=== PATIENT | male | born 1975 | race Caucasian/White ===

== ENCOUNTER 2020-12-19 11:15 | Emergency (ER) | payer BC, SELFPAY ==
[2020-12-19 11:20] VITALS: BP 119/77; PULSE 82; RESP 21; TEMP 37.1; O2SAT 97; BMI 51.7
--- NOTE | 2020-12-19 11:35 | HMH.EDUTC ---
[facility] [place] Disposition Clinical Impression: Venous stasis of both lower extremities Disposition: Home, Self-Care Condition on Discharge: Good Instructions: DI for Edema Due to Venous Stasis, Venous Stasis Ulcer Additional Instructions: follow up with pcp wear compression follow up with the lymph edema clinic at [facility] if worsen or no improvement retrun or be seen in ed Prescriptions: Mupirocin [Bactroban 2% Ointment 22gm tube] 1 applicatio TP BID 14 Days #1 tube Transmission Status: Pending to [id number] cephALEXin [cephALEXin 500mg capsule*] 500 mg PO BID 7 Days #14 cap Transmission Status: Pending to [id number] Referrals: Sanya Mendenhall MD [Primary Care Provider] - Time of Disposition: 11:50 Medical Decision Making - Julius Inquiry Pt receiving controlled substance: No Vital Signs: 12/19/20 11:20 Temperature 98.7 F Temperature Source Oral Pulse Rate [Left Brachial] 82 Respiratory Rate 21 Blood Pressure [Left Arm] 119/77 Blood Pressure Mean [Left Arm] 91 Blood Pressure Source [Left Arm] Automatic Cuff Blood Pressure Position [Left Arm] Sitting 02 Sat by Pulse Oximetry 97 Oxygen Delivery Method Room Air [facility] HPI - General Chief complaint: Urgent Treatment Center Stated complaint: sores on legs Time Seen by Provider: 12/19/20 11:35 Mode of Arrival: Ambulatory Source of Information: Patient Limitations: No Limitations Description of Symptoms (Recalled from Triage Doc. by RN): PATIENT C/O SORES TO RIGHT LOWER LEG FOR APPROX 1 MONTH. HE STATES HE HAS TAKEN MEDICINE FOR THE SORES BEFORE AND IS SUPPOSED TO WEAR COMPRESSION SOCKS BUT DOES NOT WEAR THEM. REDNESS AND SWELLING NOTED TO LEG HEENT Symptoms (Recalled from RN notes): No Resp Symptoms (Recalled from RN notes): No Skin Symptoms (Recalled from RN notes): Yes MS Symptoms (Recalled from RN notes): No Functional Status (Recalled from RN notes): WNL - History of Present Illness Provider Complaint: 45 yr old male presents for edema and swelling to rt lower leg for 1 month. Pt states he has taken meds in the past and was told by pcp to wear compression socks but he does not. Pt states most of the time swelling and sores on tonny lower ext and this time one sore on left lower leg and swelling but rt is swollen worse with 7 open areas noted. - Related Data Previous Rx's Medication Instructions Recorded Mupirocin [Bactroban 2% Ointment 1 applicatio TP BID 14 Days #1 tube 12/19/20 22gm tube] cephALEXin [cephALEXin 500mg 500 mg PO BID 7 Days #14 cap 12/19/20 capsule*] Allergies Allergy/AdvReac Type Severity Reaction Status Date / Time No Known Allergies Allergy Verified 12/19/20 11:34 - Worker's Comp Is this a Worker's Comp case?: No [facility] History - Hepatitis A Screen Drug use history?: No High risk sexual behaviors?: No History of sexually transmitted infection?: No Currently employed?: No Childcare worker?: No Do you have indoor plumbing?: Yes Do you have electricity?: Yes Attestation statement:: This patient has been screened for Hepatitis A risk factors. I have reviewed the patient's past medical history: Yes - Social History Alcohol Intake: never Occupational Status: other ROS Obtained: Yes Systems reviewed as appropriate & no additional complaints - Constitutional Constitutional: Reports system reviewed and no additional complaints, except as docu, Denies body ache, Denies fever(s) - Eyes Eyes: Reports system reviewed and no additional complaints, except as docu, Denies change in vision - ENT Ears, Nose, Mouth, and Throat: Reports system reviewed and no additional complaints, except as docu, Denies bleeding gums, Denies sore throat - Cardiovascular Cardiovascular: Reports system reviewed and no additional complaints, except as docu, Denies chest pain, Denies chest pain at rest, Denies chest pain with activity, Reports leg edema, Reports leg ulcers - Respiratory Respiratory: Repo
[2020-12-19 11:40] VITALS: BP 119/77; PULSE 82; RESP 21; TEMP 37.1; O2SAT 97
== END 2020-12-19 11:45 | disposition home or self-care (01) ==
PROVIDERS: Emergency Provider Nurse Practitioner Family; PCP Family Medicine
DX: I87.8 Other specified disorders of veins (principal); E66.01 Morbid (severe) obesity due to excess calories; Z68.43 Body mass index [BMI] 50.0-59.9, adult
CPT/HCPCS: 99202; G0463

== ENCOUNTER 2023-04-20 16:30 | Emergency (ER) | payer BC, SELFPAY ==
[2023-04-20 17:15] VITALS: BP 143/90; PULSE 88; RESP 18; TEMP 37.3; O2SAT 98; BMI 53.6
--- NOTE | 2023-04-20 17:37 | EXP.UTC ---
Discharge Plan Disposition Patient Disposition: Home, Self-Care Condition: Good Prescriptions Prescriptions: New amoxicillin 875 mg tablet 875 mg PO BID Qty: 20 0RF fluticasone propionate [Flonase Allergy Relief] 50 mcg/actuation spray,suspension 1 - 2 spray intranasal DAILY Qty: 16 0RF Rx Instructions: administer into each nostril benzonatate 100 mg capsule 100 mg PO TID PRN (Reason: cough) Qty: 30 0RF Referrals Follow up/Referrals: Sanya Mendenhall MD [Primary Care Provider] - See instructions Activity Restrictions/Add. Instructions Additional Instructions/Restrictions: *Monitor Temp, Over the counter Motrin or Tylenol as directed/as needed Tylenol every 4 hours and Motrin every 6 hours (as long as your family doctor has told you that you can take it) for fever or pain. and straight to ER if unable to lower temp less than 101.0 after medication given *Warm salt water gargles may help to soothe the throat *Throat Lozenges? *Warm fluids like tea with honey may help to soothe the throat? *Sleep elevated *Humidifier/Vaporizer Your throat swab was sent for culture. Those results are typically sent to your primary care. Be sure to follow up in 2-3 days with your family doctor/primary care physician if no improvement so they can review those result and treat if necessary. If you don?t have a primary care doctor, I recommend you get one but in the mean time, you will have to return to a walk in clinic Follow up IMMEDIATELY for new or worsening symptoms or no Noticeable improvement over the next 48-72 hours. 911 for difficulty breathing or swallowing Clinical Impressions Clinical Impression: Otitis media Qualifiers: Otitis media type: unspecified Laterality: left Qualified Code(s): H66.92 - Otitis media, unspecified, left ear Instructions Patient Instructions: Middle Ear Infection, Sore Throat, Cough Discharge ED Provider: Kalli Mayfield [facility] General Stated complaint: cough, ankur, soer throat Mode of Arrival: Ambulatory Source of Information: Patient Limitations: No Limitations Time Seen by Provider: 04/20/23 17:37 Description of Symptoms (Recalled from Triage Doc. by RN): PATIENT C/O COUGH, CONGESTION AND SORE THROAT X 2 DAYS HEENT Symptoms (Recalled from RN notes): Yes Resp Symptoms (Recalled from RN notes): Yes Skin Symptoms (Recalled from RN notes): No MS Symptoms (Recalled from RN notes): No Functional Status (Recalled from RN notes): WNL History of Present Illness Provider Complaint: Patient states that he hasnt been feeling well for about 2 days States that he has been having sinus congestion and drainage, sore throat, and cough States today he wasnt feel any better and his throat was hurting worse so he came in to get checked Related Data Previous Rx's Medication Instructions Recorded amoxicillin 875 mg tablet 875 mg PO BID #20 tabs 04/20/23 benzonatate 100 mg capsule 100 mg PO TID PRN cough #30 caps 04/20/23 fluticasone propionate 50 1 - 2 spray intranasal DAILY #16 04/20/23 mcg/actuation nasal grams spray,suspension (Flonase Allergy Relief) Allergies Allergy/AdvReac Type Severity Reaction Status Date / Time No Known Allergies Allergy Verified 12/19/20 11:34 Worker's Comp Is this a Worker's Comp case?: No [facility] Disclaimer: The information contained in this section may have been updated after the patient was seen, as this information can be updated by other users. Social History Smoking Status: Unknown if ever smoked alcohol intake: never current occupational status: other Travel in the last 8 weeks: None ROS Obtained: Yes All systems reviewed & no additional complaints except as documented and Yes Systems reviewed as appropriate & no additional complaints except as documented ENT Ears, Nose, Mouth, and Throat: Reports system reviewed and no additional complaints, except as documented, Reports
[2023-04-20 17:47] LABS: UTC Strep Screen (Rapid) Negative (Negative)
[2023-04-20 17:50] VITALS: BP 143/90; PULSE 88; RESP 18; TEMP 37.3; O2SAT 98
== END 2023-04-20 18:11 | disposition home or self-care (01) ==
PROVIDERS: Emergency Provider Nurse Practitioner; PCP Family Medicine
DX: H66.92 Otitis media, unspecified, left ear (principal); R05.9 Cough, unspecified; R07.0 Pain in throat
CPT/HCPCS: 87880; 99212; 99214; G0463

== ENCOUNTER 2023-07-04 15:15 | Emergency (ER) | payer BC, SELFPAY ==
[2023-07-04 16:00] VITALS: BP 119/71; PULSE 75; RESP 22; TEMP 36.9; O2SAT 97; BMI 54.1
--- NOTE | 2023-07-04 16:11 | CA_ITS ---
FINAL REPORT TECHNIQUE: Color Doppler, duplex Doppler and compression sonography of the right lower extremity venous system was performed. CLINICAL HISTORY: RULE OUT BLOOD CLOT, obesity, venous stasis, varicosities, unhealing wound FINDINGS: There is no evidence of deep venous thrombosis from the level of the groin to the calf. The veins are patent and compressible. IMPRESSION: No evidence of deep venous thrombosis right lower extremity. Reviewed, Interpreted and Dictated by Jesus Thomas III, MD Transcribed by Charito Kent Authenticated and [facility]
--- NOTE | 2023-07-04 16:38 | EXP.UTC ---
Discharge Plan Disposition Patient Disposition: Home, Self-Care Condition: Good Prescriptions Prescriptions: New sulfamethoxazole-trimethoprim [Bactrim DS] 800-160 mg tablet 1 tab PO Q12H Qty: 20 0RF cephalexin 500 mg capsule 500 mg PO QID 10 Days Qty: 40 0RF No Action amoxicillin 875 mg tablet 875 mg PO BID Qty: 20 0RF fluticasone propionate [Flonase Allergy Relief] 50 mcg/actuation spray,suspension 1 - 2 spray intranasal DAILY Qty: 16 0RF Rx Instructions: administer into each nostril benzonatate 100 mg capsule 100 mg PO TID PRN (Reason: cough) Qty: 30 0RF Referrals Follow up/Referrals: Sanya Mendenhall MD [Primary Care Provider] - See instructions Activity Restrictions/Add. Instructions Additional Instructions/Restrictions: Clean wound with antibacteral soap and water Make appointment with your Family Doctor and follow up so they can monitor wound healing Take medication as prescribe Your Wound culture should be back in the next 48 hours make sure to follow up to see what it shows Straight to ER if any worsening of symptoms, worsening of swelling or warmth Clinical Impressions Clinical Impression: Wound infection Cellulitis Qualifiers: Site of cellulitis: unspecified site Qualified Code(s): L03.90 - Cellulitis, unspecified Instructions Patient Instructions: Trimethoprim/Sulfamethoxazole (Alternative Therapy), Cellulitis, Cephalexin Discharge ED Provider: Kalli Mayfield [facility] General Stated complaint: sore on right leg Mode of Arrival: Ambulatory Source of Information: Patient Limitations: No Limitations Time Seen by Provider: 07/04/23 16:39 Description of Symptoms (Recalled from Triage Doc. by RN): PATIENT C/O OPEN WOUND, REDNESS AND SWELLING TO RIGHT LOWER LEG HEENT Symptoms (Recalled from RN notes): No Resp Symptoms (Recalled from RN notes): No Skin Symptoms (Recalled from RN notes): Yes MS Symptoms (Recalled from RN notes): No Functional Status (Recalled from RN notes): WNL History of Present Illness Provider Complaint: Patient states that he has been wearing compression socks on his right lower leg due to swelling and sometimes it will stick to the skin on his lower leg and it has pulled the skin off in a spot States that it has been there for about a month and he will get it healed up some then it it will peel the skin off again and for the last several day it has been looking red and having some drainage his was worried and wanted him to come in and get it checked Related Data Previous Rx's Medication Instructions Recorded amoxicillin 875 mg tablet 875 mg PO BID #20 tabs 04/20/23 benzonatate 100 mg capsule 100 mg PO TID PRN cough #30 caps 04/20/23 fluticasone propionate 50 1 - 2 spray intranasal DAILY #16 04/20/23 mcg/actuation nasal grams spray,suspension (Flonase Allergy Relief) cephalexin 500 mg capsule 500 mg PO QID 10 days #40 caps 07/04/23 sulfamethoxazole 800 1 tab PO Q12H #20 tabs 07/04/23 mg-trimethoprim 160 mg tablet (Bactrim DS) Allergies Allergy/AdvReac Type Severity Reaction Status Date / Time No Known Allergies Allergy Verified 12/19/20 11:34 Worker's Comp Is this a Worker's Comp case?: No [facility] Disclaimer: The information contained in this section may have been updated after the patient was seen, as this information can be updated by other users. Social History (Updated 04/20/23 @ 18:08 by aKlli Mayfield APRN) Smoking Status: Unknown if ever smoked alcohol intake: never current occupational status: other Travel in the last 8 weeks: None ROS Obtained: Yes All systems reviewed & no additional complaints except as documented and Yes Systems reviewed as appropriate & no additional complaints except as documented Constitutional Constitutional: Reports system reviewed and no additional complaints, except as documented and Reports as per HPI ENT Ears, Nose, Mouth, and Throat: Reports system revie
[2023-07-04 16:51] VITALS: BP 119/71; PULSE 75; RESP 22; TEMP 36.9; O2SAT 97
== END 2023-07-04 16:54 | disposition home or self-care (01) ==
PROVIDERS: Emergency Provider Nurse Practitioner; PCP Family Medicine
DX: L03.115 Cellulitis of right lower limb (principal); I87.2 Venous insufficiency (chronic) (peripheral)
CPT/HCPCS: 87070; 87077; 87186; 87205; 93971; 99212; 99214; G0463

== ENCOUNTER 2023-10-27 16:00 | Outpatient (RCR) | payer BC, SELFPAY ==
--- NOTE | 2023-08-22 12:27 | HMH.PTOPWND ---
Rehab Outpt Wound Evaluation Rehab OP Wound Evaluation Start: 08/22/23 09:45 Freq: Status: Active Protocol: Document 08/22/23 12:18 PHORNE (Rec: 08/22/23 12:27 PHORNE [id number]) E-signed By Teto Wilkinson, PT Subjective/History History History This is the initial PT eval for Jasiel Frederick, 48 yowm who presents with B LE edema x 3-4 yrs, R > L. He reports this episode of worsening edema was precipitated by a wound on his R medial hanson (abrasion) that was slow to heal. 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 He reports hx of L inguinal hernia repair, but nothing else significant. Subjective Subjective He currently has no c/o pain, but increased pain with increased edema which is 6/10 at worst. 1/4 TTP in the R lower leg. 2+ pitting edema noted to B lower legs. Mild to moderate hemosiderin staining noted to both lower legs. New diagnosis of cancer in past 12 No months? Lymphedema Eval Classification of Lymphedema Secondary Lymphedema Yes: CVI Stemmer's sign Stemmer's Sign no Skin Changes Dry Skin Yes Discoloration of Skin Yes Other Changes Yes Pain Scale Pain Scale (0-10) 6 Affected Extremities Areas Affected by Lymphedema/Edema Right Lower Extremity,Left Lower Extremity Lower Extremity Measurements Left MTP Measurement (cm) 26.0 Heel Measurement (cm) 37.0 10 cm Proximal to Lateral Malleoli 30.3 Measurement (cm) 20 cm Proximal to Lateral Malleoli 40.0 Measurement (cm) 30 cm Proximal to Lateral Malleoli 48.0 Measurement (cm) 40 cm Proximal to Lateral Malleoli 0 Measurement (cm) 50 cm Proximal to Lateral Malleoli 0 Measurement (cm) 60 cm Proximal to Lateral Malleoli 0 Measurement (cm) Lower Extremity Measurement Total (cm) 181.3 Right MTP Measurement (cm) 26.0 Heel Measurement (cm) 37.1 10 cm Proximal to Lateral Malleoli 30.8 Measurement (cm) 20 cm Proximal to Lateral Malleoli 42.3 Measurement (cm) 30 cm Proximal to Lateral Malleoli 48.2 Measurement (cm) 40 cm Proximal to Lateral Malleoli 0 Measurement (cm) 50 cm Proximal to Lateral Malleoli 0 Measurement (cm) 60 cm Proximal to Lateral Malleoli 0 Measurement (cm) Lower Extremity Measurement Total (cm) 184.4 Manual Lymphatic Drainage Treatment Area MLD Treatment Area Right Lower Extremity,Left Lower Extremity Wound Problems/Impairments Impairments Problems/Impairmments Palpation Tenderness,Impaired Walking,Impaired Standing, Impaired Household Care, Impaired Recreational Activities,Increased Edema, Lymphedema Present,Subjective C/O Pain,Impaired Self Care/ Self Management Prognosis Rehab Potential Good Clinical Impression Consistent with Diagnosis Yes Short Term Goals Number of Weeks 2 Decreased Palpation Tenderness Yes: 0/4 B LE Decrease Edema Yes: 1+ pitting edema Decrease Subjective C/O Pain Yes: 3/10 at worst Patient to Understand Lymphedema Yes Treatment and Exercises Decrease Girth Measurments by (cm) Yes: B LE total by 5 cm 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 Number of Weeks 4 Decrease Edema Yes: No pitting edema Decrease Lymphedema Yes: No fibrotic edema Decrease Subjective C/O Pain Yes: 1/10 at worst Patient to be Ind w/ HEP Yes Patient to be Ind w/ Donning/Stonewall Yes Compression Garments Patient to Adhere Lymphedema Precautions Yes Decrease Girth Measurments by (cm) Yes: B LE total by 15 cm ea Outpatient Therapy Plan of Care Treatment Plan May Include Therapeutic Exercise Including Home Yes Exercise Program Manual Therapy Techniques Yes Neuromuscular Re-education Yes Therapeutic Activities to Return to Yes Previous Functional/Work Level ADL/Self Care Education Yes Orthotics/Bracing/Splinting Yes Manual Lymphatic Drainage Yes Eval/Re-Eval Yes Frequency Times per week 2 Duration Number of Weeks 4 Addendums This patient is a candidate for social No or vocational rehab? Patient/Guardian verbally acknowledges Yes understanding of treatment program and consents to further treatment? Patient/Guardian verbally acknowledges Yes understanding of diagnosis, prognosis and goals for treatment? Eval Complexity PT Charges 48316 - High Complexity PHYSICIAN CERTIFICATION: I certify the specified therapy services for Jasiel Frederick are required, authorized, and reviewed every 30 days.
--- NOTE | 2023-09-21 17:07 | HMH.RHREAS ---
Rehab Reassessment Rehab OP Re-assessment Start: 08/22/23 09:45 Freq: Status: Active Protocol: Document 09/21/23 16:29 JUAN DANIELBROOKLYN (Rec: 09/21/23 17:06 LILIA [id number]) E-signed By Darwin May, PT Rehab Re-assessment Subjective Subjective Pt reports no pain in bliateral LE's this pm after ' having a really long day at work on my feet.' Objective Objective Notes edema: RLE total 186.7cm, +2. 3cm from I eval LLE total 186.9cm, +5.6cm from I eval edema hard and fibrotic in B/L LE's, no pitting edema noted TTP: B/L LE'S 0/4 Assessment Progress Assessment Slower Than Expected Assessment Notes improved TTP, slight increase in edema totals Patient goals met STG'S 4/5 Goals Not Met STG'S 5, LTG'S 04/28 Plan Plan Cont. w/initial POC Frequency of Therapy 1-2x/wk Duration of therapy 8wks Time and Billing Re-Eval Time 11 Re-Eval Billing Units 1 PHYSICIAN CERTIFICATION: I certify the specified therapy services for Jasiel Frederick are required, authorized, and reviewed every 30 days.
== END 2023-10-27 17:00 | disposition home or self-care (01) ==
LOC: PT 16:00
PROVIDERS: PCP Family Medicine; Visit Provider Physician Assistant
DX: R60.0 Localized edema (principal)
CPT/HCPCS: 97140; 97163; 97164

== ENCOUNTER 2024-01-05 16:15 | Emergency (ER) | payer BC, SELFPAY ==
[2024-01-05 16:30] VITALS: BP 144/73; PULSE 78; RESP 20; TEMP 36.7; O2SAT 98; BMI 53.8
--- NOTE | 2024-01-05 16:42 | ED_ITS ---
Discharge Plan Disposition Patient Disposition: Home, Self-Care Condition: Good Prescriptions Prescriptions: New mupirocin 2 % ointment 1 applic topical TID 10 Days Qty: 22 0RF triamcinolone acetonide 0.1 % ointment 1 applic topical TID Qty: 30 0RF Rx Instructions: apply to lesion on forearm as prescribed cephalexin 500 mg tablet 500 mg PO QID 7 Days Qty: 28 0RF Referrals Follow up/Referrals: Sanya Mendenhall MD [Primary Care Provider] - See instructions Feliz Aguilar MD [Referring] - See instructions (call office for appointment) Nicol Martinez MD [Referring] - See instructions (call office for appointment) Activity Restrictions/Add. Instructions Additional Instructions/Restrictions: Follow up with your Family Doctor or Dermatology if no improvement or any worsening of symptoms Take medication as prescribed Use topical medication as prescribed Over the counter Benadryl may help with itching Do not use harsh soaps on area Straight to ER if any life threatening symptoms Clinical Impressions Clinical Impression: Skin problem Instructions Patient Instructions: DI for Cellulitis -- Adult, DI for Rash Discharge ED Provider: Kalli Mayfield [facility] [place] General Stated complaint: Sore spot on right arm Mode of Arrival: Ambulatory Source of Information: Patient Limitations: No Limitations Time Seen by Provider: 01/05/24 16:42 Description of Symptoms (Recalled from Triage Doc. by RN): PATIENT C/O REDDENED AREA TO RIGHT FOREARM WITH SMALL BLISTERS AND SOME DRAINAGE NOTED HEENT Symptoms (Recalled from RN notes): No Resp Symptoms (Recalled from RN notes): No Skin Symptoms (Recalled from RN notes): Yes MS Symptoms (Recalled from RN notes): No Functional Status (Recalled from RN notes): WNL History of Present Illness Provider Complaint: Patient states that he works in [employer] at [employer] and wears sleeves at work States he noticed a small spot on his right forearm a little while back and showed it to his PCP but it was small and had been putting neosporin on it and they was watching it States now it is larger, weeps at times and noticed it was looking red around it States he has a hx of cellulitis and was worried that it has got infected or something so he came in Related Data Previous Rx's Medication Instructions Recorded cephalexin 500 mg tablet 500 mg PO QID 7 days #28 tabs 01/05/24 mupirocin 2 % topical ointment 1 applic topical TID 10 days #22 01/05/24 grams triamcinolone acetonide 0.1 % 1 applic topical TID #30 grams 01/05/24 topical ointment Allergies Allergy/AdvReac Type Severity Reaction Status Date / Time No Known Allergies Allergy Verified 12/19/20 11:34 Worker's Comp Is this a Worker's Comp case?: No [facility] Disclaimer: The information contained in this section may have been updated after the patient was seen, as this information can be updated by other users. Social History (Updated 04/20/23 @ 18:08 by Kalli Mayfield APRN) Smoking Status: Unknown if ever smoked alcohol intake: never current occupational status: other Travel in the last 8 weeks: None ROS Obtained: Yes All systems reviewed & no additional complaints except as documented and Yes Systems reviewed as appropriate & no additional complaints except as documented Constitutional Constitutional: Reports system reviewed and no additional complaints, except as documented and Reports as per HPI Cardiovascular Cardiovascular: Reports system reviewed and no additional complaints, except as documented and Reports as per HPI Respiratory Respiratory: Reports system reviewed and no additional complaints, except as documented and Reports as per HPI Gastrointestinal Gastrointestingal: Reports system reviewed and no additional complaints, except as documented and as per HPI Musculoskeletal Musculoskeletal: Reports system reviewed and no additional complaints, except as documented and Reports as per HPI Integumentary/Breasts Skin/Breast: Reports system reviewed and no additional complaints, except as documented and Reports as per HPI Comments: Red area on right forearm that has small blister like lesions on it and red and warm Physical Exam General General appearance: alert and in no apparent distress Respiratory Respiratory exam: Present normal lung sounds bilaterally; Absent respiratory distress or wheezes Cardiovascular Cardiovascular exam: Present regular rate, normal rhythm and normal heart sounds Neurological Exam Neurological exam: Present alert, oriented X3 and normal gait Skin Skin exam: Present other Expanded Skin Exam Body image: 2 1. red area noted with small blister lesions with dried flaky crusty like areas appear to be from slight drainage Medical Decision Making Julius Inquiry Pt receiving controlled substance: No Julius was queried for this patient: No Vital Signs: 01/05/24 16:30 Temperature 98.1 F Temperature Source Oral Pulse Rate [Left Brachial] 78 Respiratory Rate 20 Blood Pressure [Left Arm] 144/73 H Blood Pressure Mean [Left Arm] 96 Blood Pressure Source [Left Arm] Automatic Cuff Blood Pressure Position [Left Arm] Sitting 02 Sat by Pulse Oximetry 98 Oxygen Delivery Method Room Air
[2024-01-05 16:52] VITALS: BP 144/73; PULSE 78; RESP 20; TEMP 36.7; O2SAT 98
== END 2024-01-05 17:04 | disposition home or self-care (01) ==
PROVIDERS: Emergency Provider Nurse Practitioner; PCP Family Medicine
DX: S50.821A Blister (nonthermal) of right forearm, initial encounter (principal); W89.0XXA Exposure to welding light (arc), initial encounter; Y99.0 Civilian activity done for income or pay
CPT/HCPCS: 99212; 99214; G0463

== ENCOUNTER 2024-02-14 16:51 | Emergency (ER) | payer BC, SELFPAY ==
[2024-02-14 17:00] VITALS: BP 150/81; PULSE 79; RESP 18; TEMP 36.8; O2SAT 98; BMI 51.8
--- NOTE | 2024-02-14 17:03 | EXP.UTC ---
Discharge Plan Disposition Patient Disposition: Home, Self-Care Condition: Good Prescriptions Prescriptions: New triamcinolone acetonide 0.1 % cream 1 applic topical BID PRN (Reason: itching) Qty: 30 0RF methylprednisolone 4 mg Tablets,Dose Pack 4 mg PO DIRECTED 6 Days Qty: 21 0RF Rx Instructions: Take 1 pack as directed for 6 days Referrals Follow up/Referrals: Sanya Mendenhall MD [Primary Care Provider] - See instructions Activity Restrictions/Add. Instructions Additional Instructions/Restrictions: Try to identify and avoid contact with the offending substance. Don't start the oral steroids until tomorrow. Take over the counter benedryl for itching. Don't put the topical steroids (triamcinolone) on your face or your groin. Follow up with your regular doctor. GO TO THE ER FOR ANY WORSENING SYMPTOMS OR CONCERNS Clinical Impressions Clinical Impression: Contact dermatitis Instructions Patient Instructions: Contact Dermatitis, DI for Contact Dermatitis, Dexamethasone Injection Discharge ED Provider: Dejuan Brennan [facility] General Stated complaint: rash arms and legs Time Seen by Provider: 02/14/24 17:03 History of Present Illness Provider Complaint: He states that for the past 3 days he has had an itchy rash on his anterior thighs, lower abdomen, and forearms. Related Data Previous Rx's Medication Instructions Recorded methylprednisolone 4 mg tablets in 4 mg PO DIRECTED 6 days #21 tabs 02/14/24 a dose pack triamcinolone acetonide 0.1 % 1 applic topical BID PRN itching 02/14/24 topical cream #30 grams Allergies Allergy/AdvReac Type Severity Reaction Status Date / Time No Known Allergies Allergy Verified 02/14/24 17:06 [facility] Disclaimer: The information contained in this section may have been updated after the patient was seen, as this information can be updated by other users. Social History Smoking Status: Unknown if ever smoked alcohol intake: never current occupational status: other Travel in the last 8 weeks: None ROS Obtained: Yes All systems reviewed & no additional complaints except as documented Constitutional Constitutional: Denies chills and Denies fever(s) Eyes Eyes: Denies eye discharge ENT Ears, Nose, Mouth, and Throat: Denies dizziness, Denies otalgia and Denies sore throat Cardiovascular Cardiovascular: Denies chest pain Respiratory Respiratory: Denies shortness of breath, Denies chest congestion, Denies cough, Denies stridor and Denies wheezing Gastrointestinal Gastrointestingal: Denies nausea or vomiting Musculoskeletal Musculoskeletal: Reports system reviewed and no additional complaints, except as documented and Denies arthralgias Integumentary/Breasts Skin/Breast: Reports as per HPI and Reports rash Neurologic Neurologic: Denies dizziness and Denies paresthesias Allergic/Immunologic Allergic/Immunologic: Denies wheezing Physical Exam General General appearance: alert and in no apparent distress Head Head exam: atraumatic, normocephalic and normal inspection Eye Eye exam: Present normal appearance, PERRL and EOMI ENT ENT exam: Present normal exam, normal oropharynx, mucous membranes moist, TM's normal bilaterally and normal external ear exam Neck Neck exam: Present normal inspection, full ROM and trachea midline; Absent meningismus or lymphadenopathy Chest Chest inspection: Present normal inspection and symmetric chest wall rise; Absent tenderness Respiratory Respiratory exam: Present normal lung sounds bilaterally; Absent respiratory distress Cardiovascular Cardiovascular exam: Present regular rate and normal rhythm; Absent JVD Abdominal Exam Abdominal exam: Present soft and normal bowel sounds; Absent distention, tenderness or guarding Extremities Exam Extremities exam: Present normal inspection, full ROM and normal capillary refill; Absent calf tenderness Back Exam Back exam: Present normal inspection; Absent tenderness Neurological Exam Neurological exam: Present alert and oriented X3 Psychiatric Psychiatric exam: Present normal affect and normal mood Skin Skin exam: Present rash (there are maculopapular lesions on his thighs and forearms, no open wounds, no drainage. ) Lymphatic Lymphatic Findings: no adenopathy Medical Decision Making Medical Records Medical records reviewed: No I reviewed the patient's medical records. Julius Inquiry Pt receiving controlled substance: No
[2024-02-14] MEDS: DEXAMETHASONE 4MG/ML 1ML VIAL 8 MG IM (17:28)
[2024-02-14 18:00] VITALS: BP 152/81; PULSE 79; RESP 18; TEMP 36.8; O2SAT 98
== END 2024-02-14 18:00 | disposition home or self-care (01) ==
PROVIDERS: Emergency Provider Nurse Practitioner Family; PCP Family Medicine
DX: L25.9 Unspecified contact dermatitis, unspecified cause (principal)
CPT/HCPCS: 96372; 99212; 99214; G0463

== ENCOUNTER 2024-03-13 17:00 | Emergency (ER) | payer BC, SELFPAY ==
[2024-03-13 17:10] VITALS: BP 140/81; PULSE 65; RESP 18; TEMP 36.6; O2SAT 98; BMI 53.1
--- NOTE | 2024-03-13 17:47 | EXP.UTC ---
Discharge Plan Disposition Patient Disposition: Home, Self-Care Condition: Good Prescriptions Prescriptions: New sulfamethoxazole-trimethoprim [Bactrim DS] 800-160 mg Tablet 1 tab PO BID Qty: 20 0RF cephalexin 500 mg capsule 500 mg PO QID Qty: 40 0RF methylprednisolone 4 mg Tablets,Dose Pack 4 mg PO DIRECTED 6 Days Qty: 21 0RF Rx Instructions: Take 1 pack as directed for 6 days Referrals Follow up/Referrals: Sanya Mendenhall MD [Primary Care Provider] - See instructions Ofelia Rivera DPM [Staff Physician] - See instructions Activity Restrictions/Add. Instructions Additional Instructions/Restrictions: Rest the extremity, Elevate the extremity as tolerated while you are resting. Take the medications as directed. Follow up with Dr. Rivera (podiatry). I put in a referral but you need to call her office and schedule an appointment. Follow up with your regular doctor. GO TO THE ER FOR ANY WORSENING SYMPTOMS Clinical Impressions Clinical Impression: Cellulitis of left foot Stand Alone Forms Stand Alone Forms: Work/School Release Instructions Patient Instructions: Cellulitis Discharge ED Provider: Dejuan Brennan [facility] General Stated complaint: Blisters,red & swollen left foot no injury Mode of Arrival: Ambulatory Source of Information: Patient Limitations: No Limitations Time Seen by Provider: 03/13/24 17:47 Description of Symptoms (Recalled from Triage Doc. by RN): Pt's symptoms are left foot is swollen and has blisters. HEENT Symptoms (Recalled from RN notes): No Resp Symptoms (Recalled from RN notes): No Skin Symptoms (Recalled from RN notes): Yes MS Symptoms (Recalled from RN notes): No Functional Status (Recalled from RN notes): n/a History of Present Illness Provider Complaint: He states that for the past 3 days he has had redness and pain of his left foot around the base of his toes. He denies any injury. He states that he has had itching at the site also. He is not a known diabetic. Related Data Previous Rx's Medication Instructions Recorded cephalexin 500 mg capsule 500 mg PO QID #40 caps 03/13/24 methylprednisolone 4 mg tablets in 4 mg PO DIRECTED 6 days #21 tabs 03/13/24 a dose pack sulfamethoxazole 800 1 tab PO BID #20 tabs 03/13/24 mg-trimethoprim 160 mg tablet (Bactrim DS) Allergies Allergy/AdvReac Type Severity Reaction Status Date / Time No Known Allergies Allergy Verified 03/13/24 17:31 Worker's Comp Is this a Worker's Comp case?: No [facility] Disclaimer: The information contained in this section may have been updated after the patient was seen, as this information can be updated by other users. Social History Smoking Status: Unknown if ever smoked alcohol intake: never current occupational status: other Travel in the last 8 weeks: None ROS Obtained: Yes All systems reviewed & no additional complaints except as documented Constitutional Constitutional: Denies chills and Denies fever(s) Eyes Eyes: Denies eye discharge ENT Ears, Nose, Mouth, and Throat: Denies dizziness, Denies otalgia and Denies sore throat Cardiovascular Cardiovascular: Denies chest pain Respiratory Respiratory: Denies shortness of breath, Denies chest congestion, Denies cough, Denies stridor and Denies wheezing Gastrointestinal Gastrointestingal: Denies nausea or vomiting Musculoskeletal Musculoskeletal: Reports system reviewed and no additional complaints, except as documented and Denies arthralgias Integumentary/Breasts Skin/Breast: Reports as per HPI Neurologic Neurologic: Denies dizziness and Denies paresthesias Allergic/Immunologic Allergic/Immunologic: Denies wheezing Physical Exam General General appearance: alert and in no apparent distress Head Head exam: atraumatic, normocephalic and normal inspection Eye Eye exam: Present normal appearance, PERRL and EOMI ENT ENT exam: Present normal exam, normal oropharynx, mucous membranes moist, TM's normal bilaterally and normal external ear exam Neck Neck exam: Present normal inspection, full ROM and trachea midline; Absent meningismus or lymphadenopathy Chest Chest inspection: Present normal inspection and symmetric chest wall rise; Absent tenderness Respiratory Respiratory exam: Present normal lung sounds bilaterally; Absent respiratory distress Cardiovascular Cardiovascular exam: Present regular rate and normal rhythm; Absent JVD Abdominal Exam Abdominal exam: Present soft and normal bowel sounds; Absent distention, tenderness or guarding Extremities Exam Extremities exam: Present normal inspection, full ROM and normal capillary refill; Absent calf tenderness Back Exam Back exam: Present normal inspection; Absent tenderness Neurological Exam Neurological exam: Present alert and oriented X3 Psychiatric Psychiatric exam: Present normal affect and normal mood Skin Skin exam: Present erythema (there is erythema noted on the top of his left foot around the base of his toes. no open wounds and no drainage. mild edema is noted.) Lymphatic Lymphatic Findings: no adenopathy Medical Decision Making Medical Records Medical records reviewed: No I reviewed the patient's medical records. Julius Inquiry Pt receiving controlled substance: No Vital Signs: 03/13/24 17:10 Temperature 97.9 F Temperature Source Oral Pulse Rate [Right Radial] 65 Respiratory Rate 18 Blood Pressure [Right Arm] 140/81 Blood Pressure Mean [Right Arm] 100 Blood Pressure Source [Right Arm] Automatic Cuff Blood Pressure Position [Right Arm] Sitting 02 Sat by Pulse Oximetry 98 Oxygen Delivery Method Room Air
[2024-03-13] MEDS: LIDOCAINE 1% 5ML PF VIAL IM (17:57)
[2024-03-13] MEDS: cefTRIAXone 1GM VIAL 1 GM IM (17:57)
[2024-03-13 18:27] VITALS: BP 140/81; PULSE 65; RESP 18; TEMP 36.6; O2SAT 98
== END 2024-03-13 18:26 | disposition home or self-care (01) ==
PROVIDERS: Emergency Provider Nurse Practitioner Family; PCP Family Medicine
DX: L03.116 Cellulitis of left lower limb (principal)
CPT/HCPCS: 96372; 99212; 99214; G0463; J0696

== ENCOUNTER 2024-04-05 18:26 | Emergency (ER) | payer BC, SELFPAY ==
[2024-04-05 18:55] VITALS: BP 140/84; PULSE 99; RESP 18; TEMP 36.9; O2SAT 95; BMI 50.2
--- NOTE | 2024-04-05 19:01 | ED_ITS ---
Discharge Plan Disposition Patient Disposition: Home, Self-Care Condition: Good Prescriptions Prescriptions: New ondansetron 8 mg tablet,disintegrating 8 mg PO TID PRN (Reason: Nausea) Qty: 30 0RF Referrals Follow up/Referrals: Sanya Mendenhall MD [Primary Care Provider] - See instructions Activity Restrictions/Add. Instructions Additional Instructions/Restrictions: Hold zepbound Diarrhea panel if it persists Clinical Impressions Clinical Impression: Diarrhea Instructions Patient Instructions: DI for Diarrhea and Traveler's Diarrhea -- Adult Discharge ED Provider: Lashonda Velazquez [facility] [place] General Stated complaint: stomach pain,diarrhea Time Seen by Provider: 04/05/24 19:01 History of Present Illness Provider Complaint: Patient presents with diarrhea. Has had diarrhea for 5 days. No fever. He did restart Zepbound 2 days prior. He also just finished antibiotics a week ago. Onset (ago): day(s) (5) Location: abdomen Relieving factors: none Exacerbating factors: none Associated symptoms: denies other symptoms Treatments prior to arrival: none Related Data Previous Rx's Medication Instructions Recorded ondansetron 8 mg disintegrating 8 mg PO TID PRN Nausea #30 tabs 04/05/24 tablet Allergies Allergy/AdvReac Type Severity Reaction Status Date / Time No Known Allergies Allergy Verified 04/05/24 19:02 [facility] Disclaimer: The information contained in this section may have been updated after the patient was seen, as this information can be updated by other users. Social History Smoking Status: Unknown if ever smoked alcohol intake: never current occupational status: other Travel in the last 8 weeks: None ROS Obtained: Yes All systems reviewed & no additional complaints except as documented Gastrointestinal Gastrointestingal: Reports loose stools Physical Exam General General appearance: alert and in no apparent distress Head Head exam: atraumatic, normocephalic and normal inspection Eye Eye exam: Present normal appearance, PERRL and EOMI ENT ENT exam: Present normal exam, normal oropharynx, mucous membranes moist, TM's normal bilaterally and normal external ear exam Neck Neck exam: Present normal inspection, full ROM and trachea midline; Absent meningismus or lymphadenopathy Chest Chest inspection: Present normal inspection and symmetric chest wall rise; Absent tenderness Respiratory Respiratory exam: Present normal lung sounds bilaterally; Absent respiratory distress Cardiovascular Cardiovascular exam: Present regular rate and normal rhythm; Absent JVD Abdominal Exam Abdominal exam: Present soft, tenderness and hyperactive bowel sounds; Absent distention or guarding Extremities Exam Extremities exam: Present normal inspection, full ROM and normal capillary refill; Absent calf tenderness Back Exam Back exam: Present normal inspection; Absent tenderness Neurological Exam Neurological exam: Present alert and oriented X3 Psychiatric Psychiatric exam: Present normal affect and normal mood Skin Skin exam: Present erythema (there is erythema noted on the top of his left foot around the base of his toes. no open wounds and no drainage. mild edema is noted.) Lymphatic Lymphatic Findings: no adenopathy Medical Decision Making Julius Inquiry Pt receiving controlled substance: No
[2024-04-05 19:44] VITALS: BP 140/84; PULSE 99; RESP 18; TEMP 36.9; O2SAT 95
== END 2024-04-05 19:44 | disposition home or self-care (01) ==
PROVIDERS: Emergency Provider Physician Assistant; PCP Family Medicine
DX: R19.7 Diarrhea, unspecified (principal)
CPT/HCPCS: 99212; 99214; G0463

== ENCOUNTER 2024-04-07 09:11 | Emergency (ER) | payer BC, SELFPAY ==
[2024-04-07 09:13] VITALS: BP 134/78; PULSE 92; RESP 20; TEMP 36.6; O2SAT 100; BMI 48.4
--- NOTE | 2024-04-07 09:14 | PC.NURSE ---
DR FREED AT BEDSIDE
--- NOTE | 2024-04-07 09:26 | ED_ITS ---
Discharge Plan Disposition Patient Disposition: Home, Self-Care Prescriptions Prescriptions: New potassium chloride [Klor-Con M20] 20 mEq tablet,ER particles/crystals 40 meq PO DAILY Qty: 2 0RF promethazine 12.5 mg tablet 12.5 mg PO Q6H PRN (Reason: nausea and vomiting) Qty: 12 0RF Rx Instructions: Last dose no later than 3 hours before bedtime, do not combine with Zofran. No Action ondansetron 8 mg tablet,disintegrating 8 mg PO TID PRN (Reason: Nausea) Qty: 30 0RF Referrals Follow up/Referrals: Sanya Mendenhall MD [Primary Care Provider] - See instructions Activity Restrictions/Add. Instructions Additional Instructions/Restrictions: At this time it was felt you are safe to be discharged home. If new or worsening symptoms please do not hesitate to return the emergency department. Please take your potassium the next 2 days and follow-up with your family doctor in 48 hours for repeat potassium check and evaluation. Clinical Impressions Clinical Impression: Adverse effects of medication, Diarrhea, Vomiting, Acute hypokalemia Instructions Patient Instructions: DI for Diarrhea and Traveler's Diarrhea -- Adult, DI for Diarrhea and Traveler's Diarrhea -- Child, DI for Nausea -- Adult, DI for Nausea -- Child Discharge ED Provider: Kenan Alegria General Adult HPI General Chief complaint: Nausea/Vomiting/Diarrhea Stated complaint: diarrhea, weakness, vomitting Time Seen by Provider: 04/07/24 09:14 History of Present Illness HPI narrative: Patient is a 49-year-old male who presents emergency department for evaluation of nausea, vomiting, diarrhea. Diarrhea is the predominant symptom that is nonbloody. Over the last few months he has had multiple rounds of antibiotics for lower extremity nonhealing wounds. He is also on Zepbound for which he was previously on 2.5 mg, was unable to fill his prescription due to supply shortage for 1 month, filled his prescription with 5 mg and took it approximately a week ago. Since then he has had intractable diarrhea. No reported chest pain. Patient went to urgent care during the week and was prescribed ondansetron which symptoms have been refractory. He did provide a stool sample at urgent care which is negative on my review for acute analytes detected. Due to persistent symptoms he presents here for continued evaluation. Related Data Previous Rx's Medication Instructions Recorded ondansetron 8 mg disintegrating 8 mg PO TID PRN Nausea #30 tabs 04/05/24 tablet potassium chloride 20 mEq 40 meq (2 x 20 mEq) PO DAILY low 04/07/24 tablet,extended potassium #2 tabs release(part/cryst) (Klor-Con M) promethazine 12.5 mg tablet 12.5 mg PO Q6H PRN nausea and 04/07/24 vomiting #12 tabs Allergies Allergy/AdvReac Type Severity Reaction Status Date / Time No Known Allergies Allergy Verified 04/05/24 19:02 [facility] Disclaimer: The information contained in this section may have been updated after the patient was seen, as this information can be updated by other users. Social History Smoking Status: Never smoker alcohol intake: never current occupational status: other Travel in the last 8 weeks: None ROS Obtained: Yes Systems reviewed as appropriate & no additional complaints except as documented Physical Exam General General appearance: alert and in no apparent distress Head Head exam: atraumatic and normocephalic Eye Eye exam: Present PERRL ENT ENT exam: Present mucous membranes moist Neck Neck exam: Present normal inspection Chest Chest inspection: Present normal inspection and symmetric chest wall rise Respiratory Respiratory exam: Absent respiratory distress Cardiovascular Cardiovascular exam: Present regular rate and normal rhythm Abdominal Exam Abdominal exam: Present soft; Absent tenderness Extremities Exam Extremities exam: Present normal inspection Neurological Exam Neurological exam: Present alert Psychiatric Psychiatric exam: Present normal affect Skin Skin exam: Present warm and dry Medical Decision Making Julius Inquiry Pt receiving controlled substance: No Vital Signs: 04/07/24 09:13 04/07/24 10:01 04/07/24 10:31 Temperature 97.9 F Temperature Source Oral Pulse Rate 85 86 Pulse Rate [Right] 92 H Respiratory Rate 20 Blood Pressure 116/76 108/75 L Blood Pressure [Right Arm] 134/78 Blood Pressure Mean [Right Arm] 96 02 Sat by Pulse Oximetry 100 96 99 Oxygen Delivery Method Room Air Room Air Room Air Lab Data Lab Results 04/07/24 09:30: WBC 11.1 H, RBC 5.98, Hgb 18.7 H, Hct 55.4 H, MCV 92.7, MCH 31.3 H, MCHC 33.7, RDW 14.0, Plt Count 453 H, MPV 8.1, Neut % (Auto) 59.2, Lymph % (Auto) 27.0, Crisp % (Auto) 10.5 H, Eos % (Auto) 3.3, Baso % (Auto) 6.3 H, Neut # (Auto) 6.5, Lymph # (Auto) 3.0, Crisp # (Auto) 1.2 H, Eos # (Auto) 0.4, Baso # (Auto) 0.7 H, Sodium 137, Potassium 2.9 L*, Chloride 103, Carbon Dioxide 23, Anion Gap 13.9, BUN 11, Creatinine 1.10, Estimated Creat Clear 79, Estimated GFR 71, Est GFR ( Amer) 85, Glucose 133 H, Calcium 8.8, Total Bilirubin 0.7, AST 25, ALT 26, Alkaline Phosphatase 86, Total Protein 7.6, Albumin 4.3, G lobulin 3.3 H, Albumin/Globulin Ratio 1.3, Lipase 44 04/07/24 09:30 04/07/24 09:30 Orders (Tests/Meds): ED MEDICATIONS Discontinued Medications Generic Name Dose Route Start Last Admin Trade Name Freq PRN Reason Stop Dose Admin Lactated Ringer's 1,000 mls @ 999 mls/hr 04/07/24 09:25 04/07/24 09:37 Lactated Ringer's 1000 Ml Bag IV 04/07/24 10:25 999 mls/hr .Q1H1M ONE Administration Potassium Chloride/Water 100 mls @ 50 mls/hr 04/07/24 10:01 04/07/24 10:18 Potassium Chloride 20meq/100ml Ivpb IV 04/07/24 12:00 50 mls/hr ONCE ONE Administration Potassium Chloride 40 meq 04/07/24 10:01 04/07/24 10:18 Potassium Chloride 20meq Tab PO 04/07/24 10:02 40 meq ONCE ONE Administration Promethazine HCl 12.5 mg 04/07/24 09:25 04/07/24 09:36 Promethazine Hcl 25mg/Ml 1ml Vial IV 04/07/24 09:26 12.5 mg ONCE ONE Administration Sodium Chloride 25 ml 04/07/24 09:25 04/07/24 09:36 Sodium Chloride 0.9% 25ml Bag IV 04/07/24 09:26 25 ml ONCE ONE Administration ORDERS Category Date Time Status CBC w/Auto Diff [Complete Blood Count Auto Diff] Stat Lab 04/07/24 09:30 Completed CMP [Comprehensive Metabolic Panel] Stat Lab 04/07/24 09:30 Completed Lipase Stat Lab 04/07/24 09:30 Completed EKG Request [ECG Request] Stat Y 04/07/24 10:04 Ordered ECG Data Tracing #1: Independently interpreted by me, rate is 85, rhythm is sinus with PVCs, axis is leftward deviated, no ST elevation in anatomical contiguous leads, QTc 417. Medical Decision Narrative: In summary patient is a 49-year-old male with past medical history described above who presents emergency department for evaluation of vomiting and diarrhea in the setting of previous antibiotic administration, recent up titration after medication free interval of tirzepatide. Patient is hemodynamically stable nontoxic-appearing upon arrival, afebrile. Differential diagnosis includes medication side effect, pancreatitis, viral gastroenteritis, gut rohith dysregulation in the setting of antibiotic administration, among others. Given negative stool sample I suspect medication side effect versus viral syndrome. Workup will be conducted with hematologic labs. Initial inventions include crystalloid bolus, Phenergan. Initial workup reviewed by me, hematologic labs remarkable for significant hypokalemia which will be repleted with 40 mg orally and 20 mg IV. EKG will be obtained. The patient was placed in observation status at 10:05 AM. Medical necessity for observational status is potassium repletion, cardiac monitoring, p.o. trial. The patient was provided serial reevaluations and cardiac monitoring while awaiting results. Results of testing during observation remarkable for no cardiac dysrhythmias during potassium repletion. Because of this, the fact that patient does not have a long QT and patient's ability to tolerate p.o. I feel the patient can be discharged with PCP follow-up for repeat labs. Patient will be discharged with a course of Phenergan and was given return precautions. Total time in observation 2 hours and 14 minutes. Critical Care Critical Care Time Critical Care Time: Yes Attestation: On 04/07/24, the high probability of a clinically significant, sudden or life threatening deterioration of the following system(s) required my full and direct attention, intervention and personal management. The time I documented below is in addition to time spent performing reported procedures but includes the following listed in this critical care notation. Total Time Total Critical Care Time: 35
[2024-04-07] MEDS: PROMETHAZINE HCL 25MG/ML 1ML VIAL 12.5 MG IV (09:36)
[2024-04-07] MEDS: SODIUM CHLORIDE 0.9% 25ML BAG 25 ML IV (09:36)
[2024-04-07] MEDS: LACTATED RINGERS 1000ML 1,000 ML 999 ML IV (09:37)
--- NOTE | 2024-04-07 09:46 | PC.NURSE ---
PT provided with ice chips, water, and gatorade. No other needs voiced at this time. Call light within reach
[2024-04-07 09:47] LABS: Eosinophils # 0.4 K/mm3 (0.0-0.4)
[2024-04-07 09:51] LABS: Basophils # 0.7 K/mm3 (0-0.2); Basophils % 6.3 % (0.1-2.0); Chloride 103 mmol/L (98-107); Eosinophils % 3.3 % (0.1-12.0); Hematocrit 55.4 % (42.0-52.0); Mean Corpuscular HGB Conc 33.7 g/dL (31.8-35.4); Mean Corpuscular Hemoglobin 31.3 pg (27.0-31.2); Mean Corpuscular Volume 92.7 fl (80-94); Mean Platelet Volume 8.1 fl (7.4-10.4); Monocytes # 1.2 K/mm3 (0.1-1.0); Monocytes % 10.5 % (1.7-9.3); Neutrophils # 6.5 K/mm3 (1.8-7.8); Neutrophils % 59.2 % (37.0-80.0); Platelet Count 453 K/mm3 (142-424); Red Blood Count 5.98 M/mm3 (4.60-6.20); Sodium 137 mmol/L (136-145); White Blood Count 11.1 K/mm3 (4.8-10.8)
[2024-04-07 09:53] LABS: Hemoglobin 18.7 g/dL (14.1-18.0)
[2024-04-07 09:54] LABS: Alanine Aminotransferase 26 U/L (12-78); Albumin Level 4.3 g/dl (3.5-5.0); Albumin/Globulin Ratio 1.3 (1.1-1.8); Alkaline Phosphatase 86 U/L (38-126); Anion Gap 13.9 mEq/L (5-15); Aspartate Amino Transferase 25 U/L (17-59); Bilirubin,Total 0.7 mg/dl (0.2-1.3); Blood Urea Nitrogen 11 mg/dl (9-20); Calcium 8.8 mg/dl (8.4-10.2); Carbon Dioxide 23 mmol/L (22.0-30.0); Creatinine Clearance Estimated 79 mL/min (50-200); Estimated Glomerular Filt Rate 71 ml/min (>60); GFR (African American) 85 ML/MIN (>60); Globulin 3.3 g/dL (1.3-3.2); Glucose 133 mg/dl (74-100); Lipase 44 U/L (23-300); Total Protein,Serum 7.6 g/dl (6.3-8.2)
[2024-04-07 10:00] LABS: Potassium 2.9 mmoL/L (3.5-5.1)
[2024-04-07 10:01] VITALS: BP 116/76; PULSE 85; O2SAT 96
--- NOTE | 2024-04-07 10:01 | PC.NURSE ---
Dr. Alegria notified of Potassium of 2.9.
--- NOTE | 2024-04-07 10:11 | ECG_ITS ---
APPROVED REPORT Exam: Resting ECG HR:85 bpm ECG Measurements Heart Rate 85 AXES KS 132 P 64 QRSd 125 QRS -67 QT 375 T 75 QTc 417 Conclusion SINUS RHYTHM WITH FREQUENT VENTRICULAR PREMATURE COMPLEXES LEFT ANTERIOR FASCICULAR BLOCK [QRS AXIS <= -45, QR IN I, RS IN II] Electronically signed by : EMMY FREED, 04/07/2024 12:13:37
[2024-04-07] MEDS: KCl 20mEq/100ml 100 ML 50 MEQ IV (10:18)
[2024-04-07] MEDS: POTASSIUM CHLORIDE 20MEQ TAB 40 MEQ PO (10:18)
[2024-04-07 10:31] VITALS: BP 108/75; PULSE 86; O2SAT 99
[2024-04-07 12:28] VITALS: BP 108/75; PULSE 71; RESP 18; TEMP 37.1; O2SAT 95
== END 2024-04-07 12:36 | disposition home or self-care (01) ==
PROVIDERS: Emergency Provider Emergency Medicine; PCP Family Medicine
DX: E87.6 Hypokalemia (principal); I49.3 Ventricular premature depolarization; I44.4 Left anterior fascicular block; R11.2 Nausea with vomiting, unspecified; R19.7 Diarrhea, unspecified; T50.995A Adverse effect of other drugs, medicaments and biological substances, initial encounter
CPT/HCPCS: 80053; 83690; 85025; 93005; 96365; 96366; 96375; 99285; J2550; J7120

== ENCOUNTER 2024-04-09 04:29 | Inpatient (IN) | payer BC, SELFPAY ==
[2024-04-09] VITALS (25 sets, daily range): BP systolic 106–151; BP diastolic 59–97; PULSE 71–170; RESP 17–24; TEMP 36.5–36.8; O2SAT 92–100; BMI 47.2; BMI 48.3
--- NOTE | 2024-04-09 04:48 | HMH.EDGENADL ---
Discharge Plan Disposition Patient Disposition: Admitted Chief Complaint: Nausea/Vomiting/Diarrhea Prescriptions Prescriptions: No Action potassium chloride [Klor-Con M20] 20 mEq tablet,ER particles/crystals 40 meq PO DAILY Qty: 2 0RF promethazine 12.5 mg tablet 12.5 mg PO Q6H PRN (Reason: nausea and vomiting) Qty: 12 0RF Rx Instructions: Last dose no later than 3 hours before bedtime, do not combine with Zofran. ondansetron 8 mg tablet,disintegrating 8 mg PO TID PRN (Reason: Nausea) Qty: 30 0RF Referrals Follow up/Referrals: Sanya Mendenhall MD [Primary Care Provider] - See instructions Clinical Impressions Clinical Impression: Atrial fibrillation with rapid ventricular response, Diarrhea, Acute hypokalemia, Acute dehydration Instructions Patient Instructions: DI for Diarrhea and Traveler's Diarrhea -- Adult, DI for Diarrhea and Traveler's Diarrhea -- Child, DI for Nausea -- Adult, DI for Nausea -- Child Discharge ED Provider: Shashank Palacios General Adult HPI General Chief complaint: Nausea/Vomiting/Diarrhea Stated complaint: Diarrhea, dehydration, vomiting Time Seen by Provider: 04/09/24 04:35 Mode of Arrival: Ambulatory Source of Information: Patient and Spouse Limitations: No Limitations Description of Symptoms (Recalled from ER Triage Doc. by RN): Patient reports he was recently seen in the ER for vomiting and diarrhea and diagnosed with adverse reaction to the zepbound shot that he recieved on March 30 and hypokalemia. Patient reports that diarrhea restarted on monday and has continued to today. Patient reports abdominal pressure that he rates 7/10. Patient reports that he has lost 28 lbs since taking this dose of zepbound and is concerned about dehydration. History of Present Illness HPI narrative: 49-year-old male with history of obesity presents with diarrhea. He was given an injectable of tirzepatide last Monday. Last Monday he started developing generalized abdominal pressure and diarrhea. Reports that he had severe diarrhea until Monday when it resolved. His symptoms started up again on Monday and he is now on day 3 or 4 severe diarrhea. He reports it is watery and brown, no blood in the stool. He denies any fevers. He was seen here few days ago and diagnosed with low potassium and given rehydration. Reports he has had extensive weight loss during this time. His stool was tested a couple of days ago during this acute illness and was reportedly negative for all analytes. Related Data Previous Rx's Medication Instructions Recorded ondansetron 8 mg disintegrating 8 mg PO TID PRN Nausea #30 tabs 04/05/24 tablet potassium chloride 20 mEq 40 meq (2 x 20 mEq) PO DAILY low 04/07/24 tablet,extended potassium #2 tabs release(part/cryst) (Klor-Con M) promethazine 12.5 mg tablet 12.5 mg PO Q6H PRN nausea and 04/07/24 vomiting #12 tabs Allergies Allergy/AdvReac Type Severity Reaction Status Date / Time No Known Allergies Allergy Verified 04/05/24 19:02 [facility] Disclaimer: The information contained in this section may have been updated after the patient was seen, as this information can be updated by other users. Social History Smoking Status: Never smoker alcohol intake: never current occupational status: other Travel in the last 8 weeks: None ROS Obtained: Yes All systems reviewed & no additional complaints except as documented Physical Exam General General appearance: alert, in no apparent distress and obese Head Head exam: atraumatic and normocephalic Eye Eye exam: Present normal appearance, PERRL and EOMI ENT ENT exam: Present normal oropharynx and normal external ear exam Neck Neck exam: Present normal inspection and full ROM Chest Chest inspection: Present normal inspection and symmetric chest wall rise; Absent tenderness Respiratory Respiratory exam: Present normal lung sounds bilaterally; Absent respiratory distress Cardiovascular Cardiovascular exam: Present regular rate and normal rhythm Abdominal Exam Abdominal exam: Present soft, distention and tenderness (Minimal, generalized without guarding or peritonitis); Absent guarding Extremities Exam Extremities exam: Present normal inspection; Absent edema or joint swelling Back Exam Back exam: Present normal inspection; Absent tenderness Neurological Exam Neurological exam: Present alert and oriented X3; Absent motor sensory deficit Psychiatric Psychiatric exam: Present normal affect and normal mood Skin Skin exam: Present warm, dry and normal color Lymphatic Lymphatic Findings: no adenopathy Medical Decision Making Medical Records Medical records reviewed: Yes I reviewed the patient's medical records. Julius Inquiry Pt receiving controlled substance: No Julius was queried for this patient: No Vital Signs: 04/09/24 04:31 Temperature 97.7 F Temperature Source Oral Pulse Rate [Left Radial] 71 Respiratory Rate 20 Blood Pressure [Right Arm] 130/94 H Blood Pressure Mean [Right Arm] 106 Blood Pressure Source [Right Arm] Automatic Cuff Blood Pressure Position [Right Arm] Sitting 02 Sat by Pulse Oximetry 100 Oxygen Delivery Method Room Air Lab Data Lab results reviewed: Yes I reviewed the patient's lab results. Lab Results 04/09/24 04:55: WBC 22.1 H* D, RBC 6.02, Hgb 18.9 H, Hct 55.3 H, MCV 91.9, MCH 31.2, MCHC 33.9, RDW 13.9, Plt Count 476 H, MPV 7.8, Neut % (Auto) 73.5, Lymph % (Auto) 18.8, [place] % (Auto) 6.3, Eos % (Auto) 1.4, Baso % (Auto) 9.4 H, Neut # (Auto) 16.3 H, Lymph # (Auto) 4.2, [place] # (Auto) 1.4 H, Eos # (Auto) 0.3, Baso # (Auto) 2.1 H, Total Counted 100, Neutrophils % (Manual) 57, Lymphocytes % (Manual) 43, Platelet Estimate Normal, Stomatocytes 1+, Sodium 134 L, Potassium 3.0 L, Chloride 103, Carbon Dioxide 17 L, Anion Gap 17.0 H, BUN 21 H D, Creatinine 1.10, Estimated Creat Clear 79, Estimated GFR 71, Est GFR ( Amer) 85, Glucose 131 H, Calcium 9.1, Magnesium 2.1, Total Bilirubin 0.5, AST 30, ALT 27, Alkaline Phosphatase 86, Total Protein 7.4, Albumin 4.2, Globulin 3.2, Albumin/Globulin Ratio 1.3, Lipase 61 04/09/24 04:55 04/09/24 04:55 Orders (Tests/Meds): ED MEDICATIONS Generic Name Dose Route Start Last Admin Trade Name Freq PRN Reason Stop Dose Admin Lactated Ringer's 1,000 mls @ 999 mls/hr 04/09/24 05:00 04/09/24 04:56 Lactated Ringer's 1000 Ml Bag IV 04/09/24 07:00 999 mls/hr .Q1H1M HILL Administration Potassium Chloride/Water 100 mls @ 100 mls/hr 04/09/24 05:45 06/18/24 05:46 Potassium Chloride 10meq/100ml Ivpb IV 04/09/24 08:44 100 mls/hr Q1H HILL Administration Diltiazem HCl 100 mg/ Sodium 100 mls @ 10 mls/hr 04/09/24 06:18 Chloride IV 05/09/24 06:17 .Q10H HILL Protocol 10 MG/HR Discontinued Medications Generic Name Dose Route Start Last Admin Trade Name Ellis PRN Reason Stop Dose Admin Diltiazem HCl 25 mg 04/09/24 06:11 04/09/24 06:15 Diltiazem 25mg/5ml Vial IV 04/09/24 06:12 25 mg ONCE ONE Administration Potassium Chloride 40 meq 04/09/24 05:40 04/09/24 05:46 Potassium Chloride 20meq Tab PO 04/09/24 05:41 40 meq ONCE ONE Administration ORDERS Category Date Time Status CBC w/Auto Diff [Complete Blood Count Auto Diff] Stat Lab 04/09/24 04:55 Completed CMP [Comprehensive Metabolic Panel] Stat Lab 04/09/24 04:55 Completed Lipase Stat Lab 04/09/24 04:55 Completed Magnesium Stat Lab 04/09/24 04:55 Completed Medical Decision Narrative: 49-year-old male recently reinitiated on higher dose of Tirzepatide presents with persistent diarrhea. History was obtained interactive discussion with patient, family, chart review. On arrival, patient is [afebrile, hemodynamically stable, satting appropriately, alert, oriented x4, GCS 15], moving all extremities spontaneously. Full physical exam performed and significant for mild abdominal distention and tenderness without focal findings. Differential includes but is not limited to viral/bacterial gastroenteritis, pancreatitis, dehydration, medication side effect. Patient was given 2 L IV fluid bolus for symptomatic management and correction of underlying abnormalities. Workup initiated including CBC CMP lipase magnesium. On re-evaluation, after getting up to go to the bathroom patient's vitals were rechecked and patient is now noted to be in A-fib with RVR. EKG obtained and interpreted by me, atrial fibrillation with rapid ventricular rate, rate of 173, diffuse ST depressions noted concerning for rate related ischemia. Laboratory workup independently interpreted by me and significant for hypokalemia with potassium 3.9, marked dehydration with hemoconcentration (elevation in all cell lines), elevated BUN, elevated anion gap. Repeat stool analysis was considered, but deemed unnecessary due to patient has had a stool test during this acute phase of illness few days ago, this returned negative including for c diff. Given patient history, exam and workup, patient's presentation most likely represents new onset A-fib with RVR secondary to acute dehydration and electrolyte derangements in the setting of intractable diarrhea. Patient was given diltiazem bolus 25 mg with immediate improvement in patient's heart rate, went from the 170s to the 110s, continues to be in A-fib. Given this patient was placed on a diltiazem infusion 10 mg/h. Interactive discussion was had with the hospitalist on-call for admission. Procedures Risk/Benefits of Procedure(s) Were Explained: Yes Critical Care Critical Care Time Critical Care Time: Yes Attestation: On 04/09/24, the high probability of a clinically significant, sudden or life threatening deterioration of the following system(s) cardiac required my full and direct attention, intervention and personal management. The time I documented below is in addition to time spent performing reported procedures but includes the following listed in this critical care notation. Total Time Total Critical Care Time: 40
[2024-04-09] MEDS: LACTATED RINGERS 1000ML 1,000 ML 999 ML IV ×2 (04:56→06:47)
[2024-04-09 05:09] LABS: Basophils # 2.1 K/mm3 (0-0.2); Basophils % 9.4 % (0.1-2.0); Eosinophils # 0.3 K/mm3 (0.0-0.4); Eosinophils % 1.4 % (0.1-12.0); Hematocrit 55.3 % (42.0-52.0); Lymphocytes # 4.2 K/mm3 (0.7-4.5); Lymphocytes % 18.8 % (10-50); Mean Corpuscular HGB Conc 33.9 g/dL (31.8-35.4); Mean Corpuscular Hemoglobin 31.2 pg (27.0-31.2); Mean Corpuscular Volume 91.9 fl (80-94); Mean Platelet Volume 7.8 fl (7.4-10.4); Monocytes # 1.4 K/mm3 (0.1-1.0); Monocytes % 6.3 % (1.7-9.3); Neutrophils # 16.3 K/mm3 (1.8-7.8); Neutrophils % 73.5 % (37.0-80.0); Platelet Count 476 K/mm3 (142-424); Red Blood Count 6.02 M/mm3 (4.60-6.20); Red Cell Distribution Width 13.9 % (11.5-17.5); White Blood Count 22.1 K/mm3 (4.8-10.8)
[2024-04-09 05:12] LABS: MANUAL DIFFERENTIAL MANUAL DIFFERENTIAL (MANUAL DIFF)
[2024-04-09 05:29] LABS: Chloride 103 mmol/L (98-107); Sodium 134 mmol/L (136-145)
[2024-04-09 05:31] LABS: Alanine Aminotransferase 27 U/L (12-78); Aspartate Amino Transferase 30 U/L (17-59); Blood Urea Nitrogen 21 mg/dl (9-20); Creatinine Clearance Estimated 79 mL/min (50-200); Estimated Glomerular Filt Rate 71 ml/min (>60); GFR (African American) 85 ML/MIN (>60)
[2024-04-09 05:32] LABS: Albumin Level 4.2 g/dl (3.5-5.0); Albumin/Globulin Ratio 1.3 (1.1-1.8); Alkaline Phosphatase 86 U/L (38-126); Bilirubin,Total 0.5 mg/dl (0.2-1.3); Calcium 9.1 mg/dl (8.4-10.2); Carbon Dioxide 17 mmol/L (22.0-30.0); Globulin 3.2 g/dL (1.3-3.2); Glucose 131 mg/dl (74-100); Lipase 61 U/L (23-300); Magnesium 2.1 mg/dl (1.6-2.3); Total Protein,Serum 7.4 g/dl (6.3-8.2)
--- NOTE | 2024-04-09 05:41 | PC.NURSE ---
Shanti from the lab called in a Critical lab value. Potassium is 3.0. and RN notified. ALESSANDRO
[2024-04-09] MEDS: POTASSIUM CHLORIDE 20MEQ TAB 40 MEQ PO ×2 (05:46→20:31)
[2024-04-09] MEDS: KCl 10mEq/100ml 100 ML 100 MEQ IV ×3 (05:46→08:24)
--- NOTE | 2024-04-09 05:57 | PC.NURSE ---
Applied library monitor to patient after returning from restroom in anticipation of potassium administration and patient's heart rate currently 168, notified provider at this time and requested EKG. Provider to bedside at this time to speak with family.
--- NOTE | 2024-04-09 06:00 | ECG_ITS ---
APPROVED REPORT Exam: Resting ECG HR:173 bpm ECG Measurements Heart Rate 173 AXES QRSd 120 QRS -65 QT 269 T 40 QTc 362 Conclusion ATRIAL FIBRILLATION WITH RAPID VENTRICULAR RESPONSE WITH ABERRANT CONDUCTION OR VENTRICULAR PREMATURE COMPLEXES POSSIBLE RIGHT VENTRICULAR CONDUCTION DELAY [RSR (QR) IN V1/V2] LEFT ANTERIOR FASCICULAR BLOCK [QRS AXIS <= -45, QR IN I, RS IN II] ST DEPRESSION, CONSIDER SUBENDOCARDIAL INJURY [0.1+ mV ST DEPRESSION] Electronically signed by : EMMY FREED, 04/09/2024 07:26:12
[2024-04-09 06:12] LABS: Lymphocytes % 43 % (10-50); Neutrophils % 57 % (42-76); Total Cells Counted 100
[2024-04-09 06:14] LABS: Platelet Estimate Normal; Stomatocytes 1+
[2024-04-09 06:15] LABS: Hemoglobin 18.9 g/dL (14.1-18.0)
[2024-04-09] MEDS: dilTIAZem 25MG/5ML VIAL 25 MG IV (06:15)
[2024-04-09] MEDS: dilTIAZem HCL 100 MG in 0.9 % SODIUM CHLORIDE 100 ML 10 MG IV (06:27)
--- NOTE | 2024-04-09 06:37 | PC.NURSE ---
Nurse to nurse report to Benjamin Strange RN. Patient awaiting bed assignment, bed assignments are being change to make a bed for patient causing admit delay.
--- NOTE | 2024-04-09 07:25 | PC.NURSE ---
Called to get an update on room assignment, as his room was still not ready prior to change of shift, s/w dayshift nurse Marylou, states the room is ready and she will be down after med/surg report. Updated pt on this.
--- NOTE | 2024-04-09 08:07 | PC.NURSE ---
I s/w cardiology clinic staff to notify of cardiology consult for afib rvr and that pt has already been transferred to [facility]
--- NOTE | 2024-04-09 08:14 | HMH.PHAINT1 ---
Pharmacy Intervention Comments: HOME MEDICATION LIST VERIFIED USING LIST FROM OUTPATIENT PHARMACY AND PT INTERVIEW
--- NOTE | 2024-04-09 08:41 | P.HP_ITS ---
History of Present Illness *Admission Date: 04/09/24 *Reason for visit:: Diarrhea *History of present illness: Mr. Frederick is a 49 year old male patient of [facility] who typically sees Dr. Mendenhall for his primary care. Patient presented to [facility] ER this morning complaining of an approximate 1 week history of diarrhea. He was recently started on Zepbound for obesity treatment. Patient states he has been experiencing GI side effects since starting Zepbound. He was seen in the ER 2 days ago for diarrhea and hypokalemia. He was given IV fluids and potassium was replaced but his symptoms never improved. He states his bowel movements have consisted of brown watery stools. He has not seen any blood in his stool. He has vomited only twice in the past week. While being seen in the ER, this morning, and treated for dehydration he went into A. fib with a heart rate sangita und 150. [facility] Disclaimer: The information contained in this section may have been updated after the patient was seen, as this information can be updated by other users. Medical History (Updated 04/09/24 @ 08:51 by Nithin Smith MD) Venous stasis of lower extremity Lymphedema Morbid obesity Sleep apnea Cellulitis Surgical History (Updated 04/09/24 @ 08:51 by Nithin Smith MD) S/P vasectomy History of hernia repair Hx of tonsillectomy Family History (Updated 04/09/24 @ 08:07 by Kym Triplett RN) Family history of cancer Mother Father Social History (Updated 04/09/24 @ 08:07 by Kym Triplett RN) Smoking Status: Never smoker alcohol intake: never current occupational status: other Travel in the last 8 weeks: None Review of Systems Constitutional Constitutional: Denies chills and Denies fever(s) ENT Ears, Nose, Mouth, and Throat: Denies dizziness *Cardiovascular Cardiovascular: Denies chest pain *Respiratory Respiratory: Denies cough *Gastrointestinal Gastrointestinal: Reports as per HPI *Genitourinary Genitourinary: Denies difficulty urinating *Musculoskeletal Musculoskeletal: Denies arthralgias *Neurologic Neurologic: Denies dizziness Meds Home Medications and Allergies Home Medications Medication Instructions Recorded Confirmed Type cetirizine 10 mg tablet 10 mg PO DAILY 04/09/24 04/09/24 History ondansetron 8 mg disintegrating 8 mg PO TIDP PRN Nausea 04/09/24 04/09/24 History tablet promethazine 12.5 mg tablet 12.5 mg PO Q6HP PRN nausea and 04/09/24 04/09/24 History vomiting tirzepatide (weight loss) 5 mg/0.5 5 mg SQ WEEKLY 04/09/24 04/09/24 History mL subcutaneous pen injector (Zepbound) New Prescriptions to Start Prescriptions: Allergies Allergy/AdvReac Type Severity Reaction Status Date / Time No Known Allergies Allergy Verified 04/09/24 07:59 Exam Data for Last 24 hours Vital signs and Labs for Last 24 Hours: Temp Pulse Resp BP Pulse Ox O2 Del Method 97.8 F 124 H 19 112/60 99 Room Air 04/09/24 07:57 04/09/24 07:45 04/09/24 07:45 04/09/24 07:45 04/09/24 07:31 04/09/24 07:45 Laboratory Results - last 24 hr 04/09/24 04:55: WBC 22.1 H* D, RBC 6.02, Hgb 18.9 H, Hct 55.3 H, MCV 91.9, MCH 31.2, MCHC 33.9, RDW 13.9, Plt Count 476 H, MPV 7.8, Neut % (Auto) 73.5, Lymph % (Auto) 18.8, [place] % (Auto) 6.3, Eos % (Auto) 1.4, Baso % (Auto) 9.4 H, Neut # (Auto) 16.3 H, Lymph # (Auto) 4.2, [place] # (Auto) 1.4 H, Eos # (Auto) 0.3, Baso # (Auto) 2.1 H, Total Counted 100, Neutrophils % (Manual) 57, Lymphocytes % (Manual) 43, Platelet Estimate Normal, Stomatocytes 1+, Sodium 134 L, Potassium 3.0 L, Chloride 103, Carbon Dioxide 17 L, Anion Gap 17.0 H, BUN 21 H D, Creatinine 1.10, Estimated Creat Clear 79, Estimated GFR 71, Est GFR ( Amer) 85, Glucose 131 H, Calcium 9.1, Magnesium 2.1, Total Bilirubin 0.5, AST 30, ALT 27, Alkaline Phosphatase 86, Total Protein 7.4, Albumin 4.2, Globulin 3.2, Albumin/Globulin Ratio 1.3, Lipase 61 I & O for Last 24 hours: Intake & Output 04/06/24 04/07/24 04/08/24 04/09/24 23:59 23:59 23:59 23:59 Intake Total 11.5 / 11.5 Output Total 0 / 0 Balance 11.5 / 11.5 Weight 327 lb 3 oz Constitutional Constitutional: no acute distress *Routine HEENT Exam Head: Present normocephalic Eye: Present EOMI and PERRL ENT: Present mucous membranes moist *Routine Neck Exam Neck: Present supple; Absent lymphadenopathy *Routine Respiratory Exam Respiratory: Present CTA bilaterally *Routine Cardiovascular Exam Cardiovascular: Present tachycardia and irregularly irregular *Routine Abdominal Exam Abdominal: Present soft, normoactive bowel sounds and tenderness (periumbilical) *Routine Rectal Exam Rectal:: deferred *Routine Genitalia Exam Genitalia:: deferred *Routine Extremities Exam Extremities: Absent cyanosis, clubbing or edema *Routine Skin Exam Skin: Present warm *Routine Neurological Exam Neurological: Present alert and oriented X3 Assessment and Plan *Assessment and plan (1) Atrial fibrillation with rapid ventricular response: Status: Acute Category: Medical Code(s): I48.91 - Unspecified atrial fibrillation (2) Acute dehydration: Status: Acute Category: Medical Code(s): E86.0 - Dehydration (3) Acute hypokalemia: Status: Acute Category: Medical Code(s): E87.6 - Hypokalemia (4) Diarrhea: Status: Acute Category: Medical Code(s): R19.7 - Diarrhea, unspecified (5) Leukocytosis: Status: Acute Category: Medical Code(s): D72.829 - Elevated white blood cell count, unspecified (6) Morbid obesity: Status: Acute Category: Medical Code(s): E66.01 - Morbid (severe) obesity due to excess calories Plan Admit to [facility] for further evaluation and management. Continue IV fluids, replace potassium, will start Rocephin and Lovenox, consult cardiology due to A. fib with RVR.
--- NOTE | 2024-04-09 09:37 | P.CONCA_ITS ---
History of Present Illness History of Present Illness Consult date: 04/09/24 Requesting physician: Nithin Smith Consult reason: atrial fibrillation Chief complaint: A. fib with RVR, diarrhea Additional Medical History:: 1. Morbid obesity A. recently started Zepbound, 01/2024 2. New onset A. fib with RVR, 04/08/2024 A. CHADS-VASC score 0 B. Start DOAC History of present illness: Mr. Frederick is a 49 year old male patient of [facility] who typically sees Dr. Mendenhall for his primary care. Patient presented to [facility] ER this morning complaining of an approximate 1 week history of diarrhea. He was recently started on Zepbound for obesity treatment. Patient states he has been experiencing GI side effects since starting Zepbound. He was seen in the ER 2 days ago for diarrhea and hypokalemia. He was given IV fluids and potassium was replaced but his symptoms never improved. He states his bowel movements have consisted of brown watery stools. He has not seen any blood in his stool. He has vomited only twice in the past week. While being seen in the ER, this morning, and treated for dehydration he went into A. fib with a heart rate around 150. The above per Dr. Smith Events as noted above confirmed with the patient and his . relates she was briefly affected with diarrhea for 24 to 48 hours in the last week as well. She has been using Zepbound also but without side effects. Patient's white count noted to be elevated to 22,000 from earlier this month at 11,000. Patient started on diltiazem IV in the ER with rates still variable from 90-150 bpm with movement at this time. Patient is on Lovenox which will be adjusted to weight-based treatment. Patient denies any history of diabetes, tobacco use, hypertension, hy perlipidemia or family history of early heart disease. [facility] Disclaimer: The information contained in this section may have been updated after the patient was seen, as this information can be updated by other users. Medical History (Updated 04/09/24 @ 09:51 by CATRACHITO Mcdonough) Venous stasis of lower extremity Lymphedema Morbid obesity Sleep apnea Cellulitis Surgical History (Updated 04/09/24 @ 08:51 by Nithin Smith MD) S/P vasectomy History of hernia repair Hx of tonsillectomy Family History (Updated 04/09/24 @ 08:07 by Kym Triplett RN) Mother Family history of cancer Father Family history of cancer Social History (Updated 04/09/24 @ 08:07 by Kym Triplett RN) Smoking Status: Never smoker alcohol intake: never current occupational status: other Travel in the last 8 weeks: None Review of Systems Review of Systems Review of systems:: pertinent systems reviewed and negative unless documented below ENT Ears, Nose, Mouth, and Throat: Denies dizziness *Cardiovascular Cardiovascular: Denies chest pain and Denies dyspnea *Respiratory Respiratory: Denies dyspnea *Gastrointestinal Gastrointestinal: Reports loose stools and Reports vomiting *Neurologic Neurologic: Denies dizziness Exam Data for Last 24 hours Vital signs and Labs for Last 24 Hours: Temp Pulse Resp BP Pulse Ox O2 Del Method 97.8 F 170 H 19 112/60 99 Room Air 04/09/24 07:57 04/09/24 08:04 04/09/24 07:45 04/09/24 07:45 04/09/24 07:31 04/09/24 09:00 Laboratory Results - last 24 hr 04/09/24 04:55: WBC 22.1 H* D, RBC 6.02, Hgb 18.9 H, Hct 55.3 H, MCV 91.9, MCH 31.2, MCHC 33.9, RDW 13.9, Plt Count 476 H, MPV 7.8, Neut % (Auto) 73.5, Lymph % (Auto) 18.8, [place] % (Auto) 6.3, Eos % (Auto) 1.4, Baso % (Auto) 9.4 H, Neut # (Auto) 16.3 H, Lymph # (Auto) 4.2, [place] # (Auto) 1.4 H, Eos # (Auto) 0.3, Baso # (Auto) 2.1 H, Total Counted 100, Neutrophils % (Manual) 57, Lymphocytes % (Ma nual) 43, Platelet Estimate Normal, Stomatocytes 1+, Sodium 134 L, Potassium 3.0 L, Chloride 103, Carbon Dioxide 17 L, Anion Gap 17.0 H, BUN 21 H D, Creatinine 1.10, Estimated Creat Clear 79, Estimated GFR 71, Est GFR ( Amer) 85, Glucose 131 H, Calcium 9.1, Magnesium 2.1, Total Bilirubin 0.5, AST 30, ALT 27, Alkaline Phosphatase 86, Total Protein 7.4, Albumin 4.2, Globulin 3.2, Albumin/Globulin Ratio 1.3, Lipase 61 I & O for Last 24 hours: Intake & Output 04/06/24 04/07/24 04/08/24 04/09/24 11:59 11:59 11:59 11:59 Intake Total 11.5 / 11.5 Output Total 0 / 0 Balance 11.5 / 11.5 Weight 327 lb 3 oz Constitutional Constitutional: no acute distress *Routine Respiratory Exam Respiratory: Present CTA bilaterally *Routine Cardiovascular Exam Cardiovascular: Present tachycardia and irregularly irregular *Routine Extremities Exam Extremities: Absent edema or calf tenderness Comments: Venous stasis changes with varicose veins noted. Meds Home Medications and Allergies Home Medications Medication Instructions Recorded Confirmed Type cetirizine 10 mg tablet 10 mg PO DAILY 04/09/24 04/09/24 History ondansetron 8 mg disintegrating 8 mg PO TIDP PRN Nausea 04/09/24 04/09/24 History tablet promethazine 12.5 mg tablet 12.5 mg PO Q6HP PRN nausea and 04/09/24 04/09/24 History vomiting tirzepatide (weight loss) 5 mg/0.5 5 mg SQ WEEKLY 04/09/24 04/09/24 History mL subcutaneous pen injector (Zepbound) New Prescriptions to Start Prescriptions: Allergies Allergy/AdvReac Type Severity Reaction Status Date / Time No Known Allergies Allergy Verified 04/09/24 07:59 Assessment and Plan *Assessment and plan (1) Atrial fibrillation with rapid ventricular response: Status: Acute Category: Medical Code(s): I48.91 - Unspecified atrial fibrillation (2) Leukocytosis: Status: Acute Qualifiers: Leukocytosis type: other Qualified Code(s): D72.828 - Other elevated white blood cell count Category: Medical Code(s): D72.829 - Elevated white blood cell count, unspecified (3) Morbid obesity: Status: Acute Category: Medical Code(s): E66.01 - Morbid (severe) obesity due to excess calories (4) Acute dehydration: Status: Acute Category: Medical Code(s): E86.0 - Dehydration (5) Acute hypokalemia: Status: Acute Category: Medical Code(s): E87.6 - Hypokalemia (6) Diarrhea: Status: Acute Qualifiers: Diarrhea type: unspecified type Qualified Code(s): R19.7 - Diarrhea, unspecified Category: Medical Code(s): R19.7 - Diarrhea, unspecified (7) Adverse effects of medication: Status: Acute Qualifiers: Encounter type: initial encounter Qualified Code(s): T50.905A - Adverse effect of unspecified drugs, medicaments and biological substances, initial encounter Category: Medical Code(s): T50.905A - Adverse effect of unspecified drugs, medicaments and biological substances, initial encounter (8) Venous stasis of both lower extremities: Status: Acute Category: Medical Code(s): I87.8 - Other specified disorders of veins Plan 1. A. fib with RVR -Likely related to dehydration caused by diarrhea with electrolyte disorder -Continue IV diltiazem -Start Lovenox with plans to switch to Eliquis or Xarelto at discharge -Obtain echocardiogram 2. Morbid obesity 3. Leukocytosis with white count 22,000 4. Polycythemia likely related to dehydration 5. Thrombocytosis likely related to dehydration and diarrhea 6. Hypokalemia, improved 7. Hyponatremia at 134 8. Mild dehydration in setting of diarrhea IV fluids Continue IV diltiazem Check echo Lovenox with plans to switch to oral DOAC at discharge Will consider BIRGIT/Cardioversion tomorrow if still in A. fib.
[2024-04-09] MEDS: ENOXAPARIN 150MG/ML SYRINGE 150 MG SQ ×2 (09:50→20:35)
[2024-04-09] MEDS: D5W/0.45% NaCl w/40mEq KCl 1,000 ML 125 ML IV ×2 (09:50→17:41)
[2024-04-09] MEDS: CEFTRIAXONE SODIUM 1 GM in 0.9 % SODIUM CHLORIDE 50 ML IV (09:51)
[2024-04-09] MEDS: dilTIAZem HCL 100 MG in 0.9 % SODIUM CHLORIDE 100 ML 20 MG IV ×3 (10:24→21:20)
[2024-04-09] MEDS: METOPROLOL TARTRATE 5MG/5ML VIAL 5 MG IV (12:20)
--- NOTE | 2024-04-09 12:51 | CA_ITS ---
APPROVED REPORT EXAM: Comprehensive 2D, Doppler, and color-flow Echocardiogram Pipe Caulker: Bonnie Neville RCS, RVS Ht: 5 ft 7 in Wt: 327lbs BSA: 2.49 HR: 93 bpm BP: 112/60 mmHg Rhythm: Atrial Fibrillation Indications: Afib, Hypokalemia Echo Enhancing Agent Indication: Endocardial border delineation Agent(s) / Amount(s) Used: Definity 2 cc Comments: TDS due to extreme body habitus, 2D Dimensions IVSd 1.08 cm M: 0.6-1.2 LVEF (Visual) 70.30 % PWd 1.14 cm M: 0.6 - 1.2 LA Volume 68.40 mL LVDd 5.17 cm M: 4.2 - 5.9 LA Volume Index 27.47 mL/m2 (M/F) 16-34 LVDs 3.10 cm M: 2.5 - 4.0 M-Mode Dimensions LA Diam 3.95 cm (1.9-4.0) LVDd 5.74 cm (3.5-5.7) LVDs 3.90 cm (3.5-5.7) EF (Teich) 59.50% EPSs 0.94 cm FS 32.10% EDV (Teich) 162.60 mL TAPSE 2.00 (<1.7) ESV (Teich) 65.90 mL LV Diastology E Decel Time 163 (160-240 msec) E/A Ratio 2.36 MED A' 4.90 cm/s LAT A' 3.70 cm/s Aortic Valve CARMEN Index 1.37 cm2/m2 AoV Peak Tripp. 116.0 (50-130 cm/s) AO Peak GR. 5.40 mmHg AO Mean GR. 2.70 (<5 mmHg) AO VTI 15.7 (18-25 cm) CARMEN (VTI) 3.50 (2.5-4.5 cm2) Mitral Valve MV A Velocity 26.0 (40-130 cm/s) E/A Ratio 2.36 Pulmonary Valve PV Peak Velocity 73.0 (50-150 cm/s) Left Ventricle The left ventricle is normal size. The left ventricular systolic function is normal. The left ventricular ejection fraction is within the normal range. There is increased LV wall thickness (IVSd 1.4 cm). There is no LVOT obstruction at rest. There is normal LV segmental wall motion. Diastolic function is indeterminate. No left ventricle thrombus noted on this study. LVEF is 55%. Right Ventricle The right ventricle is mildly dilated. Right ventricle is mildly hypokinetic. Atria The left atrium size is normal. The right atrium size is normal. The interatrial septum is not well-visualized. Aortic Valve The aortic valve is normal in structure. There is no aortic valvular stenosis. No aortic regurgitation is present. Mitral Valve The mitral valve is normal in structure. There is no systolic anterior motion of the mitral valve leaflets. No evidence of mitral valve stenosis. Trace mitral valve regurgitation noted. Tricuspid Valve The tricuspid valve leaflets are thin and pliable. Trace tricuspid regurgitation. There is insufficient TR jet to estimate RVSP. Pulmonic Valve The pulmonary valve is normal in structure. Trace pulmonic regurgitation. Great Vessels The aortic root is normal in size. The ascending aorta is normal in size. The IVC is not well-visualized. Pericardium There is no pericardial effusion. Other Information Study Quality: Fair Conclusion Normal LV systolic function. Marked increase in LV wall thickness (IVSd 1.4 cm). Mildly dilated RV with mild reduction in RV function. No significant valvular stenosis or regurgitation. In the setting of increased LV wall thickness and presence of symptoms, further evaluation with outpatient cardiac MRI (HCM protocol) is recommended. Electronically signed by : Tamra Kang MD 04/11/2024 10:19:20
[2024-04-09 13:31] LABS: Free Thyroxine Index 4.3 ug/dL (5.93-13.13); T4 (Thyroxine) 11.9 ug/dl (5.53-11.0); Triiodothryronine (T3) Uptake 36 % (23.5-40.5)
[2024-04-09] MEDS: DEFINITY US ECHO CONTRAST 2ML INJ 2 MG IV (13:43)
[2024-04-09 13:45] LABS: Thyroid Stimulating Hormone 2.41 uIU/mL (0.465-4.68)
[2024-04-09] MEDS: ACETAMINOPHEN 325MG TAB 650 MG PO (14:47)
[2024-04-10] VITALS (20 sets, daily range): BP systolic 100–132; BP diastolic 56–86; PULSE 64–127; RESP 17–26; TEMP 36.6–36.8; O2SAT 85–97; BMI 48.4
[2024-04-10] MEDS: dilTIAZem HCL 100 MG in 0.9 % SODIUM CHLORIDE 100 ML 20 MG IV ×2 (01:27→07:31)
[2024-04-10] MEDS: D5W/0.45% NaCl w/40mEq KCl 1,000 ML 125 ML IV ×3 (01:29→17:44)
--- NOTE | 2024-04-10 05:56 | PC.NURSE ---
Diltiazem gtt continues at 20mg/hr w/ HR 70-120s, a fib. Pt tolerating RA well with o2 sat >90. Pt was having frequent episodes of diarrhea at beginning of shift but it has slowed down through the night. Stomach is round and firm. Pt states it feels tight all over but denies pain. Call light within reach.
[2024-04-10 07:51] LABS: Basophils # 2.7 K/mm3 (0-0.2); Basophils % 7.7 % (0.1-2.0); Eosinophils # 1.2 K/mm3 (0.0-0.4); Eosinophils % 3.4 % (0.1-12.0); Hematocrit 51.1 % (42.0-52.0); Hemoglobin 17.5 g/dL (14.1-18.0); Lymphocytes # 5.1 K/mm3 (0.7-4.5); Lymphocytes % 14.4 % (10-50); Mean Corpuscular HGB Conc 34.2 g/dL (31.8-35.4); Mean Corpuscular Hemoglobin 31.4 pg (27.0-31.2); Mean Platelet Volume 7.6 fl (7.4-10.4); Monocytes # 1.5 K/mm3 (0.1-1.0); Monocytes % 4.2 % (1.7-9.3); Neutrophils # 27.4 K/mm3 (1.8-7.8); Neutrophils % 77.9 % (37.0-80.0); Platelet Count 450 K/mm3 (142-424); Red Blood Count 5.56 M/mm3 (4.60-6.20); Red Cell Distribution Width 14.2 % (11.5-17.5); White Blood Count 35.2 K/mm3 (4.8-10.8)
[2024-04-10 07:53] LABS: MANUAL DIFFERENTIAL MANUAL DIFFERENTIAL (MANUAL DIFF)
[2024-04-10 07:59] LABS: Chloride 110 mmol/L (98-107); Sodium 135 mmol/L (136-145)
[2024-04-10 08:00] LABS: Potassium 3.5 mmoL/L (3.5-5.1)
[2024-04-10 08:02] LABS: Blood Urea Nitrogen 12 mg/dl (9-20); Creatinine Clearance Estimated 94 mL/min (50-200); Estimated Glomerular Filt Rate 89 ml/min (>60); GFR (African American) 108 ML/MIN (>60)
[2024-04-10 08:03] LABS: Anion Gap 12.5 mEq/L (5-15); Calcium 8.4 mg/dl (8.4-10.2); Carbon Dioxide 16 mmol/L (22.0-30.0); Glucose 131 mg/dl (74-100)
--- NOTE | 2024-04-10 08:28 | P.PN_ITS ---
Subjective *Date: 04/10/24 *Time: 09:00 Interval history: Patient is a little better this am. He has only had diarrhea a few times and was able to sleep last night. He did eat a small amount of breakfast this am. Medical Exam Vital signs and Labs for Last 24 Hours: Vital Signs Temp Pulse Pulse Resp BP Pulse Ox O2 Del Method 04/10/24 06:30 Room Air 04/10/24 06:00 86 26 H 108/69 L 97 Room Air 04/10/24 05:00 82 24 100/69 L 96 Room Air 04/10/24 05:00 Room Air 04/10/24 04:00 64 04/10/24 04:00 97.9 F 04/10/24 04:00 94 L Room Air 04/10/24 04:00 102 H 23 108/60 L 97 Room Air 04/10/24 03:00 68 22 115/60 94 L Room Air 04/10/24 02:55 Room Air 04/10/24 02:00 106 H 20 119/68 93 L Room Air 04/10/24 01:00 100 H 23 121/70 92 L Room Air 04/10/24 01:00 Room Air 04/10/24 00:00 97 H 04/10/24 00:00 97.8 F 100 H 20 125/69 91 L Room Air 04/09/24 23:00 122 H 19 112/73 96 Room Air 04/09/24 22:55 Room Air 04/09/24 22:00 92 H 20 114/68 96 Room Air 04/09/24 21:00 Room Air 04/09/24 21:00 97 H 23 133/64 92 L Room Air 04/09/24 20:00 141 H 04/09/24 20:00 95 Room Air 04/09/24 20:00 97.7 F 120 H 20 120/76 95 Room Air 04/09/24 18:32 Room Air 04/09/24 18:00 113 H 20 126/59 L 96 Room Air 04/09/24 16:45 Room Air 04/09/24 16:00 100 H 04/09/24 16:00 Room Air 04/09/24 16:00 104 H 24 121/83 93 L Room Air 04/09/24 15:00 Room Air 04/09/24 14:00 120 H 20 134/81 93 L Room Air 04/09/24 14:00 97.7 F 04/09/24 12:52 Room Air 04/09/24 12:00 137 H 04/09/24 12:00 98.3 F 04/09/24 12:00 130 H 24 118/63 95 Room Air 04/09/24 11:00 96 H 20 148/96 H 96 Room Air 04/09/24 11:00 Room Air 04/09/24 10:00 98 H 20 151/74 H 95 Room Air 04/09/24 09:00 135 H 20 128/74 96 Room Air 04/09/24 09:00 Room Air Intake and Output 04/09/24 04/10/24 04/10/24 19:59 03:59 11:59 Intake Total 2172.667 / 2725.000 182.333 / 2725.000 370 / 2725.000 Output Total 0 / 0 0 / 0 0 / 0 Balance 2172.667 / 2725.000 182.333 / 2725.000 370 / 2725.000 Intake: Intake, Oral Amount 1160 / 1430 270 / 1430 Intake, Total IV Amount 1012.667 / 1295.000 182.333 / 1295.000 100 / 1295.000 D5W/0.45% NaCl w/40mEq KCl 1, 933 / 933 000 ml @ 125 mls/hr IV .Q8H [facility] Rx#:[id number] Output: Output, Urine Amount 0 / 0 0 / 0 0 / 0 Other: Number of Unmeasured Voids 1 1 1 Number of Bowel Movements 1 1 1 Weight 327 lb Patient Weight 04/10/24 11:59 Weight 327 lb Laboratory Results - last 24 hr 04/09/24 05:02: TSH 2.41, Free T4 Index 4.3 L, Thyroxine (T4) 11.9 H, T3 Uptake 36 04/10/24 05:28: WBC Cancelled, Corrected WBC Cancelled, RBC Cancelled, Hgb Cancelled, Hct Cancelled, MCV Cancelled, MCH Cancelled, MCHC Cancelled, RDW Cancelled, Plt Count Cancelled, MPV Cancelled, Neut % (Auto) Cancelled, Lymph % (Auto) Cancelled, [place] % (Auto) Cancelled, Eos % (Auto) Cancelled, Baso % (Auto) Cancelled, Neut # (Auto) Cancelled, Lymph # (Auto) Cancelled, [place] # (Auto) Cancelled, Eos # (Auto) Cancelled, Baso # (Auto) Cancelled, Total Counted Cancelled, Neutrophils % (Manual) Cancelled, Band Neutrophils % Cancelled, Lymphocytes % (Manual) Cancelled, Atypical Lymphs % Cancelled, Monocytes % (Manual) Cancelled, Eosinophils % (Manual) Cancelled, Basophils % (Manual) Cancelled, Metamyelocytes % Cancelled, Myelocytes % Cancelled, Promyelocytes % Cancelled, Blast Cells % Cancelled, Nucleated RBCs Cancelled, Differential Comment Cancelled, Hypersegmented Neuts Cancelled, Toxic Granulation Cancelled, Toxic Vacuolation Cancelled, Dohle Bodies Cancelled, Mary Rods Cancelled, Platelet Estimate Cancelled, Giant Platelets Cancelled, RBC Morphology Cancelled, Polychromasia Cancelled, Hypochromasia Cancelled, Poikilocytosis Cancelled, Basophilic Stippling Cancelled, Anisocytosis Cancelled, Microcytosis Cancelled, Macrocytosis Cancelled, Spherocytes Cancelled, Pappenheimer Bodies Cancelled, Sickle Cells Cancelled, Target Cells Cancelled, Tear Drop Cells Cancelled, Ovalocytes Cancelled, Stomatocytes Cancelled, Helmet Cells Cancelled, [place] Bodies Cancelled, [place] Rings Cancelled, [place] Cells Cancelled, Acanthocytes (Spur) Cancelled, Rouleaux Cancelled, Schistocytes Cancelled 04/10/24 07:40: WBC 35.2 H* D, RBC 5.56, Hgb 17.5, Hct 51.1, MCV 92.0, MCH 31.4 H, MCHC 34.2, RDW 14.2, Plt Count 450 H, MPV 7.6, Neut % (Auto) 77.9, Lymph % (Auto) 14.4, [place] % (Auto) 4.2, Eos % (Auto) 3.4, Baso % (Auto) 7.7 H, Neut # (Auto) 27.4 H, Lymph # (Auto) 5.1 H, [place] # (Auto) 1.5 H, Eos # (Auto) 1.2 H, Baso # (Auto) 2.7 H, Sodium 135 L, Potassium 3.5, Chloride 110 H, Carbon Dioxide 16 L, Anion Gap 12.5, BUN 12 D, Creatinine 0.90, Estimated Creat Clear 94, Estimated GFR 89, Est GFR ( Amer) 108 D, Glucose 131 H, Calcium 8.4 I & O for Labs for Last 24 Hours: Intake & Output 04/07/24 04/08/24 04/09/24 04/10/24 11:59 11:59 11:59 11:59 Intake Total 190.500 / 425.562 0470.000 / 2725.000 Output Total 0 / 0 0 / 0 Balance 190.500 / 515.148 5607.000 / 2725.000 Weight 327 lb 3 oz 327 lb Constitutional: Present no acute distress Respiratory: Present CTA bilaterally Cardiac: Present Other (irregularly irregular) GI: Present soft, tenderness (diffuse) and normal bowel sounds; Absent distention Extremities: Absent edema, clubbing or cyanosis Skin: Present intact Neuro: Present alert and awake Assessment and Plan *Assessment and plan (1) Atrial fibrillation with rapid ventricular response: Status: Acute Category: Medical Code(s): I48.91 - Unspecified atrial fibrillation (2) Acute dehydration: Status: Acute Category: Medical Code(s): E86.0 - Dehydration (3) Acute hypokalemia: Status: Acute Category: Medical Code(s): E87.6 - Hypokalemia (4) Diarrhea: Status: Acute Qualifiers: Diarrhea type: unspecified type Qualified Code(s): R19.7 - Diarrhea, unspecified Category: Medical Code(s): R19.7 - Diarrhea, unspecified (5) Leukocytosis: Status: Acute Qualifiers: Leukocytosis type: other Qualified Code(s): D72.828 - Other elevated white blood cell count Category: Medical Code(s): D72.829 - Elevated white blood cell count, unspecified (6) Morbid obesity: Status: Acute Category: Medical Code(s): E66.01 - Morbid (severe) obesity due to excess calories (7) Adverse effects of medication: Status: Acute Qualifiers: Encounter type: initial encounter Qualified Code(s): T50.905A - Adverse effect of unspecified drugs, medicaments and biological substances, initial encounter Category: Medical Code(s): T50.905A - Adverse effect of unspecified drugs, medicaments and biological substances, initial encounter (8) Venous stasis of both lower extremities: Status: Acute Category: Medical Code(s): I87.8 - Other specified disorders of veins Plan Patient's potassium has improved. His WBC is more elevated. He is still in afib. Echo is pending. Cardiology would like to do a BIRGIT and cardioversion but patient ate this am. He may be able to have this done later this afternoon. Dr. Smith entry - Saw patient, agree with above note. Patient states he feels a little better today, cont. IVF, probable cardioversion later today.
[2024-04-10] MEDS: CEFTRIAXONE SODIUM 1 GM in 0.9 % SODIUM CHLORIDE 50 ML IV (09:39)
[2024-04-10] MEDS: ENOXAPARIN 150MG/ML SYRINGE 150 MG SQ (09:48)
[2024-04-10 10:01] LABS: Eosinophils % 1 % (0-3); Lymphocytes % 48 % (10-50); Monocytes % 7 % (2-9); Neutrophils % 44 % (42-76); Total Cells Counted 100
[2024-04-10 10:16] LABS: Platelet Estimate Normal; RBC Morphology Normal
--- NOTE | 2024-04-10 10:31 | EXP.CARD.PN ---
Subjective Subjective Date: 04/10/24 Time: 10:31 Principal diagnosis: A. fib Interval history: 49-year-old white male in bed in no acute distress. Ate breakfast this morning without issues. No further vomiting or diarrhea. Telemetry continues to show atrial fibrillation now with controlled rate. White count noted to be increased at 35,000 this morning Potassium normal at 3.5 Exam Data for Last 24 hours Vital signs and Labs for Last 24 Hours: Temp Pulse Resp BP Pulse Ox O2 Del Method 98.1 F 116 H 20 108/58 L 94 L Room Air 04/10/24 08:00 04/10/24 10:00 04/10/24 10:00 04/10/24 10:00 04/10/24 10:00 04/10/24 10:00 Laboratory Results - last 24 hr 04/09/24 05:02: TSH 2.41, Free T4 Index 4.3 L, Thyroxine (T4) 11.9 H, T3 Uptake 36 04/10/24 05:28: WBC Cancelled, Corrected WBC Cancelled, RBC Cancelled, Hgb Cancelled, Hct Cancelled, MCV Cancelled, MCH Cancelled, MCHC Cancelled, RDW Cancelled, Plt Count Cancelled, MPV Cancelled, Neut % (Auto) Cancelled, Lymph % (Auto) Cancelled, [place] % (Auto) Cancelled, Eos % (Auto) Cancelled, Baso % (Auto) Cancelled, Neut # (Auto) Cancelled, Lymph # (Auto) Cancelled, [place] # (Auto) Cancelled, Eos # (Auto) Cancelled, Baso # (Auto) Cancelled, Total Counted Cancelled, Neutrophils % (Manual) Cancelled, Band Neutrophils % Cancelled, Lymphocytes % (Manual) Cancelled, Atypical Lymphs % Cancelled, Monocytes % (Manual) Cancelled, Eosinophils % (Manual) Cancelled, Basophils % (Manual) Cancelled, Metamyelocytes % Cancelled, Myelocytes % Cancelled, Promyelocytes % Cancelled, Blast Cells % Cancelled, Nucleated RBCs Cancelled, Differential Comment Cancelled, Hypersegmented Neuts Cancelled, Toxic Granulation Cancelled, Toxic Vacuolation Cancelled, Dohle Bodies Cancelled, Mary Rods Cancelled, Platelet Estimate Cancelled, Giant Platelets Cancelled, RBC Morphology Cancelled, Polychromasia Cancelled, Hypochromasia Cancelled, Poikilocytosis Cancelled, Basophilic Stippling Cancelled, Anisocytosis Cancelled, Microcytosis Cancelled, Macrocytosis Cancelled, Spherocytes Cancelled, Pappenheimer Bodies Cancelled, Sickle Cells Cancelled, Target Cells Cancelled, Tear Drop Cells Cancelled, Ovalocytes Cancelled, Stomatocytes Cancelled, Helmet Cells Cancelled, [place] Bodies Cancelled, [place] Rings Cancelled, [place] Cells Cancelled, Acanthocytes (Spur) Cancelled, Rouleaux Cancelled, Schistocytes Cancelled 04/10/24 07:40: WBC 35.2 H* D, RBC 5.56, Hgb 17.5, Hct 51.1, MCV 92.0, MCH 31.4 H, MCHC 34.2, RDW 14.2, Plt Count 450 H, MPV 7.6, Neut % (Auto) 77.9, Lymph % (Auto) 14.4, [place] % (Auto) 4.2, Eos % (Auto) 3.4, Baso % (Auto) 7.7 H, Neut # (Auto) 27.4 H, Lymph # (Auto) 5.1 H, [place] # (Auto) 1.5 H, Eos # (Auto) 1.2 H, Baso # (Auto) 2.7 H, Total Counted 100, Neutrophils % (Manual) 44, Lymphocytes % (Manual) 48, Monocytes % (Manual) 7, Eosinophils % (Manual) 1, Platelet Estimate Normal, RBC Morphology Normal, Sodium 135 L, Potassium 3.5, Chloride 110 H, Carbon Dioxide 16 L, Anion Gap 12.5, BUN 12 D, Creatinine 0.90, Estimated Creat Clear 94, Estimated GFR 89, Est GFR ( Amer) 108 D, Glucose 131 H, Calcium 8.4 I & O for Last 24 hours: Intake & Output 04/07/24 04/08/24 04/09/24 04/10/24 11:59 11:59 11:59 11:59 Intake Total 190.500 / 351.369 2133.000 / 2725.000 Output Total 0 / 0 0 / 0 Balance 190.500 / 319.100 0274.000 / 2725.000 Weight 327 lb 3 oz 327 lb Constitutional Constitutional: no acute distress *Routine Respiratory Exam Respiratory: Present CTA bilaterally *Routine Cardiovascular Exam Cardiovascular: Present irregularly irregular *Routine Neurological Exam Neurological: Present alert, oriented X3 and CN II-XII intact Progress Note: A&P Assessment and plan (1) Atrial fibrillation with rapid ventricular response: Status: Acute (2) Acute dehydration: Status: Acute (3) Acute hypokalemia: Status: Acute (4) Diarrhea: Status: Acute (5) Leukocytosis: Status: Acute (6) Morbid obesity: Status: Acute (7) Adverse effects of medication: Status: Acute (8) Venous stasis of both lower extremities: Status: Acute Assessment and Plan Assessment and Plan for All Diagnoses:: 1. A. fib with RVR -Likely related to dehydration caused by diarrhea with electrolyte disorder -switch to oral diltiazem and add digoxin -Start Lovenox with plans to switch to Eliquis or Xarelto at discharge -Obtain echocardiogram 2. Morbid obesity 3. Leukocytosis with white count 35K 4. Polycythemia likely related to dehydration -improved with hydration 5. Thrombocytosis likely related to dehydration and diarrhea -stable at 450K 6. Hypokalemia, resolved 7. Hyponatremia at 135 8. Mild dehydration in setting of diarrhea Switch diltiazem to oral 240 mg BID Switch lovenox to eliquis 5 mg BID Add digoxin. Load and then 0.125 mg daily Echo report pending Likely wait for BIRGIT/cardioversion until next week if still in A. fib
[2024-04-10] MEDS: dilTIAZem ER 240MG CAPSULE 240 MG PO ×2 (11:47→20:48)
[2024-04-10] MEDS: DIGOXIN 0.25MG/ML 2ML AMPUL 500 MCG IV (11:48)
[2024-04-10] MEDS: DIGOXIN 0.25MG/ML 2ML AMPUL 250 MCG IV ×2 (17:03→21:31)
--- NOTE | 2024-04-10 17:04 | PC.NURSE ---
pt has rested in his room well this shift. pt has been up to the chair independently off and on this shift. pt is able to ambulate alone. nad noted. pt is a/o x 4. lungs are clear, bowel sounds are active. pt states that the frequency of his bm's have decreased since admission. family has remained at bedside this shift.
[2024-04-10] MEDS: POTASSIUM CHLORIDE 20MEQ TAB 40 MEQ PO (17:44)
[2024-04-10] MEDS: APIXABAN 5MG TABLET 5 MG PO (20:48)
[2024-04-10] MEDS: ONDANSETRON 4MG/2ML VIAL 4 MG IV (21:31)
[2024-04-11] VITALS (14 sets, daily range): BP systolic 89–131; BP diastolic 46–95; PULSE 65–100; RESP 12–27; TEMP 36.4–36.9; O2SAT 94–99; BMI 49.0
[2024-04-11 07:26] LABS: Basophils # 1.5 K/mm3 (0-0.2); Basophils % 4.6 % (0.1-2.0); Eosinophils # 0.9 K/mm3 (0.0-0.4); Eosinophils % 2.7 % (0.1-12.0); Hematocrit 51.5 % (42.0-52.0); Hemoglobin 16.7 g/dL (14.1-18.0); Lymphocytes # 4.5 K/mm3 (0.7-4.5); Lymphocytes % 13.8 % (10-50); Mean Corpuscular HGB Conc 32.6 g/dL (31.8-35.4); Mean Corpuscular Hemoglobin 31.2 pg (27.0-31.2); Mean Corpuscular Volume 95.8 fl (80-94); Mean Platelet Volume 7.9 fl (7.4-10.4); Monocytes # 1.7 K/mm3 (0.1-1.0); Monocytes % 5.1 % (1.7-9.3); Neutrophils # 25.5 K/mm3 (1.8-7.8); Neutrophils % 78.3 % (37.0-80.0); Platelet Count 456 K/mm3 (142-424); Red Blood Count 5.37 M/mm3 (4.60-6.20); Red Cell Distribution Width 14.2 % (11.5-17.5); White Blood Count 32.6 K/mm3 (4.8-10.8)
[2024-04-11 07:31] LABS: MANUAL DIFFERENTIAL MANUAL DIFFERENTIAL (MANUAL DIFF)
[2024-04-11 07:36] LABS: Chloride 112 mmol/L (98-107); Potassium 3.7 mmoL/L (3.5-5.1); Sodium 137 mmol/L (136-145)
[2024-04-11 07:39] LABS: Anion Gap 11.7 mEq/L (5-15); Blood Urea Nitrogen 13 mg/dl (9-20); Carbon Dioxide 17 mmol/L (22.0-30.0); Creatinine Clearance Estimated 85 mL/min (50-200); Estimated Glomerular Filt Rate 79 ml/min (>60); GFR (African American) 95 ML/MIN (>60)
[2024-04-11 07:40] LABS: Calcium 8.6 mg/dl (8.4-10.2); Glucose 113 mg/dl (74-100)
[2024-04-11] MEDS: APIXABAN 5MG TABLET 5 MG PO ×2 (08:20→20:32)
[2024-04-11] MEDS: CEFTRIAXONE SODIUM 1 GM in 0.9 % SODIUM CHLORIDE 50 ML IV (08:20)
--- NOTE | 2024-04-11 08:25 | EXP.ACUTE.PN ---
Subjective *Date: 04/11/24 *Time: 08:57 Interval history: Patient had a rough night. He had more diarrhea throughout the night and is having a lot of abdominal pressure. He does not feel like eating. He has not vomited. He remains in afib. Medical Exam Vital signs and Labs for Last 24 Hours: Vital Signs Temp Pulse Pulse Resp BP Pulse Ox O2 Del Method 04/11/24 06:00 97.5 F L 71 14 98/54 L 97 Room Air 04/11/24 05:00 Room Air 04/11/24 04:00 80 04/11/24 04:00 65 27 H 102/64 L 95 CPAP 04/11/24 03:00 Room Air 04/11/24 02:00 66 22 89/46 L 95 Room Air 04/11/24 00:00 80 04/11/24 00:00 98.0 F 96 H 12 102/61 L 96 CPAP 04/10/24 23:00 Room Air 04/10/24 22:00 85 25 H 118/56 L 85 L Room Air 04/10/24 21:31 113 H 04/10/24 21:00 Room Air 04/10/24 20:00 110 H 04/10/24 20:00 98.2 F 111 H 17 109/81 L 94 L Room Air 04/10/24 18:52 Room Air 04/10/24 18:00 117 H 18 116/65 95 Room Air 04/10/24 17:30 Room Air 04/10/24 17:03 127 H 04/10/24 16:20 127 H 95 Room Air 04/10/24 16:00 127 H 20 114/59 L 97 Room Air 04/10/24 16:00 110 H 04/10/24 16:00 97.9 F 04/10/24 15:58 Room Air 04/10/24 14:00 90 22 113/60 95 Room Air 04/10/24 13:10 Room Air 04/10/24 12:00 90 04/10/24 12:00 98.1 F 04/10/24 12:00 107 H 22 132/60 96 Room Air 04/10/24 11:48 127 H 04/10/24 11:00 Room Air 04/10/24 10:00 116 H 20 108/58 L 94 L Room Air 04/10/24 09:00 Room Air 04/10/24 08:40 82 96 Room Air Intake and Output 04/10/24 04/11/24 04/11/24 19:59 03:59 11:59 Intake Total 1524 / 2649 1125 / 2649 Output Total 0 / 0 0 / 0 0 / 0 Balance 1524 / 2649 1125 / 2649 0 / 2649 Intake: Intake, Oral Amount 480 / 980 500 / 980 Intake, Total IV Amount 1044 / 1669 625 / 1669 Ceftriaxone Sodium 1 gm In 0.9 50 / 50 % Sodium Chloride 50 ml @ 100 mls/hr IV Q24H [facility] Rx#:[id number] D5W/0.45% NaCl w/40mEq KCl 1, 938 / 1563 625 / 1563 000 ml @ 125 mls/hr IV .Q8H [facility] Rx#:[id number] dilTIAZem HCL 100 mg In 0.9 % 56 / 56 Sodium Chloride 100 ml @ 20 MG/ HR 20 mls/hr IV .Q5H [facility] Rx#: [id number] Output: Output, Urine Amount 0 / 0 0 / 0 0 / 0 Other: Number of Unmeasured Voids 1 1 1 Number of Bowel Movements 2 1 1 Weight 331 lb Patient Weight 04/11/24 11:59 Weight 331 lb Laboratory Results - last 24 hr 04/10/24 07:40: Total Counted 100, Neutrophils % (Manual) 44, Lymphocytes % (Manual) 48, Monocytes % (Manual) 7, Eosinophils % (Manual) 1, Platelet Estimate Normal, RBC Morphology Normal 04/11/24 06:55: WBC 32.6 H*, RBC 5.37, Hgb 16.7, Hct 51.5, MCV 95.8 H, MCH 31.2, MCHC 32.6, RDW 14.2, Plt Count 456 H, MPV 7.9, Neut % (Auto) 78.3, Lymph % (Auto) 13.8, [place] % (Auto) 5.1, Eos % (Auto) 2.7, Baso % (Auto) 4.6 H, Neut # (Auto) 25.5 H, Lymph # (Auto) 4.5, [place] # (Auto) 1.7 H, Eos # (Auto) 0.9 H, Baso # (Auto) 1.5 H, Sodium 137, Potassium 3.7, Chloride 112 H, Carbon Dioxide 17 L, Anion Gap 11.7, BUN 13, Creatinine 1.00, Estimated Creat Clear 85, Estimated GFR 79, Est GFR ( Amer) 95, Glucose 113 H, Calcium 8.6 I & O for Labs for Last 24 Hours: Intake & Output 04/08/24 04/09/24 04/10/24 04/11/24 11:59 11:59 11:59 11:59 Intake Total 190.500 / 957.887 4214.000 / 4639.000 2649 / 2649 Output Total 0 / 0 0 / 0 0 / 0 Balance 190.500 / 350.296 7498.000 / 4639.000 2649 / 2649 Weight 327 lb 3 oz 327 lb 331 lb Constitutional: Present no acute distress Respiratory: Present CTA bilaterally Cardiac: Present Other (irregularly irregular) GI: Present soft, tenderness (diffuse) and normal bowel sounds; Absent distention Extremities: Absent edema, clubbing or cyanosis Skin: Present intact Neuro: Present alert and awake Assessment and Plan *Assessment and plan (1) Atrial fibrillation with rapid ventricular response: Status: Acute Category: Medical Code(s): I48.91 - Unspecified atrial fibrillation (2) Acute dehydration: Status: Acute Category: Medical Code(s): E86.0 - Dehydration (3) Acute hypokalemia: Status: Acute Category: Medical Code(s): E87.6 - Hypokalemia (4) Diarrhea: Status: Acute Qualifiers: Diarrhea type: unspecified type Qualified Code(s): R19.7 - Diarrhea, unspecified Category: Medical Code(s): R19.7 - Diarrhea, unspecified (5) Leukocytosis: Status: Acute Qualifiers: Leukocytosis type: other Qualified Code(s): D72.828 - Other elevated white blood cell count Category: Medical Code(s): D72.829 - Elevated white blood cell count, unspecified (6) Morbid obesity: Status: Acute Category: Medical Code(s): E66.01 - Morbid (severe) obesity due to excess calories (7) Adverse effects of medication: Status: Acute Qualifiers: Encounter type: initial encounter Qualified Code(s): T50.905A - Adverse effect of unspecified drugs, medicaments and biological substances, initial encounter Category: Medical Code(s): T50.905A - Adverse effect of unspecified drugs, medicaments and biological substances, initial encounter (8) Venous stasis of both lower extremities: Status: Acute Category: Medical Code(s): I87.8 - Other specified disorders of veins (9) Abdominal pain: Status: Acute Category: Medical Code(s): R10.9 - Unspecified abdominal pain Plan Echo still pending. Cardiology made medication adjustments and may do a BIRGIT/cardioversion next week if he remains in afib. He continues with diarrhea and is having more abdominal pain and fullness. Will get a stool panel. He may need an abdominal CT. He has not had any abdominal imaging. Will discuss further care with Dr. Smith. Dr. Smith entry - Saw patient, agree with above note. Check CT abd/pelvis today and recheck stool pcr.
[2024-04-11] MEDS: DIGOXIN 0.125MG TABLET 125 MCG PO (08:27)
[2024-04-11] MEDS: dilTIAZem ER 240MG CAPSULE 240 MG PO ×2 (08:27→20:32)
--- NOTE | 2024-04-11 08:46 | CT_ITS ---
FINAL REPORT TECHNIQUE: After the administration of intravenous contrast, axial images were obtained through the abdomen and pelvis by computed tomography. This study was performed with technique to keep radiation doses as low as reasonably achievable, (ALARA). Individualized dose reduction techniques using automated exposure control or adjustment of the MA and/or KV according to the patient's size were employed. CLINICAL HISTORY: abdominal pain, diarrhea FINDINGS: Abdomen: The lung bases are clear. Air is seen within the liver, likely within the portal venous system. There is pneumatosis involving multiple jejunal bowel loops in the central abdomen. Bowel ischemia not excluded. However, central mesenteric vessels appear widely patent. The spleen and gallbladder are unremarkable. The adrenals are normal. The pancreas is unremarkable. The kidneys enhance appropriately. The aorta is normal in caliber. There is no free fluid or adenopathy. Fluid-filled large and small bowel may be due to ileus or enteritis. There is a moderate sized umbilical hernia containing fat. Pelvis: The appendix is normal. Pneumatosis is seen involving jejunal bowel loops within the pelvis. Prostate is normal. There are bilateral inguinal hernias containing fat. The urinary bladder is unremarkable. There is no free fluid or adenopathy. IMPRESSION: Pneumatosis of uncertain etiology. No evidence of central mesenteric vascular disease. Portal venous gas is noted as well. Bowel ischemia not excluded. Reviewed, Interpreted and Dictated by Prashanth Caro MD Transcribed by Ivone Polk Authenticated and [facility][1]
[2024-04-11 09:34] LABS: Eosinophils % 3 % (0-3); Lymphocytes % 48 % (10-50); Monocytes % 10 % (2-9); Neutrophils % 39 % (42-76); Nucleated Red Blood Cells 1; Platelet Estimate Slight Increase; RBC Morphology Normal; Total Cells Counted 100
[2024-04-11 09:48] LABS: Campylobacter Not Detected (NotDetected); Clostridium Difficile A/B, PCR Not Detected (NotDetected); Plesimonas Shigalloides, PCR Not Detected (NotDetected); Salmonella, PCR Not Detected (NotDetected); Vibrio, PCR Not Detected (NotDetected); Yersinia Entercolitica, PCR Not Detected (NotDetected)
[2024-04-11 09:49] LABS: Adenovirus F 40/41, stool Not Detected (NotDetected); Astrovirus Not Detected (NotDetected); Cryptosporidium Not Detected (NotDetected); Cyclospora Cayetanesis Not Detected (NotDetected); Entamoeba histolytica Not Detected (NotDetected); Enteroaggregative E coli Not Detected (NotDetected); Enteropathogenic E coli Not Detected (NotDetected); Enterotoxigenic E coli Not Detected (NotDetected); Giardia lamblia Not Detected (NotDetected); Norovirus Not Detected (NotDetected); Rotavirus A Not Detected (NotDetected); Sapovirus Not Detected (NotDetected); Shiga-like toxin E coli Not Detected (NotDetected); Shigella Enterovasive E coli Not Detected (NotDetected); Vibrio Cholerae Not Detected (NotDetected)
[2024-04-11] MEDS: D5W/0.45% NaCl w/40mEq KCl 1,000 ML 75 ML IV (10:04)
--- NOTE | 2024-04-11 10:50 | EXP.CARD.PN ---
Subjective Subjective Date: 04/11/24 Time: 10:50 Principal diagnosis: A. fib Interval history: 49 yo WM in NAD. Diarrhea resumed last night WBC still >30K Stool samples resent to evaluate for C. diff in light of recent prolonged antibiotic use for LE cellulitis Telemetry still with A.fib with variable rate Tolerating anticoagulation without GI bleed Exam Data for Last 24 hours Vital signs and Labs for Last 24 Hours: Temp Pulse Resp BP Pulse Ox O2 Del Method 98.5 F 89 20 120/69 99 Room Air 04/11/24 08:00 04/11/24 10:00 04/11/24 10:00 04/11/24 10:00 04/11/24 10:00 04/11/24 10:00 Laboratory Results - last 24 hr 04/11/24 06:55: WBC 32.6 H*, RBC 5.37, Hgb 16.7, Hct 51.5, MCV 95.8 H, MCH 31.2, MCHC 32.6, RDW 14.2, Plt Count 456 H, MPV 7.9, Neut % (Auto) 78.3, Lymph % (Auto) 13.8, [place] % (Auto) 5.1, Eos % (Auto) 2.7, Baso % (Auto) 4.6 H, Neut # (Auto) 25.5 H, Lymph # (Auto) 4.5, [place] # (Auto) 1.7 H, Eos # (Auto) 0.9 H, Baso # (Auto) 1.5 H, Total Counted 100, Neutrophils % (Manual) 39 L, Lymphocytes % (Manual) 48, Monocytes % (Manual) 10 H, Eosinophils % (Manual) 3, Nucleated RBCs 1, Platelet Estimate Slight increase, RBC Morphology Normal, Sodium 137, Potassium 3.7, Chloride 112 H, Carbon Dioxide 17 L, Anion Gap 11.7, BUN 13, Creatinine 1.00, Estimated Creat Clear 85, Estimated GFR 79, Est GFR ( Amer) 95, Glucose 113 H, Calcium 8.6 I & O for Last 24 hours: Intake & Output 04/08/24 04/09/24 04/10/24 04/11/24 11:59 11:59 11:59 11:59 Intake Total 190.500 / 607.971 7754.000 / 4639.000 3247 / 3247 Output Total 0 / 0 0 / 0 0 / 0 Balance 190.500 / 099.365 0055.000 / 4639.000 3247 / 3247 Weight 327 lb 3 oz 327 lb 331 lb Constitutional Constitutional: no acute distress *Routine Respiratory Exam Respiratory: Present CTA bilaterally *Routine Cardiovascular Exam Cardiovascular: Present irregularly irregular Progress Note: A&P Assessment and plan (1) Atrial fibrillation with rapid ventricular response: Status: Acute (2) Acute dehydration: Status: Acute (3) Acute hypokalemia: Status: Acute (4) Diarrhea: Status: Acute (5) Leukocytosis: Status: Acute (6) Morbid obesity: Status: Acute (7) Adverse effects of medication: Status: Acute (8) Venous stasis of both lower extremities: Status: Acute (9) Abdominal pain: Status: Acute Assessment and Plan Assessment and Plan for All Diagnoses:: 1. A. fib with RVR -Likely related to dehydration caused by diarrhea with electrolyte disorder -oral diltiazem and digoxin -on eliquis -echo shows normal EF with increased LV wall thickness and Mild RV dilatation and reduced function. Will need consideration of outpatient Cardiac MRI in future 2. Morbid obesity 3. Leukocytosis with white count >30K -suspected C. diff related to prior antibiotic use 4. Polycythemia likely related to dehydration -resolved 5. Thrombocytosis likely related to dehydration and diarrhea -stable at 450K 6. Hypokalemia, resolved 7. Hyponatremia, resolved 8. Mild dehydration in setting of diarrhea Continue current meds No plans for inpatient cardioversion at this time.
[2024-04-11] MEDS: SODIUM CHLORIDE 0.9% 10ML SYR (RAD ONLY) 10 ML IV (11:19)
[2024-04-11] MEDS: IOPAMIDOL-370 (76%);100ML BOTTLE 75 ML IV (11:20)
[2024-04-11] MEDS: METRONIDAZ/SOD CHL 500 MG/100 ML PIGGYBACK 100 MG IV ×2 (16:24→21:57)
--- NOTE | 2024-04-11 17:23 | PC.NURSE ---
VS stable and patient remained on room air, afib on monitor with heart rate 60-120's. Several bowel movements during shift. Abdomen soft, nondistended with complaints of pressure that has gotten better during shift but not fully resolved, md aware.
[2024-04-12] VITALS (14 sets, daily range): BP systolic 105–127; BP diastolic 52–69; PULSE 65–107; RESP 15–20; TEMP 36.3–37; O2SAT 95–98; BMI 47.9
[2024-04-12] MEDS: D5W/0.45% NaCl w/40mEq KCl 1,000 ML 75 ML IV ×2 (00:14→15:17)
--- NOTE | 2024-04-12 05:05 | PC.NURSE ---
Patient has called out twice this shift to go to the bathroom. Abdomen is soft and nondistened. Bowel sounds are active in all quadrants. Patient verbalizes that there is minimal pressure on abdomen and denies any pain.
[2024-04-12] MEDS: METRONIDAZ/SOD CHL 500 MG/100 ML PIGGYBACK 100 MG IV ×3 (05:35→22:10)
[2024-04-12 06:21] LABS: Basophils # 0.6 K/mm3 (0-0.2); Basophils % 1.8 % (0.1-2.0); Chloride 113 mmol/L (98-107); Eosinophils % 5.6 % (0.1-12.0); Hematocrit 50.6 % (42.0-52.0); Hemoglobin 16.5 g/dL (14.1-18.0); Lymphocytes # 4.5 K/mm3 (0.7-4.5); Lymphocytes % 12.4 % (10-50); Mean Corpuscular HGB Conc 32.5 g/dL (31.8-35.4); Mean Corpuscular Volume 95.2 fl (80-94); Mean Platelet Volume 8.7 fl (7.4-10.4); Monocytes # 1.6 K/mm3 (0.1-1.0); Monocytes % 4.4 % (1.7-9.3); Neutrophils % 77.5 % (37.0-80.0); Platelet Count 331 K/mm3 (142-424); Red Blood Count 5.32 M/mm3 (4.60-6.20); Red Cell Distribution Width 14.5 % (11.5-17.5); White Blood Count 36.2 K/mm3 (4.8-10.8)
[2024-04-12 06:22] LABS: Potassium 3.3 mmoL/L (3.5-5.1); Sodium 137 mmol/L (136-145)
[2024-04-12 06:24] LABS: Alanine Aminotransferase 35 U/L (12-78); Alkaline Phosphatase 79 U/L (38-126); Anion Gap 10.3 mEq/L (5-15); Aspartate Amino Transferase 37 U/L (17-59); Bilirubin,Total 0.3 mg/dl (0.2-1.3); Blood Urea Nitrogen 11 mg/dl (9-20); Carbon Dioxide 17 mmol/L (22.0-30.0); Creatinine Clearance Estimated 94 mL/min (50-200); Estimated Glomerular Filt Rate 89 ml/min (>60); GFR (African American) 108 ML/MIN (>60)
[2024-04-12 06:25] LABS: Albumin Level 3.1 g/dl (3.5-5.0); Albumin/Globulin Ratio 1.1 (1.1-1.8); Calcium 8.5 mg/dl (8.4-10.2); Globulin 2.8 g/dL (1.3-3.2); Glucose 90 mg/dl (74-100); MANUAL DIFFERENTIAL MANUAL DIFFERENTIAL (MANUAL DIFF); Total Protein,Serum 5.9 g/dl (6.3-8.2)
[2024-04-12 07:17] LABS: Eosinophils % 4 % (0-3); Lymphocytes % 14 % (10-50); Monocytes % 6 % (2-9); Neutrophils % 66 % (42-76); Nucleated Red Blood Cells 1; Total Cells Counted 100
[2024-04-12 07:18] LABS: Platelet Estimate Normal
[2024-04-12 07:19] LABS: RBC Morphology Normal
--- NOTE | 2024-04-12 07:56 | EXP.PHA.PN ---
Subjective *Date: 04/12/24 *Time: 07:56 Medical Exam Vital signs and Labs for Last 24 Hours: Vital Signs Temp Pulse Pulse Resp BP Pulse Ox O2 Del Method 04/12/24 07:36 84 Room Air 04/12/24 06:41 Room Air 04/12/24 06:00 72 15 115/69 95 Room Air 04/12/24 04:52 Room Air 04/12/24 04:04 97 CPAP 04/12/24 04:00 97.4 F L 04/12/24 04:00 70 04/12/24 04:00 65 16 105/64 L 98 CPAP 04/12/24 02:56 CPAP 04/12/24 02:00 79 20 116/66 96 CPAP 04/12/24 01:00 CPAP 04/12/24 00:00 97.8 F 04/12/24 00:00 80 04/12/24 00:00 90 18 115/52 L 95 CPAP 04/11/24 22:45 CPAP 04/11/24 22:00 88 20 120/79 97 CPAP 04/11/24 20:55 Room Air 04/11/24 20:22 Room Air 04/11/24 20:00 97.6 F 04/11/24 20:00 91 H 20 131/63 96 Room Air 04/11/24 20:00 90 04/11/24 18:47 Room Air 04/11/24 18:00 94 H 18 96/61 L 95 Room Air 04/11/24 17:00 Room Air 04/11/24 16:00 95 Room Air 04/11/24 16:00 100 H 04/11/24 16:00 98.0 F 04/11/24 15:00 Room Air 04/11/24 14:00 68 20 119/48 L 94 L Room Air 04/11/24 13:00 Room Air 04/11/24 12:05 90 04/11/24 12:00 97.9 F 04/11/24 12:00 84 20 117/95 H 98 Room Air 04/11/24 11:00 Room Air 04/11/24 10:00 89 20 120/69 99 Room Air 04/11/24 09:00 Room Air 04/11/24 08:27 90 04/11/24 08:00 98.5 F 04/11/24 08:00 97 Room Air 04/11/24 08:00 73 16 106/61 L 97 Room Air 04/11/24 08:00 96 H Intake and Output 04/11/24 04/11/24 04/12/24 15:59 23:59 07:59 Intake Total 838 / 2908 945 / 2908 907 / 907 Output Total 0 / 150 150 / 150 0 / 0 Balance 838 / 2758 795 / 2758 907 / 907 Intake: Intake, Oral Amount 480 / 1340 360 / 1340 Intake, Total IV Amount 358 / 1568 585 / 1568 907 / 907 Ceftriaxone Sodium 1 gm In 0.9 50 / 50 % Sodium Chloride 50 ml @ 100 mls/hr IV Q24H [facility] Rx#:[id number] D5W/0.45% NaCl w/40mEq KCl 1, 308 / 1418 485 / 1418 707 / 707 000 ml @ 75 mls/hr IV .[id number] [facility] Rx#:[id number] Metronidaz/Sod Chl 500 mg In 100 / 100 200 / 200 100 ml @ 100 mls/hr IV Q8H [facility] Rx#:[id number] Output: Output, Urine Amount 0 / 150 150 / 150 0 / 0 Other: Number of Unmeasured Voids 1 1 1 Number of Bowel Movements 1 2 1 Weight 147.009 kg Patient Weight 04/12/24 23:59 Weight 147.009 kg Laboratory Results - last 24 hr 04/11/24 06:55: Total Counted 100, Neutrophils % (Manual) 39 L, Lymphocytes % (Manual) 48, Monocytes % (Manual) 10 H, Eosinophils % (Manual) 3, Nucleated RBCs 1, Platelet Estimate Slight increase, RBC Morphology Normal 04/11/24 09:40: Stl Aeromonas (PCR) Not detected, Stl C. cayetanensis PCR Not detected, Stool Rotavirus (PCR) Not detected, Stl Adenov F 40/41 PCR Not detected, Stool Astrovirus (PCR) Not detected, Stool Campylobacter PCR Not detected, Stl C.difficile Tox PCR Not detected, Stool Cryptosporidium PCR Not detected, Stl E.coli Shiga Tox PCR Not detected, Stool E coli O157 PCR Not detected, Stl Enterotoxigenic E PCR Not detected, Stool EPEC (PCR) Not detected, Stool EAEC (PCR) Not detected, Stl E. histolytica PCR Not detected, Stool Giardia Lamblia PCR Not detected, Stool Salmonella PCR Not detected, Stool Sapovirus (PCR) Not detected, Stl P. shigelloides PCR Not detected, Stl Shigella/EIEC PCR Not detected, St Y.enterocolitica PCR Not detected, Stool Vibrio (PCR) Not detected, Stl Vibrio cholerae PCR Not detected, Stl Norovirus GI/GII PCR Not detected 04/12/24 05:26: WBC 36.2 H*, RBC 5.32, Hgb 16.5, Hct 50.6, MCV 95.2 H, MCH 31.0, MCHC 32.5, RDW 14.5, Plt Count 331 D, MPV 8.7, Neut % (Auto) 77.5, Lymph % (Auto) 12.4, [place] % (Auto) 4.4, Eos % (Auto) 5.6, Baso % (Auto) 1.8, Neut # (Auto) 28.0 H, Lymph # (Auto) 4.5, [place] # (Auto) 1.6 H, Eos # (Auto) 2.0 H, Baso # (Auto) 0.6 H, Total Counted 100, Neutrophils % (Manual) 66, Band Neutrophils % 3.0, Lymphocytes % (Manual) 14, Atypical Lymphs % 5.0, Monocytes % (Manual) 6, Eosinophils % (Manual) 4 H, Basophils % (Manual) 2.0 H, Nucleated RBCs 1, Platelet Estimate Normal, RBC Morphology Normal, Sodium 137, Potassium 3.3 L, Chloride 113 H, Carbon Dioxide 17 L, Anion Gap 10.3, BUN 11, Creatinine 0.90, Estimated Creat Clear 94, Estimated GFR 89, Est GFR ( Amer) 108, Glucose 90 D, Calcium 8.5, Total Bilirubin 0.3, AST 37, ALT 35, Alkaline Phosphatase 79, Total Protein 5.9 L, Albumin 3.1 L, Globulin 2.8, Albumin/Globulin Ratio 1.1 I & O for Labs for Last 24 Hours: Intake & Output 04/09/24 04/10/24 04/11/24 04/12/24 23:59 23:59 23:59 23:59 Intake Total 2463.167 / 2463.167 3890.333 / 5015.333 2908 / 2908 907 / 907 Output Total 0 / 0 0 / 0 150 / 150 0 / 0 Balance 2463.167 / 2463.167 3890.333 / 5015.333 2758 / 2758 907 / 907 Weight 148.41 kg 148.325 kg 150.139 kg 147.009 kg The patient's infection will respond to the chosen ABx?: Yes Is the patient receiving the right drug, dose, and route?: Yes Could a more targeted ABx be ordered?: No (PT WBC STILL ELEVATED. CONTINUING FLAGYL AND ROCEPHIN AT THIS TIME. )
--- NOTE | 2024-04-12 08:18 | EXP.ACUTE.PN ---
Subjective *Date: 04/12/24 *Time: 08:51 Interval history: Patient is feeling a little better today. The abdominal pressure has improved. He is still having diarrhea. He has been able to eat. Medical Exam Vital signs and Labs for Last 24 Hours: Vital Signs Temp Pulse Pulse Resp BP Pulse Ox O2 Del Method 04/12/24 07:36 84 Room Air 04/12/24 06:41 Room Air 04/12/24 06:00 72 15 115/69 95 Room Air 04/12/24 04:52 Room Air 04/12/24 04:04 97 CPAP 04/12/24 04:00 97.4 F L 04/12/24 04:00 70 04/12/24 04:00 65 16 105/64 L 98 CPAP 04/12/24 02:56 CPAP 04/12/24 02:00 79 20 116/66 96 CPAP 04/12/24 01:00 CPAP 04/12/24 00:00 97.8 F 04/12/24 00:00 80 04/12/24 00:00 90 18 115/52 L 95 CPAP 04/11/24 22:45 CPAP 04/11/24 22:00 88 20 120/79 97 CPAP 04/11/24 20:55 Room Air 04/11/24 20:22 Room Air 04/11/24 20:00 97.6 F 04/11/24 20:00 91 H 20 131/63 96 Room Air 04/11/24 20:00 90 04/11/24 18:47 Room Air 04/11/24 18:00 94 H 18 96/61 L 95 Room Air 04/11/24 17:00 Room Air 04/11/24 16:00 95 Room Air 04/11/24 16:00 100 H 04/11/24 16:00 98.0 F 04/11/24 15:00 Room Air 04/11/24 14:00 68 20 119/48 L 94 L Room Air 04/11/24 13:00 Room Air 04/11/24 12:05 90 04/11/24 12:00 97.9 F 04/11/24 12:00 84 20 117/95 H 98 Room Air 04/11/24 11:00 Room Air 04/11/24 10:00 89 20 120/69 99 Room Air 04/11/24 09:00 Room Air 04/11/24 08:27 90 Intake and Output 04/11/24 04/12/24 04/12/24 19:59 03:59 11:59 Intake Total 1185 / 2092 907 / 2 Output Total 0 / 150 150 / 150 0 / 150 Balance 1185 / 1942 -150 / 1942 907 / 1942 Intake: Intake, Oral Amount 600 / 600 Intake, Total IV Amount 585 / 1492 907 / 1492 D5W/0.45% NaCl w/40mEq KCl 1, 485 / 1192 707 / 1192 000 ml @ 75 mls/hr IV .[id number] [facility] Rx#:[id number] Metronidaz/Sod Chl 500 mg In 100 / 300 200 / 300 100 ml @ 100 mls/hr IV Q8H [facility] Rx#:[id number] Output: Output, Urine Amount 0 / 150 150 / 150 0 / 150 Other: Number of Unmeasured Voids 1 1 1 Number of Bowel Movements 1 2 1 Weight 324 lb 1.6 oz Patient Weight 04/12/24 11:59 Weight 324 lb 1.6 oz Laboratory Results - last 24 hr 04/11/24 06:55: Total Counted 100, Neutrophils % (Manual) 39 L, Lymphocytes % (Manual) 48, Monocytes % (Manual) 10 H, Eosinophils % (Manual) 3, Nucleated RBCs 1, Platelet Estimate Slight increase, RBC Morphology Normal 04/11/24 09:40: Stl Aeromonas (PCR) Not detected, Stl C. cayetanensis PCR Not detected, Stool Rotavirus (PCR) Not detected, Stl Adenov F 40/41 PCR Not detected, Stool Astrovirus (PCR) Not detected, Stool Campylobacter PCR Not detected, Stl C.difficile Tox PCR Not detected, Stool Cryptosporidium PCR Not detected, Stl E.coli Shiga Tox PCR Not detected, Stool E coli O157 PCR Not detected, Stl Enterotoxigenic E PCR Not detected, Stool EPEC (PCR) Not detected, Stool EAEC (PCR) Not detected, Stl E. histolytica PCR Not detected, Stool Giardia [place]lia PCR Not detected, Stool Salmonella PCR Not detected, Stool Sapovirus (PCR) Not detected, Stl P. shigelloides PCR Not detected, Stl Shigella/EIEC PCR Not detected, St Y.enterocolitica PCR Not detected, Stool Vibrio (PCR) Not detected, Stl Vibrio cholerae PCR Not detected, Stl Norovirus GI/GII PCR Not detected 04/12/24 05:26: WBC 36.2 H*, RBC 5.32, Hgb 16.5, Hct 50.6, MCV 95.2 H, MCH 31.0, MCHC 32.5, RDW 14.5, Plt Count 331 D, MPV 8.7, Neut % (Auto) 77.5, Lymph % (Auto) 12.4, [place] % (Auto) 4.4, Eos % (Auto) 5.6, Baso % (Auto) 1.8, Neut # (Auto) 28.0 H, Lymph # (Auto) 4.5, [place] # (Auto) 1.6 H, Eos # (Auto) 2.0 H, Baso # (Auto) 0.6 H, Total Counted 100, Neutrophils % (Manual) 66, Band Neutrophils % 3.0, Lymphocytes % (Manual) 14, Atypical Lymphs % 5.0, Monocytes % (Manual) 6, Eosinophils % (Manual) 4 H, Basophils % (Manual) 2.0 H, Nucleated RBCs 1, Platelet Estimate Normal, RBC Morphology Normal, Sodium 137, Potassium 3.3 L, Chloride 113 H, Carbon Dioxide 17 L, Anion Gap 10.3, BUN 11, Creatinine 0.90, Estimated Creat Clear 94, Estimated GFR 89, Est GFR ( Amer) 108, Glucose 90 D, Calcium 8.5, Total Bilirubin 0.3, AST 37, ALT 35, Alkaline Phosphatase 79, Total Protein 5.9 L, Albumin 3.1 L, Globulin 2.8, Albumin/Globulin Ratio 1.1 I & O for Labs for Last 24 Hours: Intake & Output 04/09/24 04/10/24 04/11/24 04/12/24 11:59 11:59 11:59 11:59 Intake Total 190.500 / 720.761 3432.000 / 4639.000 3246 / 3247 2091 Output Total 0 / 0 0 / 0 0 / 0 150 / 150 Balance 190.500 / 849.795 4769.000 / 4639.000 3247 / 3247 1941 / 1941 Weight 327 lb 3 oz 327 lb 331 lb 324 lb 1.6 oz Constitutional: Present no acute distress Respiratory: Present CTA bilaterally Cardiac: Present Other (irregularly irregular) GI: Present soft, tenderness (diffuse but improved from yesterday) and normal bowel sounds; Absent distention Extremities: Absent edema, clubbing or cyanosis Skin: Present intact Neuro: Present alert and awake Assessment and Plan *Assessment and plan (1) Pneumatosis of intestines: Status: Acute Category: Medical Code(s): K63.89 - Other specified diseases of intestine (2) Atrial fibrillation with rapid ventricular response: Status: Acute Category: Medical Code(s): I48.91 - Unspecified atrial fibrillation (3) Acute dehydration: Status: Acute Category: Medical Code(s): E86.0 - Dehydration (4) Acute hypokalemia: Status: Acute Category: Medical Code(s): E87.6 - Hypokalemia (5) Diarrhea: Status: Acute Qualifiers: Diarrhea type: unspecified type Qualified Code(s): R19.7 - Diarrhea, unspecified Category: Medical Code(s): R19.7 - Diarrhea, unspecified (6) Leukocytosis: Status: Acute Qualifiers: Leukocytosis type: other Qualified Code(s): D72.828 - Other elevated white blood cell count Category: Medical Code(s): D72.829 - Elevated white blood cell count, unspecified (7) Morbid obesity: Status: Acute Category: Medical Code(s): E66.01 - Morbid (severe) obesity due to excess calories (8) Adverse effects of medication: Status: Acute Qualifiers: Encounter type: initial encounter Qualified Code(s): T50.905A - Adverse effect of unspecified drugs, medicaments and biological substances, initial encounter Category: Medical Code(s): T50.905A - Adverse effect of unspecified drugs, medicaments and biological substances, initial encounter (9) Venous stasis of both lower extremities: Status: Acute Category: Medical Code(s): I87.8 - Other specified disorders of veins (10) Abdominal pain: Status: Acute Category: Medical Code(s): R10.9 - Unspecified abdominal pain Plan Patient's WBC is up to 36 today. Symptomatically he is better. Potassium is low. Will replace. Stool panel was negative. Will discuss further care with Dr. Smith. Dr. Smith entry - Saw patient, agree with above note. Had a long discussion with he and his about new diagnosis of pneumatosis, despite his current improved state he could still have complications. Plan to restrict oral intake, continue antibiotics, will plan to repeating imaging in a few days.
[2024-04-12] MEDS: dilTIAZem ER 240MG CAPSULE 240 MG PO ×2 (08:34→20:33)
[2024-04-12] MEDS: DIGOXIN 0.125MG TABLET 125 MCG PO (08:34)
[2024-04-12] MEDS: CEFTRIAXONE SODIUM 1 GM in 0.9 % SODIUM CHLORIDE 50 ML IV (08:34)
[2024-04-12] MEDS: APIXABAN 5MG TABLET 5 MG PO ×2 (08:35→20:33)
--- NOTE | 2024-04-12 08:40 | EXP.CARD.PN ---
Subjective Subjective Date: 04/12/24 Time: 08:41 Principal diagnosis: A. fib Interval history: 49-year-old white male sitting in bedside chair in no acute distress. Diarrhea has improved overnight but still continues. Abdominal discomfort has improved. Telemetry continues to show atrial fibrillation but controlled ventricular rate in the 50 to 100 bpm range Exam Data for Last 24 hours Vital signs and Labs for Last 24 Hours: Temp Pulse Resp BP Pulse Ox O2 Del Method 97.4 F L 107 H 15 115/69 95 Room Air 04/12/24 04:00 04/12/24 08:34 04/12/24 06:00 04/12/24 06:00 04/12/24 06:00 04/12/24 07:36 Laboratory Results - last 24 hr 04/11/24 06:55: Total Counted 100, Neutrophils % (Manual) 39 L, Lymphocytes % (Manual) 48, Monocytes % (Manual) 10 H, Eosinophils % (Manual) 3, Nucleated RBCs 1, Platelet Estimate Slight increase, RBC Morphology Normal 04/11/24 09:40: Stl Aeromonas (PCR) Not detected, Stl C. cayetanensis PCR Not detected, Stool Rotavirus (PCR) Not detected, Stl Adenov F 40/41 PCR Not detected, Stool Astrovirus (PCR) Not detected, Stool Campylobacter PCR Not detected, Stl C.difficile Tox PCR Not detected, Stool Cryptosporidium PCR Not detected, Stl E.coli Shiga Tox PCR Not detected, Stool E coli O157 PCR Not detected, Stl Enterotoxigenic E PCR Not detected, Stool EPEC (PCR) Not detected, Stool EAEC (PCR) Not detected, Stl E. histolytica PCR Not detected, Stool Giardia Lamblia PCR Not detected, Stool Salmonella PCR Not detected, Stool Sapovirus (PCR) Not detected, Stl P. shigelloides PCR Not detected, Stl Shigella/EIEC PCR Not detected, St Y.enterocolitica PCR Not detected, Stool Vibrio (PCR) Not detected, Stl Vibrio cholerae PCR Not detected, Stl Norovirus GI/GII PCR Not detected 04/12/24 05:26: WBC 36.2 H*, RBC 5.32, Hgb 16.5, Hct 50.6, MCV 95.2 H, MCH 31.0, MCHC 32.5, RDW 14.5, Plt Count 331 D, MPV 8.7, Neut % (Auto) 77.5, Lymph % (Auto) 12.4, [place] % (Auto) 4.4, Eos % (Auto) 5.6, Baso % (Auto) 1.8, Neut # (Auto) 28.0 H, Lymph # (Auto) 4.5, [place] # (Auto) 1.6 H, Eos # (Auto) 2.0 H, Baso # (Auto) 0.6 H, Total Counted 100, Neutrophils % (Manual) 66, Band Neutrophils % 3.0, Lymphocytes % (Manual) 14, Atypical Lymphs % 5.0, Monocytes % (Manual) 6, Eosinophils % (Manual) 4 H, Basophils % (Manual) 2.0 H, Nucleated RBCs 1, Platelet Estimate Normal, RBC Morphology Normal, Sodium 137, Potassium 3.3 L, Chloride 113 H, Carbon Dioxide 17 L, Anion Gap 10.3, BUN 11, Creatinine 0.90, Estimated Creat Clear 94, Estimated GFR 89, Est GFR ( Amer) 108, Glucose 90 D, Calcium 8.5, Total Bilirubin 0.3, AST 37, ALT 35, Alkaline Phosphatase 79, Total Protein 5.9 L, Albumin 3.1 L, Globulin 2.8, Albumin/Globulin Ratio 1.1 I & O for Last 24 hours: Intake & Output 04/09/24 04/10/24 04/11/24 04/12/24 11:59 11:59 11:59 11:59 Intake Total 190.500 / 661.871 0064.000 / 4639.000 3247 / 3247 2091 Output Total 0 / 0 0 / 0 0 / 0 150 / 150 Balance 190.500 / 322.217 1094.000 / 4639.000 3247 / 3247 1941 / 1941 Weight 327 lb 3 oz 327 lb 331 lb 324 lb 1.6 oz Constitutional Constitutional: no acute distress *Routine Respiratory Exam Respiratory: Present CTA bilaterally *Routine Cardiovascular Exam Cardiovascular: Present irregularly irregular Progress Note: A&P Assessment and plan (1) Pneumatosis of intestines: Status: Acute (2) Atrial fibrillation with rapid ventricular response: Status: Acute (3) Acute dehydration: Status: Acute (4) Acute hypokalemia: Status: Acute (5) Diarrhea: Status: Acute (6) Leukocytosis: Status: Acute (7) Morbid obesity: Status: Acute (8) Adverse effects of medication: Status: Acute (9) Venous stasis of both lower extremities: Status: Acute (10) Abdominal pain: Status: Acute Assessment and Plan Assessment and Plan for All Diagnoses:: 1. Leukocytosis with white count >30K -Pneumatosis noted on CT of abdomen with portal venous gas noted. Bowel ischemia not excluded. No evidence of central mesenteric vascular disease. -Antibiotics per Dr. Smith -Pt may need transfer to tertiary center if conditions worsen for emergent GI surgery 2. A. fib with RVR -Likely related to dehydration caused by diarrhea with electrolyte disorder -oral diltiazem and digoxin -on eliquis -echo shows normal EF with increased LV wall thickness and Mild RV dilatation and reduced function. Will need consideration of outpatient Cardiac MRI in future 3. Morbid obesity 4. Thrombocytosis likely related to dehydration and diarrhea -stable at 450K 5. Hypokalemia, -continue replacement Continue current meds No plans for inpatient cardioversion at this time. Nothing further to add at this time. Please call if needed.
[2024-04-12] MEDS: POTASSIUM CHLORIDE 20MEQ TAB 20 MEQ PO ×2 (09:29→20:32)
--- NOTE | 2024-04-12 16:26 | PC.NURSE ---
Pt has been up to the chair for most of the day. Family is currently at bedside and patient is in good spirits. Does not complain of any pain or abdominal pressure at the moment. Lungs sounds clear, bowel sounds active in all 4, 2+ edema on the lower extremities. Pt is afib on the monitor with HR between 60s- 90s. Patient has had 2 liquid bowel movements this shift. Has tolerated a liquid diet well, and feels that liquid does not cause pressure in the abdomen. Pt is receiving D5W with 40mEq KCl running at 75. Patient has received flagyl and Rocephin per MAR this shift. Pt educated on the necessity of informing RN of any abdominal pain, patient verbalizes understanding. Patient has no complaints at this time.
[2024-04-13] VITALS (7 sets, daily range): BP systolic 97–141; BP diastolic 52–77; PULSE 59–100; RESP 16–24; TEMP 36.5–36.9; O2SAT 93–98; BMI 47.9
[2024-04-13] MEDS: D5W/0.45% NaCl w/40mEq KCl 1,000 ML 75 ML IV ×2 (01:51→14:11)
[2024-04-13] MEDS: METRONIDAZ/SOD CHL 500 MG/100 ML PIGGYBACK 100 MG IV ×3 (05:55→23:04)
--- NOTE | 2024-04-13 06:31 | PC.NURSE ---
No significant events overnight. Ambulated to the bathroom x3 occasions. Maintained Afib with rate controlled below 100.
--- NOTE | 2024-04-13 07:00 | XR_ITS ---
PROCEDURE INFORMATION: Exam: XR Complete Acute Abdomen Series Including Chest Exam date and time: 04/13/2024 7:01 AM Age: 49 years old Clinical indication: Other: Pneumatosis TECHNIQUE: Imaging protocol: Radiologic exam. Complete acute abdomen series, including 2 or more views of the abdomen and a single view chest. COMPARISON: CT ABDOMEN PELVIS W CON 04/11/2024 11:09 AM FINDINGS: Lungs: There is atelectasis at the left lung base. Pleural spaces: Normal. No pleural effusions. No pneumothorax. Heart/Mediastinum: Normal. No cardiomegaly. Gastrointestinal tract: The bowel gas pattern is nonspecific. Intraperitoneal space: Normal. No free air. Bones/joints: Degenerative changes are noted in the bones. Soft tissues: Normal. IMPRESSION: Nonspecific bowel gas pattern. Left basilar atelectasis.
[2024-04-13] MEDS: POTASSIUM CHLORIDE 20MEQ TAB 20 MEQ PO (08:15)
[2024-04-13] MEDS: APIXABAN 5MG TABLET 5 MG PO ×2 (08:15→20:05)
[2024-04-13] MEDS: CEFTRIAXONE SODIUM 1 GM in 0.9 % SODIUM CHLORIDE 50 ML IV (08:15)
[2024-04-13] MEDS: dilTIAZem ER 240MG CAPSULE 240 MG PO ×2 (08:16→20:05)
[2024-04-13] MEDS: DIGOXIN 0.125MG TABLET 125 MCG PO (08:16)
[2024-04-13 08:29] LABS: Basophils # 1.4 K/mm3 (0-0.2); Basophils % 3.9 % (0.1-2.0); Eosinophils # 3.4 K/mm3 (0.0-0.4); Eosinophils % 9.4 % (0.1-12.0); Hematocrit 47.6 % (42.0-52.0); Hemoglobin 15.7 g/dL (14.1-18.0); Lymphocytes # 3.6 K/mm3 (0.7-4.5); Lymphocytes % 9.9 % (10-50); Mean Corpuscular Hemoglobin 31.6 pg (27.0-31.2); Mean Corpuscular Volume 95.7 fl (80-94); Mean Platelet Volume 8.1 fl (7.4-10.4); Monocytes # 1.3 K/mm3 (0.1-1.0); Monocytes % 3.7 % (1.7-9.3); Platelet Count 355 K/mm3 (142-424); Red Blood Count 4.97 M/mm3 (4.60-6.20); Red Cell Distribution Width 14.6 % (11.5-17.5); White Blood Count 36.4 K/mm3 (4.8-10.8)
[2024-04-13 08:30] LABS: Chloride 111 mmol/L (98-107); Sodium 137 mmol/L (136-145)
[2024-04-13 08:33] LABS: Blood Urea Nitrogen 6 mg/dl (9-20); Creatinine Clearance Estimated 106 mL/min (50-200); Estimated Glomerular Filt Rate 102 ml/min (>60); GFR (African American) 123 ML/MIN (>60)
[2024-04-13 08:34] LABS: Anion Gap 11.9 mEq/L (5-15); Calcium 8.4 mg/dl (8.4-10.2); Carbon Dioxide 17 mmol/L (22.0-30.0); Glucose 125 mg/dl (74-100)
[2024-04-13 08:39] LABS: MANUAL DIFFERENTIAL MANUAL DIFFERENTIAL (MANUAL DIFF)
--- NOTE | 2024-04-13 08:39 | EXP.ACUTE.PN ---
Subjective *Date: 04/13/24 *Time: 08:39 Interval history: Patient feels a little better today, no new complaints. Medical Exam Vital signs and Labs for Last 24 Hours: Vital Signs Temp Pulse Pulse Resp BP Pulse Ox O2 Del Method 04/13/24 08:16 83 04/13/24 07:53 Room Air 04/13/24 04:00 70 04/13/24 04:00 98.2 F 04/13/24 04:00 67 97/52 L 98 Room Air 04/13/24 00:00 59 L 04/13/24 00:00 97.7 F 04/13/24 00:00 83 24 130/58 L 97 Room Air 04/12/24 20:31 72 04/12/24 20:00 98 H 98 Room Air 04/12/24 20:00 98.6 F 69 16 122/60 98 Room Air 04/12/24 18:58 Room Air 04/12/24 16:49 Room Air 04/12/24 16:35 97.5 F L 65 16 119/66 98 Room Air 04/12/24 16:00 70 04/12/24 16:00 72 20 127/61 Room Air 04/12/24 15:00 Room Air 04/12/24 13:00 Room Air 04/12/24 12:00 100 H 04/12/24 11:52 98.3 F 69 18 124/68 98 Room Air 04/12/24 11:00 Room Air 04/12/24 09:00 Room Air Intake and Output 04/12/24 04/13/24 04/13/24 23:59 07:59 15:59 Intake Total 540 / 1927 687 / 687 Output Total 0 / 0 0 / 0 Balance 540 / 1927 687 / 687 Intake: Intake, Oral Amount 540 / 1020 Intake, Total IV Amount 687 / 687 D5W/0.45% NaCl w/40mEq KCl 1, 497 / 497 000 ml @ 75 mls/hr IV .[id number] [facility] Rx#:[id number] Metronidaz/Sod Chl 500 mg In 190 / 190 100 ml @ 100 mls/hr IV Q8H [facility] Rx#:[id number] Output: Output, Urine Amount 0 / 0 0 / 0 Other: Number of Unmeasured Voids 1 1 Number of Bowel Movements 2 Weight 324 lb 1.272 oz Patient Weight 04/13/24 23:59 Weight 324 lb 1.272 oz Laboratory Results - last 24 hr 04/13/24 07:55: WBC 36.4 H*, RBC 4.97, Hgb 15.7, Hct 47.6, MCV 95.7 H, MCH 31.6 H, MCHC 33.0, RDW 14.6, Plt Count 355, MPV 8.1, Neut % (Auto) 77.0, Lymph % (Auto) 9.9 L, [place] % (Auto) 3.7, Eos % (Auto) 9.4, Baso % (Auto) 3.9 H, Neut # (Auto) 28.0 H, Lymph # (Auto) 3.6, [place] # (Auto) 1.3 H, Eos # (Auto) 3.4 H, Baso # (Auto) 1.4 H I & O for Labs for Last 24 Hours: Intake & Output 04/10/24 04/11/24 04/12/24 04/13/24 23:59 23:59 23:59 23:59 Intake Total 3890.333 / 5015.333 2908 / 2908 192 / 192 / 7 Output Total 0 / 0 150 / 150 0 / 0 0 / 0 Balance 3890.333 / 5015.333 2758 / 2758 1926 / 19267 / 7 Weight 327 lb 331 lb 324 lb 1.272 oz 324 lb 1.272 oz Constitutional: Present no acute distress Respiratory: Present CTA bilaterally Cardiac: Present Other (irregularly irregular) GI: Present soft, tenderness (diffuse but improved from yesterday) and normal bowel sounds; Absent distention Extremities: Absent edema, clubbing or cyanosis Skin: Present intact Neuro: Present alert and awake Assessment and Plan *Assessment and plan (1) Pneumatosis of intestines: Status: Acute Category: Medical Code(s): K63.89 - Other specified diseases of intestine (2) Atrial fibrillation with rapid ventricular response: Status: Acute Category: Medical Code(s): I48.91 - Unspecified atrial fibrillation (3) Acute dehydration: Status: Acute Category: Medical Code(s): E86.0 - Dehydration (4) Acute hypokalemia: Status: Acute Category: Medical Code(s): E87.6 - Hypokalemia (5) Diarrhea: Status: Acute Qualifiers: Diarrhea type: unspecified type Qualified Code(s): R19.7 - Diarrhea, unspecified Category: Medical Code(s): R19.7 - Diarrhea, unspecified (6) Leukocytosis: Status: Acute Qualifiers: Leukocytosis type: other Qualified Code(s): D72.828 - Other elevated white blood cell count Category: Medical Code(s): D72.829 - Elevated white blood cell count, unspecified (7) Morbid obesity: Status: Acute Category: Medical Code(s): E66.01 - Morbid (severe) obesity due to excess calories (8) Adverse effects of medication: Status: Acute Qualifiers: Encounter type: initial encounter Qualified Code(s): T50.905A - Adverse effect of unspecified drugs, medicaments and biological substances, initial encounter Category: Medical Code(s): T50.905A - Adverse effect of unspecified drugs, medicaments and biological substances, initial encounter (9) Venous stasis of both lower extremities: Status: Acute Category: Medical Code(s): I87.8 - Other specified disorders of veins (10) Abdominal pain: Status: Acute Category: Medical Code(s): R10.9 - Unspecified abdominal pain Plan Morning lab still pending, patient is slowly improving, continue current treatment.
[2024-04-13 08:57] LABS: Potassium 2.9 mmoL/L (3.5-5.1)
[2024-04-13] MEDS: POTASSIUM CHLORIDE 20MEQ TAB 40 MEQ PO ×2 (09:48→20:05)
[2024-04-13] MEDS: ERTAPENEM SODIUM 1 GM in 0.9 % SODIUM CHLORIDE 50 ML IV (12:06)
[2024-04-13 14:57] LABS: Eosinophils % 10 % (0-3); Lymphocytes % 10 % (10-50); Monocytes % 5 % (2-9); Myelocytes % 4 (0-1); Neutrophils % 68 % (42-76); Promyelocytes % 1 %; Total Cells Counted 100
[2024-04-13 14:59] LABS: Platelet Estimate Normal; RBC Morphology Normal
--- NOTE | 2024-04-13 16:50 | PC.NURSE ---
PT IS RESTING IN BED. ALERT AND ORIENTED X4. LUNG SOUNDS DIMINISHED. ABDOMEN SOFT/LARGE WITH ACTIVE BOWEL SOUNDS. PT HAS HAD 4 LOOSE BOWEL MOVEMENTS THIS SHIFT. AMBULATES TO THE BATHROOM. 2+ PITTING EDEMA NOTED TO BLE. AFIB ON TELEMETRY. WILL CONTINUE TO MONITOR.
[2024-04-14] VITALS (9 sets, daily range): BP systolic 117–147; BP diastolic 60–89; PULSE 58–95; RESP 16–18; TEMP 36.7–37; O2SAT 91–98; BMI 47.9
[2024-04-14] MEDS: D5W/0.45% NaCl w/40mEq KCl 1,000 ML 75 ML IV (03:44)
--- NOTE | 2024-04-14 06:34 | PC.NURSE ---
No acute changes during shift. Pt has not voiced any complaints of abdominal pain/pressure during shift. States he feels much better than when he did on admission. Pt ambulating to BR independently. at bedside. Call light within reach.
[2024-04-14] MEDS: METRONIDAZ/SOD CHL 500 MG/100 ML PIGGYBACK 100 MG IV ×3 (06:41→21:32)
[2024-04-14] MEDS: DIGOXIN 0.125MG TABLET 125 MCG PO (08:11)
[2024-04-14] MEDS: POTASSIUM CHLORIDE 20MEQ TAB 40 MEQ PO ×2 (08:11→21:26)
[2024-04-14] MEDS: dilTIAZem ER 240MG CAPSULE 240 MG PO ×2 (08:11→21:26)
[2024-04-14] MEDS: APIXABAN 5MG TABLET 5 MG PO ×2 (08:11→21:26)
[2024-04-14] MEDS: ERTAPENEM SODIUM 1 GM in 0.9 % SODIUM CHLORIDE 50 ML IV (08:12)
[2024-04-14 08:44] LABS: Basophils # 0.9 K/mm3 (0-0.2); Eosinophils # 3.5 K/mm3 (0.0-0.4); Eosinophils % 11.9 % (0.1-12.0); Hematocrit 48.6 % (42.0-52.0); Hemoglobin 16.1 g/dL (14.1-18.0); Lymphocytes # 3.4 K/mm3 (0.7-4.5); Lymphocytes % 11.4 % (10-50); Mean Corpuscular HGB Conc 33.2 g/dL (31.8-35.4); Mean Corpuscular Hemoglobin 31.7 pg (27.0-31.2); Mean Corpuscular Volume 95.4 fl (80-94); Mean Platelet Volume 8.2 fl (7.4-10.4); Monocytes # 1.3 K/mm3 (0.1-1.0); Monocytes % 4.2 % (1.7-9.3); Neutrophils # 21.4 K/mm3 (1.8-7.8); Neutrophils % 72.4 % (37.0-80.0); Platelet Count 289 K/mm3 (142-424); Red Cell Distribution Width 14.7 % (11.5-17.5); White Blood Count 29.6 K/mm3 (4.8-10.8)
[2024-04-14 08:46] LABS: MANUAL DIFFERENTIAL MANUAL DIFFERENTIAL (MANUAL DIFF)
[2024-04-14 08:49] LABS: Chloride 112 mmol/L (98-107); Potassium 3.4 mmoL/L (3.5-5.1); Sodium 139 mmol/L (136-145)
[2024-04-14 08:52] LABS: Anion Gap 11.4 mEq/L (5-15); Blood Urea Nitrogen 4 mg/dl (9-20); Calcium 8.6 mg/dl (8.4-10.2); Carbon Dioxide 19 mmol/L (22.0-30.0); Creatinine Clearance Estimated 106 mL/min (50-200); Estimated Glomerular Filt Rate 102 ml/min (>60); GFR (African American) 123 ML/MIN (>60); Glucose 106 mg/dl (74-100)
--- NOTE | 2024-04-14 10:05 | P.PN_ITS ---
Subjective *Date: 04/14/24 *Time: 10:05 Medical Exam Vital signs and Labs for Last 24 Hours: Vital Signs Temp Pulse Pulse Resp BP Pulse Ox O2 Del Method 04/14/24 08:38 Room Air 04/14/24 08:11 80 04/14/24 08:00 Room Air 04/14/24 08:00 90 04/14/24 08:00 98.3 F 88 18 117/60 91 L Room Air 04/14/24 06:38 CPAP 04/14/24 05:00 CPAP 04/14/24 04:00 70 04/14/24 04:00 98.6 F 63 16 131/73 96 CPAP 04/14/24 03:00 CPAP 04/14/24 01:00 CPAP 04/14/24 00:00 80 04/14/24 00:00 98.6 F 69 16 128/89 96 CPAP 04/13/24 23:03 CPAP 04/13/24 20:35 Room Air 04/13/24 20:00 90 04/13/24 20:00 98.4 F 83 16 131/75 93 L Room Air 04/13/24 20:00 Room Air 04/13/24 18:25 Room Air 04/13/24 17:00 Room Air 04/13/24 17:00 Room Air 04/13/24 16:00 100 H 04/13/24 16:00 97.9 F 65 18 115/63 97 Room Air 04/13/24 15:00 Room Air 04/13/24 13:00 Room Air 04/13/24 12:00 80 04/13/24 12:00 98.5 F 70 16 141/77 H 98 Room Air 04/13/24 10:46 Room Air Intake and Output 04/13/24 04/14/24 04/14/24 23:59 07:59 15:59 Intake Total 1361 / 3628 1006 / 1686 680 / 1686 Output Total 0 / 0 0 / 0 Balance 1361 / 3628 1006 / 1686 680 / 1686 Intake: Intake, Oral Amount 600 / 2080 680 / 680 Intake, Total IV Amount 761 / 1548 1006 / 1006 D5W/0.45% NaCl w/40mEq KCl 1, 761 / 1258 906 / 906 000 ml @ 75 mls/hr IV .[id number] [facility] Rx#:[id number] Metronidaz/Sod Chl 500 mg In 100 / 100 100 ml @ 100 mls/hr IV Q8H [facility] Rx#:[id number] Output: Output, Urine Amount 0 / 0 0 / 0 Other: Number of Unmeasured Voids 1 1 Weight 147 kg Patient Weight 04/14/24 23:59 Weight 147 kg Laboratory Results - last 24 hr 04/13/24 07:55: Total Counted 100, Neutrophils % (Manual) 68, Band Neutrophils % 2.0, Lymphocytes % (Manual) 10, Monocytes % (Manual) 5, Eosinophils % (Manual) 10 H, Myelocytes % 4 H, Promyelocytes % 1, Platelet Estimate Normal, RBC Morphology Normal 04/14/24 07:56: WBC 29.6 H*, RBC 5.10, Hgb 16.1, Hct 48.6, MCV 95.4 H, MCH 31.7 H, MCHC 33.2, RDW 14.7, Plt Count 289, MPV 8.2, Neut % (Auto) 72.4, Lymph % (Auto) 11.4, [place] % (Auto) 4.2, Eos % (Auto) 11.9, Baso % (Auto) 3.0 H, Neut # (Auto) 21.4 H, Lymph # (Auto) 3.4, [place] # (Auto) 1.3 H, Eos # (Auto) 3.5 H, Baso # (Auto) 0.9 H, Sodium 139, Potassium 3.4 L, Chloride 112 H, Carbon Dioxide 19 L , Anion Gap 11.4, BUN 4 L D, Creatinine 0.80, Estimated Creat Clear 106, Estimated GFR 102, Est GFR ( Amer) 123, Glucose 106 H, Calcium 8.6 I & O for Labs for Last 24 Hours: Intake & Output 04/11/24 04/12/24 04/13/24 04/14/24 23:59 23:59 23:59 23:59 Intake Total 2908 / 2908 1926 Output Total 150 / 150 0 / 0 0 / 0 0 / 0 Balance 2758 / 2758 1926 3528 / 3627 1685 / 168 Weight 150.139 kg 147 kg 147 kg 147 kg The patient's infection will respond to the chosen ABx?: Yes Is the patient receiving the right drug, dose, and route?: Yes Could a more targeted ABx be ordered?: No (WBC COMING DOWN SLIGHTLY AFTER CHANGING TO INVANZ. AFEBRILE, CONT ABX.)
--- NOTE | 2024-04-14 10:36 | P.PN_ITS ---
Subjective *Date: 04/14/24 *Time: 10:36 Interval history: Patient feels better today. Medical Exam Vital signs and Labs for Last 24 Hours: Vital Signs Temp Pulse Pulse Resp BP Pulse Ox O2 Del Method 04/14/24 08:38 Room Air 04/14/24 08:11 80 04/14/24 08:00 Room Air 04/14/24 08:00 90 04/14/24 08:00 98.3 F 88 18 117/60 91 L Room Air 04/14/24 06:38 CPAP 04/14/24 05:00 CPAP 04/14/24 04:00 70 04/14/24 04:00 98.6 F 63 16 131/73 96 CPAP 04/14/24 03:00 CPAP 04/14/24 01:00 CPAP 04/14/24 00:00 80 04/14/24 00:00 98.6 F 69 16 128/89 96 CPAP 04/13/24 23:03 CPAP 04/13/24 20:35 Room Air 04/13/24 20:00 90 04/13/24 20:00 98.4 F 83 16 131/75 93 L Room Air 04/13/24 20:00 Room Air 04/13/24 18:25 Room Air 04/13/24 17:00 Room Air 04/13/24 17:00 Room Air 04/13/24 16:00 100 H 04/13/24 16:00 97.9 F 65 18 115/63 97 Room Air 04/13/24 15:00 Room Air 04/13/24 13:00 Room Air 04/13/24 12:00 80 04/13/24 12:00 98.5 F 70 16 141/77 H 98 Room Air 04/13/24 10:46 Room Air Intake and Output 04/13/24 04/14/24 04/14/24 23:59 07:59 15:59 Intake Total 1361 / 3628 1006 / 1686 680 / 1686 Output Total 0 / 0 0 / 0 Balance 1361 / 3628 1006 / 1686 680 / 1686 Intake: Intake, Oral Amount 600 / 2080 680 / 680 Intake, Total IV Amount 761 / 1548 1006 / 1006 D5W/0.45% NaCl w/40mEq KCl 1, 761 / 1258 906 / 906 000 ml @ 75 mls/hr IV .[id number] [facility] Rx#:[id number] Metronidaz/Sod Chl 500 mg In 100 / 100 100 ml @ 100 mls/hr IV Q8H [facility] Rx#:[id number] Output: Output, Urine Amount 0 / 0 0 / 0 Other: Number of Unmeasured Voids 1 1 Weight 324 lb 1.272 oz Patient Weight 04/14/24 23:59 Weight 324 lb 1.272 oz Laboratory Results - last 24 hr 04/13/24 07:55: Total Counted 100, Neutrophils % (Manual) 68, Band Neutrophils % 2.0, Lymphocytes % (Manual) 10, Monocytes % (Manual) 5, Eosinophils % (Manual) 10 H, Myelocytes % 4 H, Promyelocytes % 1, Platelet Estimate Normal, RBC Morphology Normal 04/14/24 07:56: WBC 29.6 H*, RBC 5.10, Hgb 16.1, Hct 48.6, MCV 95.4 H, MCH 31.7 H, MCHC 33.2, RDW 14.7, Plt Count 289, MPV 8.2, Neut % (Auto) 72.4, Lymph % (Auto) 11.4, [place] % (Auto) 4.2, Eos % (Auto) 11.9, Baso % (Auto) 3.0 H, Neut # (Auto) 21.4 H, Lymph # (Auto) 3.4, [place] # (Auto) 1.3 H, Eos # (Auto) 3.5 H, Baso # (Auto) 0.9 H, Sodium 139, Potassium 3.4 L, Chloride 112 H, Carbon Dioxide 19 L , Anion Gap 11.4, BUN 4 L D, Creatinine 0.80, Estimated Creat Clear 106, Estimated GFR 102, Est GFR ( Amer) 123, Glucose 106 H, Calcium 8.6 I & O for Labs for Last 24 Hours: Intake & Output 04/11/24 04/12/24 04/13/24 04/14/24 23:59 23:59 23:59 23:59 Intake Total 2908 / 2908 1926 / 3627 168 / 1686 Output Total 150 / 150 0 / 0 0 / 0 0 / 0 Balance 2758 / 2758 1926 / 3627 168 / 168 Weight 331 lb 324 lb 1.272 oz 324 lb 1.272 oz 324 lb 1.272 oz Constitutional: Present no acute distress Respiratory: Present CTA bilaterally Cardiac: Present Other (irregularly irregular) GI: Present soft and normal bowel sounds; Absent distention or tenderness Extremities: Absent edema, clubbing or cyanosis Skin: Present intact Neuro: Present alert and awake Assessment and Plan *Assessment and plan (1) Pneumatosis of intestines: Status: Acute Category: Medical Code(s): K63.89 - Other specified diseases of intestine (2) Atrial fibrillation with rapid ventricular response: Status: Acute Category: Medical Code(s): I48.91 - Unspecified atrial fibrillation (3) Acute dehydration: Status: Acute Category: Medical Code(s): E86.0 - Dehydration (4) Acute hypokalemia: Status: Acute Category: Medical Code(s): E87.6 - Hypokalemia (5) Diarrhea: Status: Acute Qualifiers: Diarrhea type: unspecified type Qualified Code(s): R19.7 - Diarrhea, unspecified Category: Medical Code(s): R19.7 - Diarrhea, unspecified (6) Leukocytosis: Status: Acute Qualifiers: Leukocytosis type: other Qualified Code(s): D72.828 - Other elevated white blood cell count Category: Medical Code(s): D72.829 - Elevated white blood cell count, unspecified (7) Morbid obesity: Status: Acute Category: Medical Code(s): E66.01 - Morbid (severe) obesity due to excess calories (8) Adverse effects of medication: Status: Acute Qualifiers: Encounter type: initial encounter Qualified Code(s): T50.905A - Adverse effect of unspecified drugs, medicaments and biological substances, initial encounter Category: Medical Code(s): T50.905A - Adverse effect of unspecified drugs, medicaments and biological substances, initial encounter (9) Venous stasis of both lower extremities: Status: Acute Category: Medical Code(s): I87.8 - Other specified disorders of veins (10) Abdominal pain: Status: Acute Category: Medical Code(s): R10.9 - Unspecified abdominal pain Plan Stop Rocephin and started Invanz yesterday, WBC count is a little lower, will saline lock today, possible discharge tomorrow with outpatient Invanz.
[2024-04-14 11:15] LABS: Eosinophils % 12 % (0-3); Lymphocytes % 12 % (10-50); Monocytes % 5 % (2-9); Neutrophils % 62 % (42-76); Nucleated Red Blood Cells 1; Total Cells Counted 100
[2024-04-14 11:19] LABS: Platelet Estimate Normal; RBC Morphology Normal
--- NOTE | 2024-04-14 15:51 | PC.WOUNDNOTE ---
Pt is resting in chair. Alert and oriented x4. Tolerating full liquids. Pt has ambulated to the bathroom and in the room. Lung sounds diminished with minimal wheezes. Abdomen large/soft/non tender with active bowel sounds. Afib on telemetry. Edema noted to ble. Will continue to monitor.
[2024-04-15] VITALS: BP 116/58; PULSE 68; PULSE 76; RESP 17; TEMP 36.8; O2SAT 97
[2024-04-15 04:00] VITALS: BP 121/69; PULSE 56; PULSE 60; RESP 18; TEMP 36.7; O2SAT 96; BMI 50.2
--- NOTE | 2024-04-15 04:44 | PC.NURSE ---
Patient has been alert and oriented x4 throughout shift. Tolerating room air well. Tolerating full liquid diet well. Patient has not complained of abdominal pain or pressure this shift. Patient ambulating to bathroom independently and states he had one lose bowel movement this shift. CPAP currently in place and patient is resting well tonight. No complaints or needs expressed. Call light within reach.
[2024-04-15] MEDS: METRONIDAZ/SOD CHL 500 MG/100 ML PIGGYBACK 100 MG IV (06:08)
[2024-04-15 06:57] LABS: Basophils # 0.8 K/mm3 (0-0.2); Basophils % 3.2 % (0.1-2.0); Eosinophils # 2.8 K/mm3 (0.0-0.4); Eosinophils % 11.7 % (0.1-12.0); Hematocrit 46.3 % (42.0-52.0); Hemoglobin 15.3 g/dL (14.1-18.0); Lymphocytes # 3.8 K/mm3 (0.7-4.5); Lymphocytes % 16.1 % (10-50); Mean Corpuscular HGB Conc 33.2 g/dL (31.8-35.4); Mean Corpuscular Hemoglobin 32.1 pg (27.0-31.2); Mean Corpuscular Volume 96.8 fl (80-94); Monocytes # 1.2 K/mm3 (0.1-1.0); Monocytes % 4.9 % (1.7-9.3); Neutrophils % 67.3 % (37.0-80.0); Platelet Count 200 K/mm3 (142-424); Red Blood Count 4.78 M/mm3 (4.60-6.20); Red Cell Distribution Width 14.6 % (11.5-17.5); White Blood Count 23.7 K/mm3 (4.8-10.8)
[2024-04-15 07:18] LABS: Chloride 111 mmol/L (98-107); Potassium 4.5 mmoL/L (3.5-5.1); Sodium 137 mmol/L (136-145)
[2024-04-15 07:21] LABS: Anion Gap 16.5 mEq/L (5-15); Blood Urea Nitrogen 3 mg/dl (9-20); Calcium 8.1 mg/dl (8.4-10.2); Carbon Dioxide 14 mmol/L (22.0-30.0); Creatinine Clearance Estimated 121 mL/min (50-200); Estimated Glomerular Filt Rate 119 ml/min (>60); GFR (African American) 144 ML/MIN (>60); Glucose 86 mg/dl (74-100)
[2024-04-15 07:25] LABS: MANUAL DIFFERENTIAL MANUAL DIFFERENTIAL (MANUAL DIFF)
[2024-04-15 08:00] VITALS: BP 107/76; PULSE 73; PULSE 80; RESP 18; TEMP 36.6; O2SAT 99
--- NOTE | 2024-04-15 08:06 | P.PN_ITS ---
Subjective *Date: 04/15/24 *Time: 08:43 Interval history: Patient states he is feeling well today. Did not sleep as well as the previous night. He is eating full liquids without difficulty. He denies any nausea, vomiting, abdominal pain. He had 2 stools during the night and he feels like there is some thickening to his stool. He is voiding without difficulty. He denies shortness of breath. He has a periodic cough. He denies any chest pain. He does have ongoing edema in bilateral lower extremities. CBC shows a decreasing white blood cell count at 23,700. Hemoglobin is stable at 15.3 hematocrit of 46.3. Blood chemistries reveal of sodium of 137 and potassium normalized at 4.5. Medical Exam Vital signs and Labs for Last 24 Hours: Vital Signs Temp Pulse Pulse Resp BP Pulse Ox O2 Del Method 04/15/24 07:00 Room Air 04/15/24 05:03 Room Air 04/15/24 04:00 60 04/15/24 04:00 98.1 F 56 L 18 121/69 96 BiPAP 04/15/24 02:53 Room Air 04/15/24 00:57 Room Air 04/15/24 00:00 76 04/15/24 00:00 98.3 F 68 17 116/58 L 97 Room Air 04/14/24 22:53 Room Air 04/14/24 21:32 97 Room Air 04/14/24 21:32 Room Air 04/14/24 20:00 95 H 04/14/24 19:58 98.4 F 85 17 137/68 97 Room Air 04/14/24 18:50 Room Air 04/14/24 17:00 Room Air 04/14/24 16:00 60 04/14/24 16:00 98.0 F 58 L 18 147/87 H 98 Room Air 04/14/24 15:00 Room Air 04/14/24 13:00 Room Air 04/14/24 12:00 90 04/14/24 12:00 98.2 F 60 18 120/62 98 Room Air 04/14/24 10:52 Room Air 04/14/24 08:38 Room Air 04/14/24 08:11 80 Intake and Output 04/14/24 04/15/24 04/15/24 19:59 03:59 11:59 Intake Total 1787 / 1787 Output Total 0 / 0 0 / 0 Balance 1786 Intake: Intake, Oral Amount 960 / 960 Intake, Total IV Amount 82 / 827 D5W/0.45% NaCl w/40mEq KCl 1, 827 / 827 000 ml @ 75 mls/hr IV [id number] Rx#:[id number] Output: Output, Urine Amount 0 / 0 0 / 0 Other: Number of Unmeasured Voids 1 1 Weight 339 lb 3.2 oz Patient Weight 04/15/24 11:59 Weight 339 lb 3.2 oz Laboratory Results - last 24 hr 04/14/24 07:56: WBC 29.6 H*, RBC 5.10, Hgb 16.1, Hct 48.6, MCV 95.4 H, MCH 31.7 H, MCHC 33.2, RDW 14.7, Plt Count 289, MPV 8.2, Neut % (Auto) 72.4, Lymph % (Auto) 11.4, [place] % (Auto) 4.2, Eos % (Auto) 11.9, Baso % (Auto) 3.0 H, Neut # (Auto) 21.4 H, Lymph # (Auto) 3.4, [place] # (Auto) 1.3 H, Eos # (Auto) 3.5 H, Baso # (Auto) 0.9 H, Total Counted 100, Neutrophils % (Manual) 62, Band Neutrophils % 3.0, Lymphocytes % (Manual) 12, Atypical Lymphs % 6.0, Monocytes % (Manual) 5, Eosinophils % (Manual) 12 H, Nucleated RBCs 1, Platelet Estimate Normal, RBC Morphology Normal, Sodium 139, Potassium 3.4 L, Chloride 112 H, Carbon Dioxide 19 L, Anion Gap 11.4, BUN 4 L D, Creatinine 0.80, Estimated Creat Clear 106, Estimated GFR 102, Est GFR ( Amer) 123, Glucose 106 H, Calcium 8.6 04/15/24 06:04: WBC 23.7 H*, RBC 4.78, Hgb 15.3, Hct 46.3, MCV 96.8 H, MCH 32.1 H, MCHC 33.2, RDW 14.6, Plt Count 200 D, MPV 10.0, Neut % (Auto) 67.3, Lymph % (Auto) 16.1, [place] % (Auto) 4.9, Eos % (Auto) 11.7, Baso % (Auto) 3.2 H, Neut # (Auto) 16.0 H, Lymph # (Auto) 3.8, [place] # (Auto) 1.2 H, Eos # (Auto) 2.8 H, Baso # (Auto) 0.8 H, Sodium 137, Potassium 4.5 D, Chloride 111 H, Carbon Dioxide 14 L, Anion Gap 16.5 H, BUN 3 L, Creatinine 0.70, Estimated Creat Clear 121, Estimated GFR 119, Est GFR ( Amer) 144, Glucose 86, Calcium 8.1 L I & O for Labs for Last 24 Hours: Intake & Output 04/12/24 04/13/24 04/14/24 04/15/24 11:59 11:59 11:59 11:59 Intake Total 2091 / 20917 / 2246 3987 / 3987 178 / 178 Output Total 150 / 150 0 / 0 0 / 0 0 / 0 Balance 1941 / 1941 2246 / 22467 / 3987 178 / 178 Weight 324 lb 1.6 oz 324 lb 1.272 oz 324 lb 1.272 oz 339 lb 3.2 oz Constitutional: Present no acute distress Comment:: Sitting in bedside recliner eating his breakfast. He appears most comfortable. Respiratory: Present rhonchi (Bilateral coarse rhonchi not clearing with coughing) Cardiac: Present Irregularly Regular (Irregular) Comment:: Monitor showing atrial fibrillation with a controlled ventricular response. GI: Present soft, hyperactive bowel sounds, hernia (Umbilical) and other (Obese); Absent guarding Extremities: Present edema (Bilateral lower extremities; pitting) Neuro: Present alert and oriented x 3 Assessment and Plan *Assessment and plan (1) Pneumatosis of intestines: Status: Acute Category: Medical Code(s): K63.89 - Other specified diseases of intestine (2) Atrial fibrillation with rapid ventricular response: Status: Acute Category: Medical Code(s): I48.91 - Unspecified atrial fibrillation (3) Acute dehydration: Status: Acute Category: Medical Code(s): E86.0 - Dehydration (4) Acute hypokalemia: Status: Acute Category: Medical Code(s): E87.6 - Hypokalemia (5) Diarrhea: Status: Acute Qualifiers: Diarrhea type: unspecified type Qualified Code(s): R19.7 - Diarrhea, unspecified Category: Medical Code(s): R19.7 - Diarrhea, unspecified (6) Leukocytosis: Status: Acute Qualifiers: Leukocytosis type: other Qualified Code(s): D72.828 - Other elevated white blood cell count Category: Medical Code(s): D72.829 - Elevated white blood cell count, unspecified (7) Morbid obesity: Status: Acute Category: Medical Code(s): E66.01 - Morbid (severe) obesity due to excess calories (8) Adverse effects of medication: Status: Acute Qualifiers: Encounter type: initial encounter Qualified Code(s): T50.905A - Adverse effect of unspecified drugs, medicaments and biological substances, initial encounter Category: Medical Code(s): T50.905A - Adverse effect of unspecified drugs, medicaments and biological substances, initial encounter (9) Venous stasis of both lower extremities: Status: Acute Category: Medical Code(s): I87.8 - Other specified disorders of veins (10) Abdominal pain: Status: Acute Category: Medical Code(s): R10.9 - Unspecified abdominal pain (11) Leg edema: Status: Acute Category: Medical Code(s): R60.0 - Localized edema Plan White blood cell count has improved since started on Invanz. Possibly home today. Activity encouraged. Dr. Smith entry - Saw patient, agree with above note. OK for discharge home today, will need 4 more days of Invanz, continue Flagyl by mouth. Plan outpatient follow up next week, will have patient f/u with cardiology next week as well.
[2024-04-15] MEDS: APIXABAN 5MG TABLET 5 MG PO (08:18)
[2024-04-15] MEDS: POTASSIUM CHLORIDE 20MEQ TAB 40 MEQ PO (08:18)
[2024-04-15] MEDS: dilTIAZem ER 240MG CAPSULE 240 MG PO (08:18)
[2024-04-15] MEDS: ERTAPENEM SODIUM 1 GM in 0.9 % SODIUM CHLORIDE 50 ML IV (08:18)
[2024-04-15 08:19] VITALS: PULSE 73
[2024-04-15] MEDS: DIGOXIN 0.125MG TABLET 125 MCG PO (08:19)
--- NOTE | 2024-04-15 08:30 | PC.NURSE ---
DR LIZ AT BEDSIDE
[2024-04-15 08:36] LABS: Eosinophils % 8 % (0-3); Lymphocytes % 26 % (10-50); Monocytes % 12 % (2-9); Neutrophils % 52 % (42-76); Total Cells Counted 100
[2024-04-15 08:37] LABS: Platelet Estimate Normal; RBC Morphology Normal
--- NOTE | 2024-04-15 09:35 | PC.NURSE ---
JORDON WITH PHARMACY AT BEDSIDE
--- NOTE | 2024-04-15 09:35 | PC.NURSE ---
CALLED [facility] TO GET APPOINTMENT FOR PT TOMORROW. APPOINTMENT SET FOR 10:30AM. PT AWARE AND VERBALIZED UNDERSTANDING. CALLED [facility] TO BEDS TO LET THEM KNOW PT WILL BE GOING HOME. PT AWARE OF COPAY.
--- NOTE | 2024-04-16 12:22 | CARE MANAGER ---
Contacted patient related to hospital discharge. He states he is doing well. He has been to the hospital to get his antibiotic. He denies questions or concerns. Has new medications and is aware of follow up appointments. Denies questions or concerns. MURPHY Montalvo
--- NOTE | 2024-04-22 23:10 | EXP.DC.SUM ---
General Admission date:: 04/09/24 Discharge date: 04/15/24 HPI HPI HPI: Mr. Frederick is a 49 year old male patient of [facility] who typically sees Dr. Mendenhall for his primary care. Patient presented to [facility] ER this morning complaining of an approximate 1 week history of diarrhea. He was recently started on Zepbound for obesity treatment. Patient states he has been experiencing GI side effects since starting Zepbound. He was seen in the ER 2 days ago for diarrhea and hypokalemia. He was given IV fluids and potassium was replaced but his symptoms never improved. He states his bowel movements have consisted of brown watery stools. He has not seen any blood in his stool. He has vomited only twice in the past week. While being seen in the ER, this morning, and treated for dehydration he went into A. fib with a heart rate around 150. Hospital Course Hospital Course Hospital Course: The patient was admitted and started on IV fluids, potassium, Rocephin, and Lovenox. Cardiology was consulted due to A-fib with RVR. They saw the patient and felt he went into A-fib due to dehydration caused by diarrhea and electrolyte imbalance. They ordered an echo. He was started on IV of diltiazem. The patient's potassium improved but his white count became more elevated. He remained in A-fib. His diltiazem was switched to oral and his Lovenox was switched to Eliquis. Cardiology added digoxin. The patient continued with diarrhea and began having a lot of abdominal pressure. A stool panel as well as a CT of the abdomen and pelvis were ordered. His echo showed a normal EF with increased left ventricular wall thickness and mild right ventricular dilatation and reduced function. Cardiology felt he would need outpatient cardiac MRI in the future. The patient's abdominal CT came back showing pneumatosis of the intestines. His stool panel was negative. Dr. Smith restricted his oral intake and continued antibiotics with plans to repeat imaging in a few days. Cardiology did not want to cardiovert until abdominal symptoms improved. He did begin slowly improving. His Rocephin was discontinued and he was started on Invanz. His white blood cell count has been improving. By 04/15/2024, he was feeling better and was tolerating full liquids without difficulty. He felt there was some thickening in his stool. CBC continued to decrease. His potassium normalized. He was stable to be discharged home with 4 more days of Invanz and oral Flagyl. He will follow-up in the office [facility] and with cardiology. Exam Data for Last 24 hours Vital signs and Labs for Last 24 Hours: Temp Pulse Resp BP Pulse Ox O2 Del Method 97.8 F 73 18 107/76 L 99 Room Air 04/15/24 08:00 04/15/24 08:19 04/15/24 08:00 04/15/24 08:00 04/15/24 08:00 04/15/24 09:20 Narrative: Constitutional Constitutional: no acute distress *Routine HEENT Exam Head: Present normocephalic Eye: Present EOMI and PERRL ENT: Present mucous membranes moist *Routine Neck Exam Neck: Present supple; Absent lymphadenopathy *Routine Respiratory Exam Respiratory: Present CTA bilaterally *Routine Cardiovascular Exam Cardiovascular: Present tachycardia and irregularly irregular *Routine Abdominal Exam Abdominal: Present soft, normoactive bowel sounds and tenderness (periumbilical) *Routine Rectal Exam Rectal:: deferred *Routine Genitalia Exam Genitalia:: deferred *Routine Extremities Exam Extremities: Absent cyanosis, clubbing or edema *Routine Skin Exam Skin: Present warm *Routine Neurological Exam Neurological: Present alert and oriented X3 DS: Diagnosis Discharge Diagnosis (1) Pneumatosis of intestines: Status: Acute Code(s): K63.89 - Other specified diseases of intestine (2) Atrial fibrillation with rapid ventricular response: Status: Acute Code(s): I48.91 - Unspecified atrial fibrillation (3) Acute dehydration: Status: Acute Code(s): E86.0 - Dehydration (4) Acute hypokalemia: Status: Acute Code(s): E87.6 - Hypokalemia (5) Diarrhea: Status: Acute Code(s): R19.7 - Diarrhea, unspecified Qualifiers: Diarrhea type: unspecified type Qualified Code(s): R19.7 - Diarrhea, unspecified (6) Leukocytosis: Status: Acute Code(s): D72.829 - Elevated white blood cell count, unspecified Qualifiers: Leukocytosis type: other Qualified Code(s): D72.828 - Other elevated white blood cell count (7) Morbid obesity: Status: Acute Code(s): E66.01 - Morbid (severe) obesity due to excess calories (8) Adverse effects of medication: Status: Acute Code(s): T50.905A - Adverse effect of unspecified drugs, medicaments and biological substances, initial encounter Qualifiers: Encounter type: initial encounter Qualified Code(s): T50.905A - Adverse effect of unspecified drugs, medicaments and biological substances, initial encounter (9) Venous stasis of both lower extremities: Status: Acute Code(s): I87.8 - Other specified disorders of veins (10) Abdominal pain: Status: Acute Code(s): R10.9 - Unspecified abdominal pain (11) Leg edema: Status: Acute Code(s): R60.0 - Localized edema Meds Home Medications and Allergies Home Medications Medication Instructions Recorded Confirmed Type cetirizine 10 mg tablet 10 mg PO DAILY 04/09/24 04/16/24 History ondansetron 8 mg disintegrating 8 mg PO TIDP PRN Nausea 04/09/24 04/16/24 History tablet promethazine 12.5 mg tablet 12.5 mg PO Q6HP PRN nausea and 04/09/24 04/16/24 History vomiting apixaban 5 mg tablet (Eliquis) 5 mg PO BID #60 tabs 04/15/24 04/16/24 Rx digoxin 125 mcg (0.125 mg) tablet 125 mcg PO DAILY #30 tabs 04/15/24 04/16/24 Rx diltiazem HCl 240 mg 240 mg PO BID #60 caps 04/15/24 04/16/24 Rx capsule,extended release 24 hr metronidazole 500 mg tablet 500 mg PO Q8H #12 tabs 04/15/24 04/16/24 Rx potassium chloride 10 mEq 10 meq PO DAILY #30 caps 04/15/24 04/16/24 Rx capsule,extended release New Prescriptions to Start Prescriptions: apixaban [Eliquis] Wedron,Nithin digoxin Wedron,Nithin diltiazem HCl Wedron,Nithin metronidazole Wedron,Nithin potassium chloride Luis,Nithin Allergies Allergy/AdvReac Type Severity Reaction Status Date / Time No Known Allergies Allergy Verified 04/09/24 07:59 Discharge Plan Disposition Patient Disposition: Home, Self-Care Condition: Fair Discharge Order Discharge Orders: Discharge Order (Routine); Ordered 04/15/24 Ordered By: Nithin Smith Follow up Plan Follow up with: Nithin Smith MD [Staff Physician] - 04/22/24 10:15 am Misael Hollins PA [Physician Agricultural Researcher] - 04/24/24 11:00 am Prescriptions/Medication Reconciliation: New Eliquis 5 mg Tablet 5 mg PO BID Qty: 60 0RF diltiazem HCl 240 mg Capsule,Extended Release 24hr 240 mg PO BID Qty: 60 0RF digoxin 125 mcg (0.125 mg) Tablet 125 mcg PO DAILY Qty: 30 0RF potassium chloride 10 mEq capsule, extended release 10 meq PO DAILY Qty: 30 0RF metronidazole 500 mg tablet 500 mg PO Q8H Qty: 12 0RF Continued cetirizine 10 mg tablet 10 mg PO DAILY promethazine 12.5 mg tablet 12.5 mg PO Q6HP PRN (Reason: nausea and vomiting) Rx Instructions: Last dose no later than 3 hours before bedtime, do not combine with Zofran. ondansetron 8 mg tablet,disintegrating 8 mg PO TIDP PRN (Reason: Nausea) Discontinued Zepbound 5 mg/0.5 mL pen injector 5 mg SQ WEEKLY Problem Reconciliation Problems Reviewed?: Yes Patient Discharge Instructions ACTIVITY: Limited activity DIET: continue same diet Patient Instructions: Moffat Diet, Soft Diet, DI for Atrial Fibrillation, DI for Enteritis Providers Primary Care Provider: Sanya Mendenhall Admit Provider: Nithin Smith Attending Provider: Nithin Smith
== END 2024-04-15 10:05 | disposition home or self-care (01) | DRG 394 ==
LOC: ER 06:32 → 2ND 06:45
PROVIDERS: Physician Assistant; Admitting Provider Family Medicine; Emergency Provider Emergency Medicine; PCP Family Medicine; Visit Provider Family Medicine
DX: K63.89 Other specified diseases of intestine (principal); E87.1 Hypo-osmolality and hyponatremia; Z68.43 Body mass index [BMI] 50.0-59.9, adult; I48.19 Other persistent atrial fibrillation; I48.91 Unspecified atrial fibrillation; E87.6 Hypokalemia; E86.0 Dehydration; E66.01 Morbid (severe) obesity due to excess calories; T50.995A Adverse effect of other drugs, medicaments and biological substances, initial encounter; D75.839 Thrombocytosis, unspecified; R19.7 Diarrhea, unspecified; R11.2 Nausea with vomiting, unspecified
CPT/HCPCS: 36415; 74021; 74177; 80048; 80053; 83690; 83735; 84436; 84443; 84479; 85007; 85025; 87507; 93005; 93306; 99291; J0696; J1160; J1335; J1650; J2405; J3480; J7120; Q9957; Q9967

== ENCOUNTER 2024-04-16 10:13 | Outpatient (CLI) | payer BC, SELFPAY ==
[2024-04-16] MEDS: ERTAPENEM SODIUM 1 GM VIAL IM (10:35)
[2024-04-16 10:40] VITALS: BP 130/73; PULSE 75; RESP 18; TEMP 37.2; O2SAT 98
== END 2024-04-16 10:50 | disposition home or self-care (01) ==
LOC: INF 10:13
PROVIDERS: PCP Family Medicine; Visit Provider Family Medicine
DX: K63.89 Other specified diseases of intestine (principal); K52.9 Noninfective gastroenteritis and colitis, unspecified; Z79.2 Long term (current) use of antibiotics
CPT/HCPCS: 96372; J1335

== ENCOUNTER 2024-04-17 10:19 | Outpatient (CLI) | payer BC, SELFPAY ==
[2024-04-17] MEDS: ERTAPENEM SODIUM 1 GM VIAL IM (10:35)
[2024-04-17 10:38] VITALS: BP 134/88; PULSE 96; RESP 18; TEMP 36.8; O2SAT 97
== END 2024-04-17 10:38 | disposition home or self-care (01) ==
LOC: INF 10:19
PROVIDERS: PCP Family Medicine; Visit Provider Family Medicine
DX: K63.89 Other specified diseases of intestine (principal); K52.9 Noninfective gastroenteritis and colitis, unspecified; Z79.2 Long term (current) use of antibiotics
CPT/HCPCS: 96372; J1335

== ENCOUNTER 2024-04-18 10:21 | Outpatient (CLI) | payer BC, SELFPAY ==
[2024-04-18 10:26] VITALS: BP 129/82; PULSE 95; RESP 18; O2SAT 96
[2024-04-18] MEDS: ERTAPENEM SODIUM 1 GM VIAL IM (10:35)
== END 2024-04-18 10:37 | disposition home or self-care (01) ==
LOC: INF 10:22
PROVIDERS: PCP Family Medicine; Visit Provider Family Medicine
DX: K63.89 Other specified diseases of intestine (principal); K52.9 Noninfective gastroenteritis and colitis, unspecified; Z79.2 Long term (current) use of antibiotics
CPT/HCPCS: 96372; J1335

== ENCOUNTER 2024-04-19 10:21 | Outpatient (CLI) | payer BC, SELFPAY ==
[2024-04-19] MEDS: ERTAPENEM SODIUM 1 GM VIAL IM (10:36)
[2024-04-19 10:38] VITALS: BP 148/89; PULSE 78; RESP 18; O2SAT 97
== END 2024-04-19 10:38 | disposition home or self-care (01) ==
LOC: INF 10:21
PROVIDERS: PCP Family Medicine; Visit Provider Family Medicine
DX: K63.89 Other specified diseases of intestine (principal); K52.9 Noninfective gastroenteritis and colitis, unspecified; Z79.2 Long term (current) use of antibiotics
CPT/HCPCS: 96372; J1335

== ENCOUNTER 2024-05-20 09:52 | Outpatient (CLI) | payer BC, SELFPAY ==
--- NOTE | 2024-05-20 09:52 | MR_ITS ---
APPROVED REPORT Surface Grinder: CLINICAL INDICATION Increased LV wall thickness IVSD 1.4 cm, HCM evaluation. TECHNIQUE Image Acquisition: Cardiac magnetic resonance (CMR) was performed on Siemens Espree MRI 1.5T scanner. Software platform sequences were performed using the [employer] MR B19 platform. A set of three-plane, low-resolution, large [id number] localizers were initially acquired. Then axial, coronal, sagittal TrueFISP, as well as axial HASTE images, were obtained. These were followed by gated TrueFISP breathold cinematic sequences obtained in the short axis with 8 mm slices and 2 mm gaps, 2-chamber (vertical long axis), 3-chamber, 4-chamber (horizontal long axis). A bolus of contrast was injected intravenously with first-pass sequences obtained in the short axis and four-chamber planes. After approximately 10 minutes, a TI flower picker sequence was performed to determine the optimal TI time. Using the optimized TI time, delayed contrast enhancement segmented inversion???recovery TurboFLASH sequences were obtained in the short axis, 2-chamber, 3-chamber, and 4-chamber projections. 2D-velocity phase mapping was performed. Functional parameters were calculated by offline analysis on an independent workstation ([employer], [email or web address] Contrast: ProHance??? (Gadoteridol) FINDINGS MORPHOLOGY AND FUNCTION Left ventricle: The left ventricle is normal in size. The indexed left ventricular end-diastolic volume (LVEDVi) is 71 ml/m2 (reference range 57-105 ml/m2 in males, 56-96 ml/m2 in females). There is mild reduction in global left ventricular systolic function. The septum is asynchronous. There is increased left ventricular wall thickness, measuring up to 11 mm. LVEF is calculated at 45.2% (reference range 57-77%). Right ventricle: The right ventricle is normal in size. The indexed right ventricular end-diastolic volume (RVEDVi) is 66 ml/m2 (reference range 61-121 ml/m2 in males, 48-112 ml/m2 in females). There is mild reduction in right ventricular systolic function. RVEF is calculated at 41.4% (reference range 52-72% in males, 51-71% in females). Atria: The left atrium is normal in size. The maximum indexed left atrial volume is 40 ml/m2 (reference range 26-52 ml/m2 in males, 27-53 ml/m2 in females). The right atrium is normal in size. The maximum indexed right atrial volume is 18 ml/m2 (reference range 18-90 ml/m2). Aorta: The diameter of the aortic annulus is normal, measuring 29 mm (coronal view reference range 21-30 mm in males, 19-27 mm in females). The diameter of the aortic sinus is normal, measuring 38 mm (coronal view reference range 25-42 mm in males, 24-36 mm in females). The diameter of the sinotubular junction is normal, measuring 30 mm (coronal view reference range 18-32 mm in males, 18-28 mm in females). The ascending aorta is mildly dilated measuring 3.7 cm in diameter. The diameter of the descending thoracic aorta is normal. Main pulmonary artery: The main pulmonary artery is mildly dilated, measuring 3.2 cm in diameter. Pericardium: The pericardial thickness is normal. The pericardial thickness measures 2.0 mm (normal < 4.0 mm). There is no pericardial effusion. VALVES The valvular morphologies in the visualized sequences appear normal. There is no significant valvular stenosis or regurgitation of the mitral, aortic, tricuspid, or pulmonic valve noted visually. Systolic anterior motion of the mitral valve is not visualized. Ratio of pulmonary to systemic flow, Qp:Qs ratio = 1.6 (normal < or = 1.2, hemodynamically significant shunt > 1.5), demonstrating possible presence of interatrial shunt. TISSUE CHARACTERIZATION Resting Perfusion: Normal myocardial blood flow at rest. No evidence of resting hypoperfusion. Myocardial Fibrosis and/or edema: Technically difficult analysis due to difficult breath-holding during image acquisition. Overall, no evidence of late gadolinium enhancement is noted, consistent with absence of myocardial scarring, infarction, or necrosis. T2-weighted imaging demonstrates no evidence of myocardial edema or inflammation. OTHER No other significant findings are noted. However, this exam is focused on the cardiac structure and function. IMPRESSION Technically difficult CMR due to significant motion in the setting of difficult breath-hold. Normal LV size with mild reduction in LV systolic function. LVEDVi= 71 ml/m2 and LVEF= 45.2%. Mildly increased LV wall thickness, up to 11 mm. Asynchronous septum. Normal RV size with mild reduction in RV systolic function. RVEDVi= 66 ml/m2 and RVEF= 41.4%. No atrial enlargement. No obvious CMR evidence of myocardial scarring, infarction, or necrosis. Notably, LGE analysis is difficult due to difficult breath-holding during image acquisition. Perfusion analysis demonstrates normal blood flow at rest with no evidence of resting hypoperfusion. Ratio of pulmonary to systemic flow, Qp:Qs ratio = 1.6 (normal < or = 1.2, hemodynamically significant shunt > 1.5), demonstrating possible presence of interatrial shunt. Mildly dilated PA Borderline dilated ascending aorta, measuring 3.7 cm in diameter. Overall, this CMR demonstrates mild reduction in biventricular systolic function. No evidence of HCM or infiltrative disease. No evidence of prior infarct or scarring. High Qp:Qs ratio suggestive of underlying interatrial shunt. Further evaluation with limited TTE plus bubble study (agitated saline administration) is suggested. Mild pulmonary artery dilation also suggestive of possible underlying pulmonary disease. Pulmonary referral is recommended. COMPARISON None CRITICAL RESULT None COMMUNICATION Per this written report The findings of this cardiac MR were reviewed, reported, and signed by Pablo Kang MD (Emu Farmer). Conclusion Electronically signed by : Tamra Kang MD 05/23/2024 01:45:03
--- NOTE | 2024-05-20 10:02 | XR_ITS ---
FINAL REPORT CLINICAL HISTORY: MRI CLEARANCE, HX WELDING COMPARISON: None FINDINGS: ORBITS Look up and look down views were obtained. No fracture is identified. The sinuses are clear. No radiopaque foreign body is identified. IMPRESSION: No acute process. No radiopaque foreign body. Reviewed, Interpreted and Dictated by Pratibha Whaley MD Transcribed by Rocío Cordero Authenticated and . [facility]
--- NOTE | 2024-05-20 11:31 | NM_ITS ---
APPROVED REPORT Exam: Nuclear Stress Test Indication: Chest pain, SOB, Afib, Family history Patient Location: Outpatient Stress Tech: Chinyere FORD Tech:Candi Naranjo, ARRT, RT (R)(N) Ht: 5 ft 9 in Wt: 350 lbs HR: 132 bpm BP: 139/88 mmHg BSA: 2.62 m2 Rhythm: Atrial Fibrillation TID: 1.30 BMI: 51.6 History: Chest pain, SOB, Afib, Family history Procedure: Patient received 0.4 mg of intravenous Lexiscan, resting heart rate 132 bpm, resting blood pressure 139/88 mmHg, with Lexiscan maximum heart rate achieved was 157 bpm which is % of the maximum predicted heart rate and blood pressure was 158/92 mmHg. With Lexiscan, patient denied any complaint of chest pain. Cardiac Stress and Resting SPECT Images: Cardiac Stress and Resting SPECT images were obtained using technetium 99m Myoview 32.7 mCi stress and 10.63 mCi at rest. Resting and stress imaging in supine and prone positions demonstrate a medium sized, moderate, reversible perfusion defect in the basal septal LV wall. There is increased transient ischemic dilatation ratio (TID 1.30), suggestive of possible multivessel disease or balanced ischemia. Gated imaging demonstrates moderate reduction in global and regional LV systolic function. LVEF is calculated at 32%. Of note, the LVEF calculation may be inaccurate in the setting of atrial fibrillation and frequent PVCs at the time of image acquisition. Conclusion: Medium sized, moderate, reversible perfusion defect in the basal septal LV wall. Findings are suggestive of reversible ischemia. There is increased transient ischemic dilatation ratio (TID 1.30), suggestive of possible multivessel disease or balanced ischemia. Gated imaging demonstrates moderate reduction in global and regional LV systolic function. LVEF is calculated at 32%. Of note, the LVEF calculation may be inaccurate in the setting of atrial fibrillation and frequent PVCs at the time of image acquisition. Correlation of LVEF with new or recent TTE is recommended. Electronically signed by : Tamra Kang MD 05/20/2024 14:31:57
[2024-05-20] MEDS: 0.9 % SODIUM CHLORIDE 50 ML VIAL IV (11:32)
[2024-05-20] MEDS: GADOTERIDOL INJ 20ML SYRINGE 20 ML IV (11:32)
[2024-05-20] MEDS: GADOTERIDOL INJ 10ML SYRINGE 9 ML IV (11:32)
[2024-05-20] MEDS: SODIUM CHLORIDE 0.9% 10ML SYR (RAD ONLY) 10 ML IV ×3 (11:32→13:20)
[2024-05-20] MEDS: REGADENOSON 0.4MG/5ML SYRINGE 0.4 MG IV (13:20)
[2024-05-20] MEDS: ISOTOPE MYOVIEW (PER STUDY) 1 DOSE IV (13:20)
--- NOTE | 2024-05-20 13:27 | CA_ITS ---
APPROVED REPORT Exam: Pharmacologic Technologist: Chinyere Rojas, Ht: 5 ft 9 in Wt: 344 lbs BSA: 2.60 m2 HR: 120 bpm BP: 139/88 mmHg Rhythm: Atrial Fibrillation Medical History Medications: XaRELTO,,,,, ProMETHAZINE,,,,, Digoxin,,,,, CetIRIZINE,,,,, Metronidazole,,,,, ONdansetron,,,,, Metoprolol Succinate ER,,,,, Potassium Chloride ER,,,,, DilTiazem HCI,,,,, Stress Test Details Test: LEXISCAN Reason for pharmacologic stress test: A-Fib. HR Resting HR: 132 bpm Max Heart Rate (APMHR): 169 bpm Max HR Achieved: 157 bpm Target HR (85% APMHR): 144 bpm % of APMHR: 93 Recovery HR: 131 bpm BP Resting BP: 139.0/88.0 mmHg Max BP: 158.0/92.0 mmHg Recovery BP: 158.0/92.0 mmHg ECG Resting ECG: Atrial fibrillation Stress ECG: No significant ST changes Arrhythmia: Frequent PVCs Clinical Exercise duration: 04:00 min Highest Stage Achieved: Exercise capacity: 1.0 METs Stress ECG Conclusion Symptoms: SOB & chest heaviness. Arrhythmias/Ectopy: Frequent PVC ST-T Changes: Unremarkable ECG portion of Lexiscan stress test. Myoview images reported separately. Test Summary REST . . . . . . . Resting REST 05:12 . . 132 . 139/ 88 . . Stage 1 01:00 . . 145 . . . . Stage 2 01:00 . . 144 . . . . Stage 3 01:00 . . 128 . 147/ 86 . . Stage 4 01:00 . . 124 . 155/ 83 . Stop exercise at 04:00 RECOVERY 01:00 . . 132 . . . . RECOVERY 02:00 . . 120 . . . . RECOVERY 02:51 . . 142 . 158/ 92 . . Electronically signed by : Tamra Kang MD 05/20/2024 14:29:25
== END 2024-05-20 23:59 | disposition home or self-care (01) ==
LOC: RAD 09:52
PROVIDERS: PCP Family Medicine; Visit Provider Internal Medicine
DX: I51.7 Cardiomegaly (principal); I48.91 Unspecified atrial fibrillation; R07.9 Chest pain, unspecified
CPT/HCPCS: 70200; 75561; 78452; 93017; 93018; A9502; A9576; J2785

== ENCOUNTER 2024-06-06 08:14 | Day surgery (SDC) | payer BC, SELFPAY ==
[2024-06-06] VITALS (11 sets, daily range): BP systolic 125–159; BP diastolic 67–110; PULSE 80–130; RESP 12–17; TEMP 36.7–36.8; O2SAT 92–95; BMI 51.8
--- NOTE | 2024-06-06 07:02 | IR_ITS ---
APPROVED REPORT Patient Location: [facility] Supervisor: BHAVANI Lua RT (R) PROCEDURES Left heart catheterization Left ventriculogram Selective coronary angiogram INDICATION Abnormal Myoview, Angina pectoris Informed consent was obtained prior to the procedure. COMPLICATIONS NONE Estimated Blood Loss: LESS THAN 10 ML TECHNIQUE One percent lidocaine used to anesthetize the right anterior aspect of the wrist. The right radial artery was accessed via the Seldinger technique. A 6 Chadian sheath was placed in the right radial artery. 2.5 mg of Verapamil, 800 mcg of nitroglycerin, 1mg Lidocaine and 5000 U Heparin were given through the arterial sheath. The papa catheter was also used to perform left heart catheterization, left ventriculogram and selective coronary angiogram. At the end of the procedure the sheath was removed good hemostasis was achieved using Traclet band, patient was transferred to the postop holding area in stable condition. ANGIOGRAPHIC RESULTS The left main artery Normal The left anterior descending artery Mild diffuse vascular ectasia with diffuse 10% stenosis accompanied by LAINA II flow The circumflex artery Codominant giving rise to the ramus intermedius both ramus and circumflex arteries have mild vascular ectasia with diffuse 10% luminal irregularities accompanied by LAINA II flow The right coronary artery Large codominant with mild to moderate vascular ectasia accompanied by LAINA II flow The ALDANA ventriculogram reveals Dilated ventricle reduced ejection fraction estimated at 40% The left ventricular end-diastolic pressure Severely elevated at 40 mmHg IMPRESSION Severely elevated LVEDP in the setting of reduced ejection fraction Atrial fibrillation Mild vascular ectasia with nonischemic cardiomyopathy Slow flow consistent with endothelial dysfunction and/or elevated LVEDP PLAN 1. Treatment of severely elevated LVEDP with diuretics 2. Better rate control for atrial fibrillation with rapid ventricular response 3. Risk factor modification 4. Restart anticoagulation Electronically signed by : Dick Ramirez MD 06/06/2024 10:29:36
[2024-06-06 08:51] LABS: Chloride 106 mmol/L (98-107); Potassium 3.8 mmoL/L (3.5-5.1); Sodium 140 mmol/L (136-145)
[2024-06-06 08:53] LABS: Blood Urea Nitrogen 12 mg/dl (9-20); Creatinine Clearance Estimated 125 mL/min (50-200); Estimated Glomerular Filt Rate 119 ml/min (>60); GFR (African American) 144 ML/MIN (>60)
[2024-06-06 08:54] LABS: Anion Gap 10.8 mEq/L (5-15); Calcium 8.9 mg/dl (8.4-10.2); Carbon Dioxide 27 mmol/L (22.0-30.0); Glucose 117 mg/dl (74-100)
[2024-06-06 08:58] LABS: Basophils # 0.2 K/mm3 (0-0.2); Basophils % 1.2 % (0.1-2.0); Eosinophils # 0.6 K/mm3 (0.0-0.4); Eosinophils % 4.5 % (0.1-12.0); Hemoglobin 14.9 g/dL (14.1-18.0); Lymphocytes # 2.9 K/mm3 (0.7-4.5); Mean Corpuscular HGB Conc 31.8 g/dL (31.8-35.4); Mean Corpuscular Hemoglobin 30.6 pg (27.0-31.2); Mean Corpuscular Volume 96.4 fl (80-94); Mean Platelet Volume 7.5 fl (7.4-10.4); Monocytes # 0.8 K/mm3 (0.1-1.0); Monocytes % 6.3 % (1.7-9.3); Neutrophils # 8.1 K/mm3 (1.8-7.8); Platelet Count 410 K/mm3 (142-424); Red Blood Count 4.88 M/mm3 (4.60-6.20); Red Cell Distribution Width 13.7 % (11.5-17.5); White Blood Count 12.5 K/mm3 (4.8-10.8)
[2024-06-06] MEDS: diphenhydrAMINE 50MG/ML VIAL 50 MG IV (09:50)
[2024-06-06] MEDS: MIDAZOLAM HCL 1MG/1ML 5ML VIAL 1 MG IV (09:51)
[2024-06-06] MEDS: NITROGLYCERIN 800MCG/8ML SYR (CATH LAB) 800 MCG IA (09:51)
[2024-06-06] MEDS: LIDOCAINE 1% 10ML MDV 20 ML IJ (09:51)
[2024-06-06] MEDS: HEPARIN 1,000 UNITS/ML 10ML VIAL (CATH LAB) 10000 UNIT IV (09:51)
[2024-06-06] MEDS: VERAPAMIL 2.5MG/ML 2ML VIAL 2.5 MG IV (09:51)
[2024-06-06] MEDS: FENTANYL 100MCG/2ML VIAL 50 MCG IV (09:52)
[2024-06-06] MEDS: 0.9 % SODIUM CHLORIDE 500 ML 25 ML IV (10:11)
[2024-06-06] MEDS: HEPARIN 1,000 UNITS/500ML NS (CATH LAB) 3000 UNIT IV (10:11)
[2024-06-06] MEDS: IOPAMIDOL-370 (76%);100ML BOTTLE 50 ML IV (13:25)
== END 2024-06-06 12:24 | disposition home or self-care (01) ==
PROVIDERS: PCP Family Medicine; Visit Provider Internal Medicine
DX: R93.1 Abnormal findings on diagnostic imaging of heart and coronary circulation (principal); Z79.899 Other long term (current) drug therapy; I50.20 Unspecified systolic (congestive) heart failure; E66.01 Morbid (severe) obesity due to excess calories; Z68.43 Body mass index [BMI] 50.0-59.9, adult; I51.7 Cardiomegaly; I48.91 Unspecified atrial fibrillation; Z79.01 Long term (current) use of anticoagulants
CPT/HCPCS: 80048; 85025; 93458; 99152; C1725; C1760; C1769; J1200; J1644; J2250; J3010; Q9967

== ENCOUNTER 2024-06-20 15:57 | Outpatient (CLI) | payer BC, SELFPAY ==
[2024-06-20 16:58] LABS: Basophils # 0.2 K/mm3 (0-0.2); Eosinophils # 0.6 K/mm3 (0.0-0.4); Eosinophils % 3.7 % (0.1-12.0); Hematocrit 46.4 % (42.0-52.0); Hemoglobin 15.3 g/dL (14.1-18.0); Lymphocytes # 3.1 K/mm3 (0.7-4.5); Lymphocytes % 20.4 % (10-50); Mean Corpuscular HGB Conc 32.9 g/dL (31.8-35.4); Mean Corpuscular Hemoglobin 31.4 pg (27.0-31.2); Mean Corpuscular Volume 95.6 fl (80-94); Mean Platelet Volume 7.9 fl (7.4-10.4); Monocytes # 1.1 K/mm3 (0.1-1.0); Monocytes % 7.1 % (1.7-9.3); Neutrophils # 10.4 K/mm3 (1.8-7.8); Neutrophils % 67.8 % (37.0-80.0); Platelet Count 453 K/mm3 (142-424); Red Blood Count 4.85 M/mm3 (4.60-6.20); Red Cell Distribution Width 13.7 % (11.5-17.5); White Blood Count 15.3 K/mm3 (4.8-10.8)
[2024-06-20 17:05] LABS: MANUAL DIFFERENTIAL MANUAL DIFFERENTIAL (MANUAL DIFF)
[2024-06-20 17:55] LABS: Alanine Aminotransferase 35 U/L (12-78); Albumin Level 4.3 g/dl (3.5-5.0); Alkaline Phosphatase 80 U/L (38-126); Anion Gap 12.5 mEq/L (5-15); Aspartate Amino Transferase 37 U/L (17-59); Bilirubin,Indirect 0.7 mg/dL (0.0-0.9); Bilirubin,Total 0.7 mg/dl (0.2-1.3); Bilirubin,Unconjugated 0.7 mg/dL (0.0-1.1); Blood Urea Nitrogen 18 mg/dl (9-20); Calcium 9.9 mg/dl (8.4-10.2); Carbon Dioxide 26 mmol/L (22.0-30.0); Chloride 105 mmol/L (98-107); Chol/HDL Ratio 6.1 (1-3.5); Cholesterol 184 mg/dl (140-200); Estimated Glomerular Filt Rate 102 ml/min (>60); GFR (African American) 123 ML/MIN (>60); Glucose 86 mg/dl (74-100); HDL Cholesterol 30 mg/dl (40-60); Potassium 4.5 mmoL/L (3.5-5.1); Sodium 139 mmol/L (136-145); Total Protein,Serum 7.9 g/dl (6.3-8.2); Triglycerides 202 mg/dl (30-150); VLDL Cholesterol 40 mg/dL (0-40)
[2024-06-20 18:22] LABS: Thyroid Stimulating Hormone 2.07 uIU/mL (0.465-4.68)
[2024-06-20 18:23] LABS: Free T4 (Free Thyroxine) 1.18 ng/dl (0.78-2.19)
[2024-06-20 18:35] LABS: Digoxin < 0.40 ng/ml (0.2-2.00)
[2024-06-20 19:17] LABS: Direct LDL Cholesterol 121.58 mg/dL (100-129); Eosinophils % 4 % (0-3); Lymphocytes % 15 % (10-50); Macrocytosis 1+; Monocytes % 9 % (2-9); Neutrophils % 71 % (42-76); Platelet Estimate Slight Increase; RBC Morphology Normal; Total Cells Counted 100
== END 2024-06-20 23:59 | disposition home or self-care (01) ==
LOC: LAB 15:58
PROVIDERS: PCP Family Medicine; Visit Provider Internal Medicine
DX: I50.20 Unspecified systolic (congestive) heart failure (principal); I48.91 Unspecified atrial fibrillation; E66.01 Morbid (severe) obesity due to excess calories; Z68.43 Body mass index [BMI] 50.0-59.9, adult
CPT/HCPCS: 36415; 80048; 80061; 80076; 80162; 83735; 84439; 84443; 85007; 85025; 85027

== ENCOUNTER 2024-06-26 09:11 | Day surgery (SDC) | payer BC, SELFPAY ==
[2024-06-25 10:24] VITALS: BMI 49.4
--- NOTE | 2024-06-26 | CA_ITS ---
APPROVED REPORT EXAM: Comprehensive 2D, Doppler, and color-flow Echocardiogram [employer] Laborer: RT Jeff(R) Ht: 5 ft 7 in Wt: 327lbs BSA: 2.49 BP: 112/60 mmHg Indications: AFIB, abn EKG, HFrEF Procedure After obtaining informed consent, patient underwent transesophageal echo in the [facility]. Type of Sedation : MAC Sedation was administered by Quang AlfonsoNDemar Sedation start time: 12:30 PM Case end Time: 1:10 PM Transesophageal probe was inserted and advanced into esophagus without difficulty by Dr. Pablo Kang. The BIRGIT was performed without complications. Synchronized Cardioversion acheived with 200 Joules after 2 attempt(s). Rhythm following Synchronized Cardioversion: Normal Sinus Rhythm Throughout the procedure, the blood pressure, pulse oximetry, cardiac rhythm, and rate were monitored. The patient tolerated the procedure without adverse effects. Recovery from conscious sedation was uneventful and vital signs were stable. Left Ventricle The left ventricle is normal size. The left ventricular systolic function is low normal. There is increased LV wall thickness. There is normal LV segmental wall motion. LVEF is 50%. Right Ventricle Right ventricle is mildly dilated. Right ventricle is mildly hypokinetic. Atria The left atrium size is normal. No thrombus is visualized in the left atrium or appendage. The right atrium size is normal. Interatrial septum is intact without evidence of ASD or PFO. Aortic Valve The aortic valve opens well. The aortic valve is trileaflet. There is no aortic valvular stenosis. Trace aortic regurgitation. Mitral Valve The mitral valve is normal in structure. No evidence of mitral valve stenosis. Trace mitral regurgitation. Tricuspid Valve The tricuspid valve leaflets are thin and pliable. Trace tricuspid regurgitation. There is insufficient TR jet to estimate RVSP. Pulmonic Valve The pulmonary valve is normal in structure. Trace pulmonic regurgitation. Great Vessels The aortic root is normal in size. The ascending aorta is normal in size. Pericardium There is no pericardial effusion. Other Information Study Quality: Adequate Conclusion Normal LV systolic function. Mild RV dilation with mild reduction in RV function. No significant valvular stenosis or regurgitation. No evidence of LA or CECIL thrombus. Once BIRGIT demonstrated no evidence of thrombus, the patient underwent DCCV. First attempt with 150 J was unsuccessful, whereby the patient converted very briefly to normal sinus rhythm and then back into atrial fibrillation. However, second attempt with 200 J was successful, after which the patient converted and maintained to be in normal sinus rhythm. At the time of discharge, his home digoxin was discontinued. As he had risk to be converted to atrial fibrillation, he was started on amiodarone 400 3 times daily p.o., with plan to gradually taper over time and eventually stop as an outpatient. He was continued on his home anticoagulation. Electronically signed by : Tamra Kang MD 06/27/2024 12:15:21
[2024-06-26 10:17] VITALS: BP 130/79; PULSE 113; RESP 18; TEMP 36.6; O2SAT 96
[2024-06-26] MEDS: LACTATED RINGERS 1000ML 1,000 ML 25 ML IV (10:34)
--- NOTE | 2024-06-26 10:38 | ECG_ITS ---
APPROVED REPORT Exam: Resting ECG HR:110 bpm ECG Measurements Heart Rate 110 AXES QRSd 103 QRS -23 QT 308 T 33 QTc 373 Conclusion ATRIAL FIBRILLATION WITH RAPID VENTRICULAR RESPONSE WITH ABERRANT CONDUCTION OR VENTRICULAR PREMATURE COMPLEXES BORDERLINE LEFT AXIS DEVIATION [QRS AXIS < -20] ABNORMAL RHYTHM ECG UNCONFIRMED REPORT Electronically signed by : eFr Giron MD 06/28/2024 08:48:11
[2024-06-26 10:40] LABS: MANUAL DIFFERENTIAL MANUAL DIFFERENTIAL (MANUAL DIFF)
[2024-06-26 10:42] LABS: Basophils # 0.1 K/mm3 (0-0.2); Basophils % 0.7 % (0.1-2.0); Eosinophils # 0.5 K/mm3 (0.0-0.4); Eosinophils % 3.7 % (0.1-12.0); Hematocrit 49.6 % (42.0-52.0); Hemoglobin 15.8 g/dL (14.1-18.0); Lymphocytes # 2.3 K/mm3 (0.7-4.5); Lymphocytes % 16.2 % (10-50); Mean Corpuscular HGB Conc 31.9 g/dL (31.8-35.4); Mean Corpuscular Hemoglobin 30.8 pg (27.0-31.2); Mean Corpuscular Volume 96.5 fl (80-94); Mean Platelet Volume 7.2 fl (7.4-10.4); Monocytes # 0.8 K/mm3 (0.1-1.0); Monocytes % 5.7 % (1.7-9.3); Neutrophils # 10.4 K/mm3 (1.8-7.8); Neutrophils % 73.7 % (37.0-80.0); Platelet Count 398 K/mm3 (142-424); Red Blood Count 5.14 M/mm3 (4.60-6.20); Red Cell Distribution Width 13.3 % (11.5-17.5); White Blood Count 14.2 K/mm3 (4.8-10.8)
[2024-06-26 10:49] LABS: Chloride 105 mmol/L (98-107); Sodium 139 mmol/L (136-145)
[2024-06-26 10:50] LABS: Potassium 3.9 mmoL/L (3.5-5.1)
[2024-06-26 10:52] LABS: Blood Urea Nitrogen 14 mg/dl (9-20); Creatinine Clearance Estimated 125 mL/min (50-200); Estimated Glomerular Filt Rate 119 ml/min (>60); GFR (African American) 144 ML/MIN (>60)
[2024-06-26 10:53] LABS: Anion Gap 11.9 mEq/L (5-15); Calcium 9.2 mg/dl (8.4-10.2); Carbon Dioxide 26 mmol/L (22.0-30.0); Glucose 116 mg/dl (74-100)
[2024-06-26 11:25] LABS: Activated Partial Thrombo Time 44.1 seconds (22.8-30.6); INR 1.07 (0.9-1.1); Prothrombin Time 11.9 seconds (10.1-12.5)
--- NOTE | 2024-06-26 11:26 | P.PNANES_ITS ---
[facility] Disclaimer: The information contained in this section may have been updated after the patient was seen, as this information can be updated by other users. Medical History Abnormal echocardiogram Abnormal nuclear cardiac imaging test HFrEF (heart failure with reduced ejection fraction) Abnormal findings on diagnostic imaging of heart/coronary circulation Left ventricular hypertrophy Chest pain Cellulitis of left foot Venous stasis of lower extremity Lymphedema Morbid obesity Sleep apnea Cellulitis Surgical History History of cardiac cath S/P vasectomy History of hernia repair Hx of tonsillectomy Family History Mother Family history of cancer Father Family history of cancer Social History Smoking Status: Never smoker alcohol intake: never substance use type: denies use current occupational status: other Travel in the last 8 weeks: None caffeine: Yes [facility] Anesthesia Checklist Patient Identification Patient Identification: Arm Band Structural Data Admitted From: Home Planned Operative Procedure/s: BIRGIT Consent for Planned Operative Procedure(s) Verified: Yes Verified Documents: Surgical Consent and History and Physical NPO Status Verified Time NPO: 00:00 Chart Verification Results Verified: CBC and BMP Additional verifications Anesthesia Reactions: No Airway Assessment Mallampati Score:: Class IV C-Spine Mobility Assessed: Yes TMJ Mobility Assessed: Yes Dentition: Good Dentition Neurological Assessment Level of Consciousness: Awake Hx Seizures: No Numbness or tingling in extremities: No Anesthesia Plan Anesthesia Risk discussed: Yes Anesthesia Plan: Verified ASA Class: III Anesthesia Type: MAC
[2024-06-26 12:15] VITALS: BP 127/83; PULSE 96; RESP 18; TEMP 36.5; O2SAT 96
--- NOTE | 2024-06-26 12:18 | ECG_ITS ---
APPROVED REPORT Exam: Resting ECG HR:99 bpm ECG Measurements Heart Rate 99 AXES NV 135 P 39 QRSd 103 QRS -9 QT 334 T 29 QTc 390 Conclusion SINUS RHYTHM WITH OCCASIONAL VENTRICULAR PREMATURE COMPLEXES INDETERMINATE AXIS LOW QRS VOLTAGE IN PRECORDIAL LEADS [QRS DEFLECTION < 1.0 mV IN CHEST LEADS] PATTERN CONSISTENT WITH PULMONARY DISEASE INCOMPLETE RIGHT BUNDLE BRANCH BLOCK [90+ ms QRS DURATION, TERMINAL R IN V1/V2, 40+ ms S IN I/aVL/V4/V5/V6] ABNORMAL ECG UNCONFIRMED REPORT Electronically signed by : Fer Giron MD 06/28/2024 08:48:03
[2024-06-26 12:22] LABS: Eosinophils % 5 % (0-3); Lymphocytes % 15 % (10-50); Monocytes % 3 % (2-9); Neutrophils % 77 % (42-76); Platelet Estimate Normal; RBC Morphology Normal; Total Cells Counted 100
[2024-06-26 12:25] VITALS: BP 142/85; PULSE 96; RESP 18; O2SAT 96
[2024-06-26 12:35] VITALS: BP 103/61; PULSE 91; RESP 18; O2SAT 96
[2024-06-26 12:45] VITALS: BP 113/54; PULSE 92; RESP 18; TEMP 36.8; O2SAT 95
== END 2024-06-26 12:45 | disposition home or self-care (01) ==
PROVIDERS: PCP Family Medicine; Visit Provider Internal Medicine
DX: R93.1 Abnormal findings on diagnostic imaging of heart and coronary circulation (principal); I50.20 Unspecified systolic (congestive) heart failure; I48.91 Unspecified atrial fibrillation; I51.7 Cardiomegaly; R07.9 Chest pain, unspecified; E66.01 Morbid (severe) obesity due to excess calories
CPT/HCPCS: 80048; 85007; 85014; 85018; 85048; 85049; 85610; 85730; 92960; 93005; 93270; 93312; 93319; J2250; J7120

== ENCOUNTER 2024-07-03 15:37 | Outpatient (CLI) | payer BC, SELFPAY ==
[2024-07-03 16:09] LABS: Basophils # 0.1 K/mm3 (0-0.2); Eosinophils # 0.6 K/mm3 (0.0-0.4); Eosinophils % 4.2 % (0.1-12.0); Hematocrit 45.8 % (42.0-52.0); Hemoglobin 14.6 g/dL (14.1-18.0); Lymphocytes # 2.6 K/mm3 (0.7-4.5); Lymphocytes % 18.5 % (10-50); Mean Corpuscular HGB Conc 31.7 g/dL (31.8-35.4); Mean Corpuscular Hemoglobin 30.9 pg (27.0-31.2); Mean Corpuscular Volume 97.2 fl (80-94); Mean Platelet Volume 8.3 fl (7.4-10.4); Monocytes # 1.1 K/mm3 (0.1-1.0); Monocytes % 8.2 % (1.7-9.3); Neutrophils # 9.6 K/mm3 (1.8-7.8); Neutrophils % 68.1 % (37.0-80.0); Platelet Count 459 K/mm3 (142-424); Red Blood Count 4.71 M/mm3 (4.60-6.20); Red Cell Distribution Width 13.4 % (11.5-17.5)
[2024-07-03 16:25] LABS: Chloride 106 mmol/L (98-107); Potassium 4.3 mmoL/L (3.5-5.1); Sodium 139 mmol/L (136-145)
[2024-07-03 16:28] LABS: Anion Gap 9.3 mEq/L (5-15); Blood Urea Nitrogen 17 mg/dl (9-20); Calcium 9.5 mg/dl (8.4-10.2); Carbon Dioxide 28 mmol/L (22.0-30.0); Estimated Glomerular Filt Rate 102 ml/min (>60); GFR (African American) 123 ML/MIN (>60); Glucose 96 mg/dl (74-100)
== END 2024-07-03 23:59 | disposition home or self-care (01) ==
LOC: LAB 15:39
PROVIDERS: PCP Family Medicine; Visit Provider Internal Medicine
DX: K21.9 Gastro-esophageal reflux disease without esophagitis (principal); I48.0 Paroxysmal atrial fibrillation; I50.20 Unspecified systolic (congestive) heart failure; I51.7 Cardiomegaly
CPT/HCPCS: 36415; 80048; 85025; 93270

== ENCOUNTER 2024-08-13 14:59 | Outpatient (CLI) | payer BC, SELFPAY ==
--- NOTE | 2024-08-13 15:08 | CA_ITS ---
APPROVED REPORT EXAM: Limited 2D Echocardiogram Sap Bpc Architect: Geneva Zuniga RT(R) Ht: 5 ft 9 in Wt: 352lbs BSA: 2.63 BP: 150/79 mmHg Indications: ordered as a limited to reassess EF. Ef on echo 04/19/24 55%. EF on cardiac MRI 45% 04/2024. hx CM, abn EKG, LVH, HFrEF 2D Dimensions LVEF (Escalera's) 60.50 % M: 52 - 72 LV Volume 166.30 mL M: 62 - 150 LV Volume Index 63.2 mL/m2 M: 34 - 74 EF AP4 59.40 % EF AP2 63.4 % EF BP 60.5 % GL Strain -20.6 % M-Mode Dimensions RVDd 3.52 cm (0.9-2.6) LVDd 5.22 cm (3.5-5.7) LVDs 3.97 cm (3.5-5.7) IVSd 0.94 cm (0.6-1.1) PWd 0.80 cm (0.6-1.1) EF (Teich) 47.40% FS 23.90% EDV (Teich) 130.70 mL ESV (Teich) 68.80 mL LV Diastology E Decel Time 180 (160-240 msec) E/A Ratio 1.8 Mitral Valve MV E Max Tripp. 120.0 (40-130 cm/s) MV A Velocity 65.0 (40-130 cm/s) E/A Ratio 1.85 MV PHT 53.0 ms Other Information Study Quality: Fair Conclusion This is a limited TTE to evaluate for LV systolic function. Limited windows were obtained. The left ventricle is normal in size. There is increased LV wall thickness. There is low-normal global LV systolic function. No regional wall motion abnormalities are noted. LVEF is 50-55%. Compared to prior BIRGIT from 06/2024, the LVEF is overall unchanged and remains normal. Electronically signed by : Tamra Kang MD 08/14/2024 12:53:41
--- NOTE | 2024-08-13 15:36 | XR_ITS ---
PROCEDURE INFORMATION: Exam: XR Lumbosacral Spine Exam date and time: 08/13/2024 3:38 PM Age: 49 years old Clinical indication: Pain; Sciatica; Additional info: Sciatica pain TECHNIQUE: Imaging protocol: Radiologic exam of the lumbosacral spine. Views: 4 or 5 views. COMPARISON: CR XR LUMBAR SPINE MIN 4V 08/13/2024 3:38 PM FINDINGS: Bones/joints: There is no evidence of acute fracture.There is no evidence of malalignment or dislocation. Intervertebral disc spaces are narrowed L2/L3 consistent with degenerative disc disease. Anterior osteophyte formation L1 through L4. Soft tissues: Unremarkable. IMPRESSION: 1. There is no evidence of acute fracture.There is no evidence of malalignment or dislocation. 2. Anterior osteophyte formation L1 through L4.
== END 2024-08-13 23:59 | disposition home or self-care (01) ==
PROVIDERS: PCP Family Medicine; Visit Provider Internal Medicine
DX: I48.0 Paroxysmal atrial fibrillation (principal); I51.7 Cardiomegaly; I42.9 Cardiomyopathy, unspecified; I50.20 Unspecified systolic (congestive) heart failure; R25.2 Cramp and spasm; M54.41 Lumbago with sciatica, right side; M54.42 Lumbago with sciatica, left side
CPT/HCPCS: 72110; 93308

== ENCOUNTER 2024-09-05 15:42 | Outpatient (CLI) | payer BC, SELFPAY ==
[2024-09-05 16:00] LABS: Basophils # 0.1 K/mm3 (0-0.2); Basophils % 0.8 % (0.1-2.0); Eosinophils # 0.5 K/mm3 (0.0-0.4); Eosinophils % 4.3 % (0.1-12.0); Hematocrit 42.5 % (42.0-52.0); Hemoglobin 14.6 g/dL (14.1-18.0); Lymphocytes # 2.7 K/mm3 (0.7-4.5); Lymphocytes % 23.6 % (10-50); Mean Corpuscular HGB Conc 34.4 g/dL (31.8-35.4); Mean Corpuscular Hemoglobin 31.7 pg (27.0-31.2); Mean Corpuscular Volume 92.2 fl (80-94); Monocytes % 8.7 % (1.7-9.3); Neutrophils # 7.2 K/mm3 (1.8-7.8); Neutrophils % 62.5 % (37.0-80.0); Platelet Count 351 K/mm3 (142-424); Red Blood Count 4.61 M/mm3 (4.60-6.20); Red Cell Distribution Width 13.8 % (11.5-17.5); White Blood Count 11.6 K/mm3 (4.8-10.8)
[2024-09-05 16:22] LABS: Alanine Aminotransferase 49 U/L (12-78); Albumin Level 4.5 g/dl (3.5-5.0); Alkaline Phosphatase 69 U/L (38-126); Anion Gap 12.8 mEq/L (5-15); Aspartate Amino Transferase 41 U/L (17-59); Bilirubin,Direct 0.3 mg/dl (0.0-0.4); Bilirubin,Indirect 0.3 mg/dL (0.0-0.9); Bilirubin,Total 0.6 mg/dl (0.2-1.3); Bilirubin,Unconjugated 0.3 mg/dL (0.0-1.1); Blood Urea Nitrogen 24 mg/dl (9-20); Calcium 9.3 mg/dl (8.4-10.2); Carbon Dioxide 27 mmol/L (22.0-30.0); Chloride 106 mmol/L (98-107); Chol/HDL Ratio 4.8 (1-3.5); Cholesterol 182 mg/dl (140-200); Creatine Kinase 202 U/L (55-170); Estimated Glomerular Filt Rate 102 ml/min (>60); GFR (African American) 123 ML/MIN (>60); Glucose 94 mg/dl (74-100); HDL Cholesterol 38 mg/dl (40-60); Magnesium 2.1 mg/dl (1.6-2.3); Potassium 4.8 mmoL/L (3.5-5.1); Sodium 141 mmol/L (136-145); Total Protein,Serum 7.3 g/dl (6.3-8.2); Triglycerides 171 mg/dl (30-150); VLDL Cholesterol 34 mg/dL (0-40)
[2024-09-05 16:32] LABS: Direct LDL Cholesterol 123.95 mg/dL (100-129)
[2024-09-05 16:37] LABS: Free T4 (Free Thyroxine) 1.22 ng/dl (0.78-2.19)
== END 2024-09-05 23:59 | disposition home or self-care (01) ==
LOC: LAB 15:43
PROVIDERS: PCP Family Medicine; Visit Provider Internal Medicine
DX: M79.606 Pain in leg, unspecified (principal); I73.9 Peripheral vascular disease, unspecified; I42.8 Other cardiomyopathies; R93.1 Abnormal findings on diagnostic imaging of heart and coronary circulation; I50.20 Unspecified systolic (congestive) heart failure; R07.9 Chest pain, unspecified; R60.0 Localized edema; I48.91 Unspecified atrial fibrillation
CPT/HCPCS: 36415; 80048; 80061; 80076; 82550; 83735; 84439; 84443; 85025; 93270

== ENCOUNTER 2024-09-11 12:51 | Outpatient (CLI) | payer BC, SELFPAY ==
--- NOTE | 2024-09-11 12:55 | CA_ITS ---
FINAL REPORT TECHNIQUE: Arterial duplex Doppler evaluation of the lower extremities with spectral analysis. CLINICAL HISTORY: afib, leg pain COMPARISON: None FINDINGS: Right lower extremity, flow velocities (cm per second): Common femoral artery: 121 Proximal SFA: 132 Distal SFA: 108 Popliteal: 92.5 Anterior tibial artery: 81 Posterior tibial artery: 121 Left lower extremity, flow velocities (cm per second): Common femoral artery: 99 Proximal SFA: 102 Distal SFA: 673 Popliteal: 84 Anterior tibial artery: 93 Posterior tibial artery: 78 IMPRESSION: Waveforms are noted to be mostly triphasic. No levels of stenosis or occlusion are identified. Reviewed, Interpreted and Dictated by Boni Dimas MD Transcribed by Roslaba Temple Authenticated and [facility]
--- NOTE | 2024-09-11 12:55 | US_ITS ---
FINAL REPORT CLINICAL HISTORY: claudication,leg pain COMPARISON: None FINDINGS: ANKLE-BRACHIAL PRESSURE INDICES Pressure indices are as follows: RIGHT LOWER EXTREMITY: Ankle-brachial pressure index: 1.01 Comments: Normal LEFT LOWER EXTREMITY: Ankle-brachial pressure index: 1.2 Comments: Normal CONCLUSION: No evidence of significant obstructive peripheral vascular disease of the lower extremities. However, there is asymmetry of the velocities, lower on the right than on the left. Reviewed, Interpreted and Dictated by Boni Dimas MD Transcribed by Rosalba Temple Authenticated and [facility]
--- NOTE | 2024-09-11 12:55 | CA_ITS ---
FINAL REPORT TECHNIQUE: Bilateral lower extremity venous duplex was performed with augmentation and compression. CLINICAL HISTORY: lymph edema, morbid obesity, Afib FINDINGS: Proper flow is seen throughout the deep venous systems bilaterally. There is no evidence of deep venous thrombosis. IMPRESSION: No evidence of deep venous thrombosis. Reviewed, Interpreted and Dictated by Boni Dimas MD Transcribed by Charito Kent Authenticated and . [facility]
== END 2024-09-11 23:59 | disposition home or self-care (01) ==
LOC: RT 12:52
PROVIDERS: PCP Family Medicine; Visit Provider Internal Medicine
DX: M79.604 Pain in right leg (principal); M79.605 Pain in left leg; I73.9 Peripheral vascular disease, unspecified; R60.0 Localized edema; I42.8 Other cardiomyopathies; I50.20 Unspecified systolic (congestive) heart failure; R07.9 Chest pain, unspecified; I48.91 Unspecified atrial fibrillation; R93.1 Abnormal findings on diagnostic imaging of heart and coronary circulation
CPT/HCPCS: 93923; 93925; 93970

== ENCOUNTER 2025-01-09 15:03 | Outpatient (CLI) | payer BC, SELFPAY ==
--- NOTE | 2025-01-09 15:10 | CA_ITS ---
APPROVED REPORT EXAM: Comprehensive 2D, Doppler, and color-flow Echocardiogram Solder Deposit Operator: Janene Keenan RDCS Ht: 5 ft 9 in Wt: 371lbs BSA: 2.69 BP: 131/81 mmHg Indications: HFrEF,CM,AF M-Mode Dimensions RVDd 2.55 cm (0.9-2.6) LA Diam 3.54 cm (1.9-4.0) LVDd 6.04 cm (3.5-5.7) LVDs 4.43 cm (3.5-5.7) IVSd 1.39 cm (0.6-1.1) PWd 1.03 cm (0.6-1.1) EF (Teich) 51.30% FS 26.70% EDV (Teich) 182.80 mL ESV (Teich) 89.10 mL LV Diastology E Decel Time 173 (160-240 msec) E/A Ratio 1.5 Mitral Valve MV E Max Tripp. 105.0 (40-130 cm/s) MV A Velocity 70.0 (40-130 cm/s) E/A Ratio 1.51 MV PHT 51.0 ms Left Ventricle The left ventricle is normal size. The left ventricular systolic function is normal. The left ventricular ejection fraction is within the normal range. There is increased LV wall thickness. There is normal LV segmental wall motion. The left ventricular diastolic function is normal. LVEF is 55%. Right Ventricle Right ventricle is mildly dilated. The right ventricular systolic function is normal. Atria The left atrium size is normal. The right atrium size is normal. There is no Doppler evidence of interatrial shunt. Aortic Valve The aortic valve opens well. There is no aortic valvular stenosis. No aortic regurgitation is present. Mitral Valve The mitral valve is normal in structure. No evidence of mitral valve stenosis. Trace mitral regurgitation. Tricuspid Valve Tricuspid valve is grossly normal in structure and function. Trace tricuspid regurgitation. There is insufficient TR jet to estimate RVSP. Pulmonic Valve The pulmonary valve is normal in structure. Trace pulmonic regurgitation. Great Vessels The aortic root is normal in size. IVC is normal in size and collapses >50% with inspiration. Pericardium There is no pericardial effusion. Other Information Study Quality: Fair Conclusion Normal biventricular systolic function. Mild RV dilation. No significant valvular stenosis or regurgitation. Electronically signed by : Tamra Kang MD 01/12/2025 17:16:30
== END 2025-01-09 23:59 | disposition home or self-care (01) ==
LOC: RT 15:06
PROVIDERS: PCP Family Medicine; Visit Provider Internal Medicine
DX: I51.7 Cardiomegaly (principal); I48.0 Paroxysmal atrial fibrillation
CPT/HCPCS: 93306

== ENCOUNTER 2025-03-04 04:45 | Emergency (ER) | payer BC, SELFPAY ==
[2025-03-04 04:54] VITALS: BP 156/98; PULSE 82; RESP 20; TEMP 36.8; O2SAT 96; BMI 54.6
--- NOTE | 2025-03-04 05:01 | ED_ITS ---
Discharge Plan Disposition Chief Complaint: Extremity Injury, Lower Prescriptions Prescriptions: No Action Xarelto 20 mg tablet 20 mg PO DAILY Qty: 90 3RF Rx Instructions: must administer with evening meal metoprolol succinate [Toprol XL] 100 mg tablet extended release 24 hr 100 mg PO DAILY Qty: 30 2RF Referrals Follow up/Referrals: Provider,Referral, [Primary Care Provider] - See instructions Activity Restrictions/Add. Instructions Additional Instructions/Restrictions: Recommend taking a couple days off of your blood thinner. Please follow-up with your primary care provider. Please return to the emergency department if you develop any new or worsening symptoms or become concerned for your health. Clinical Impressions Clinical Impression: Bleeding Leg injury Qualifiers: Encounter type: initial encounter Laterality: left Qualified Code(s): S89.92XA - Unspecified injury of left lower leg, initial encounter Print Language Print Language: Persian Discharge ED Provider: Shashank Palacios Adult HPI General Chief complaint: Extremity Injury, Lower Stated complaint: L leg bleeding Time Seen by Provider: 03/04/25 04:45 Mode of Arrival: Ambulatory Source of Information: Patient Description of Symptoms (Recalled from ER Triage Doc. by RN): patient comes to ED for left leg bleeding that started around 4:15 this morning. patient denies any pain or injury. does take a blood thinner for history of afib. History of Present Illness HPI narrative: 50-year-old male with history of obesity and A-fib on Xarelto presents for bleeding. He reports that he was drying off his leg after shower when it started bleeding. There is a spot on his left lateral ankle that is dark, has been there for a while. It started bleeding from that spot. They had to do a compressive dressing to get it to stop. They report it was spreading across the room. Related Data Previous Rx's ?Medication ?Instructions ?Recorded rivaroxaban 20 mg tablet (Xarelto) 20 mg PO DAILY #90 tabs 05/01/24 metoprolol succinate 100 mg 100 mg PO DAILY #30 tabs 07/03/24 tablet,extended release 24 hr (Toprol XL) Allergies Allergy/AdvReac Type Severity Reaction Status Date / Time No Known Allergies Allergy Verified 12/26/24 15:06 [facility] Disclaimer: The information contained in this section may have been updated after the patient was seen, as this information can be updated by other users. Medical History Abnormal echocardiogram Abnormal nuclear cardiac imaging test HFrEF (heart failure with reduced ejection fraction) Abnormal findings on diagnostic imaging of heart/coronary circulation Left ventricular hypertrophy Chest pain Cellulitis of left foot Venous stasis of lower extremity Lymphedema Morbid obesity Sleep apnea Cellulitis Surgical History History of cardiac cath S/P vasectomy History of hernia repair Hx of tonsillectomy Family History Mother Family history of cancer Father Family history of cancer Social History Smoking Status: Never smoker alcohol intake: never substance use type: denies use current occupational status: other Travel in the last 8 weeks?: None caffeine: Yes Other Medical History Have you received the Flu Vaccine for this season: No Have you received the Pneumonia Vaccine: No ROS Obtained: Yes All systems reviewed & no additional complaints except as documented Physical Exam General General appearance: alert and in no apparent distress Head Head exam: atraumatic and normocephalic Eye Eye exam: Present normal appearance, PERRL and EOMI ENT ENT exam: Present normal oropharynx and normal external ear exam Neck Neck exam: Present normal inspection and full ROM Chest Chest inspection: Present normal inspection and symmetric chest wall rise; Absent tenderness Respiratory Respiratory exam: Present normal lung sounds bilaterally; Absent respiratory distress Cardiovascular Cardiovascular exam: Present regular rate and normal rhythm Abdominal Exam Abdominal exam: Present soft; Absent distention, tenderness or guarding Extremities Exam Extremities exam: Present other (Bilateral lower extremity swelling, venous stasis changes noted, varicose veins noted. There is a small area with venous oozing noted.); Absent edema or joint swelling Back Exam Back exam: Present normal inspection; Absent tenderness Neurological Exam Neurological exam: Present alert and oriented X3; Absent motor sensory deficit Psychiatric Psychiatric exam: Present normal affect and normal mood Skin Skin exam: Present warm, dry and normal color Lymphatic Lymphatic Findings: no adenopathy Medical Decision Making Medical Records Medical records reviewed: Yes I reviewed the patient's medical records. Screening: Per USPSTF and CDC recommendations, given the prevalence of disease in our region, it is our hospital?s policy to screen for HIV and viral Hepatitis for all patients aged 18 and over and those with ongoing risk factors. Julius Inquiry Pt receiving controlled substance: No Julius was queried for this patient: No Vital Signs: 03/04/25 04:54 03/04/25 05:31 Temperature 98.2 F Temperature Source Oral Pulse Rate 74 Pulse Rate [Left] 82 Respiratory Rate 20 Blood Pressure 114/74 Blood Pressure [Right Arm] 156/98 H Blood Pressure Mean [Right Arm] 117 Blood Pressure Source [Right Arm] Automatic Cuff Blood Pressure Position [Right Arm] Sitting 02 Sat by Pulse Oximetry 96 94 L Oxygen Delivery Method Room Air Lab Data Lab results reviewed: Yes I reviewed the patient's lab results. Lab Results 03/04/25 05:01: WBC 12.2 H, RBC 4.64, Hgb 14.4, Hct 43.4, MCV 93.5, MCH 31.0, MCHC 33.2, RDW 13.0, Plt Count 357, MPV 9.2, Neut % (Auto) 57.2, Lymph % (Auto) 26.5, [place] % (Auto) 11.0 H, Eos % (Auto) 3.7, Baso % (Auto) 0.7, Neut # (Auto) 7.0, Lymph # (Auto) 3.2, [place] # (Auto) 1.4 H, Eos # (Auto) 0.5 H, Baso # (Auto) 0.1, PT 12.6 H, INR 1.14 H, APTT 44.0 H, Sodium 138, Potassium 4.0, Chloride 108 H, Carbon Dioxide 26, Anion Gap 8.0, BUN 21 H, Creatinine 0.70, Estimated Creat Clear 123, Estimated GFR 118, Est GFR ( Amer) 143, Glucose 123 H, Calcium 8.8, Total Bilirubin 0.6, AST 45, ALT 53, Alkaline Phosphatase 71, Total Protein 7.7, Albumin 4.6, Globulin 3.1, Albumin/Globulin Ratio 1.5 03/04/25 05:01 03/04/25 05:01 Orders (Tests/Meds): ORDERS Category Date Time Status CBC w/Auto Diff [Complete Blood Count Auto Diff] Stat Lab 03/04/25 05:01 Completed CMP [Comprehensive Metabolic Panel] Stat Lab 03/04/25 05:01 Completed INR [Prothrombin Time INR] Stat Lab 03/04/25 05:01 Completed PTT [Activated Partial Thrombo Time] Stat Lab 03/04/25 05:01 Completed Medical Decision Narrative: 50-year-old male with history of A-fib on Xarelto presents for spontaneous bleeding after minimal trauma to the left ankle. History was obtained via interactive discussion with patient, family, chart review. On arrival, patient is [afebrile, hemodynamically stable, satting appropriately, alert, oriented x4, GCS 15], moving all extremities spontaneously. Full physical exam performed and significant for small spot of venous oozing on the left lateral ankle. Not over the course of the posterior tibial artery. Differential includes but is not limited to coagulopathy, anemia, laceration, malignancy. The wound was cleaned and dressed and a compressive dressing was applied. Workup initiated including basic labs and coags. On re-evaluation, patient [remains afebrile, HD stable.] Laboratory workup independently interpreted by me and significant for normal platelets and hemoglobin, no significant electrolyte derangement, mildly prolonged coags consistent with anticoagulated status.. Given patient had a dark raised spot there for a long time that started bleeding after minimal injury, I am concerned it could be skin cancer or some other pathology. Recommended he take a couple days off of his blood thinner and follow-up with PCP for further assessment. Patient may require a biopsy. Procedures Risk/Benefits of Procedure(s) Were Explained: Yes Critical Care Critical Care Time Critical Care Time: No
[2025-03-04 05:20] LABS: Alanine Aminotransferase 53 U/L (12-78); Albumin Level 4.6 g/dl (3.5-5.0); Albumin/Globulin Ratio 1.5 (1.1-1.8); Alkaline Phosphatase 71 U/L (38-126); Aspartate Amino Transferase 45 U/L (17-59); Bilirubin,Total 0.6 mg/dl (0.2-1.3); Blood Urea Nitrogen 21 mg/dl (9-20); Calcium 8.8 mg/dl (8.4-10.2); Carbon Dioxide 26 mmol/L (22.0-30.0); Chloride 108 mmol/L (98-107); Creatinine Clearance Estimated 123 mL/min (50-200); Estimated Glomerular Filt Rate 118 ml/min (>60); GFR (African American) 143 ML/MIN (>60); Globulin 3.1 g/dL (1.3-3.2); Glucose 123 mg/dl (74-100); Sodium 138 mmol/L (136-145); Total Protein,Serum 7.7 g/dl (6.3-8.2)
[2025-03-04 05:31] VITALS: BP 114/74; PULSE 74; O2SAT 94
[2025-03-04 05:33] LABS: Basophils # 0.1 K/mm3 (0-0.2); Basophils % 0.7 % (0.1-2.0); Eosinophils # 0.5 Kmm3 (0.0-0.4); Eosinophils % 3.7 % (0.1-12.0); Hematocrit 43.4 % (42.0-52.0); Hemoglobin 14.4 g/dL (14.1-18.0); Immature Granulocytes # 0.11 10^3uL; Immature Granulocytes % 0.9 %; Lymphocytes # 3.2 K/mm3 (0.7-4.5); Lymphocytes % 26.5 % (10-50); Mean Corpuscular HGB Conc 33.2 g/dL (31.8-35.4); Mean Corpuscular Volume 93.5 fl (80-94); Mean Platelet Volume 9.2 fl (7.4-10.4); Monocytes # 1.4 K/mm3 (0.1-1.0); Neutrophils % 57.2 % (37.0-80.0); Nucleated Red Blood Cells # 0 10^3/uL; Nucleated Red Blood Cells % 0 %; Platelet Count 357 K/mm3 (142-424); Red Blood Count 4.64 M/mm3 (4.60-6.20); Red Cell Distribution Width-SD 44.6 fL; White Blood Count 12.2 K/mm3 (4.8-10.8)
[2025-03-04 05:34] LABS: INR 1.14 (0.9-1.1); Prothrombin Time 12.6 seconds (10.1-12.5)
[2025-03-04 06:33] VITALS: BP 123/74; PULSE 67; RESP 18; TEMP 36.7; O2SAT 97
--- NOTE | 2025-03-04 06:35 | PC.NURSE ---
IV discontinued. Catheter tip intact. Bleeding controlled.
== END 2025-03-04 06:34 | disposition home or self-care (01) ==
LOC: ER 04:53
PROVIDERS: Emergency Provider Emergency Medicine
DX: S89.92XA Unspecified injury of left lower leg, initial encounter (principal); R58 Hemorrhage, not elsewhere classified; I87.8 Other specified disorders of veins; I83.892 Varicose veins of left lower extremity with other complications; X58.XXXA Exposure to other specified factors, initial encounter; Z79.01 Long term (current) use of anticoagulants
CPT/HCPCS: 80053; 85025; 85610; 85730; 99283

== ENCOUNTER 2025-03-31 04:52 | Emergency (ER) | payer BC, SELFPAY ==
--- OUTSIDE RECORDS SUMMARY | 2024-06-17 13:00 | XMS_ITS ---
Author Organization [facility] Address [address] [facility] [address] [place] [id number] Care Team Providers Care Brand Advisor Name Role Phone Milan Mendenhall Primary Care Provider [phone] Nithin Smith [phone] REASON FOR VISIT 6 week f/u Encounters Encounter Location Date Provider Diagnosis [facility] [address] [facility] [address] [place] [id number] 06/17/2024 Nithin Smith Plan Of Treatment Next Appt Details Provider Name:Nithin Swift ry, 04/14/2025 05:00:00 PM, [address] [facility] [address], [address], [place], [id number], Progress Notes * EBEN MARTINIOB:1975 ( 50 yo M)Acc No.[id number]:06/17/2024 Patient: SARA DAVIS Provider: Cassius Smith M.D. :1975 A ge:49 Y S ex:Male Date:06/17/2024 Address:[address], [place] Pcp:Milan Mendenhall Subjective: * Chief Complaints: * 1 . 6 week f/u. * Medical History: Objective: * Vitals: Assessment: Plan: * Treatment: * Billing Information: * Visit Code: * Procedure Codes: * Electronic signature of Shelly Smith MD on 03/31/2025 at 05:21 AM EDT Sign off status: Pending * Provider: Cassius Smith M.D. Date: 0 06/17/2024 Generated for Claribel nath/Jose/Skinny on: 0 03/31/2025 05:21 AM EDT
--- OUTSIDE RECORDS SUMMARY | 2024-08-12 13:15 | XMS_ITS ---
Author Organization [facility] Address [address] [place] [id number] Care Team Providers Care Community Health Advocate Name Role Phone Milan Mendenhall Primary Care Provider Nithin Smith Unavailable [phone] Allergies No Known Allergies Results Component Value [...] 125 MCG 1 tablet Orally Once a day for 30 day(s) Active Vitamin D3 1.25 MG (11643 UT) 1 capsule Orally Once a week 06/12/2024 Active Tylenol 325 MG 2 tab(s) orally ever y 4 hours Active Ibuprofen 200 MG 1 tab(s) orally ever y 6 hours Active Jobst 30-40mmHg Compression Sm DIRECTED 07/13/2019 Active Cetirizine HCl 10 MG 1 tablet Orally Onc e a day for 90 days 03/27/2024 Active Spironolactone 50 MG 1 tablet Orally Onc e a day for 30 day(s) Active Problems Problem Type SNOMED Code ICD Code Onset Dates Problem Status W/U Status Risk Notes Problem [id number] Lumbago with sciatica, right side (M54.41) Active confirmed Problem [id number] Lumbago with sciatica, left side (M54.42) Active confirmed Vital Signs Blood pressure systolic 130 mm Hg 08/12/20 24 Blood pressure diastolic 74 mm Hg 024 Heart Rate 71 /min 08/12/2024 Height 70 in 08/12/2024 Weight 354 lbs 08/12/2024 BMI 50.79 kg/m2 08/12/2024 Encounters Encounter Location Date Provider Diagnosis [facility] [address] [facility] [address] [facility] [address] [place] [id number] 08/12/2024 Nithin Smith Lumbago with sciatic a, [...] phone to repo rt test results, Reason: Provider Name:Nithin Swift , 04/14/2025 05:00:00 PM, [address] [facility] [address] [facility], [address], [place], [id number], Progress Notes * JENNTamika EBENOB:1975 ( 50 yo M)Acc No.[id number]:08/12/2024 Progress Notes Patient: SARA DAVIS Provider: Cassius Smith M.D. :1975 A ge:49 Y S ex:Male Date:08/12/2024 Address:[address] [place] [address], [id number] Pcp:Milan Mendenhall Subjective: * Chief Complaints: * 1 . 2 months. * HPI: H ip/Thigh: 49 year old male presents with c/o Thigh P t here for 2 mo f/u on thigh pain. Pt states he still has cramps in his legs. Pt states at times the pain is so bad when he is driving that he feels like he needs to cake puller to get out and stretch his [...] 1980, Tonsilectomy 1982, Vascetomy 2009, Heart Cath- [facility]- Dr. Ramirez 06/06/24. * Hospitalization/Major Diagno [...] day , Taking Vitamin D3 1.25 MG (73367 UT) Capsule 1 capsule Orally Once a week , Discontinued Furosemide 40 MG Tablet 1 tablet Orally Once a day , Medication List reviewed and reconciled with the patient * Allergies: N .K.D.A. Objective: * Vitals: W t:354, Temp:97.9, BP:130/74, HR:71, Nurse:garry, Ht: 70, BMI:50.79. * Examination: G eneral Examination: General Appearance: N AD. L ower back: Straight leg raising test: negative bilaterally. Gait: n ormal. Assessment: * Assessment: 1. L umbago with sciatica, right side - M54.41 (Primary) 2 . L umbago with sciatica, left side - M54.42 3 . C ramp in lower leg - R25.2 Plan: * Treatment: 2.?Lumbago with sciatica, left side?Imaging: X ray : Spine, lumbosacral (Performed Date - 08/13/2024)?anterior osteophyte formation* Stefan Garciaia 08/16/2024 10:3 9:21 AM > , See phone encounter 3.?Cramp in lower leg? Notes: Symptoms are non exertional?? * Follow Up: v ia phone to report test results * Billing Information: * Visit Code: 64376 Office Visit, Est Pt., Level 3. * Procedure Codes: * Electronic signature of Shelly Smith MD on 03/31/2025 at 05:21 AM EDT Sign off status: Pending * Provider: Cassius Smith M.D. Date: Generated for Claribel nath/Jose/eTransmitting on: 0 03/31/2025 05:21 AM EDT History and Physical Notes * HPI (History of Present Illness) Category Sub-Category Detail Notes Category Not es Hip/Thigh Thigh Pt here for 2 mo f/u on thigh pain. Pt states he still has cramps in his legs. Pt states at times the pain is so bad when he is driving that he feels like he needs to cake puller to get out and stretch his legs. Pt states that the pain has also started to go into his lower back Examination Category Sub-Category Detail Notes Category Not es General Examination General Appearance: NAD Lower back Straight leg raising test: negative bilaterally Gait: normal
--- OUTSIDE RECORDS SUMMARY | 2025-03-04 05:00 | XMS_ITS ---
Author Organization [facility] Address [address] [place] [id number] Care Team Providers Care High School Librarian Name Role Phone Milan Mendenhall Primary Care Provider Nithin Smith Unavailable [phone] Allergies No Known Allergies Reason For Referral Reason Vascular Center in [facility] Diagnosis 1 Bleeding from varico se vein (I83.899) Referral Organization [facility] Referring Provider First Name Nithin Referring [...] Onc e a day for 30 day(s) Not-Taking Digoxin 125 MCG 1 tablet Orally Once a day for 30 day(s) Not-Taking Metoprolol Succinate ER 200 MG 1.5 tablet Orally Once a day Active EQ Allergy Relief (Cetirizine) 10 MG Take 1 tablet by mouth once daily for 90 Active Vitamin D3 1.25 MG (71501 UT) 1 capsule Orally Once a week 06/12/2024 Not-Taking Vital Signs Blood pressure systolic 132 mm Hg 03/04/20 25 Blood pressure diastolic 86 mm Hg 025 Heart Rate 70 /min 03/04/2025 Height 70 in 03/04/2025 Weight 372.4 lbs 03/04/2025 BMI 53.43 kg/m2 03/04/2025 Encounters Encounter Location Date Provider Diagnosis [facility] [address] [facility] [address] [facility] [address] [place] [phone] 03/04/2025 Nithin Smith Bleeding from varico se vein I83.899 Assessments Encounter Date Diagnosis (ICD Code) Assessment Notes Treatment Notes Treatment Clinical Notes Section Notes 03/04/2025 Bleeding from varicose vein (ICD-10 - I83.899) Rest, ice, compression and elevation Plan Of Treatment Treatment Notes Assessment Notes Bleeding from varicose vein Rest, ice, c ompression and elevation Referrals Referral Date Details 03/04/2025 03/04/2025, [facility] in [place] Next Appt Details Follow Up: 3 Months, Reason: Provider Name:Nithin Swift ry, 04/14/2025 05:00:00 PM, [facility] [address], [address], [place], [id number], Progress Notes * EBEN MARTINIOB:1975 ( 50 yo M)Acc No.[id number]:03/04/2025 Progress Notes Patient: SARA DAVIS Provider: Cassius Smith M.D. :1975 A ge:50 Y S ex:Male Date:03/04/2025 Address:[address] [place] [address], [id number] Pcp:Milan Mendenhall Subjective: * Chief Complaints: * 1 . F/U ER. * HPI: H ematology: 50 year old male presents with c/o Bleeding P t presents today for a follow-up from [facility] ER for a bleed. Pt presents [...] 1982, Vascetomy 2009, Heart Cath- [facility]- Dr. Ramirez 06/06/24. * Family History: [...] day , Not-Taking Vitamin D3 1.25 MG (29196 UT) Capsule 1 capsule Orally Once a week , Medication List reviewed and reconciled with the patient * Allergies: N .K.D.A. Objective: * Vitals: W t: 372.4, Temp: 98.4, BP: 132/86, HR: 70, Nurse: NATHALIE, Ht: 70, BMI:53.43. * Examination: G eneral Examination: General Appearance: N AD. Heart: R SR. Lungs: c lear to auscultation. Extremities: w rap on left lower leg and foot is clean dry and intact, no blood on dressing. Assessment: * Assessment: 1. B leeding from varicose vein - I83.899 (Primary) Plan: * Treatment: * Follow Up: 3 Months * Billing Information: * Visit Code: 10081 Office Visit, Est Pt., Level 3. * Procedure Codes: * Electronic signature of Shelly Smith MD on 03/31/2025 at 05:21 AM EDT Sign off status: Pending * Provider: Cassius Smith M.D. Date: 0 03/04/2025 Generated for Claribel nath/Jose/Skinny on: 0 03/31/2025 05:21 AM EDT History and Physical Notes * HPI (History of Present Illness) Category Sub-Category Detail Notes Category Not es Hematology Bleeding Pt presents to y for a follow-up from [facility] ER for a bleed. Pt presents [...] Nithin Smith , [facility] [place]
--- OUTSIDE RECORDS SUMMARY | 2025-03-31 05:22 | XMS_ITS | Clinical Summary ---
Author Organization [facility] Address [address] [place] [id number] Phone [email or web address] Care Team Providers Care Deputy City Clerk Name Role Phone Unavailable Primary Care Provider Unavailabl e Allergies No known active allergies Medications rivaroxaban (Xarelto) 20 MG tablet Take 20 mg by mouth 1 (one) time each day with dinner. Active metoprolol succinate XL (TOPROL-XL) 100 MG 24 hr tablet Take 100 mg by mouth 1 (one) time each day. Active acetaminophen (TYLENOL 8 HOUR) 650 MG 8 hr tablet Take 650 mg by mouth every 8 (eight) hours if needed for mild pain. Do not crush, chew, or split. Active Active Problems Problem Noted Date Diagnosed Date Mixed conductive and sensori neural hearing loss of both ears 02/05/2024 Visit for occupational health examination 2023 Pterygium 02/09/2012 Overview (03/21/2018): Examination for medicolegal reason 05/18/2009 Overview (03/21/2018): Other examination of ears and hearing 01/28/2008 Overview (03/21/2018): Resolved Problems Problem Noted Date Diagnosed Date Resolved Date Other acute sinusitis 02/09/20122024 Overview (03/21/2018): Acute upper respiratory infection 02/09/2012 12/16/2024 Overview (03/21/2018): Social History Tobacco Use Types Packs/Day Years Used Date Smoking Tobacco: Never Smokeless Tobacco: Never Tobacco Cessation:Counseling Given: Not Answered Alcohol Use Standard Drinks/Week Comments Never 0 (1 standard drink = 0.6 oz pur e alcohol) Intimate Partner Violence Answer Date R ecorded Insults You Not on file 02/03/2021 Threatens You Not on file 02/03/2021 Screams at You Not on file 02/03/2021 Physically Hurt Not on file 02/03/2021 Intimate Partner Violence Score Not on file 02/03/2021 Alcohol Use Answer Date Recorded Alcohol Use Status Never 02/05/2024 Depression Answer Date Recorded PHQ Total Score 0 02/05/2024 Stress Answer Date Recorded Stress in your Life Not on file 08/26/2024 Dealing with Stress 3 08/26/2024 Sex and Gender Information Value Date Recorded Sex Assigned at Not on file Legal Sex Male 9:42 AM CDT Gender Identity Not on file Sexual Orientation Not on file Last Filed Vital Signs Vital Sign Reading Time Taken Comments Blood Pressure 135/83 12/23/2024 11:36 AM EST Pulse 71 12/23/2024 11:36 AM EST Temperature 36.8 C (98.2 F) 12/23/2024 9:49 AM EST Respiratory Rate 14 12/23/2024 9:49 AM EST Oxygen Saturation 96% 12/23/2024 9:49 AM EST Inhaled Oxygen Concentration - - Weight 167 kg (368 lb) 12/23/2024 9:49 AM EST Height 175.3 cm (5' 9 ) 12/23/2024 9:49 AM EST Body Mass Index 54.34 12/23/2024 9:49 AM EST Plan of Treatment Health Maintenance Due Date Last Done Comments Dental Cleaning/Exam 1973 HIV Screening 1973 Hepatitis C Screening 1973 HIB Immunization (1 of 1 - R isk 1-dose series) 05/10/1974 Annual Preventive Exam 1991 Hep B Infection Screening - Triple Screen 1991 Hepatitis B Immunization (1 of 3 - + 3-dose series) 02/09/1992 Tetanus Diphtheria and Pertu ssis Immunization (1 - Tdap) 02/09/1992 Colorectal Cancer Screening 2003 Zoster Immunization (1 of 2) 2023 Covid-19 Immunization (1 - 2 -25 season) 2024 Influenza Immunization (Seas on Ended) 2025 HPV Immunization Aged Out No longer e ligible based on patient's age to complete this topic Hepatitis A Immunization Aged Out No longer eligible based on patient's age to complete this topic Pneumococcal: Ped (0 to 5 Yr s) and At-Risk Member (6 to 64 Yrs) Aged Out No longer e ligible based on patient's age to complete this topic Polio Immunization Aged Out No longer eligible based on patient's age to complete this topic Insurance
--- OUTSIDE RECORDS SUMMARY | 2025-03-31 05:22 | XMS_ITS | Patient Health Record ---
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 Name Role Phone Milan Mendenhall Primary Care Provider Nithin Smith Unavailable [phone] Allergies No Known Allergies Results Component Value Reference Range Notes X ray : Spine, lumbosacral Reviewed date:08/16/2024 10:39:28 AM Interpretation:anterior osteophyte formation Performing Lab: Notes/Report: anterior osteophyte formation P-Hepatic Function Panel Reviewed date:06/12/2024 03:20:31 PM Interpretation: Normal Performing Lab: Notes/Report: Test performed by [facility] [address] [place] [address] , [place] [address] Nitish Matthews MD, [place] CLIA: [id number] Protein 7.4 6.0-8.3 g/dL Albumin 4.6 3.5-5.3 g/dL Alkaline Phosphatase 89 40-129 IU/L ALT (SGPT) 26 <5-55 IU/L AST (SGOT) 20 <5-46 IU/L Bilirubin, Total 0.5 <0.2-1.2 mg/dL Bilirubin, Direct <0.2 <0.2-0.3 mg/dL Bilirubin, Indirect See Comment 0.2-1.3 mg/dL Unable to calculate indirect bilirubin when total or direct bilirubin fall outside reportable range. P-Sed Rate (ESR) Reviewed date:06/12/2024 03:20:31 PM Interpretation:36 Performing Lab: Notes/Report: Test performed by [facility], [address] , [place] [address] Nitish Matthews MD, [place] CLIA: [id number] Erythrocyte Sedimentation Rate (ESR), Automated 36 <21 mm/hr G-N-Zsoxraqi Protein (CRP) Reviewed date:06/12/2024 03:20:31 PM Interpretation: Normal Performing Lab: Notes/Report: Test performed by [address] , [facility] [place] [address] Nitish Matthews MD, [place] CLIA: [id number] C-Reactive Protein (CRP) 0.38 <0.50 mg/dL P-CPK Reviewed date:06/12/2024 03:20:31 PM Interpretation: Normal Performing Lab: Notes/Report: Test performed by [facility] , [facility] [place] [address] Nitish Matthews MD, [place] CLIA: [id number] Creatine Kinase 97 20-200 U/L P-Vitamin B12 Reviewed date:06/12/2024 03:20:31 PM Interpretation:337 Performing Lab: Notes/Report: [facility] , [place] [address] Nitish Matthews MD, [place] CLIA: [id number] Vitamin B12 384 460-9858 pg/mL E-Qfdx-Bdebfex Antibody (VIOLETTE ), IgG by IFA Reviewed date:06/12/2024 03:20:31 PM Interpretation: Normal Performing Lab: Notes/Report: Test performed by [facility] , [place] [address] Nitish Matthews MD, [place] CLIA: [id number] VIOLETTE Screen, IFA Not Detected Not Detected VIOLETTE Screen Reference Range 1:80 VIOLETTE IFA is a first line screen for detecting the presence of up to 150 autoantibodies in various autoimmune diseases. A positive VIOLETTE IFA result is suggestive of autoimmune disease and reflexes to titer and pattern. Consider additional laboratory testing if clinically indicated. CBC Venipuncture (in house) Reviewed date:06/12/2024 03:20:31 [...] - 38 platlet 362 100 - 400 P-Digoxin Reviewed date:04/24/2024 08:43:43 AM Interpretation:Normal Performing Lab: Notes/Report: Test performed by [facility] [address] [place] [address] , [address], [place] [address] Nitish Matthews MD, [place] CLIA: [id number] Digoxin 0.9 0.8-2.0 ng/mL P-Comprehensive Metabolic Pa laisha (CMP) Reviewed date:04/24/2024 08:43:43 AM Interpretation:gluc 112 Performing Lab: Notes/Report: Test performed by [facility] [address] [place] [address] , [address], [place] [address] Nitish Matthews MD, [place] CLIA: [id number] Sodium 143 135-145 mmol/L Potassium 4.6 3.5-5.3 mmol/L Chloride 105 97-108 mmol/L CO2 30 22-32 mmol/L Glucose 112 65-99 mg/dL BUN 9 6-20 mg/dL Creatinine 0.70 0.70-1.30 mg/dL Calcium 9.3 8.6-10.4 mg/dL eGFR by Creatinine 111 >59 mL/min/1.73m2 Protein 6.3 6.0-8.3 g/dL Albumin 3.7 3.5-5.3 g/dL Alkaline Phosphatase 71 40-129 IU/L ALT (SGPT) 28 <5-55 IU/L AST (SGOT) 26 <5-46 IU/L Bilirubin, Total 0.5 <0.2-1.2 mg/dL A/G Ratio 1.4 1.1-2.5 mg/dL CBC Venipuncture (in house) Reviewed date:04/22/2024 12:17:50 PM Interpretation: Performing Lab: Notes/Report: wbc 10.0 3.5 - 10 lymph 25.4 15 - 50 mid 5.4 2 - 15 gran 69.2 35 - 80 rbc 4.43 3.5 - 5.5 hgb 13.8 11.5 - 16.5 hct 40.9 35 - 55 mcv 92.3 75 - 100 mch 31.1 25 - 35 mchc 33.7 31 - 38 platlet 396 100 - 400 H-CBC Reviewed date:04/10/2024 08:26:08 AM Interpretation: Performing Lab: Notes/Report: H-DIFF Reviewed date:04/10/2024 08:26:08 AM Interpretation: Performing Lab: Notes/Report: H-BMP Reviewed date:04/10/2024 08:26:09 AM Interpretation: Performing Lab: Notes/Report: NA 135 136-145 mmol/L K 3.5 3.5-5.1 mmoL/L CL 110 98-107 mmol/L CO2 16 22.0-30.0 mmol/L GAP 12.5 5-15 mEq/L BUN 12 9-20 mg/dl Delta: 21 on 04/09/24 CREATT 0.90 0.66-1.25 mg/dl CRCLE 94 50-200 mL/min GFRAA 108 >60 ML/MIN Delta: 85 on 04/09/24 EGFR 89 >60 ml/min GLU 131 74-100 mg/dl CA 8.4 8.4-10.2 mg/dl H-CBC Reviewed date:04/10/2024 11:14:29 AM Interpretation: Performing Lab: Notes/Report: WBC 35.2 4.8-10.8 K/mm3 Delta: 22.1 o n 04/09/24 RBC 5.56 4.60-6.20 M/mm3 HGB 17.5 14.1-18.0 g/dL HCT 51.1 42.0-52.0 % MCV 92.0 80-94 fl MCH 31.4 27.0-31.2 pg MCHC 34.2 31.8-35.4 g/dL RDW 14.2 11.5-17.5 % PLT 450 142-424 K/mm3 MPV 7.6 7.4-10.4 fl NE% 77.9 37.0-80.0 % LY% 14.4 10-50 % MO% 4.2 1.7-9.3 % EO% 3.4 0.1-12.0 % BA% 7.7 0.1-2.0 % NE# 27.4 1.8-7.8 K/mm3 LY# 5.1 0.7-4.5 K/mm3 MO# 1.5 0.1-1.0 K/mm3 EO# 1.2 0.0-0.4 K/mm3 BA# 2.7 0-0.2 K/mm3 H-DIFF Reviewed date:04/10/2024 11:14:29 AM Interpretation: Performing Lab: Notes/Report: [facility] MANUAL DIFFERENTIAL MANUAL DIFF TCC 100 NEUT%M 44 42-76 % LYMPH%M 48 10-50 % MONO%M 7 2-9 % EOS%M 1 0-3 % PLTE Normal RM Normal H-CBC Reviewed date:04/11/2024 09:42:41 AM Interpretation: Performing Lab: Notes/Report: WBC 32.6 4.8-10.8 K/mm3 RBC 5.37 4.60-6.20 M/mm3 HGB 16.7 14.1-18.0 g/dL HCT 51.5 42.0-52.0 % MCV 95.8 80-94 fl MCH 31.2 27.0-31.2 pg MCHC 32.6 31.8-35.4 g/dL RDW 14.2 11.5-17.5 % PLT 456 142-424 K/mm3 MPV 7.9 7.4-10.4 fl NE% 78.3 37.0-80.0 % LY% 13.8 10-50 % MO% 5.1 1.7-9.3 % EO% 2.7 0.1-12.0 % BA% 4.6 0.1-2.0 % NE# 25.5 1.8-7.8 K/mm3 LY# 4.5 0.7-4.5 K/mm3 MO# 1.7 0.1-1.0 K/mm3 EO# 0.9 0.0-0.4 K/mm3 BA# 1.5 0-0.2 K/mm3 H-DIFF Reviewed date:04/11/2024 09:42:41 AM Interpretation: Performing Lab: Notes/Report: [facility] MANUAL DIFFERENTIAL MANUAL DIFF TCC 100 NEUT%M 39 42-76 % LYMPH%M 48 10-50 % MONO%M 10 2-9 % EOS%M 3 0-3 % NRBC 1 PLTE Slight Increase RM Normal H-BMP Reviewed date:04/11/2024 08:59:16 AM Interpretation: Performing Lab: Notes/Report: NA 137 136-145 mmol/L K 3.7 3.5-5.1 mmoL/L CL 112 98-107 mmol/L CO2 17 22.0-30.0 mmol/L GAP 11.7 5-15 mEq/L BUN 13 9-20 mg/dl CREATT 1.00 0.66-1.25 mg/dl CRCLE 85 50-200 mL/min GFRAA 95 >60 ML/MIN EGFR 79 >60 ml/min GLU 113 74-100 mg/dl CA 8.6 8.4-10.2 mg/dl H-CBC Reviewed date:04/12/2024 08:06:35 AM Interpretation: Performing Lab: Notes/Report: WBC 36.2 4.8-10.8 K/mm3 RBC 5.32 4.60-6.20 M/mm3 HGB 16.5 14.1-18.0 g/dL HCT 50.6 42.0-52.0 % MCV 95.2 80-94 fl MCH 31.0 27.0-31.2 pg MCHC 32.5 31.8-35.4 g/dL RDW 14.5 11.5-17.5 % PLT 331 142-424 K/mm3 Delta: 456 on 04/11/24-0655 MPV 8.7 7.4-10.4 fl NE% 77.5 37.0-80.0 % LY% 12.4 10-50 % MO% 4.4 1.7-9.3 % EO% 5.6 0.1-12.0 % BA% 1.8 0.1-2.0 % NE# 28.0 1.8-7.8 K/mm3 LY# 4.5 0.7-4.5 K/mm3 MO# 1.6 0.1-1.0 K/mm3 EO# 2.0 0.0-0.4 K/mm3 BA# 0.6 0-0.2 K/mm3 H-DIFF Reviewed date:04/12/2024 08:06:35 AM Interpretation: Performing Lab: Notes/Report: [facility] MANUAL DIFFERENTIAL MANUAL DIFF TCC 100 NEUT%M 66 42-76 % BAND% 3.0 0-8 LYMPH%M 14 10-50 % HEIDY% 5.0 MONO%M 6 2-9 % EOS%M 4 0-3 % BASO%M 2.0 0-1 NRBC 1 PLTE Normal RM Normal H-CBC Reviewed date:04/15/2024 10:05:40 AM Interpretation: Performing Lab: Notes/Report: WBC 36.4 4.8-10.8 K/mm3 RBC 4.97 4.60-6.20 M/mm3 HGB 15.7 14.1-18.0 g/dL HCT 47.6 42.0-52.0 % MCV 95.7 80-94 fl MCH 31.6 27.0-31.2 pg MCHC 33.0 31.8-35.4 g/dL RDW 14.6 11.5-17.5 % PLT 355 142-424 K/mm3 MPV 8.1 7.4-10.4 fl NE% 77.0 37.0-80.0 % LY% 9.9 10-50 % MO% 3.7 1.7-9.3 % EO% 9.4 0.1-12.0 % BA% 3.9 0.1-2.0 % NE# 28.0 1.8-7.8 K/mm3 LY# 3.6 0.7-4.5 K/mm3 MO# 1.3 0.1-1.0 K/mm3 EO# 3.4 0.0-0.4 K/mm3 BA# 1.4 0-0.2 K/mm3 H-DIFF Reviewed date:04/15/2024 10:05:40 AM Interpretation: Performing Lab: Notes/Report: [facility] MANUAL DIFFERENTIAL MANUAL DIFF TCC 100 NEUT%M 68 42-76 % BAND% 2.0 0-8 LYMPH%M 10 10-50 % MONO%M 5 2-9 % EOS%M 10 0-3 % MYELO% 4 0-1 PROM% 1 PLTE Normal RM Normal H-BMP Reviewed date:04/15/2024 10:05:40 AM Interpretation: Performing Lab: Notes/Report: NA 137 136-145 mmol/L K 2.9 3.5-5.1 mmoL/L CRITICAL RESULT Results called and read back/verified to: Remedios BOSS on 04/13/24 at 0856 By Marry Baker CL 111 98-107 mmol/L CO2 17 22.0-30.0 mmol/L GAP 11.9 5-15 mEq/L BUN 6 9-20 mg/dl Delta: 11 on 04/12/24-525 CREATT 0.80 0.66-1.25 mg/dl CRCLE 106 50-200 mL/min GFRAA 123 >60 ML/MIN EGFR 102 >60 ml/min GLU 125 74-100 mg/dl CA 8.4 8.4-10.2 mg/dl H-CBC Reviewed date:04/15/2024 10:05:40 AM Interpretation: Performing Lab: Notes/Report: WBC 29.6 4.8-10.8 K/mm3 RBC 5.10 4.60-6.20 M/mm3 HGB 16.1 14.1-18.0 g/dL HCT 48.6 42.0-52.0 % MCV 95.4 80-94 fl MCH 31.7 27.0-31.2 pg MCHC 33.2 31.8-35.4 g/dL RDW 14.7 11.5-17.5 % PLT 289 142-424 K/mm3 MPV 8.2 7.4-10.4 fl NE% 72.4 37.0-80.0 % LY% 11.4 10-50 % MO% 4.2 1.7-9.3 % EO% 11.9 0.1-12.0 % BA% 3.0 0.1-2.0 % NE# 21.4 1.8-7.8 K/mm3 LY# 3.4 0.7-4.5 K/mm3 MO# 1.3 0.1-1.0 K/mm3 EO# 3.5 0.0-0.4 K/mm3 BA# 0.9 0-0.2 K/mm3 H-DIFF Reviewed date:04/15/2024 10:05:40 AM Interpretation: Performing Lab: Notes/Report: [facility] MANUAL DIFFERENTIAL MANUAL DIFF TCC 100 NEUT%M 62 42-76 % BAND% 3.0 0-8 LYMPH%M 12 10-50 % HEIDY% 6.0 MONO%M 5 2-9 % EOS%M 12 0-3 % NRBC 1 PLTE Normal RM Normal H-BMP Reviewed date:04/15/2024 10:05:40 AM Interpretation: Performing Lab: Notes/Report: NA 139 136-145 mmol/L K 3.4 3.5-5.1 mmoL/L CL 112 98-107 mmol/L CO2 19 22.0-30.0 mmol/L GAP 11.4 5-15 mEq/L BUN 4 9-20 mg/dl Delta: 6 on 04/13/24 CREATT 0.80 0.66-1.25 mg/dl CRCLE 106 50-200 mL/min GFRAA 123 >60 ML/MIN EGFR 102 >60 ml/min GLU 106 74-100 mg/dl CA 8.6 8.4-10.2 mg/dl H-CBC Reviewed date:04/15/2024 10:05:40 AM Interpretation: Performing Lab: Notes/Report: WBC 23.7 4.8-10.8 K/mm3 RBC 4.78 4.60-6.20 M/mm3 HGB 15.3 14.1-18.0 g/dL HCT 46.3 42.0-52.0 % MCV 96.8 80-94 fl MCH 32.1 27.0-31.2 pg MCHC 33.2 31.8-35.4 g/dL RDW 14.6 11.5-17.5 % PLT 200 142-424 K/mm3 Delta: 289 on 04/14/24 MPV 10.0 7.4-10.4 fl NE% 67.3 37.0-80.0 % LY% 16.1 10-50 % MO% 4.9 1.7-9.3 % EO% 11.7 0.1-12.0 % BA% 3.2 0.1-2.0 % NE# 16.0 1.8-7.8 K/mm3 LY# 3.8 0.7-4.5 K/mm3 MO# 1.2 0.1-1.0 K/mm3 EO# 2.8 0.0-0.4 K/mm3 BA# 0.8 0-0.2 K/mm3 H-DIFF Reviewed date:04/15/2024 10:05:40 AM Interpretation: Performing Lab: Notes/Report: [facility] MANUAL DIFFERENTIAL MANUAL DIFF TCC 100 NEUT%M 52 42-76 % LYMPH%M 26 10-50 % MONO%M 12 2-9 % EOS%M 8 0-3 % BASO%M 2.0 0-1 PLTE Normal RM Normal H-BMP Reviewed date:04/15/2024 10:05:40 AM Interpretation: Performing Lab: Notes/Report: NA 137 136-145 mmol/L K 4.5 3.5-5.1 mmoL/L Delta: 3.4 on 04/14/24-0756 CL 111 98-107 mmol/L CO2 14 22.0-30.0 mmol/L GAP 16.5 5-15 mEq/L BUN 3 9-20 mg/dl CREATT 0.70 0.66-1.25 mg/dl CRCLE 121 50-200 mL/min GFRAA 144 >60 ML/MIN EGFR 119 >60 ml/min GLU 86 74-100 mg/dl CA 8.1 8.4-10.2 mg/dl H-CMP Reviewed date:04/12/2024 08:06:35 AM Interpretation: Performing Lab: Notes/Report: NA 137 136-145 mmol/L K 3.3 3.5-5.1 mmoL/L CL 113 98-107 mmol/L CO2 17 22.0-30.0 mmol/L GAP 10.3 5-15 mEq/L BUN 11 9-20 mg/dl CREATT 0.90 0.66-1.25 mg/dl CRCLE 94 50-200 mL/min GFRAA 108 >60 ML/MIN EGFR 89 >60 ml/min GLU 90 74-100 mg/dl Delta: 113 on 04/11/24-0655 CA 8.5 8.4-10.2 mg/dl BILIT 0.3 0.2-1.3 mg/dl AST 37 17-59 U/L ALT 35 12-78 U/L TP 5.9 6.3-8.2 g/dl ALB 3.1 3.5-5.0 g/dl GLOB 2.8 1.3-3.2 g/dL AGRATIO 1.1 1.1-1.8 ALP 79 38-126 U/L H-DIARRHEA PANEL Reviewed date:04/11/2024 04:16:43 PM Interpretation: Performing Lab: Notes/Report: AEROMONAS Not Detected NotDetected CAMPYLOBACTER Not Detected NotDetected CLOSTR DIFFICIL Not Detected NotDetected PLESIOMONAS Not Detected NotDetected SALMONELLA, PCR Not Detected NotDetected YERSINIA Not Detected NotDetected VIBRIO, PCR Not Detected NotDetected VIBRIO CHOLERAE Not Detected NotDetected ECOLI (EAEC) Not Detected NotDetected ECOLI (EPEC) Not Detected NotDetected ECOLI (ETEC) Not Detected NotDetected SHIGATOXIN Not Detected NotDetected ECOLI O157 Not Detected NotDetected SHIG-INVAS ECOL Not Detected NotDetected CRYPTO Not Detected NotDetected CYCLOSPORA Not Detected NotDetected EHISTOLYTICA Not Detected NotDetected GIARDIA Not Detected NotDetected ADENO STOOL Not Detected NotDetected ASTROVIRUS Not Detected NotDetected NOROVIRUS Not Detected NotDetected ROTOVIRUS A Not Detected NotDetected SAPOVIRUS Not Detected NotDetected P-Vitamin D 25-Hydroxy Reviewed date:06/12/2024 03:20:31 PM Interpretation: Normal Performing Lab: Notes/Report: Test performed by [facility] [address] [place] [address] Dr. [facility], [place] [address] Nitish Matthews MD, [place] CLIA: [id number] Vitamin D 25-Hydroxy 13.5 30.0-100.0 ng/mL Interpretation of Vitamin D 25 OH: < 20 ng/mL - Deficiency 20 - 29 ng/mL - Insufficiency 30 - 100 ng/mL - Sufficiency > 100 ng/mL - Super-therapeutic- toxicity may occur above this level. Clinical correlation required. P-TSH reflex to FT4 Reviewed date:06/12/2024 03:20:31 PM Interpretation: Normal Performing Lab: Notes/Report: Test performed by [facility] [address] [place] [address] [facility], [place] [address] Nitish Matthews MD, [place] CLIA: [id number] TSH reflex to FT4 1.44 0.43-5.25 mU/L P-Phosphorus Reviewed date:06/12/2024 03:20:31 PM Interpretation: Normal Performing Lab: Notes/Report: Test performed by [facility] [address] [place] [address] , [address], [place] [address] Nitish Matthews MD, [place] CLIA: [id number] Phosphorus 3.7 2.5-4.5 mg/dL P-Magnesium Reviewed date:06/12/2024 03:20:31 PM Interpretation: Normal Performing Lab: Notes/Report: Test performed by [facility] [address] [place] [address] , [address], [place] [address] Nitsih Matthews MD, [place] CLIA: [id number] Magnesium 2.1 1.6-2.4 mg/dL Reason For Referral Reason patient would like t o see PT Diagnosis 1 Other low back pain (M54.59) [facility] Referring Provider First Name Milan Paulino Referring Provider Last Name Za Referring Provider Speciality Family Karlene mcmahon Referred Provider Specialty Physical The rapist General Notes Savanna Block 024 9:03:09 AM > faxed to [facility] PT Referral Priority Routine Reason Vascular Center [facility] Diagnosis 1 Bleeding from varico se vein (I83.899) [facility] Referring Provider First Name Nithin Referring Provider Last Name Luis Referring Provider [facility] Karlene mcmahon Referred Provider Specialty Vascular Stefanie briana General Notes Savanna Block 2024 09:58:53 AM > faxed to [facility], Savanna Block 03/05/2025 10:01:12 AM > 03/14/2025 at 09:30am with Veronika Reese-ANIA at [facility] Referral Priority Routine Medications Medication SIG (Take, Route, Frequency, Duration) Notes Start Date End Date Status Digoxin 125 MCG 1 tablet Orally Once a day for 30 day(s) Not-Taking Rivaroxaban 20 MG 1 tablet with food Orally Once a day Active Jobst 30-40mmHg Compression Sm DIRECTED 07/13/2019 Not-Taking Ibuprofen 200 MG 1 tab(s) orally ever y 6 hours Not-Taking Tylenol 325 MG 2 tab(s) orally ever y 4 hours Not-Taking Spironolactone 50 MG 1 tablet Orally Onc e a day for 30 day(s) Not-Taking Metoprolol Succinate ER 200 MG 1.5 tablet Orally Once a day Active EQ Allergy Relief (Cetirizine) 10 MG Take 1 tablet by mouth once daily for 90 Active Vitamin D3 1.25 MG (96014 UT) 1 capsule Orally Once a week 06/12/2024 Not-Taking Problems Problem Type SNOMED Code ICD Code Onset Dates Problem Status W/U Status Risk Notes Problem 837444996 Morbid obesity (E66.01) Active confirmed Problem 588384143914897 Lumbago with sciatica, right side (M54.41) Active confirmed Problem 039657698 Lumbago with sciatica, left side (M54.42) Active confirmed Problem 57342926 Atrial fibrillation, unspecified type (I48.91) Active confirmed Problem 753865931892096 Atrial fibrillation with RVR (I48.91) Active confirmed Problem 43881120 Varicose veins of both legs with edema (I83.893) Active confirmed Problem 586631258 Leukocytosis, unspecified (D72.829) Active confirmed Problem [id number] Lymphedema of both lower extremities (I89.0) Active confirmed Problem 52562331 Venous stasis dermatitis of both lower extremities (I87.2) Active confirmed Vital Signs Heart Rate 70 /min 03/04/2025 Blood pressure diastolic 86 mm Hg 03/04/2025 Height 70 in 03/04/2025 Blood pressure systolic 132 mm Hg 03/04/2025 Weight 372.4 lbs 03/04/2025 BMI 53.43 kg/m2 03/04/2025 Encounters Encounter Location Date Provider Diagnosis [facility] [address] [place] [id number] 04/22/2024 Nithin [place] Enteritis K52.9 ; Pneumatosis intestinalis of small intestine K63.89 ; Hypokalemia E87.6 ; Atrial fibrillation, unspecified type I48.91 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 [facility] [address] [place], [place] [id number] 05/06/2024 Nithin [place] Atrial fibrillation, unspecified type I48.91 and Pneumatosis of intestines K63.89 [facility] [address] [place] [id number] 06/07/2024 Nithin [place] Myalgia, multiple si gil M79.18 and Fatigue, unspecified type R53.83 [facility] [address] [place], [place] [id number] 08/12/2024 Nithin [place] Lumbago with sciatic a, right side M54.41 ; Lumbago with sciatica, left side M54.42 and Cramp in lower leg R25.2 [facility] [address] [place], [place] [id number] 03/04/2025 Nithin [place] Bleeding from varico se vein I83.899 [facility] [address] [place], [place] [id number] 04/24/2024 Nithin [place] [facility] [address] [place], [place] [id number] 05/14/2024 Milan [place] Atrial fibrillation, unspecified type I48.91 [facility] [address] [place], [place] [id number] 06/12/2024 Nithin [place] [facility] [address] [place], [place] [id number] 08/16/2024 Nithin [place] [facility] [address] [place], [place] [id number] 02/26/2025 Mialn [place] Assessments Encounter Date Diagnosis (ICD Code) Assessment Notes Treatment Notes Treatment Clinical Notes Section Notes 04/22/2024 Enteritis (ICD-10 - K52.9) 04/22/2024 Pneumatosis intestinalis of small intestine (ICD-10 - K63.89) 05/06/2024 Atrial fibrillation, unspecified type (ICD-10 - I48.91) Patient to keep follow up with [facility] Cardiology 05/06/2024 Pneumatosis of intestines (ICD-10 - K63.89) Symptoms have all resolved 05/14/2024 Atrial fibrillation, unspecified type (ICD-10 - I48.91) 06/07/2024 Fatigue, unspecified type (ICD-10 - R53.83) 06/07/2024 Myalgia, multiple sites (ICD-10 - M79.18) 08/12/2024 Lumbago with sciatica, right side (ICD-10 - M54.41) 08/12/2024 Lumbago with sciatica, left side (ICD-10 - M54.42) 03/04/2025 Bleeding from varicose vein (ICD-10 - I83.899) Rest, ice, compression and elevation 08/12/2024 Cramp in lower leg (ICD-10 - R25.2) Symptoms are non exertional 04/22/2024 Hypokalemia (ICD-10 - E87.6) 04/22/2024 Atrial fibrillation, unspecified type (ICD-10 - I48.91) 04/22/2024 prison use of drug (ICD-10 - Z79.899) Plan Of Treatment Next Appt Details Provider Name:Nithin vaughn, 04/14/2025 05:00:00 PM, [address] [facility] [address] [facility], [address], [place], [place], [id number], Insurance Providers Payer Name Payer Address Payer Phone Subscriber Number Group Number Insured Name Patient Relationship to Insured Coverage Start Date Coverage End Date [employer] [address] [place] [address] [id number] SARA MARTINI Self - patient is the insured Medical (General) History Medical History History ICD Code Sleep Apnea A-Fib, Dx: 2023 allergic rhinitis Surgical History Surgery Date(Month/Year) Hernia Repair 1980 Tonsilectomy 1982 Vascetomy 2009 Heart Cath- [facility]- Dr. Ramirez 06/06/24
[2025-03-31 05:26] VITALS: BP 159/106; PULSE 74; RESP 18; TEMP 36.7; O2SAT 98; BMI 53.8
--- NOTE | 2025-03-31 05:39 | ED_ITS ---
Discharge Plan Disposition Patient Disposition: Home, Self-Care Prescriptions Prescriptions: No Action Xarelto 20 mg tablet 20 mg PO DAILY Qty: 90 3RF Rx Instructions: must administer with evening meal metoprolol succinate [Toprol XL] 100 mg tablet extended release 24 hr 100 mg PO DAILY Qty: 30 2RF Referrals Follow up/Referrals: Nithin Smith MD [Primary Care Provider, Medical] - See instructions Activity Restrictions/Add. Instructions Additional Instructions/Restrictions: Please follow-up with your primary care provider. Please return to the emergency department if you develop any new or worsening symptoms or become concerned for your health. Clinical Impressions Clinical Impression: Bleeding Print Language Print Language: Slovak Discharge ED Provider: Shashank Palacios General Adult HPI General Chief complaint: Extremity Injury, Lower Stated complaint: Bleeding Time Seen by Provider: 03/31/25 05:00 History of Present Illness HPI narrative: 50-year-old male with history of paroxysmal A-fib on Xarelto, obesity, heart failure presents for recurrent bleeding from the left lateral ankle. He was seen here about a month ago for similar complaint. He had spontaneous bleeding from that area at that time the ultimately resolved with compressive dressing. They have been doing a compressive dressing at home for the last half an hour and it is continuing to bleed so they brought him in. He again denies injury. He has follow-up with his PCP in the meantime and has a appointment with a specialist for further evaluation in April. Related Data Previous Rx's ?Medication ?Instructions ?Recorded rivaroxaban 20 mg tablet (Xarelto) 20 mg PO DAILY #90 tabs 05/01/24 metoprolol succinate 100 mg 100 mg PO DAILY #30 tabs 0 07/03/24 tablet,extended release 24 hr (Toprol XL) Allergies Allergy/AdvReac Type Severity Reaction Status Date / Time No Known Allergies Allergy Verified 12/26/24 15:06 [facility] Disclaimer: The information contained in this section may have been updated after the patient was seen, as this information can be updated by other users. Medical History Abnormal echocardiogram Abnormal nuclear cardiac imaging test HFrEF (heart failure with reduced ejection fraction) Abnormal findings on diagnostic imaging of heart/coronary circulation Left ventricular hypertrophy Chest pain Cellulitis of left foot Venous stasis of lower extremity Lymphedema Morbid obesity Sleep apnea Cellulitis Surgical History History of cardiac cath S/P vasectomy History of hernia repair Hx of tonsillectomy Family History Mother Family history of cancer Father Family history of cancer Social History Smoking Status: Smoker, status unknown alcohol intake: never substance use type: denies use current occupational status: other Travel in the last 8 weeks?: None caffeine: Yes Have you lived/traveled outside US in past 30 days?: No Contact w/someone who lives/traveled outside US past 30 days?: No Exposure to someone with infectious disease in past 14 days?: No Do you have a fever (greater than 100.4 F or 38 C)?: No Have you tested positive for COVID-19?: No Exposed to someone with COVID-19 in past 14 days?: No Do you have a sore throat?: No Do you have a cough?: No Do you have any weakness?: No Do you have any diarrhea?: No Are you experiencing any unusual bleeding?: No Do you have any muscle aches/pain?: No Do you have any abdominal pain?: No Are you experiencing loss of taste or smell?: No Other Medical History Have you received the Flu Vaccine for this season: No Have you received the Pneumonia Vaccine: No ROS Obtained: Yes All systems reviewed & no additional complaints except as documented Physical Exam General General appearance: alert, in no apparent distress and obese Head Head exam: atraumatic and normocephalic Eye Eye exam: Present normal appearance, PERRL and EOMI ENT ENT exam: Present normal oropharynx and normal external ear exam Neck Neck exam: Present normal inspection and full ROM Chest Chest inspection: Present normal inspection and symmetric chest wall rise; Absent tenderness Respiratory Respiratory exam: Present normal lung sounds bilaterally; Absent respiratory distress Cardiovascular Cardiovascular exam: Present regular rate and normal rhythm Abdominal Exam Abdominal exam: Present soft; Absent distention, tenderness or guarding Extremities Exam Extremities exam: Present edema and other (Spurting blood from the left lateral ankle superior to the malleolus) Back Exam Back exam: Present normal inspection; Absent tenderness Neurological Exam Neurological exam: Present alert and oriented X3; Absent motor sensory deficit Psychiatric Psychiatric exam: Present normal affect and normal mood Skin Skin exam: Present warm, dry and normal color Lymphatic Lymphatic Findings: no adenopathy Medical Decision Making Medical Records Medical records reviewed: Yes I reviewed the patient's medical records. Screening: Per USPSTF and CDC recommendations, given the prevalence of disease in our region, it is our hospital?s policy to screen for HIV and viral Hepatitis for all patients aged 18 and over and those with ongoing risk factors. Julius Inquiry Pt receiving controlled substance: No Julius was queried for this patient: No Vital Signs: 03/31/25 05:26 Temperature 98.0 F Temperature Source Oral Pulse Rate [Left Radial] 74 Respiratory Rate 18 Blood Pressure [Right Arm] 159/106 H Blood Pressure Mean [Right Arm] 123 Blood Pressure Source [Right Arm] Automatic Cuff Blood Pressure Position [Right Arm] Sitting 02 Sat by Pulse Oximetry 98 Oxygen Delivery Method Room Air Lab Data Lab results reviewed: Yes I reviewed the patient's lab results. Medical Decision Narrative: 50-year-old male with history of obesity, paroxysmal A-fib on Xarelto, heart failure, presents for recurrent spontaneous bleeding from the left lateral leg. History was obtained via interactive discussion with patient. On arrival, patient is [afebrile, hemodynamically stable, satting appropriately, alert, oriented x4, GCS 15], moving all extremities spontaneously. Full physical exam performed and significant for findings as documented above Differential includes but is not limited to varicose vein bleeding, skin cancer, coagulopathy.. The area was injected with lidocaine with epinephrine and a horizontal mattress suture was placed with cessation of bleeding. A compressive dressing was placed. After 30 minutes observation, the dressing was taken down and patient had no development of hematoma or other significant signs of bleeding. Remains hemostatic. Patient was discharged in stable condition with return precautions and instructions regarding symptomatic care. Recommended he stop his Eliquis for couple of days. Instructed him to have his suture removed in the next few days. Procedures Risk/Benefits of Procedure(s) Were Explained: Yes Limited Ultrasound Indication:: A horizontal mattress stitch was placed with 2-0 nylon with successful resolution of bleeding. Critical Care Critical Care Time Critical Care Time: No
[2025-03-31 06:28] VITALS: BP 159/106; PULSE 74; RESP 18; TEMP 36.7; O2SAT 98
== END 2025-03-31 06:10 | disposition home or self-care (01) ==
PROVIDERS: Emergency Provider Emergency Medicine; PCP Family Medicine
DX: S89.92XA Unspecified injury of left lower leg, initial encounter (principal); R58 Hemorrhage, not elsewhere classified; I48.0 Paroxysmal atrial fibrillation; I50.20 Unspecified systolic (congestive) heart failure; F17.210 Nicotine dependence, cigarettes, uncomplicated; Z79.01 Long term (current) use of anticoagulants; X58.XXXA Exposure to other specified factors, initial encounter
CPT/HCPCS: 12001; 99283; J2004

== ENCOUNTER 2025-04-17 16:48 | Outpatient (CLI) | payer BC, SELFPAY ==
--- OUTSIDE RECORDS SUMMARY | 2025-03-04 05:00 | XMS_ITS ---
[facility] Address [address] [place] [id number] Care Team Providers Care Bill Distributor Name Role Phone Milan Mendenhall Primary Care Provider Nithin Smith Unavailable [phone] Allergies No Known Allergies Reason For Referral Reason Vascular Center in [facility] Diagnosis 1 Bleeding from varico se vein (I83.899) Ref[facility] Referring Provider First Name Nithin Referring Provider Last Name Luis Referring Provider Speciality Family Pra ctice Referred Provider Specialty Vascular Stefanie briana General Notes Savanna Block 2024 09:58:53 AM > faxed to [facility], Savanna Block 03/05/2025 10:01:12 AM > 03/14/2025 at 09:30am with Veronika Reese-PAC at [facility] Referral Priority Routine REASON FOR VISIT F/U [...] Duration: 90 Active Vitamin D3 1.25 MG (32901 UT) 1 capsule Orally Once a week 06/12/2024 Not-Taking Vital Signs Blood pressure systolic 132 mm Hg 03/04/20 25 Blood pressure diastolic 86 mm Hg 025 Heart Rate 70 /min 03/04/2025 Height 70 in 03/04/2025 Weight 372.4 lbs 03/04/2025 BMI 53.43 kg/m2 03/04/2025 Encounters Encounter Location Date Provider Diagnosis [facility] [address] [facility] [address] [facility] [address] [place] [id number] 03/04/2025 Nithin Smith Bleeding from varico se vein I83.899 Assessments Encounter Date Diagnosis (ICD Code) Assessment Notes Treatment Notes Treatment Clinical Notes Section Notes 03/04/2025 Bleeding from varicose vein (ICD-10 - I83.899) Rest, ice, compression and elevation Plan Of Treatment Treatment Notes Assessment Notes Bleeding from varicose vein Rest, ice, c ompression and elevation Referrals Referral Date Details 03/04/2025 03/04/2025, V[facility] in [place] Next Appt Details Follow Up: 3 Months, Reason: Provider Name:rIene Caal y, 04/17/2025 04:30:00 PM, [address] [facility] [address] [facility], [address], [place], [place], [phone], Provider Name:Nithin Swift ry, 06/17/2025 09:15:00 AM, [address] [place] [address], [address], [place], [place], [phone], Progress Notes * EBEN MARTINIOB:1975 ( 50 yo M)Acc No.[id number]:03/04/2025 Progress Notes Patient: SARA DAVIS Provider: Cassius Smith M.D. :1975 A ge:50 Y S ex:Male Date:03/04/2025 Address:[address] [place] [address], [id number] Pcp:Milan Mendenhall Subjective: * Chief Complaints: * 1 . F/U ER. * HPI: H ematology: 50 year old male presents with c/o Bleeding P t presents today for a follow-up from [facility] ER for a bleed. Pt presents to [...] 1980, Tonsilectomy 1982, Vascetomy 2009, Heart Cath- [facility]- Dr. Ramirez 06/06/24. * Family History: F [...] day , Not-Taking Vitamin D3 1.25 MG (32115 UT) Capsule 1 capsule Orally Once a [...] * Images: Billing Information: * Visit Code: 93859 Office Visit, Est Pt., Level 3. * Procedure Codes: * Electronic signature of Shelly Smith MD on 04/17/2025 at 04:50 PM EDT Sign off status: Pending * Provider: Cassius Smith M.D. Date: 0 03/04/2025 Generated for Claribel nath/Jose/Tonjaransmitting on: 0 04/17/2025 04:50 PM EDT History and Physical Notes * HPI (History of Present Illness) Category Sub-Category Detail Notes Category Not es [facility] ER for a bleed. Pt presents to [...] es 03/04/2025 Nithin Smith , [facility] [place]
--- OUTSIDE RECORDS SUMMARY | 2025-04-14 13:00 | XMS_ITS ---
Author Organization [facility] Address [address] [place] [phone] Care Team Providers Care Iron Assorter Name Role Phone Milan Mendenhall Primary Care Provider Nithin Smith Unavailable [phone] Allergies No Known Allergies REASON FOR VISIT [...] Encounter Location Date Provider Diagnosis [facility] [address] [place] [phone] 04/14/2025 Nithin Smith Bleeding from varico se [...] Details Follow Up: 2 Months fasting, Reason: Provider Name:Irene Caal y, 04/17/2025 04:30:00 PM, [address] [facility] [address], [place], [place], [phone], Provider Name:Nithin Swift ry, 06/17/2025 09:15:00 AM, [address] [facility] [address] [facility], [address], [place], [place], [phone], Progress Notes * EBEN MARTINIOB:1975 ( 50 yo M)Acc No.[id number]:04/14/2025 Patient: SARA DAVIS Provider: Cassius Smith M.D. :1975 A ge:50 Y S ex:Male Date:04/14/2025 Address:[address] [place] [address], [facility] Pcp:Milan Mendenhall Subjective: * Chief Complaints: * [...] 1982, Vascetomy 2009, Heart Cath- [facility]- Dr. Ramirez 06/06/2024. * Hospitalization/Major Diagno stic [...] day , Discontinued Vitamin D3 1.25 MG (11650 UT) Capsule 1 capsule Orally Once a week , Medication List reviewed and reconciled with the patient * Allergies: N .K.D.A. Objective: * Vitals: W t: 374, Temp: 98.4, BP: 132/82, HR: 98, Nurse: swapna, Ht: 70, BMI:53.66. * Examination: G eneral Examination: General Appearance: N AD. E xtremities: 1 + bilateral leg edema, multiple varicosities, no active bleeding. Assessment: * Assessment: 1. B leeding from varicose vein - I83.899 (Primary) 2 . P eripheral edema - R60.0 Plan: * Treatment: 2. P eripheral edema Notes: Patient needs to start wearing compression hose on both legs * Follow Up: 2 Months fasting * Images: Billing Information: * Visit Code: 67075 Office Visit, Est Pt., Level 3. * Procedure Codes: * Electronic signature of Shelly Smith MD on 04/17/2025 at 04:51 PM EDT Sign off status: Pending * Provider: Cassius Smith M.D. Date: 0 04/14/2025 Generated for Claribel nath/Jose/Skinny on: 04/17/2025 04:51 PM EDT History and Physical Notes * [...]
--- OUTSIDE RECORDS SUMMARY | 2025-04-17 16:51 | XMS_ITS | Clinical Summary ---
Author Organization [facility] Address [address] [place] [address] Phone [email or web address] Care Team Providers Care Dean Of Girls Name Role Phone Unavailable Primary Care Provider [...]
--- OUTSIDE RECORDS SUMMARY | 2025-04-17 16:51 | XMS_ITS | Patient Health Record ---
Author Organization [facility] Address [address] [place] [id number] Care Team Providers Care Air And Water Tester Name Role Phone Milan Mendenhall Primary Care Provider Luis Nithin Unavailable [phone] Irene Perdomo Unavailable [phone] Allergies No Known Allergies Results Component Value Reference Range Notes P-Digoxin Reviewed date:04/24/2024 08:43:43 AM Interpretation:Normal Performing Lab: Notes/Report: Test performed by [facility] [address] [place] [address] , [address], [place] [address] Nitish Matthews MD, Snagger CLIA: [id number] Digoxin 0.9 0.8-2.0 ng/mL P-Comprehensive Metabolic Pa laisha (CMP) Reviewed date:04/24/2024 08:43:43 AM Interpretation:gluc 112 Performing Lab: Notes/Report: Test performed by [facility] [address] [place] [address] , [address], [place] [address] Nitish Matthews MD, Snagger CLIA: [id number] Sodium 143 135-145 mmol/L Potassium 4.6 3.5-5.3 [...] - 38 platlet 396 100 - 400 X ray : Spine, lumbosacral Reviewed date:08/16/2024 10:39:28 AM Interpretation:anterior osteophyte formation Performing Lab: Notes/Report: anterior osteophyte formation CBC Venipuncture (in house) Reviewed date:06/12/2024 03:20:31 [...] - 38 platlet 362 100 - 400 T-Mmhb-Gtqjyaz Antibody (VIOLETTE ), IgG by IFA Reviewed date:06/12/2024 03:20:31 PM Interpretation: Normal Performing Lab: Notes/Report: Test performed by [facility] [employer] [address] [place] [address] , [address], [place] [address] Nitish Matthews MD, Snagger CLIA: [id number] VIOLETTE Screen, IFA Not Detected Not Detected [...] Interpretation:337 Performing Lab: Notes/Report: Test performed by [facility] , [place] [address] Nitish Matthews MD, Snagger CLIA: [id number] Vitamin B12 490 795-3098 pg/mL P-CPK Reviewed date:06/12/2024 03:20:31 PM Interpretation: Normal Performing Lab: Notes/Report: [facility] , [place] [address] Nitish Matthews MD, Snagger CLIA: [id number] Creatine Kinase 97 20-200 U/L Z-C-Pwwtkauh Protein (CRP) Reviewed date:06/12/2024 03:20:31 PM Interpretation: Normal Performing Lab: Notes/Report: Test performed by [facility] , [place] [address] Nitish Matthews MD, Snagger CLIA: [id number] C-Reactive Protein (CRP) 0.38 <0.50 mg/dL P-Sed Rate (ESR) Reviewed date:06/12/2024 03:20:31 PM Interpretation:36 Performing Lab: Notes/Report: Test performed by [facility] [place] [address] Nitish Matthews MD, Snagger CLIA: [id number] Erythrocyte Sedimentation Rate (ESR), Automated 36 <21 mm/hr P-Hepatic Function Panel Reviewed date:06/12/2024 03:20:31 PM Interpretation: Normal Performing Lab: Notes/Report: Test performed by [facility] , [place] [address] Nitish Matthews MD, Snagger CLIA: [id number] Protein 7.4 6.0-8.3 g/dL Albumin 4.6 3.5-5.3 [...] Normal Performing Lab: Notes/Report: Test performed by [facility] [address] [place] [address] , [address], [place] [address] Nitsih Matthews MD, Snagger CLIA: [id number] Magnesium 2.1 1.6-2.4 mg/dL P-Phosphorus Reviewed date:06/12/2024 03:20:31 PM Interpretation: Normal Performing Lab: Notes/Report: Test performed by [facility] [address] [place] [address] , [place] [address] Nitish Matthews MD, Snagger CLIA: [id number] Phosphorus 3.7 2.5-4.5 mg/dL P-TSH reflex to FT4 Reviewed date:06/12/2024 03:20:31 PM Interpretation: Normal Performing Lab: Notes/Report: Test performed by [facility] [address] [place] [address] , [address], [place] [address] Nitish Matthews MD, Snagger CLIA: [id number] TSH reflex to FT4 1.44 0.43-5.25 mU/L P-Vitamin D 25-Hydroxy Reviewed date:06/12/2024 03:20:31 PM Interpretation: Normal Performing Lab: Notes/Report: Test performed by [facility] [address] [place] [address] , [address], [place] [address] Nitish Matthews MD, Snagger CLIA: [id number] Vitamin D 25-Hydroxy 13.5 30.0-100.0 ng/mL Interpretation of Vitamin D 25 [place]: < 20 ng/mL - Deficiency 20 - 29 ng/mL - Insufficiency 30 - 100 ng/mL - Sufficiency > 100 ng/mL - Super-therapeutic- toxicity may occur above this level. Clinical correlation required. Reason For Referral Reason patient would like t o see PT Diagnosis 1 Other low back pain (M54.59) [facility] Referring Provider First Name Milan Paulino Referring Provider Last Name Za Referring Provider [facility] ctice Referred Provider Specialty Physical The rapist General Notes Savanna Block 024 9:03:09 AM > faxed to [facility] PT Referral Priority Routine Reason Vascular Center in [facility] Diagnosis 1 Bleeding from varico se vein (I83.899) [facility] Referring Provider First Name Nithin Referring Provider Last Name Luis Referring Provider [facility] ctice Referred Provider Specialty Vascular Stefanie briana General Notes Savanna Block 2024 09:58:53 AM > faxed to [facility], Savanna Block 03/05/2025 10:01:12 AM > 03/14/2025 at 09:30am with Veronika Reese-PAC at [facility] Referral Priority Routine Medications Medication SIG (Take, Route, Frequency, Duration) Notes Start Date End Date Status Rivaroxaban 20 MG 1 tablet with food O rally Once a day Active Metoprolol Succinate ER 200 MG 1.5 tablet Orally Once a day Active Cephalexin 500 MG 1 capsule Orally 3 t imes a day; Duration: 10 days 04/17/2025 Active Problems Problem Type SNOMED Code ICD Code Onset Dates Problem Status W/U Status Risk Notes Problem Morbid obesity (982574074) Morbid obesity (E66.01) Active confirmed Problem Sciatica (08947405) Lumbago with sciatica, right side (M54.41) Active confirmed Problem Sciatica (81483858) Lumbago with sciatica, left side (M54.42) Active confirmed Problem Atrial fibrillation (43070661) Atrial fibrillation, unspecified type (I48.91) Active confirmed Problem Atrial fibrillation (02967923) Atrial fibrillation with RVR (I48.91) Active confirmed Problem Varicose veins of bilateral lower limbs (7702949725894887 6) Varicose veins of both legs with edema (I83.893) Active confirmed Problem Leukocytosis (510041498) Leukocytosis, unspecified (D72.829) Active confirmed Problem Lymphedema (278597691) Lymphedema of both lower extremities (I89.0) Active confirmed Problem Peripheral venous insufficiency (14314558) Venous stasis dermatitis of both lower extremities (I87.2) Active confirmed Vital Signs Heart Rate 98 /min 04/17/2025 Blood pressure diastolic 90 mm Hg 04/17/2025 Height 70 in 04/17/2025 Blood pressure systolic 130 mm Hg 04/17/2025 Weight 368 lbs 04/17/2025 BMI 52.8 kg/m2 04/17/2025 Encounters Encounter Location Date Provider Diagnosis Vicky 1209 [facility] [address] [place], [place] [id number] 04/22/2024 Nithin [place] Enteritis K52.9 ; Pneumatosis intestinalis of small intestine K63.89 ; Hypokalemia E87.6 ; Atrial fibrillation, unspecified type I48.91 and half-way use of drug Z79.899 [facility] [address] [place] [id number] 05/06/2024 Nithin [place] Atrial fibrillation, unspecified type I48.91 and Pneumatosis of intestines K63.89 [facility] 121 [facility] [address] [place], [place] [id number] 06/07/2024 Nithin [place] Myalgia, multiple si gil M79.18 and Fatigue, unspecified type R53.83 [facility] [address] [place], [place] [id number] 08/12/2024 Nithin [place] Lumbago with sciatic a, right side M54.41 ; Lumbago with sciatica, left side M54.42 and Cramp in lower leg R25.2 [facility] [address] [place], [place] [id number] 03/04/2025 Nithin [place] Bleeding from varico se vein I83.899 [facility] [place] 1209 [facility] [address] [place], [place] [id number] 04/14/2025 Nithin [place] Bleeding from varico se vein I83.899 and Peripheral edema R60.0 [facility] 121 [facility] [address] [place], [place] [id number] 04/17/2025 Irene Crowdy Cellulitis of left ankle L03.116 [facility] [address] [place], [place] [id number] 04/24/2024 Nithin [place] [facility] [facility] [address] [place], [place] [id number] 05/14/2024 Milan Mendenhall Atrial fibrillation, unspecified type I48.91 [facility] [address] [place], [place] [id number] 06/12/2024 Nithin [place] [facility] [address] [place], [place] [id number] 08/16/2024 Nithin [place] [facility] [facility] [address] [place], [place] [phone] 02/26/2025 Milan Mendenhall Assessments Encounter Date Diagnosis (ICD Code) Assessment Notes Treatment Notes Treatment Clinical Notes Section Notes 04/22/2024 Enteritis (ICD-10 - K52.9) 04/22/2024 Pneumatosis intestinalis of small intestine (ICD-10 - K63.89) 05/06/2024 Atrial fibrillation, unspecified type (ICD-10 - I48.91) Patient to keep follow up with [facility] Cardiology 05/06/2024 Pneumatosis of intestines (ICD-10 [...] - I83.899) Rest, ice, compression and elevation 04/14/2025 Peripheral edema (ICD-10 - R60.0) Patient needs to start wearing compression hose on both legs 04/14/2025 Bleeding from varicose vein (ICD-10 - I83.899) Keep follow up with vascular surgeon 04/17/2025 Cellulitis of left ankle (ICD-10 - L03.116) 08/12/2024 Cramp in lower leg (ICD-10 - R25.2) Symptoms are non exertional 04/22/2024 Hypokalemia (ICD-10 - E87.6) 04/22/2024 Atrial fibrillation, unspecified type (ICD-10 - I48.91) 04/22/2024 half-way use of drug (ICD-10 - Z79.899) Plan Of Treatment Pending Test Test Name Order Date H-CBC 04/17/2025 H-URIC ACID 04/17/2025 H-Sed Rate 04/17/2025 Next Appt Details Provider Name:Irene aldrich, 04/17/2025 04:30:00 PM, [address], [place], [place], [id number], Provider Name:Nithin Swift ry, 06/17/2025 09:15:00 AM, [address], [place], [place], [id number], Insurance Providers Payer Name Payer Address Payer Phone Subscriber Number Group Number Insured Name Patient Relationship to Insured Coverage Start Date Coverage End Date [employer]OHNNIE [employer] [address] [place] [address] [id number] SARA MARTINI Self - patient is the insured Medical (General) History Medical History History ICD Code Sleep Apnea A-Fib, Dx: 2023 Allergic Rhinitis varicose veins Surgical History Surgery Date(Month/Year) Hernia Repair 1980 Tonsilectomy 1982 Vascetomy 2010 Heart Cath- [facility]- Dr. Ramirez 06/06/2024
[2025-04-17 17:11] LABS: Basophils # 0.1 K/mm3 (0-0.2); Basophils % 0.6 % (0.1-2.0); Eosinophils # 0.4 Kmm3 (0.0-0.4); Eosinophils % 2.8 % (0.1-12.0); Hematocrit 39.8 % (42.0-52.0); Hemoglobin 13.5 g/dL (14.1-18.0); Immature Granulocytes # 0.12 10^3uL; Immature Granulocytes % 0.9 %; Lymphocytes # 2.8 K/mm3 (0.7-4.5); Lymphocytes % 20.2 % (10-50); Mean Corpuscular HGB Conc 33.9 g/dL (31.8-35.4); Mean Corpuscular Hemoglobin 31.1 pg (27.0-31.2); Mean Corpuscular Volume 91.7 fl (80-94); Monocytes # 1.7 K/mm3 (0.1-1.0); Monocytes % 12.1 % (1.7-9.3); Neutrophils % 63.4 % (37.0-80.0); Nucleated Red Blood Cells # 0 10^3/uL; Nucleated Red Blood Cells % 0 %; Platelet Count 361 K/mm3 (142-424); Red Blood Count 4.34 M/mm3 (4.60-6.20); Red Cell Distribution Width-SD 44.1 fL; White Blood Count 14.1 K/mm3 (4.8-10.8)
[2025-04-17 17:17] LABS: MANUAL DIFFERENTIAL MANUAL DIFFERENTIAL (MANUAL DIFF)
[2025-04-17 18:04] LABS: Uric Acid 7.5 mg/dl (3.5-8.5)
[2025-04-17 18:13] LABS: Eosinophils % 3 % (0-3); Giant Platelets 1+; Lymphocytes % 22 % (10-50); Monocytes % 10 % (2-9); Neutrophils % 64 % (42-76); Platelet Estimate Normal; RBC Morphology Normal; Total Cells Counted 100
[2025-04-17 18:57] LABS: Erythrocyte Sedimentation Rate 71 mm/hr (0-20)
== END 2025-04-17 23:59 | disposition home or self-care (01) ==
LOC: LAB 16:49
PROVIDERS: PCP Physician Assistant; Visit Provider Physician Assistant
DX: L03.116 Cellulitis of left lower limb (principal)
CPT/HCPCS: 36415; 84550; 85007; 85025; 85027; 85651

== ENCOUNTER 2025-06-16 07:29 | Day surgery (SDC) | payer BC, SELFPAY ==
[2025-06-16] VITALS (7 sets, daily range): BP systolic 124–146; BP diastolic 81–103; PULSE 79–94; RESP 18–20; TEMP 36.4; O2SAT 97–99; BMI 41.5
[2025-06-16] MEDS: 0.9 % SODIUM CHLORIDE 1000ML 500 ML 250 ML IV (08:06)
[2025-06-16] MEDS: FENTANYL 100MCG/2ML VIAL 50 MCG IV (08:27)
[2025-06-16] MEDS: MIDAZOLAM HCL 1MG/ML 5ML VIAL 1 MG IV (08:27)
--- NOTE | 2025-06-16 08:36 | ECG_ITS ---
APPROVED REPORT Exam: Resting ECG HR:82 bpm ECG Measurements Heart Rate 82 AXES IL 180 P 69 QRSd 106 QRS -46 QT 364 T 54 QTc 402 Conclusion SINUS RHYTHM PATTERN CONSISTENT WITH PULMONARY DISEASE LEFT ANTERIOR FASCICULAR BLOCK [QRS AXIS <= -45, QR IN I, RS IN II] ABNORMAL ECG UNCONFIRMED REPORT Electronically signed by : Fer Giron MD 06/18/2025 08:44:23
--- NOTE | 2025-06-16 08:41 | P.PCN_ITS ---
[facility] Cardioversion Cardioversion Date: 06/16/25 Provider:: CATRACHITO Mcdonough Procedure Performed:: Synchronized electrical cardioversion Diagnosis:: Paroxysmal atrial fibrillation Procedure Summary:: Patient was brought to the cardiac Assistant Chief Engineer as an outpatient. After informed consent was obtained patient received a combination of Versed, Phenergan and propofol for sedation. Patient required 2 synchronized shocks at 200 J to return to normal sinus rhythm. Patient tolerated the procedure without complications. Complications:: None Conculsion:: Routine postop care. Continue home medications. Return to clinic as previously scheduled.
== END 2025-06-16 08:51 | disposition home or self-care (01) ==
PROVIDERS: PCP Family Medicine; Visit Provider Internal Medicine
PROC: 5A2204Z Restoration of Cardiac Rhythm, Single (ICD-10-PCS; principal; 2025-06-16 09:00)
DX: I48.0 Paroxysmal atrial fibrillation (principal); R94.31 Abnormal electrocardiogram [ECG] [EKG]; I50.20 Unspecified systolic (congestive) heart failure; I51.7 Cardiomegaly; I42.8 Other cardiomyopathies; G47.30 Sleep apnea, unspecified; E66.01 Morbid (severe) obesity due to excess calories; Z68.41 Body mass index [BMI] 40.0-44.9, adult; Z79.01 Long term (current) use of anticoagulants; Z79.899 Other long term (current) drug therapy
CPT/HCPCS: 92960; 93005; 99152; J2704; J3010; J7030

== ENCOUNTER 2025-06-25 09:43 | Outpatient (CLI) | payer OTHER, BC, SELFPAY ==
--- OUTSIDE RECORDS SUMMARY | 2025-03-04 05:00 | XMS_ITS ---
Author Organization [facility] Address [address] [place] [id number] Care Team Providers Care Oiler And Greaser Name Role Phone Milan Mendenhall Primary Care Provider Nithin Smith Unavailable [phone] Allergies No Known Allergies Reason For Referral Reason V[facility] in [facility] Diagnosis 1 Bleeding from varico se vein (I83.899) Referral Organization [facility] Referring Provider First Name Nithin Referring Provider Last Name Luis Referring Provider Speciality Family Pra ctice Referred Provider Specialty Vascular Stefanie briana General Notes Savanna Block 2024 09:58:53 AM > faxed to [facility], Savanna Block 03/05/2025 10:01:12 AM > 03/14/2025 at 09:30am with Veronika Reese-PAC at [facility] Referral Priority Routine REASON FOR VISIT [...] Duration: 90 Active Vitamin D3 1.25 MG (55963 UT) 1 capsule Orally Once a week 06/12/2024 Not-Taking Vital Signs Blood pressure systolic 132 mm Hg 03/04/20 25 Blood pressure diastolic 86 mm Hg 025 Heart Rate 70 /min 03/04/2025 Height 70 in 03/04/2025 Weight 372.4 lbs 03/04/2025 BMI 53.43 kg/m2 03/04/2025 Encounters Encounter Location Date Provider Diagnosis [facility] [address] [place], [place] [id number] 03/04/2025 Nithin Smith Bleeding from varico se vein I83.899 Assessments Encounter Date Diagnosis (ICD Code) Assessment Notes Treatment Notes Treatment Clinical Notes Section Notes 03/04/2025 Bleeding from varicose vein (ICD-10 - I83.899) Rest, ice, compression and elevation Plan Of Treatment Treatment Notes Assessment Notes Bleeding from varicose vein Rest, ice, c ompression and elevation Referrals Referral Date Details 03/04/2025 03/04/2025, [facility] in [place] Next Appt Details Follow Up: 3 Months, Reason: Progress Notes * EBEN MARTINIOB:1975 ( 50 yo M)Acc No.[id number]:03/04/2025 Progress Notes Patient: SARA DAVIS Provider: Cassius Smith M.D. :1975 A ge:50 Y S ex:Male Date:03/04/2025 Address:[address] [place], [place] [phone] Pcp:iMlan Mendenhall Subjective: * Chief Complaints: * 1 . F/U ER. * HPI: H ematology: 50 year old male presents with c/o Bleeding P t presents today for a follow-up from [facility] ER for a bleed. Pt presents [...] 1980, Tonsilectomy 1982, Vascetomy 2009, Heart Cath- [facility]- Dr. Ramirez 06/06/24. * Family History: [...] day , Not-Taking Vitamin D3 1.25 MG (93351 UT) Capsule 1 capsule Orally Once a [...] * Images: Billing Information: * Visit Code: 06176 Office Visit, Est Pt., Level 3. * Procedure Codes: * Electronic signature of Shelly Smith MD on 06/25/2025 at 09:53 AM EDT Sign off status: Pending * Provider: Cassius Smith M.D. Date: 0 03/04/2025 Generated for Claribel nath/Jose/eTransmitting on: 0 06/25/2025 09:53 AM EDT History and Physical Notes * HPI (History of Present Illness) Category Sub-Category Detail Notes Category Not es Hematology Bleeding Pt presents toda y for a follow-up from [facility] ER for a bleed. Pt presents [...] Nithin Smith , [facility] [place]
--- OUTSIDE RECORDS SUMMARY | 2025-04-14 13:00 | XMS_ITS ---
Author Organization [facility] Address [address] [place] [phone] Care Team Providers Care Hand Cigar Making Supervisor Name Role Phone Milan Mendenhall Primary Care Provider Nithin Smith Unavailable [phone] Allergies No Known Allergies REASON FOR VISIT 3 week f/u Medications Medication SIG (Take, Route, Frequency, Duration) Notes Start Date End Date Status Metoprolol Succinate ER 200 MG 1.5 tablet Orally Once a day Active Rivaroxaban 20 MG 1 tablet with food O rally Once a day Active Vital Signs Blood pressure systolic 132 mm Hg 04/14/20 25 Blood pressure diastolic 82 mm Hg 025 Heart Rate 98 /min 04/14/2025 Height 70 in 04/14/2025 Weight 374 lbs 04/14/2025 BMI 53.66 kg/m2 04/14/2025 Encounters Encounter Location Date Provider Diagnosis [facility] [address] [place] [phone] 04/14/2025 Nithin Smith Bleeding from varico se [...] 2 Months fasting, Reason: Progress Notes * EBEN MARTINIOB:1975 ( 50 yo M)Acc No.[id number]:04/14/2025 Patient: SARA DAVIS Provider: Cassius Smith M.D. :1975 A ge:50 Y S ex:Male Date:04/14/2025 Address:[address] [place] [address], [id number] Pcp:Milan Mendenhall Subjective: * Chief Complaints: * [...] 1980, Tonsilectomy 1982, Vascetomy 2009, Heart Cath- [facility]- Dr. Ramirez 06/06/2024. * Hospitalization/Major Diagno stic [...] day , Discontinued Vitamin D3 1.25 MG (40050 UT) Capsule 1 capsule Orally Once a [...] * Images: Billing Information: * Visit Code: 32660 Office Visit, Est Pt., Level 3. * Procedure Codes: 1036F TOBACCO NON-USER. G8783 BP SCR PRFRM RCMDD DEFIND SCR INTVL. G8752 MOST RECENT SYSTOLIC BP < 140MM HG. G8754 MOST RECENT DIASTOLIC BP < 90MM HG. * Electronic signature of Shelly Smith MD on 06/25/2025 at 09:54 AM EDT Sign off status: Pending * Provider: Cassius Smith M.D. Date: 0 04/14/2025 Generated for Claribel nath/Jose/Skinny on: 0 06/25/2025 09:54 AM EDT History and Physical Notes * [...]
--- OUTSIDE RECORDS SUMMARY | 2025-04-17 12:30 | XMS_ITS ---
Author Organization [facility] Address [address] [place] [id number] Care Team Providers Care Tap Grinder Name Role Phone Milan Mendenhall Primary Care Provider [phone] Conor Irene Unavailable [phone] Allergies No Known Allergies Results Component Value [...] Duration: 10 days 04/17/2025 Active Vital Signs Blood pressure systolic 130 mm Hg 04/17/20 25 Blood pressure diastolic 90 mm Hg 025 Heart Rate 98 /min 04/17/2025 Height 70 in 04/17/2025 Weight 368 lbs 04/17/2025 BMI 52.8 kg/m2 04/17/2025 Encounters Encounter Location Date Provider Diagnosis [facility] [address] [facility] [id number] 04/17/2025 Irene Conor Cellulitis of left ankle [...] rt test results, Reason: Progress Notes * EBEN MARTINIOB:1975 ( 50 yo M)Acc No.[id number]:04/17/2025 Progress Notes Patient: SARA DAVIS Provider: CATRACHITO Baird :1975 A ge:50 Y S ex:Male Date:04/17/2025 Address:[address] [place] [address], [place] [id number] Pcp:Milan Mendenhall Subjective: * Chief Complaints: * [...] 1980, Tonsilectomy 1982, Vascetomy 2009, [facility]- [facility]- Dr. Ramirez 06/06/2024. * Hospitalization/Major Diagno stic [...] * Images: Billing Information: * Visit Code: 35421 Office Visit, Est Pt., Level 3. * Procedure Codes: * Electronic signature of CATRACHITO íDaz on 06/25/2025 at 09:53 AM EDT Sign off status: Pending * Provider: CATRACHITO Baird Date: 0 04/17/2025 Generated for Claribel nath/Jose/eTransmitting on: 0 06/25/2025 [...]
--- OUTSIDE RECORDS SUMMARY | 2025-05-05 06:52 | XMS_ITS ---
Author Organization [facility] Address 1210 [facility] 36 [facility] [address] [place] [id number] Care Team Providers Care Wellness Rn Name Role Phone Milan Mendenhall Primary Care Provider Results Component Value Reference Range Notes Cologuard Reviewed date:06/19/2025 11:45:33 AM Interpretation:Negative Performing Lab: Notes/Report: Negative REASON FOR VISIT due colonoscopy Encounters Encounter Location Date Provider Diagnosis [facility] [address] [facility] [address] [place] [id number] 05/05/2025 Milan Mendenhall Screening for colon cancer Z12.11 Assessments Encounter Date Diagnosis (ICD Code) Assessment Notes Treatment Notes Treatment Clinical Notes Section Notes 05/05/2025 Screening for colon cancer (ICD-10 - Z12.11) Plan Of Treatment No Information Progress Notes * EBEN MARTINIOB:1975 ( 50 yo M)Acc No.[id number]:05/05/2025 Patient: SARA DAIVS :1975 A ge:50 Y S ex:Male Address:[address] [facility], [place] [address] Subjective: * Chief Complaints: * D ue colonoscopy * Medical History: * Surgical History: * Hospitalization/Major Diagno stic Procedure: * Medications: Objective: * Vitals: * Physical Examination: Assessment: * Assessment: 1. S creening for colon cancer - Z12.11 (Primary) Plan: * Treatment: * Procedure Codes: * true * Date: Generated for Printi ng/Faxing/eTransmitting on: 0 06/25/2025 09:54 AM EDT
--- OUTSIDE RECORDS SUMMARY | 2025-06-17 05:15 | XMS_ITS ---
Author Organization [facility] Address [address] [place] [id number] Care Team Providers Care Repairer Name Role Phone Milan Mendenhall Primary Care Provider [phone] Nithin Smith Unavailable [phone] Allergies No Known Allergies Results Component Value [...] Interpretation:Normal Performing Lab: Notes/Report: Test performed by [facility] [address] [place] [address] , [address], [place] [address] Nitish Matthews MD, Locomotive Engineer Diesel CLIA: [id number] Sodium 139 135-145 mmol/L Potassium 4.4 3.5-5.3 mmol/L Chloride 101 97-108 mmol/L CO2 24 20-32 mmol/L Glucose 104 65-99 mg/dL BUN 11 6-20 mg/dL Creatinine 0.73 0.70-1.30 mg/dL Calcium 9.5 8.6-10.4 mg/dL eGFR by Creatinine 109 >59 mL/min/1.73m2 P-Lipid Panel Reviewed date:06/19/2025 11:57:43 AM Interpretation:satisfactory Performing Lab: Notes/Report: Test performed by [facility] [address] [place] [address] Nitish Matthews MD, Locomotive Engineer Diesel CLIA: [id number] Cholesterol 174 <200 mg/dL Triglycerides 149 <150 [...] Interpretation:Normal Performing Lab: Notes/Report: Test performed by [facility] [address] [place], [place] [address] Nitish Matthews MD, Locomotive Engineer Diesel CLIA: [id number] Magnesium 2.3 1.6-2.4 mg/dL P-PSA Reviewed date:06/19/2025 11:57:43 AM Interpretation:Normal Performing Lab: Notes/Report: Test performed by [facility] [address] , [facility], [place] [address] Nitish Matthews MD, Locomotive Engineer Diesel CLIA: [id number] PSA 0.20 <4.00 ng/mL Please note this is an ultrasensitive PSA assay with a lower limit of detection of 0.014 ng/mL. This test is performed by the Rex ECLIA methodology. Values obtained with different assay methods or kits cannot be directly compared. P-TSH reflex to FT4 Reviewed date:06/19/2025 11:57:43 AM Interpretation:Normal Performing Lab: Notes/Report: Test performed by [facility] [address] , [facility], [place] [address] Nitish Matthews MD, Locomotive Engineer Diesel CLIA: [id number] TSH reflex to FT4 1.21 0.43-5.25 mU/L P-Microalbumin/Creatinine, R andom Urine Sample Reviewed date:06/19/2025 11:57:43 AM Interpretation:Normal Performing Lab: Notes/Report: Test performed by [facility] [address] , [facility], [place] [address] Nitish Matthews MD, Locomotive Engineer Diesel CLIA: [id number] Albumin/Creatinine Ratio, Urine 5 0-30 ug/m g [...] W/U Status Risk Notes Problem Essential hypertension (I10) Active confirmed Vital Signs Blood pressure systolic 138 mm Hg 06/17/20 25 Blood pressure diastolic 90 mm Hg 025 Heart Rate 82 /min 06/17/2025 Height 70 in 06/17/2025 Weight 374 lbs 06/17/2025 BMI 53.66 kg/m2 06/17/2025 Encounters Encounter Location Date Provider Diagnosis [facility] [address] [facility] [address] [place] [id number] 06/17/2025 Nithin Smith Essential hypertensi on I10 ; Hyperglycemia R73.9 ; Atrial fibrillation, unspecified type I48.91 ; Morbid obesity E66.01 ; Prostate cancer screening Z12.5 and MCFP use of drug Z79.899 Assessments Encounter Date Diagnosis (ICD Code) Assessment Notes Treatment Notes Treatment Clinical Notes Section Notes 06/17/2025 Essential hypertension (ICD-10 - I10) Blood pressure journal 06/17/2025 Hyperglycemia (ICD-10 - R73.9) 06/17/2025 Atrial fibrillation, unspecified type (ICD-10 - I48.91) 06/17/2025 Morbid obesity (ICD-10 - E66.01) 06/17/2025 Prostate cancer screening (ICD-10 - Z12.5) 06/17/2025 MCFP use of drug (ICD-10 - Z79.899) Plan [...] rt progress,6 Months, Reason: Progress Notes * EBEN MARTINIOB:1975 ( 50 yo M)Acc No.[id number]:06/17/2025 Progress Notes Patient: SARA DAVIS Provider: Cassius Smith M.D. :1975 A ge:50 Y S ex:Male Date:06/17/2025 Address:[address] [place] [address], [id number] Pcp:Milan Mendenhall Subjective: * Chief Complaints: * [...] a cardioversion due to A. fib at [facility] yesterday. * ROS: G ASTROENTEROLOGY: no N [...] 1980, Tonsilectomy 1982, Vascetomy 2009, Heart Cath- [facility]- Dr. Ramirez 06/06/2024. * Hospitalization/Major Diagno [...] Creatinine 109 >59 - mL/min/1.73m2 * [facility] 06/19/2025 10:01: 48 AM EDT > LM for pt to return call [facility] 06/19/2025 11:57:12 AM EDT > Pt notified [...] riglycerides 149 <150 - mg/dL * [facility] 06/19/2025 10:01: 48 AM EDT > LM [...] icroalbumin, Urine, Random 0.4 - mg/dL * Elsi Baker 06/19/2025 10:01: 48 AM EDT > LM for pt to return call [facility] 06/19/2025 11:57:12 AM EDT > Pt notified ?LAB: Glucose (In-House) (Collection Date & Time - 06/17/2025)?satisfactory * Value Reference Range b lood glucose 116 74 - 106 mg/dL * Elsi Baker 06/17/2025 11:02: 20 AM EDT > Hollis [facility]ira 06/19/2025 10:01:48 AM EDT > LM for [...] by Creatinine 109 >59 - mL/min/1.73m2 * Elsi Baker 06/19/2025 10:01: 48 AM EDT > LM for pt to return call [facility] 06/19/2025 11:57:12 AM EDT > Pt notified ?LAB: P-TSH reflex to FT4 (Collection Date & Time - 06/17/2025 08:35 AM)? Normal* Value Reference Range T SH reflex to FT4 1.21 0.43-5.25 - mU/L * Hollis Bakerira 06/19/2025 10:01: 48 AM [...] 06/19/2025 11:57:12 AM EDT > Pt notified 5.?MCFP use of drug?LAB: P-Magnesium (Collection Date & Time - 06/17/2025 08:35 AM)?Normal* Value Reference Range M agnesium 2.3 1.6-2.4 - mg/dL * Elsi Baker 06/19/2025 10:01: 48 AM EDT > LM for pt to return call Elsi Baker 06/19/2025 11:57:12 AM EDT > Pt notified * Procedure Codes: 8 2950 GLUCOSE TEST, [address] GLYCATED HEMOGLOBIN TEST, Modifiers: QW * Follow Up: v ia phone to report progress,6 Months * Images: Billing Information: * Visit Code: 80265 Office Visit, Est Pt., Level 4. * Procedure Codes: 67656 GLUCOSE TEST. [address]10 GLYCATED HEMOGLOBIN TEST. Modifiers: QW * Electronic signature of Shelly Smith MD on 06/25/2025 at 09:54 AM EDT Sign off status: Pending * Provider: Cassius Smith M.D. Date: 06/17/2025 Generated for Claribel nath/Jose/Skinny on: 0 06/25/2025 [...] a cardioversion due to A. fib at [facility] yesterday Examination Category Sub-Category Detail Notes Category Not es General Examination Heart: RSR Lungs: clear to auscultatio n Extremities: 1+ bilateral leg norma ma, multiple varicosities General Appearance: NAD
--- NOTE | 2025-06-25 09:50 | XR_ITS ---
FINAL REPORT CLINICAL HISTORY: right knee pain after stepping off of utv and right knee buckled, pain since COMPARISON: None FINDINGS: 3 views of the right knee were obtained. There is no acute fracture or dislocation. The joint spaces are well preserved. There is no acute soft tissue abnormality. IMPRESSION: No acute abnormality identified. Reviewed, Interpreted and Dictated by Boni Dimas MD Transcribed by Rocío Cordero Authenticated and [facility]
--- OUTSIDE RECORDS SUMMARY | 2025-06-25 09:54 | XMS_ITS | Patient Health Record ---
[facility] Organization [facility] Address [address] [place] [id number] Care Team Providers Care Wash Oil Cooler Operator Name Role Phone Milan Mendenhall Primary Care Provider Luis Nithin Unavailable [phone] Irene Perdomo Unavailable [phone] Allergies No Known Allergies Results Component Value Reference Range Notes X ray : Spine, lumbosacral Reviewed date:08/16/2024 10:39:28 AM Interpretation:anterior osteophyte formation Performing Lab: Notes/Report: anterior osteophyte formation H-CBC Reviewed date:04/18/2025 04:03:52 PM Interpretation: Performing [...] Performing Lab: Notes/Report: ESR 71 0-20 mm/hr Cologuard Reviewed date:06/19/2025 11:45:33 AM Interpretation:Negative Performing Lab: Notes/Report: Negative H-DIFF Reviewed date:04/18/2025 04:03:52 PM Interpretation: Performing Lab: Notes/Report: MDIFF MANUAL DIFFERENTIAL MANUAL DIFF TCC 100 NEUT%M 64 42-76 % LYMPH%M 22 10-50 % MONO%M 10 2-9 % EOS%M 3 0-3 % BASO%M 1.0 0-1 PLTE Normal GPLAT 1+ RM Normal P-Microalbumin/Creatinine, R andom Urine Sample Reviewed date:06/19/2025 11:57:43 AM Interpretation:Normal Performing Lab: Notes/Report: Test performed by [facility] [address] [place] [address] , [address], [place] [address] Nitish Matthews MD, Local Delivery Driver CLIA: [id number] Albumin/Creatinine Ratio, Urine 5 0-30 ug/mg Microalbumin, Urine, Random 0.4 Creatinine, Urine 75.7 P-TSH reflex to FT4 Reviewed date:06/19/2025 11:57:43 AM Interpretation:Normal Performing Lab: Notes/Report: Test performed by [facility] [address] [place], [place] [address] [place] , [address], [place] [address] Nitish Matthews MD, Local Delivery Driver CLIA: [id number] TSH reflex to FT4 1.21 0.43-5.25 mU/L P-PSA Reviewed date:06/19/2025 11:57:43 AM Interpretation:Normal Performing Lab: Notes/Report: Test performed by [facility] [address] [place] [address] , [place] [address] Nitish Matthews MD, Local Delivery Driver CLIA: [id number] PSA 0.20 <4.00 ng/mL Please note this is an ultrasensitive PSA assay with a lower limit of detection of 0.014 ng/mL. This test is performed by the Rex ECLIA methodology. Values obtained with different assay methods or kits cannot be directly compared. P-Magnesium Reviewed date:06/19/2025 11:57:43 AM Interpretation:Normal Performing Lab: Notes/Report: Test performed by [facility] [address] , [address], [place] [address] Nitish Matthews MD, Local Delivery Driver CLIA: [id number] Magnesium 2.3 1.6-2.4 mg/dL P-Lipid Panel Reviewed date:06/19/2025 11:57:43 AM Interpretation:satisfactory Performing Lab: Notes/Report: Test performed by [facility] [address] , [address], [place] [id number] Nitish Matthews MD, Local Delivery Driver CLIA: [id number] Cholesterol 174 <200 mg/dL Triglycerides 149 <150 [...] ATPIII guidelines LDL/HDL Ratio 3.1 <3.3 Ratio ____ LDL Cholesterol Patient History ____ Test Date: 06/17/2025 LDL Results: 109 Units: mg/dL % Change: - ____ P-Basic Metabolic Panel (BMP ) Reviewed date:06/19/2025 11:57:43 AM Interpretation:Normal Performing Lab: Notes/Report: Test performed by [facility], [address] , [address], [place] [address] Nitish Matthews MD, Local Delivery Driver CLIA: [id number] Sodium 139 135-145 mmol/L Potassium 4.4 3.5-5.3 mmol/L Chloride 101 97-108 mmol/L CO2 24 20-32 mmol/L Glucose 104 65-99 mg/dL BUN 11 6-20 mg/dL Creatinine 0.73 0.70-1.30 mg/dL Calcium 9.5 8.6-10.4 mg/dL eGFR by Creatinine 109 >59 mL/min/1.73m2 Glycohemoglobin A1c (in hous e) Reviewed date:06/19/2025 11:57:43 AM Interpretation:6.1 Normal Performing Lab: Notes/Report: 6.1 Normal glycohemoglobin 6.1% 5 - 6.5 % Glucose (In-House) Reviewed date:06/19/2025 11:57:43 AM Interpretation:satisfactory Performing Lab: Notes/Report: satisfactory blood glucose 116 74 - 106 mg/dL Reason For Referral Reason patient would like t o see PT Diagnosis 1 Other low back pain (M54.59) Referral Organization [facility] Referring Provider First Name Milan Paulino Referring Provider Last Name Za Referring Provider Speciality Family Pra ctice Referred Provider Specialty Physical The rapist General Notes Savanna Block 024 9:03:09 AM > faxed to [facility] PT Referral Priority Routine Reason Vascular Center in [facility] Diagnosis 1 Bleeding from varico se vein (I83.899) Referral Organization [facility] Referring Provider First Name Nithin Referring Provider Last Name Luis Referring Provider Speciality Family Karlene mcmahon Referred Provider Specialty Vascular Stefanie briana General Notes Savanna Block 2024 09:58:53 AM > faxed to [facility], Savanna Block 03/05/2025 10:01:12 AM > 03/14/2025 at 09:30am with Veronika Reese-PAC at [facility] Referral Priority Routine Medications Medication [...] W/U Status Risk Notes Problem Essential hypertension (91875434) Essential hypertension (I10) Active confirmed Problem Morbid obesity (364479969) Morbid obesity (E66.01) Active confirmed Problem Sciatica (00875923) Lumbago with sciatica, right side (M54.41) Active confirmed Problem Sciatica (34869473) Lumbago with sciatica, left side (M54.42) Active confirmed Problem Atrial fibrillation (71564173) Atrial fibrillation, unspecified type (I48.91) Active confirmed Problem Atrial fibrillation (94312361) Atrial fibrillation with RVR (I48.91) Active confirmed Problem Varicose veins of bilateral lower limbs (4872671693351301 6) Varicose veins of both legs with edema (I83.893) Active confirmed Problem Leukocytosis (656719693) Leukocytosis, unspecified (D72.829) Active confirmed Problem Lymphedema (504408336) Lymphedema of both lower extremities (I89.0) Active confirmed Problem Peripheral venous insufficiency (87772505) Venous stasis dermatitis of both lower extremities (I87.2) Active confirmed Vital Signs Heart Rate 82 /min 06/17/2025 Blood pressure diastolic 90 mm Hg 06/17/2025 Height 70 in 06/17/2025 Blood pressure systolic 138 mm Hg 06/17/2025 Weight 374 lbs 06/17/2025 BMI 53.66 kg/m2 06/17/2025 Encounters Encounter Location Date Provider Diagnosis [facility] [address] [facility] [address] [place] [id number] 08/12/2024 Nithin [place] Lumbago with sciatic a, right side M54.41 ; Lumbago with sciatica, left side M54.42 and Cramp in lower leg R25.2 [facility] [address] [facility] [address] [place], [place] [phone] 03/04/2025 Nithin [place] Bleeding from varico se vein I83.899 [facility] [address] [facility] [address] [place], [place] [id number] 04/14/2025 Nithin [place] Bleeding from varico se vein I83.899 and Peripheral edema R60.[address] [facility] [address] [facility] [address] [place] [id number] 04/17/2025 Irene Crowdy Cellulitis of left ankle L03.116 [facility] [address] [facility] [address] [place], [place] [id number] 06/17/2025 Nithin [place] Essential hypertensi on I10 ; Hyperglycemia R73.9 ; Atrial fibrillation, unspecified type I48.91 ; Morbid obesity E66.01 ; Prostate cancer screening Z12.5 and long term care administrator use of drug Z79.899 [facility] [address] [facility] [address] [place] [id number] 08/16/2024 Nithin [place] [facility] [address] [facility] [address] [place], [place] [id number] 02/26/2025 R Jefferson Za [facility] [address] [facility] [address] [place], [place] [id number] 05/05/2025 R Jefferson Za Screening for colon cancer Z12.[address] [facility] [address] [facility] [address] [place], [place] [id number] 05/06/2025 R Jefferson Za Assessments Encounter Date Diagnosis (ICD Code) Assessment [...] Cellulitis of left ankle (ICD-10 - L03.116) 05/05/2025 Screening for colon cancer (ICD-10 - Z12.11) 06/17/2025 Hyperglycemia (ICD-10 - R73.9) 06/17/2025 Essential hypertension (ICD-10 - I10) Blood pressure journal 08/12/2024 Cramp in lower leg (ICD-10 - R25.2) Symptoms are non exertional 06/17/2025 Atrial fibrillation, unspecified type (ICD-10 - I48.91) 06/17/2025 Morbid obesity (ICD-10 - E66.01) 06/17/2025 Prostate cancer screening (ICD-10 - Z12.5) 06/17/2025 long term care administrator use of drug (ICD-10 - Z79.899) Plan Of Treatment No Information Insurance Providers Payer Name Payer Address Payer Phone Subscriber Number Group Number Insured Name Patient Relationship to Insured Coverage Start Date Coverage End Date [employer] [address] [place] [address] [id number] SARA MARTINI Self - patient is the insured Medical (General) History Medical History History ICD Code Sleep Apnea A-Fib, Dx: 2023, cardioversion in 2023 and in May 2025 Allergic Rhinitis varicose veins Cologua - 2024 Surgical History Surgery Date(Month/Year) Hernia Repair 1980 Tonsilectomy 1982 Vascetomy 2009 Heart Cath- [facility]- Dr. Ramirez 06/06/2024
== END 2025-06-25 23:59 | disposition home or self-care (01) ==
PROVIDERS: PCP Family Medicine
DX: M25.561 Pain in right knee (principal)
CPT/HCPCS: 73562

== ENCOUNTER 2025-06-25 15:29 | Outpatient (CLI) | payer BC, SELFPAY ==
--- OUTSIDE RECORDS SUMMARY | 2025-06-25 15:32 | XMS_ITS | Clinical Summary ---
Author Organization [facility] Address [address] [place] [address] Phone [email or web address] Care Team Providers Care Forming Process Line Worker Name Role Phone Unavailable Primary Care Provider [...] Do not crush, chew, or split. Active furosemide (LASIX) 40 MG tablet Take 40 mg by mouth 1 (one) time each day in the morning. 5 Active Cartia XT 240 MG 24 hr capsule Take 240 mg by mouth 1 (one) time each day. 5 Active ibuprofen (MOTRIN) 200 MG tabletIndicati ons:Acute pain of right knee Take 2 tablets (400 mg total) by mouth 1 (one) time for 1 dose. 400mg/ 2 tablets =1 package - [facility]ered [facility] 06/24/20 25 Active Problems Problem Noted Date Diagnosed Date [...] Sign Reading Time Taken Comments Blood Pressure 138/89 06/24/2025 10:14 AM EDT Pulse 69 06/24/2025 10:14 AM EDT Temperature 36.6 C (97.8 F) 06/24/2025 10:14 AM EDT Respiratory Rate 16 06/24/2025 10:14 AM EDT Oxygen Saturation 96% 06/24/2025 10:14 AM EDT Inhaled Oxygen Concentration - - Weight 173 kg (381 lb 6.4 oz) 06/24/2025 10:14 A M EDT Height 175.3 cm (5' 9 ) 06/24/2025 10:14 AM EDT Body Mass Index 56.32 06/24/2025 10:14 AM EDT Plan of Treatment Upcoming Encounters Date Type Department Care Team (Late st Contact Info) Description 07/01/2025 7:30 AM EDT Occ Office Visit [facility] [place] [facility] [address] [place] [address] Beena Orr MD [address] [place] [address] Health Maintenance Due Date Last Done Comments CT Colonography 1975 Colonoscopy 1975 Colorectal Cancer Screening Combo 1975 DNA Cologuard 1975 Dental Cleaning/Exam 1975 FIT or FOBT Test 1975 HIV Screening 1975 Hepatitis C Screening 1975 Sigmoidoscopy 1975 Annual Preventive Exam 1991 Hep B Infection Screening - Triple Screen 1991 Hepatitis B Immunization (1 of 3 - 19+ 3-dose series) 02/09/1992 Tetanus Diphtheria and Pertu ssis Immunization (1 - Tdap) 02/09/1992 Zoster Immunization (1 of 2) 2023 Covid-19 Immunization (1 - 2 024-25 season) 2025 Influenza Immunization (#1) 2025 HIB Immunization Aged Out No longer e ligible based on patient's age to complete this topic HPV Immunization Aged Out No longer e [...] patient's age to complete this topic Insurance [id number] [place] [address]
== END 2025-06-25 23:59 | disposition home or self-care (01) ==
LOC: RT 15:30
PROVIDERS: PCP Family Medicine; Visit Provider Internal Medicine
DX: I49.1 Atrial premature depolarization (principal); I47.19 Other supraventricular tachycardia; I49.3 Ventricular premature depolarization; I47.29 Other ventricular tachycardia; I49.8 Other specified cardiac arrhythmias; I48.0 Paroxysmal atrial fibrillation
CPT/HCPCS: 93270

== ENCOUNTER 2025-07-21 07:12 | Outpatient (CLI) | payer OTHER, SELFPAY ==
--- OUTSIDE RECORDS SUMMARY | 2025-04-14 13:00 | XMS_ITS ---
Author Organization [facility] Address [address] [place] [phone] Care Team Providers Care Resident Hall Director Name Role Phone Milan Mendenhall Primary Care Provider [phone] Nithin Smith Unavailable [phone] Allergies No Known Allergies REASON FOR VISIT [...] Encounter Location Date Provider Diagnosis [facility] [address] [place] [phone] 04/14/2025 Nithin Smith Bleeding from varico se [...] * EBEN MARTINIOB:1975 ( 50 yo M)Acc No.[id number]:04/14/2025 Patient: SARA DAVIS Provider: Cassius Smith M.D. :1975 A ge:50 Y S ex:Male Date:04/14/2025 Address:[address] [place] [address], [id number] Pcp:Mlian Mendenhall Subjective: * Chief Complaints: * 1 [...] 1980, Tonsilectomy 1982, Vascetomy 2009, Heart Cath- [facility]- Dr. Ramirez 06/06/2024. * Hospitalization/Major Diagno stic [...] day , Discontinued Vitamin D3 1.25 MG (42159 UT) Capsule 1 capsule Orally Once a [...] * Images: Billing Information: * Visit Code: 85924 Office Visit, Est Pt., Level 3. * Procedure Codes: 1036F TOBACCO NON-USER. G8783 BP SCR PRFRM RCMDD DEFIND SCR INTVL. G8752 MOST RECENT SYSTOLIC BP < 140MM HG. G8754 MOST RECENT DIASTOLIC BP < 90MM HG. * Electronic signature of Shelly Smith MD on 07/21/2025 at 07:15 AM EDT Sign off status: Pending * Provider: Cassius Smith M.D. Date: 0 04/14/2025 Generated for Claribel nath/Jose/Skinny on: 0 07/21/2025 07:15 AM EDT History and Physical Notes * [...]
--- OUTSIDE RECORDS SUMMARY | 2025-04-17 12:30 | XMS_ITS ---
Author Organization [facility] Address [address] [place] [id number] Care Team Providers Care Windmill Technician Name Role Phone Milan Mendenhall Primary Care Provider [phone] Conor Irene Unavailable [phone] Allergies No Known Allergies Results Component Value [...] 04/17/2025 Encounters Encounter Location Date Provider Diagnosis [facility] [address] [facility] [address] [place], [place] [address] [id number] 04/17/2025 Irene Conor Cellulitis of left ankle [...] * EBEN MARTINIOB:1975 ( 50 yo M)Acc No.[id number]:04/17/2025 Progress Notes Patient: SARA DAVIS Provider: CATRACHITO Baird :1975 A ge:50 Y S ex:Male Date:04/17/2025 Address:[address] [place] [address], [place] [facility] [facility] Pcp:Milan Mendenhall Subjective: * Chief Complaints: * [...] 1982, Vascetomy 2009, Heart Cath- [facility]- Dr. Ramirez 06/06/2024. * Hospitalization/Major Diagno stic [...] * Images: Billing Information: * Visit Code: 43334 Office Visit, Est Pt., Level 3. * Procedure Codes: * Electronic signature of CATRACHITO Díaz on 07/21/2025 at 07:15 AM EDT Sign off status: Pending * Provider: CATRACHITO Baird Date: 0 04/17/2025 Generated for Claribel nath/Jose/eTransmitting on: 0 07/21/2025 07:15 AM EDT History [...]
--- OUTSIDE RECORDS SUMMARY | 2025-06-17 05:15 | XMS_ITS ---
Author Organization [facility] Address [address] [place] [id number] Care Team Providers Care Precision Filer Hand Name Role Phone Milan Mendenhall Primary Care Provider Nithin Smith Unavailable [phone] Allergies No Known Allergies Results Component Value [...] Interpretation:Normal Performing Lab: Notes/Report: Test performed by [facility] [address] [place] [address] , [address], [place] [address] Nitish Matthews MD, Restaurant Floor Manager CLIA: [id number] Sodium 139 135-145 mmol/L Potassium 4.4 3.5-5.3 mmol/L Chloride 101 97-108 mmol/L CO2 24 20-32 mmol/L Glucose 104 65-99 mg/dL BUN 11 6-20 mg/dL Creatinine 0.73 0.70-1.30 mg/dL Calcium 9.5 8.6-10.4 mg/dL eGFR by Creatinine 109 >59 mL/min/1.73m2 P-Lipid Panel Reviewed date:06/19/2025 11:57:43 AM Interpretation:satisfactory Performing Lab: Notes/Report: Test performed by [facility] [address] [place] [address] Nitish Matthews MD, Restaurant Floor Manager CLIA: [id number] Cholesterol 174 <200 mg/dL Triglycerides 149 <150 [...] Interpretation:Normal Performing Lab: Notes/Report: Test performed by [facility] [address] [place], [place] [address] Nitish Matthews MD, Restaurant Floor Manager CLIA: [id number] Magnesium 2.3 1.6-2.4 mg/dL P-PSA Reviewed date:06/19/2025 11:57:43 AM Interpretation:Normal Performing Lab: Notes/Report: Test performed by [facility] [address] , [facility], [place] [address] Nitish Matthews MD, Restaurant Floor Manager CLIA: [id number] PSA 0.20 <4.00 ng/mL Please note this is an ultrasensitive PSA assay with a lower limit of detection of 0.014 ng/mL. This test is performed by the Rex ECLIA methodology. Values obtained with different assay methods or kits cannot be directly compared. P-TSH reflex to FT4 Reviewed date:06/19/2025 11:57:43 AM Interpretation:Normal Performing Lab: Notes/Report: Test performed by [facility] [address] , [facility], [place] [address] Nitish Matthews MD, Restaurant Floor Manager CLIA: [id number] TSH reflex to FT4 1.21 0.43-5.25 mU/L P-Microalbumin/Creatinine, R andom Urine Sample Reviewed date:06/19/2025 11:57:43 AM Interpretation:Normal Performing Lab: Notes/Report: Test performed by [facility] [address] , [facility], [place] [address] Nitish Matthews MD, Restaurant Floor Manager CLIA: [id number] Albumin/Creatinine Ratio, Urine 5 0-30 ug/m g [...] W/U Status Risk Notes Problem Essential hypertension (32775488) Essential hypertension (I10) Active confirmed Vital Signs Weight 374 lbs 06/17/2025 Blood pressure systolic 138 mm Hg 06/17/20 25 Blood pressure diastolic 90 mm Hg 025 Heart Rate 82 /min 06/17/2025 Height 70 in 06/17/2025 BMI 53.66 kg/m2 06/17/2025 Encounters Encounter Location Date Provider Diagnosis [facility] [address] [place] [id number] 06/17/2025 Nithin Smith Essential hypertensi on I10 ; Hyperglycemia R73.9 ; Atrial fibrillation, unspecified type I48.91 ; Morbid obesity E66.01 ; Prostate cancer screening Z12.5 and shelter use of drug Z79.899 Assessments Encounter Date Diagnosis (ICD Code) Assessment Notes Treatment Notes Treatment Clinical Notes Section Notes 06/17/2025 Essential hypertension (ICD-10 - I10) Blood pressure journal 06/17/2025 Hyperglycemia (ICD-10 - R73.9) 06/17/2025 Atrial fibrillation, unspecified type (ICD-10 - I48.91) 06/17/2025 Morbid obesity (ICD-10 - E66.01) 06/17/2025 Prostate cancer screening (ICD-10 - Z12.5) 06/17/2025 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 :1975 A ge:50 Y S ex:Male Date:06/17/2025 Address:[address] [place], [place] [id number] Pcp:Milan Mendenhall Subjective: * Chief Complaints: * [...] a cardioversion due to A. fib at [facility] yesterday. * ROS: G ASTROENTEROLOGY: no [...] 1980, Tonsilectomy 1982, Vascetomy 2009, Heart Cath- [facility]- Dr. Ramirez 06/06/2024. * Hospitalization/Major Diagno [...] LM for pt to return call [facility] 06/19/2025 11:57:12 AM EDT > Pt [...] LM for pt to return call [facility] 06/19/2025 11:57:12 AM EDT > Pt [...] 116 74 - 106 mg/dL * [facility] 06/17/2025 11:02: 20 AM EDT > [facility] 06/19/2025 10:01:48 AM EDT > LM for pt to return call [facility] 06/19/2025 11:57:12 AM EDT > Pt [...] 06/19/2025 11:57:12 AM EDT > Pt notified 5.?shelter use of drug?LAB: P-Magnesium (Collection Date & Time - 06/17/2025 08:35 AM)?Normal* Value Reference Range M agnesium 2.3 1.6-2.4 - mg/dL * Elsi Baker 06/19/2025 10:01: 48 AM EDT > LM for pt to return call [facility]si [facility] 06/19/2025 11:57:12 AM EDT > Pt notified * Procedure Codes: 8 2950 GLUCOSE TEST, 28902 GLYCATED HEMOGLOBIN TEST, Modifiers: QW , 3044F HG A1C LEVEL LT 7.0%, 1036F TOBACCO NON-USER * Follow Up: v ia phone to report progress,6 Months * Images: Billing Information: * Visit Code: 15006 Office Visit, Est Pt., Level 4. * Procedure Codes: 11154 GLUCOSE TEST. 78312 GLYCATED HEMOGLOBIN TEST. Modifiers: QW 3044F HG A1C LEVEL LT 7.0%. 1036F TOBACCO NON-USER. * Electronic signature of Shelly Smith MD on 07/21/2025 at 07:15 AM EDT Sign off status: Pending * Provider: Cassius Smith M.D. Date: 0 06/17/2025 Generated for Claribel nath/Jose/eTransmitting on: 0 07/21/2025 [...] a cardioversion due to A. fib at [facility] yesterday Examination Category Sub-Category Detail Notes Category Not es General Examination Heart: RSR Lungs: clear to auscultatio n Extremities: 1+ bilateral leg norma ma, multiple varicosities General Appearance: NAD
--- OUTSIDE RECORDS SUMMARY | 2025-07-01 10:30 | XMS_ITS ---
Author Organization [facility] Address [address] [facility] 36 [facility] [address] [place] [id number] Care Team Providers Care Accounting Machine Operator Name Role Phone Milan Mendenhall Primary Care Provider Dia Carr Unavailable [phone] Allergies No Known Allergies Results Component Value [...] Provider Diagnosis [facility] [address] [facility] [address] [place] [id number] 07/01/2025 Dia Carr Acute COVID-19 U07.1 Assessments [...] Follow Up: prn, Reason: Progress Notes * EBEN MARTINIOB:1975 ( 50 yo M)Acc No.[id number]:07/01/2025 Progress Notes Patient: SARA DAVIS Provider: LION Piedra :1975 A ge:50 Y S ex:Male Date:07/01/2025 Address:[address] [place], [place] [id number] Pcp:Milan Mendenhall Subjective: * Chief Complaints: * [...] 1980, Tonsilectomy 1982, Vascetomy 2009, Heart Cath- [facility]- Dr. Ramirez 06/06/2024. * Family History: [...] COVID TEST IN HOUSE, Modifiers: QW , 64125 Flu Test- Nasal Swab, Modifiers: QW * Follow Up: p rn * Images: Billing Information: * Visit Code: 80343 Office Visit, Est Pt., Level 3. * Procedure Codes: 92870 COVID TEST IN HOUSE. Modifiers: QW 79974 Flu Test- Nasal Swab. Modifiers: QW * Electronic signature of Carlotta lovelace Lilly , PIER WORKER on 07/21/2025 at 07:15 AM EDT Sign off status: Pending * Provider: LION Piedra Date: 0 07/01/2025 Generated for Printi ng/Faxing/eTransmitting on: 0 07/21/2025 07:15 AM EDT History [...]
--- OUTSIDE RECORDS SUMMARY | 2025-07-21 07:16 | XMS_ITS | Clinical Summary ---
Author Organization [facility] Address [address] [place] [address] Phone [email or web address] Care Team Providers Care Community Artist Name Role Phone Unavailable Primary Care Provider [...] 1 (one) time each day. 5 Active rivaroxaban (XARELTO) 20 MG tablet 1 (one) time each day at the same time. Active ibuprofen (MOTRIN) 200 MG tabletIndicati ons:Acute [...] upper respiratory infection 02/09/2012 12/16/2024 Overview (03/21/2018): Encounters Date Type Department Care Team Description 07/10/2025 Orders Only [facility] [place] [address] [place] [phone] Israel Acosta ARRT Acute pain of right knee from Last 3 Months Social History Tobacco Use Types Packs/Day Years [...] Sign Reading Time Taken Comments Blood Pressure 109/65 07/01/2025 7:25 AM EDT Pulse 65 07/01/2025 7:25 AM EDT Temperature 36.3 C (97.4 F) 07/01/2025 7:25 AM EDT Respiratory Rate 16 06/24/2025 10:14 AM EDT Oxygen Saturation 96% 07/01/2025 7:25 AM EDT Inhaled Oxygen Concentration - - Weight 173 kg (381 lb 6.4 oz) 06/24/2025 10:14 A M EDT Height 175.3 cm (5' 9 ) 06/24/2025 10:14 AM EDT Body Mass Index 56.32 06/24/2025 10:14 AM EDT Plan of Treatment Health Maintenance Due Date Last Done Comments CT Colonography 1975 Colonoscopy 1975 Colorectal Cancer Screening Combo 1975 DNA Cologuard 1975 Dental Cleaning/Exam 1973 FIT or FOBT Test 1975 HIV Screening 1975 Hepatitis C Screening 1975 Sigmoidoscopy 1975 HIB Immunization (1 of 1 - R isk 1-dose series) 05/10/1974 Annual Preventive Exam 1991 Hep B Infection Screening - Triple Screen 1991 Hepatitis B Immunization (1 of 3 - 19+ 3-dose series) 02/09/1992 Tetanus Diphtheria and Pertu ssis Immunization (1 - Tdap) 02/09/1992 Pneumococcal: 50+ Years (1 o f 1 - PCV) 2023 Zoster Immunization (1 of 2) 2023 Covid-19 Immunization (1 - 2 -25 season) 2025 Influenza Immunization (#1) 2025 HPV Immunization Aged Out No longer e ligible based on patient's age to complete this topic Hepatitis A Immunization Aged Out No longer eligible based on patient's age to complete this topic Polio Immunization Aged Out No longer eligible based on patient's age to complete this topic Procedures Procedure Name Priority Date/Time Associated Diagnosis Comments AMB REFERRAL TO IMAGING Routine 07/10/2025 2:22 PM EDT Acute pain of right knee from Last 3 Months Results * Ambulatory referral to Imaging (07/10/2025 2:22 PM EDT) Beena Orr MD OUTPATIENT REFERRAL ORDER SANTINO Final Result from Last 3 Months Insurance [id number] [place] [address]
--- OUTSIDE RECORDS SUMMARY | 2025-07-21 07:16 | XMS_ITS | Patient Health Record ---
[facility] Organization [facility] Address [address] [place] [id number] Care Team Providers Care Mold Setter Name Role Phone Milan Mendenhall Primary Care Provider [phone] Nithin Smith Unavailable [phone] Dia Carr Unavailable [phone] Irene Perdomo Unavailable [phone] Allergies No Known Allergies Results Component Value [...] Performing Lab: Notes/Report: ESR 71 0-20 mm/hr Glucose (In-House) Reviewed date:06/19/2025 11:57:43 AM Interpretation:satisfactory Performing Lab: Notes/Report: satisfactory blood glucose 116 74 - 106 mg/dL Glycohemoglobin A1c (in hous e) Reviewed date:06/19/2025 11:57:43 AM Interpretation:6.1 Normal Performing Lab: Notes/Report: 6.1 Normal glycohemoglobin 6.1% 5 - 6.5 % P-Basic Metabolic Panel (BMP ) Reviewed date:06/19/2025 11:57:43 AM Interpretation:Normal Performing Lab: Notes/Report: Test performed by [facility] [address] [place], [place] [address] [place] , [address], [place] [address] Nitish Matthews MD, Culinary Worker CLIA: [id number] Sodium 139 135-145 mmol/L Potassium 4.4 3.5-5.3 mmol/L Chloride 101 97-108 mmol/L CO2 24 20-32 mmol/L Glucose 104 65-99 mg/dL BUN 11 6-20 mg/dL Creatinine 0.73 0.70-1.30 mg/dL Calcium 9.5 8.6-10.4 mg/dL eGFR by Creatinine 109 >59 mL/min/1.73m2 P-Lipid Panel Reviewed date:06/19/2025 11:57:43 AM Interpretation:satisfactory Performing Lab: Notes/Report: Test performed by [facility] [address] [place], [place] [address] [place], [address], [place] [address] Nitish Matthews MD, Culinary Worker CLIA: [id number] Cholesterol 174 <200 mg/dL Triglycerides 149 <150 [...] 109 Units: mg/dL % Change: - ____ P-Magnesium Reviewed date:06/19/2025 11:57:43 AM Interpretation:Normal Performing Lab: Notes/Report: Test performed by [facility] [address] [place] [address] Nitish Matthews MD, Culinary Worker CLIA: [id number] Magnesium 2.3 1.6-2.4 mg/dL P-PSA Reviewed date:06/19/2025 11:57:43 AM Interpretation:Normal Performing Lab: Notes/Report: Test performed by [facility] [address] [place] [address] [place] [address] Nitish Matthews MD, Culinary Worker CLIA: [id number] PSA 0.20 <4.00 ng/mL Please note this is an ultrasensitive PSA assay with a lower limit of detection of 0.014 ng/mL. This test is performed by the Rex ECLIA methodology. Values obtained with different assay methods or kits cannot be directly compared. P-TSH reflex to FT4 Reviewed date:06/19/2025 11:57:43 AM Interpretation:Normal Performing Lab: Notes/Report: Test performed by [facility] [address] [place] [address] , [address], [place] [address] Nitish Matthews MD, Culinary Worker CLIA: [id number] TSH reflex to FT4 1.21 0.43-5.25 mU/L P-Microalbumin/Creatinine, R andom Urine Sample Reviewed date:06/19/2025 11:57:43 AM Interpretation:Normal Performing Lab: Notes/Report: Test performed by [facility] [address] [place] [address] , [address], [place] [address] Nitish Matthews MD, Culinary Worker CLIA: [id number] Albumin/Creatinine Ratio, Urine 5 0-30 ug/mg Microalbumin, Urine, Random 0.4 Creatinine, Urine 75.7 Influenza Screen (in house) Reviewed date:07/01/2025 08:30:23 PM Interpretation:Negative Performing Lab: Notes/Report: Negative results Neg Covid test (in house) Reviewed date:07/01/2025 08:30:43 PM Interpretation:Positive Performing Lab: Notes/Report: Positive Result: Pos H-DIFF Reviewed date:04/18/2025 04:03:52 PM Interpretation: Performing Lab: Notes/Report: MDIFF MANUAL DIFFERENTIAL MANUAL DIFF TCC 100 NEUT%M 64 42-76 % LYMPH%M 22 10-50 % MONO%M 10 2-9 % EOS%M 3 0-3 % BASO%M 1.0 0-1 PLTE Normal GPLAT 1+ RM Normal Cologuard Reviewed date:06/19/2025 11:45:33 AM Interpretation:Negative Performing Lab: Notes/Report: Negative X ray : Spine, lumbosacral Reviewed date:08/16/2024 10:39:28 AM Interpretation:anterior osteophyte formation Performing Lab: Notes/Report: anterior osteophyte formation Reason For Referral Reason patient would like t o see PT Diagnosis 1 Other low back pain (M54.59) Referral Organization [facility] Referring Provider First Name Milan Paulino Referring Provider Last Name Za Referring Provider [facility] Karlene mcmahon Referred Provider Specialty Physical The rapist General Notes Savanna Block 024 9:03:09 AM > faxed to [facility] PT Referral Priority Routine Reason Vascular Center in [facility] Diagnosis 1 Bleeding from varico se vein (I83.899) Referral Organization [facility] Referring Provider First Name Nithin Referring Provider Last Name Luis Referring Provider [facility] Karlene mcmahon Referred Provider Specialty Vascular Stefanie briana General Notes Savanna Block 2024 09:58:53 AM > faxed to [facility], Savanna Block 03/05/2025 10:01:12 AM > 03/14/2025 at 09:30am with Veronika Reese-PAC at [facility] Referral Priority Routine Medications Medication [...] 1.5 tablet Orally twice a day Active Problems Problem Type SNOMED Code ICD Code Onset Dates Problem Status W/U Status Risk Notes Problem Essential hypertension (31568429) Essential hypertension (I10) Active confirmed Problem Morbid obesity (849055948) Morbid obesity (E66.01) Active confirmed Problem Sciatica (19840985) Lumbago with sciatica, right side (M54.41) Active confirmed Problem Sciatica (46871695) Lumbago with sciatica, left side (M54.42) Active confirmed Problem Atrial fibrillation (58255395) Atrial fibrillation, unspecified type (I48.91) Active confirmed Problem Atrial fibrillation (30757856) Atrial fibrillation with RVR (I48.91) Active confirmed Problem Varicose veins of bilateral lower limbs (6577464099312623 6) Varicose veins of both legs with edema (I83.893) Active confirmed Problem Leukocytosis (654363808) Leukocytosis, unspecified (D72.829) Active confirmed Problem Lymphedema (646827600) Lymphedema of both lower extremities (I89.0) Active confirmed Problem Peripheral venous insufficiency (53528137) Venous stasis dermatitis of both lower extremities (I87.2) Active confirmed Vital Signs Heart Rate 71 /min 07/01/2025 Blood pressure diastolic 80 mm Hg 07/01/2025 Height 70 in 07/01/2025 Blood pressure systolic 140 mm Hg 07/01/2025 Weight 377.0 lbs 07/01/2025 BMI 54.09 kg/m2 07/01/2025 Encounters Encounter Location Date Provider Diagnosis [facility] [address] [facility] [address] [place], [place] [id number] 08/12/2024 Nithin Kamuela Lumbago with sciatic a, right side M54.41 ; Lumbago with sciatica, left side M54.42 and Cramp in lower leg R25.2 [facility] [address] [place], [place] [id number] 03/04/2025 Nithin Kamuela Bleeding from varico se vein I83.899 [facility] [address] [facility] [address] [place], [place] [id number] 04/14/2025 Nithin Kamuela Bleeding from varico se vein I83.899 and Peripheral edema R60.0 [facility] [address] [facility] [address] [place], [place] [id number] 04/17/2025 Irene Crowdy Cellulitis of left ankle L03.116 [facility] [address] [facility] [address] [place], [place] [id number] 06/17/2025 Nithin Kamuela Essential hypertensi on I10 ; Hyperglycemia R73.9 ; Atrial fibrillation, unspecified type I48.91 ; Morbid obesity E66.01 ; Prostate cancer screening Z12.5 and senior living use of drug Z79.899 [facility] [address] [facility] [address] [place], [place] [id number] 07/01/2025 Diasasha Velazquezond Acute COVID-19 U07.1 [facility] [address] [facility] [address] [place], [place] [id number] 08/16/2024 Nithin Kamuela [facility] [address] [facility] [address] [place] [id number] 02/26/2025 R Jefferson Mendenhall [facility] [address] [place] [id number] 05/05/2025 R Jefferson Mendenhall Screening for colon cancer Z12.11 [facility] [address] [facility] 36 [facility] [place] [id number] 05/06/2025 R Jefferson Mendenhall Assessments Encounter Date Diagnosis (ICD Code) Assessment Notes Treatment Notes Treatment Clinical Notes Section Notes 07/01/2025 Acute COVID-19 (ICD-10 - U07.1) Fluids, rest, supportive measures for fever/symptom relief; discussed infectious precautions; declines Paxlovid 08/12/2024 Lumbago with sciatica, right side (ICD-10 [...] Prostate cancer screening (ICD-10 - Z12.5) 06/17/2025 senior living use of drug (ICD-10 - Z79.899) Plan Of Treatment No Information Insurance Providers Payer Name Payer Address Payer Phone Subscriber Number Group Number Insured Name Patient Relationship to Insured Coverage Start Date Coverage End Date [facility]OHNNIE [facility]ELSEN [facility] [address] [place] [address] [id number] SARA FREDERICK Self - patient is the insured Medical (General) History Medical History History ICD Code Sleep Apnea A-Fib, Dx: 2023, cardioversion in 2023 and in May 2025 Allergic Rhinitis varicose veins Cologuard - 2024 Surgical History Surgery Date(Month/Year) Hernia Repair 1980 Tonsilectomy 1982 Vascetomy 2009 Heart Cath- [facility]- Dr. Ramirez 06/06/2024
--- OUTSIDE RECORDS SUMMARY | 2025-07-21 07:16 | XMS_ITS | Encounter Summary ---
Author Organization [facility] Address [address] [place] [address] Phone [email or web address] Care Team Providers Care Aboriginal Community Council Member Name Role Phone Unavailable Primary Care Provider Unavailabl e Encounter Details Date Type Department Care Team (Late st Contact Info) Description 07/10/2025 Orders Only [facility] [address] [place] [address] Israel Acosta ARRT [address] [place] [address] Acute pain of right knee Social History Tobacco Use Types Packs/Day Years Used Date Smoking Tobacco: Never Smokeless Tobacco: Never Alcohol Use Standard Drinks/Week Comments Never 0 [...] on file Sexual Orientation Not on file documented as of this encounter Plan of Treatment Not on file documented as of this encounter Procedures Procedure Name Priority Date/Time Associated Diagnosis Comments AMB REFERRAL TO IMAGING Routine 07/10/2025 2:22 PM EDT Acute pain of right knee documented in this encounter Results * Ambulatory referral to Imaging (07/10/2025 2:22 PM EDT) us Beena Orr MD OUTPATIENT REFERRAL ORDER SANTINO Final Result documented in this encounter Visit Diagnoses Diagnosis Acute pain of right knee documented in this encounter
--- NOTE | 2025-07-21 07:30 | MR_ITS ---
FINAL REPORT CLINICAL HISTORY: right knee pain injury at work on 06/24/25 felt pop when stepping up on an equipment at work , knee gave out pain on medial side and below patella pt stated when standing on leg too long it gets tight COMPARISON: None FINDINGS: Multi planar MR imaging was performed of the right knee. The anterior and posterior cruciate ligaments are intact. The quadriceps and patellar tendons are intact. There is linear signal in the posterior horn of the medial meniscus consistent with a tear. The lateral meniscus is intact. The medial and lateral collateral ligaments appear intact. The medial and lateral retinacula appear intact. There is no evidence of bone marrow edema or osteochondral defect. A small joint effusion is present. There are numerous prominent varicosities surrounding the knee, particularly in the medial soft tissues. IMPRESSION: Tear of the posterior horn medial meniscus. Numerous prominent varicosities surround the knee. Reviewed, Interpreted and Dictated by Boni Dimas MD Transcribed by Rosalba Temple Authenticated and [facility]
== END 2025-07-21 23:59 | disposition home or self-care (01) ==
LOC: RAD 07:13
PROVIDERS: PCP Family Medicine; Visit Provider Orthopaedic Surgery
DX: S83.241A Other tear of medial meniscus, current injury, right knee, initial encounter (principal); I83.91 Asymptomatic varicose veins of right lower extremity
CPT/HCPCS: 73721

== ENCOUNTER 2025-09-17 14:00 | Outpatient (RCR) | payer OTHER, BC, SELFPAY ==
--- NOTE | 2025-09-09 14:00 | HMH.PTOPEV ---
PT Evaluation Rehab PT Outpatient Evaluation Start: 09/09/25 12:54 Freq: Status: Active Protocol: Document 09/09/25 12:54 CARA (Rec: 09/09/25 13:58 CARA [id number]) E-signed By Candi Waller, PT Outpatient Therapy Subjective History Subjective History This is an initial PT evaluation for 50 y/o male, Jasiel Frederick, who presents with PT referral from Dr. Belle for complex tear of the medial meniscus of the right knee. Pt's initial injury was on Jun 24. Pt reports he was stepping up onto a step at work and heard a loud and painful pop. Pt had an MRI on 07/21/25 that showed a tear of the posterior horn medial meniscus and numerous prominent varicosities surrounding the knee. Pt had a visit with Dr Belle on 08/07 where surgery was discussed . Pt agreeable to surgery and was scheduled to have surgery on the Aug. However, pt reports that Worker's comp denied his surgery d/t pt not having physical therapy for his torn meniscus first. Pt reports since his initial injury, he has difficulty with walking, squatting, and getting in/out of bed. Pt denies any numbness or tingling in the LE. Pt reports though his pain has eased some since his initial injury , he still mostly rests d/t difficulty ambulating and performing work duties. Pt reports he recently tried squatting to the ground and getting on the floor to assist with checking a propane line at home and pt reports 9/10 pain in his knee with this task. 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 New diagnosis of No cancer in past 12 months? Chief Complaint Pain,Stiff,Clicks,Catches/Locks Symptom Type Ache,Sharp Symptoms Relieved By Rest/Positioning,Ice Symptoms Aggravated Standing,Bending/Stooping,Physical Activity,Twisting, By Walking Prior Functional None Limitations Current Functional Reaching,Lifting,Standing,Sitting,Squatting,Recreation Limitations Activity,Walking,Stairs,Balance Symptom Description Activity Dependent Level of pain today 2 (0-10) Pain scale - at its 2 best (0-10) Pain scale - at its 9 worst (0-10) Hip/Knee Eval Gait Observation General Gait Pattern Antalgic Gait Observation Assistive Device Assistive Devices None / NA Palpation Tenderness right Knee Palpation Tenderness Finding Knee Palpation 2/4 TTP posterior and medial joint line Overall Comment MMT Hip Flexion Strength 4 Good Grade Hip Abduction 4 Good Strength Grade Hip Adduction 4 Good Strength Grade Hip Extension 4 Good Strength Grade Knee Extension 4 Good Strength Grade Knee Flexion 4 Good Strength Grade ROM Knee Extension lacking 8 deg Active Range of Motion (degrees) Knee Flexion Active 108 deg Range of Motion ( degrees) Special Tests Knee Anterior Drawer Negative Right Test Knee Posterior Sag ( Negative Right [place] Drawer) Test Knee Armani Test Positive Right Lower Extremity Functional Index Activities Today, do you or would you have any difficulty at all with: a.Any of your usual Extreme difficulty or unable to perform activity work, housework or school activities b. Your usual Extreme difficulty or unable to perform activity hobbies, recreational or sporting activities c. Getting into or Extreme difficulty or unable to perform activity out of the bath d. Walking between A little bit of difficulty rooms e. Putting on your Quite a bit of difficulty shoes or socks f. Squatting Extreme difficulty or unable to perform activity g. Lifting an object Quite a bit of difficulty , like a bag of groceries from the floor h. Performing light Quite a bit of difficulty activities around your home i. Performing heavy Extreme difficulty or unable to perform activity activities around your home j. Getting into or Quite a bit of difficulty out of a car k. Walking 2 blocks Extreme difficulty or unable to perform activity l. Walking a mile Extreme difficulty or unable to perform activity m. Going up or down Extreme difficulty or unable to perform activity 10 stairs (about 1 flight of stairs) n. Standing for 1 Extreme difficulty or unable to perform activity hour o. Sitting for 1 Quite a bit of difficulty hour p. Running on even Extreme difficulty or unable to perform activity ground q. Running on uneven Extreme difficulty or unable to perform activity ground r. Making sharp Extreme difficulty or unable to perform activity turns while running fast s. Hopping Extreme difficulty or unable to perform activity t. Rolling over in Moderate difficulty bed LEFI Score Lower Extremity 10 Functional Index Score Outpatient Therapy Assessment Impairments Problems/ Palpation Tenderness,Impaired Range of Motion,Impaired Impairmments Strength,Impaired Endurance,Impaired Transfers,Impaired Gait Pattern,Impaired Walking,Impaired Sitting, Impaired Driving,Impaired Lifting,Impaired Stepping on Uneven Surface,Impaired Squatting,Impaired Bending, Impaired Recreational Activities,Impaired Work Activities,Impaired Desk/Computer Activities,Subjective C/O Pain Prognosis Rehab Potential Good Comment Pt presents with impaired R knee ROM, subjective reports of pain, and decreased RLE strength. Pt would benefit from skilled OP PT to address deficits and decrease pain. *PT provided pt with HEP (heel slides, clam shell, SLR, quad set, calf stretch). Clinical Impression Consistent with Yes Diagnosis PT Patient Goals PT Patient Goals PT Short Term In 4 weeks, pt will: Patient Goals 1) Improve R knee ROM to 5-110 degrees to improve functional ROM. 2) Demo at least RLE MMT of 4+/5 globally to improve functioning. 3) Amb 10 minutes without increase in knee pain. 4) Improve LEFS to score of 20/80 to improve LE functioning. 5) Verbalize a 48 hour knee pain average of 4/10. 6) Verbalize compliance with home exercise program maximize positive post-surgical outcomes. 7) Tolerate pedaling 10 minutes on seated bike with no increase in knee pain. 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 2) Demo at least RLE MMT of 5/5 globally to improve functioning. 3) Negotiate 12 6 stair steps to improve community navigation. 4) Improve LEFS to score of 30/80 to improve LE functioning and return to PLOF 5) Verbalize a 48 hour knee pain average of 1-2/10 6) Verbalize compliance with home exercise program maximize positive post-surgical outcomes. 7) Demo 5 functional squats to demo functional knee AROM. 8) Be able to stand for 1hr or > to improve tolerance to standing for work related tasks. Outpatient Therapy Plan of Care Treatment Plan May Include Therapeutic Exercise Yes Including Home Exercise Program Manual Therapy Yes Techniques Neuromuscular Re- Yes education Therapeutic Yes Activities to Return to Previous Functional/Work Level Gait Training Yes ADL/Self Care Yes Education Thermal Modalities Yes Electrical Yes Stimulation Ultrasound/ Yes Phonophoresis Orthotics/Bracing/ Yes Splinting Vasopneumatic Yes Compression Pump Massage Yes Eval/Re-Eval Yes Frequency Times per week 2x Duration Number of Weeks 6-8 weeks Addendums This patient is a No candidate for social or vocational rehab ? Patient/Guardian Yes verbally acknowledges understanding of treatment program and consents to further treatment? Patient/Guardian Yes verbally acknowledges understanding of diagnosis, prognosis and goals for treatment? Eval Complexity PT Charges 20920 - Moderate Complexity Shoulder/Elbow Eval Shoulder Objective Measurements Elbow Objective Measurements PHYSICIAN CERTIFICATION: I certify the specified therapy services for Jasiel Manuels are required, authorized, and reviewed every 30 days.
== END 2025-09-17 23:59 | disposition home or self-care (01) ==
LOC: PT 14:00
PROVIDERS: Visit Provider Orthopaedic Surgery
DX: M25.561 Pain in right knee (principal)
CPT/HCPCS: 97110; 97162

== ENCOUNTER 2025-09-26 11:53 | Outpatient (CLI) | payer BC, SELFPAY ==
--- NOTE | 2025-09-26 11:59 | ECG_ITS ---
APPROVED REPORT Exam: Resting ECG HR:79 bpm ECG Measurements Heart Rate 79 AXES NE 158 P 40 QRSd 106 QRS -25 QT 357 T 60 QTc 391 Conclusion SINUS RHYTHM WITH OCCASIONAL VENTRICULAR PREMATURE COMPLEXES BORDERLINE LEFT AXIS DEVIATION [QRS AXIS < -20] BORDERLINE ECG UNCONFIRMED REPORT Electronically signed by : Fer Giron MD 09/27/2025 08:40:37
== END 2025-09-26 23:59 | disposition home or self-care (01) ==
LOC: RT 11:53
PROVIDERS: PCP Family Medicine; Visit Provider Physician Assistant
DX: I49.3 Ventricular premature depolarization (principal); R94.31 Abnormal electrocardiogram [ECG] [EKG]; Z86.79 Personal history of other diseases of the circulatory system
CPT/HCPCS: 93005

== ENCOUNTER 2025-10-06 14:55 | Outpatient (CLI) | payer BC, SELFPAY ==
--- NOTE | 2025-10-06 14:58 | CA_ITS ---
APPROVED REPORT EXAM: Comprehensive 2D, Doppler, and color-flow Echocardiogram Resource Room Special Education Teacher: Mel Diaz RVT Ht: 5 ft 9 in Wt: 375lbs BSA: 2.70 BP: 117/72 mmHg Indications: SHORTNESS OF BREATH 2D Dimensions IVSd 1.48 cm M: 0.6-1.2 LVEF (Visual) 49.10 % PWd 1.62 cm M: 0.6 - 1.2 LA Volume 65.70 mL LVDd 4.05 cm M: 4.2 - 5.9 LA Volume Index 24.33 mL/m2 (M/F) 16-34 LVDs 3.06 cm M: 2.5 - 4.0 M-Mode Dimensions LA Diam 3.89 cm (1.9-4.0) TAPSE 2.91 (<1.7) LV Diastology E Decel Time 220 (160-240 msec) E/A Ratio 1.1 Aortic Valve CARMEN Index 1.80 cm2/m2 AoV Peak Tripp. 128.0 (50-130 cm/s) AO Peak GR. 6.50 mmHg AO Mean GR. 3.90 (<5 mmHg) AO VTI 23.6 (18-25 cm) CARMEN (VTI) 4.97 (2.5-4.5 cm2) Mitral Valve MV E Max Tripp. 79.0 (40-130 cm/s) MV A Velocity 71.0 (40-130 cm/s) E/A Ratio 1.12 MV PHT 64.0 ms Pulmonary Valve PV Peak Velocity 82.0 (50-150 cm/s) Left Ventricle The left ventricle is normal size. Left ventricular systolic function is normal. The left ventricular ejection fraction is within the normal range. There is normal left ventricular wall thickness. There is normal LV segmental wall motion. The left ventricular diastolic function is normal. LVEF is 55% Right Ventricle The right ventricle is mildly dilated. The right ventricular systolic function is normal. Atria The left atrium size is normal. The right atrium size is normal. There is no color Doppler evidence of interatrial shunt. Aortic Valve The aortic valve opens well. There is no hemodynamically significant aortic valvular stenosis. No aortic regurgitation is present. Mitral Valve The mitral valve is normal in structure. No evidence of mitral valve stenosis. Trace mitral regurgitation is present. Tricuspid Valve The tricuspid valve leaflets are thin and pliable. Trace tricuspid regurgitation. There is insufficient TR jet to estimate RVSP. Pulmonic Valve The pulmonary valve is grossly normal in structure. Trace pulmonic valve regurgitation is present. Great Vessels The aortic root is normal in size. IVC is normal in size and collapses >50% with inspiration. Pericardium There is no pericardial effusion. An epicardial fat pad is present. Other Information Study Quality: Technically Difficult Conclusion Normal biventricular systolic function. Mild RV dilation. No significant valvular stenosis or regurgitation. Electronically signed by : Tamra Kang MD 10/08/2025 15:32:46
== END 2025-10-06 23:59 | disposition home or self-care (01) ==
LOC: RT 14:55
PROVIDERS: PCP Family Medicine; Visit Provider Physician Assistant
DX: I51.7 Cardiomegaly (principal)
CPT/HCPCS: 93306

== ENCOUNTER 2025-10-14 14:00 | Outpatient (RCR) | payer OTHER, BC, SELFPAY ==
--- NOTE | 2025-10-06 14:55 | HMH.RHREAS ---
Rehab Reassessment Rehab OP Re-assessment Start: 09/23/25 13:15 Freq: Status: Active Protocol: Document 10/06/25 14:16 CARA (Rec: 10/06/25 14:52 CARA [id number]) E-signed By Candi Waller PT Lower Extremity Functional Index Activities Today, do you or would you have any difficulty at all with: a.Any of your usual Extreme difficulty or unable to perform activity work, housework or school activities b. Your usual Moderate difficulty hobbies, recreational or sporting activities c. Getting into or Quite a bit of difficulty out of the bath d. Walking between A little bit of difficulty rooms e. Putting on your Quite a bit of difficulty shoes or socks f. Squatting Extreme difficulty or unable to perform activity g. Lifting an object A little bit of difficulty , like a bag of groceries from the floor h. Performing light A little bit of difficulty activities around your home i. Performing heavy Quite a bit of difficulty activities around your home j. Getting into or Moderate difficulty out of a car k. Walking 2 blocks Quite a bit of difficulty l. Walking a mile Extreme difficulty or unable to perform activity m. Going up or down A little bit of difficulty 10 stairs (about 1 flight of stairs) n. Standing for 1 Extreme difficulty or unable to perform activity hour o. Sitting for 1 Moderate difficulty hour p. Running on even Extreme difficulty or unable to perform activity ground q. Running on uneven Extreme difficulty or unable to perform activity ground r. Making sharp Extreme difficulty or unable to perform activity turns while running fast s. Hopping Extreme difficulty or unable to perform activity t. Rolling over in A little bit of difficulty bed LEFI Score Lower Extremity 25 Functional Index Score Rehab Re-assessment Subjective Subjective HEP: Reports good compliance. Pt reports he feels 15% better since IE. 48-hour pain average: 03/01 R knee Pt had a follow-up with Dr. Belle on 10/02 and still presents with the plan to have surgery pending insurance approval. Pt reports inability to ambulate a community distance without increase in knee pain. Objective Objective Notes RLE MMTs: - Hip FLEX = 4+/5 - Hip ABD = 4+/5 - Hip ADD = 4+/5 - Knee FLEX = 4+/5 - Knee EXT = 4+/5 R knee AROM: 7-108 degrees. Pain at end range of flexion. Assessment Progress Assessment Progressing as Expected Assessment Notes This is a reassessment for Jasiel Frederick who presents to PT post-meniscus tear on Jun 24, 2025. Pt has attended ~1 month of physical therapy and reports good compliance to HEP. Pt still presents with impaired knee ROM, subjective complaints of pain, impaired RLE strength, and impaired functional mobility. Pt with improvements in RLE strength and R knee AROM. Pt would continue to benefit from skilled OP PT to address deficits and achieve remaining goals. PT Patient Goals PT Short Term In 4 weeks, pt will: 4/7 goals MET Patient Goals 1) Improve R knee ROM to 5-110 degrees to improve functional ROM. Not met 2) Demo at least RLE MMT of 4+/5 globally to improve functioning. MET 3) Amb 10 minutes without increase in knee pain. Not met 4) Improve LEFS to score of 20/80 to improve LE functioning. MET 5) Verbalize a 48 hour knee pain average of 4/10. Not met 6) Verbalize compliance with home exercise program maximize positive post-surgical outcomes. MET 7) Tolerate pedaling 10 minutes on seated bike with no increase in knee pain. MET PT Eye Technician Patient In 8 weeks, pt will: In progress. Goals 1) Improve R knee ROM to 0-115 degrees to improve functional ROM. 2) Demo at least RLE MMT of 5/5 globally to improve functioning. 3) Negotiate 12 6 stair steps to improve community navigation. 4) Improve LEFS to score of 30/80 to improve LE functioning and return to PLOF 5) Verbalize a 48-hour knee pain average of 1-2/10 6) Verbalize compliance with home exercise program maximize positive post-surgical outcomes. 7) Demo 5 functional squats to demo functional knee AROM. 8) Be able to stand for 1hr or > to improve tolerance to standing for work related tasks. Plan Plan Continue POC Frequency of Therapy 2x Duration of Therapy 4 weeks Time and Billing Re-Eval Time 10 Re-Eval Billing 0 Units Charge for PT No reassessment? PHYSICIAN CERTIFICATION: I certify the specified therapy services for Jasiel Calix Hedges are required, authorized, and reviewed every 30 days.
== END 2025-10-14 23:59 | disposition home or self-care (01) ==
LOC: PT 14:00
PROVIDERS: Visit Provider Orthopaedic Surgery
DX: S83.241D Other tear of medial meniscus, current injury, right knee, subsequent encounter (principal)
CPT/HCPCS: 97110; 97530

== ENCOUNTER 2025-10-22 10:28 | Outpatient (CLI) | payer OTHER, SELFPAY ==
--- OUTSIDE RECORDS SUMMARY | 2024-06-07 05:45 | XMS_ITS ---
[facility] Address [address] [place] [id number] Care Team Providers Care Mds Nurse Name Role Phone Milan Mendenhall Primary Care Provider Nithin Smith Unavailable [phone] Allergies No Known Allergies Results Component Value Reference Range Notes CBC Venipuncture (in house) Reviewed date:06/12/2024 03:20:31 PM Interpretation:wbc 12.6, gran 9.5 Performing Lab: Notes/Report: wbc 12.6, gran 9.5 wbc 12.6 3.5 - 10 lymph 19.2% 15 - 50 mid 5.5% 2 - 15 gran 75.3% 35 - 80 rbc 5.13 3.5 - 5.5 hgb 15.7 11.5 - 16.5 hct 48.3 35 - 55 mcv 94.1 75 - 100 mch 30.7 25 - 35 mchc 32.6 31 - 38 platlet 362 100 - 400 J-Vzyp-Hmfoaoe Antibody (VIOLETTE ), IgG by IFA Reviewed date:06/12/2024 03:20:31 PM Interpretation: Normal Performing Lab: Notes/Report: Test performed by [facility] [address] [place] [address] , [address], [place] [address] Nitish Matthews MD, Hvac Refrigeration Technician CLIA: [id number] VIOLETTE Screen, IFA Not Detected Not Detected VIOLETTE Screen Reference Range 1:80 VIOLETTE IFA is a first line screen for detecting the presence of up to 150 autoantibodies in various autoimmune diseases. A positive VIOLETTE IFA result is suggestive of autoimmune disease and reflexes to titer and pattern. Consider additional laboratory testing if clinically indicated. P-Vitamin B12 Reviewed date:06/12/2024 03:20:31 PM Interpretation:337 Performing Lab: Notes/Report: Test performed by [facility] , [facility] [place] [address] Nitish Matthews MD, Hvac Refrigeration Technician CLIA: [id number] Vitamin B12 531 013-6872 pg/mL P-CPK Reviewed date:06/12/2024 03:20:31 PM Interpretation: Normal Performing Lab: Notes/Report: [facility] , [place] [address] Nitish Matthews MD, Hvac Refrigeration Technician CLIA: [id number] Creatine Kinase 97 20-200 U/L A-D-Cxlyixup Protein (CRP) Reviewed date:06/12/2024 03:20:31 PM Interpretation: Normal Performing Lab: Notes/Report: Test performed by [facility] , [place] [address] Nitish Matthews MD, Hvac Refrigeration Technician CLIA: [id number] C-Reactive Protein (CRP) 0.38 <0.50 mg/dL P-Sed Rate (ESR) Reviewed date:06/12/2024 03:20:31 PM Interpretation:36 Performing Lab: Notes/Report: [facility] , [place] [address] Nitish Matthews MD, Hvac Refrigeration Technician CLIA: [id number] Erythrocyte Sedimentation Rate (ESR), Automated 36 <21 mm/hr P-Hepatic Function Panel Reviewed date:06/12/2024 03:20:31 PM Interpretation: Normal Performing Lab: Notes/Report: [facility] , [place] [address] Nitish Matthews MD, Hvac Refrigeration Technician CLIA: [id number] Protein 7.4 6.0-8.3 g/dL Albumin 4.6 3.5-5.3 g/dL Alkaline Phosphatase 89 40-129 IU/L ALT (SGPT) 26 <5-55 IU/L AST (SGOT) 20 <5-46 IU/L Bilirubin, Total 0.5 <0.2-1.2 mg/dL Bilirubin, Direct <0.2 <0.2-0.3 mg/dL Bilirubin, Indirect See Comment 0.2-1.3 mg/dL Unable to calculate indirect bilirubin when total or direct bilirubin fall outside reportable range. P-Magnesium Reviewed date:06/12/2024 03:20:31 PM Interpretation: Normal Performing Lab: Notes/Report: Test performed by [facility] [address] [place] [address] , [address], [place] [address] Nitish Matthews MD, Hvac Refrigeration Technician CLIA: [id number] Magnesium 2.1 1.6-2.4 mg/dL P-Phosphorus Reviewed date:06/12/2024 03:20:31 PM Interpretation: Normal Performing Lab: Notes/Report: Test performed by [facility] [address] , [address], [place] [address] Nitish Matthews MD, Hvac Refrigeration Technician CLIA: [id number] Phosphorus 3.7 2.5-4.5 mg/dL P-TSH reflex to FT4 Reviewed date:06/12/2024 03:20:31 PM Interpretation: Normal Performing Lab: Notes/Report: Test performed by [facility] [address] , [address], [place] [address] Nitish Matthews MD, Hvac Refrigeration Technician CLIA: [id number] TSH reflex to FT4 1.44 0.43-5.25 mU/L P-Vitamin D 25-Hydroxy Reviewed date:06/12/2024 03:20:31 PM Interpretation: Normal Performing Lab: Notes/Report: Test performed by [facility] [address] , [address], [place] [address] Nitish Matthews MD, Hvac Refrigeration Technician CLIA: [id number] Vitamin D 25-Hydroxy 13.5 30.0-100.0 ng/mL Interpretation of Vitamin D 25 OH: < 20 ng/mL - Deficiency 20 - 29 ng/mL - Insufficiency 30 - 100 ng/mL - Sufficiency > 100 ng/mL - Super-therapeutic- toxicity may occur above this level. Clinical correlation required. REASON FOR VISIT legs feel stiff and afib Medications Medication SIG (Take, Route, Frequency, Duration) Notes Start Date End Date Status Rivaroxaban 20 MG 1 tablet with food Orally Once a day Active Cetirizine HCl 10 MG 1 tablet Orally Onc e a day; Duration: 90 days 03/27/2024 Active Digoxin 125 MCG 1 tablet Orally Once a day; Duration: 30 day(s) Active Furosemide 40 MG 1 tablet Orally Once a day; Duration: 30 day(s) Active Jobst 30-40mmHg Compression Sm DIRECTED 07/13/2019 Active Ibuprofen 200 MG 1 tab(s) orally ever y 6 hours Active Tylenol 325 MG 2 tab(s) orally ever y 4 hours Active Spironolactone 50 MG 1 tablet Orally Onc e a day; Duration: 30 day(s) Active Metoprolol Succinate ER 200 MG 1.5 tablet Orally Once a day Active Vital Signs Weight 348.4 lbs 06/07/2024 Blood pressure systolic 122 mm Hg 06/07/20 24 Blood pressure diastolic 70 mm Hg 024 Heart Rate 84 /min 06/07/2024 Height 70 in 06/07/2024 BMI 49.98 kg/m2 06/07/2024 Encounters Encounter Location Date Provider Diagnosis [facility] [address] [facility] [address] [place], [place] [id number] 06/07/2024 Nithin Smith Myalgia, multiple si gil M79.18 and Fatigue, unspecified type R53.83 Assessments Encounter Date Diagnosis (ICD Code) Assessment Notes Treatment Notes Treatment Clinical Notes Section Notes 06/07/2024 Myalgia, multiple sites (ICD-10 - M79.18) 06/07/2024 Fatigue, unspecified type (ICD-10 - R53.83) Plan Of Treatment Next Appt Details Follow Up: 2 Months, Reason: Progress Notes * Rinku MARTINIOB:1975 ( 50 yo M)Acc No.[id number]:06/07/2024 Progress Notes Patient: Jasiel DAVIS Provider: Cassius Smith M.D. :1975 A ge:49 Y S ex:Male Date:06/07/2024 Address:[address] [place] [address], [facility] Pcp:Milan Mendenhall Subjective: * Chief Complaints: * 1 . Legs feel stiff and afib. * HPI: H ip/Thigh: 49 year old male presents with c/o tingling/numbness P t sts that over the last few weeks his legs have felt stiff and tingling. Pt sts that in the mornings when he gets up he is having to hold on to things to move around. Pt sts that the pain starts in his hip and goes down his leg. Pt sts the feeling almost feels like a rosemary horse. C ardiology: A-Fib P t sts he is in a-fib, and did see cardiology yesterday. Pt sts Dr. Ramirez preformed a heart cath. Pt sts they did increase his Metoprolol to 300mg daily. * ROS: C ONSTITUTIONAL: Fatigue yes. D ERMATOLOGY: no R ruthy. n o H randy. G ASTROENTEROLOGY: no N ausea. n o V omiting. U ROLOGY: no D ifficulty urinating. n o B lood in urine. * Medical History: S leep Apnea, A-Fib, Dx: 2023, Allergic rhinitis. * Surgical History: H ernia Repair 1980, Tonsilectomy 1982, Vascetomy 2009, Heart Cath- [facility]- Dr. Ramirez 06/06/24. * Hospitalization/Major Diagno stic Procedure: D enies Past Hospitalization. * Family History: F ather: 65 yrs, melanoma. M other: 42 yrs, breast cancer. 1 sister(s) . 2 daughter(s) . . * Social History: C URRENT TOBACCO USE: No . C affeine: yes, frequency:. Home smoke detector use: yes. Alcohol: No. * Medications: T aking Metoprolol Succinate ER 200 MG Tablet Extended Release 24 Hour 1.5 tablet Orally Once a day , Taking Furosemide 40 MG Tablet 1 tablet Orally Once a day , Taking Spironolactone 50 MG Tablet 1 tablet Orally Once a day , Taking Tylenol 325 MG Tablet 2 tab(s) orally every 4 hours , Taking Ibuprofen 200 MG Tablet 1 tab(s) orally every 6 hours , Taking Jobst 30-40mmHg Compression Sm KNEE HIGH DIRECTED , Taking Cetirizine HCl 10 MG Tablet 1 tablet Orally Once a day , Taking Rivaroxaban 20 MG Tablet 1 tablet with food Orally Once a day , Taking Digoxin 125 MCG Tablet 1 tablet Orally Once a day , Discontinued Potassium Chloride ER 10 MEQ Tablet Extended Release 1 tablet with food Orally Twice a day , Discontinued dilTIAZem HCl ER 240 MG Tablet Extended Release 24 Hour 1 tablet Orally Once a day , Medication List reviewed and reconciled with the patient * Allergies: N .K.D.A. Objective: * Vitals: W t:348.4, Temp:97.4, BP:122/70, HR:84, Nurse:GI, Ht: 70, BMI:49.98. * Examination: G eneral Examination: General Appearance: N AD. N joni: supple, no lymphadenopathy, thyroid normal. H eart: irregularly irregular rhythm. L ungs: c lear to auscultation. N eurologic Exam: I ntact, gait normal. P eripheral pulses: n ormal (2+) bilaterally, dressing over right radial artery site at wrist. Assessment: * Assessment: 1. M yadanna, multiple sites - M79.18 (Primary) 2 . F atigue, unspecified type - R53.83 Plan: * Treatment: Value Reference Range A NA Screen, IFA Not Detected Not Detected - * Pascale Garcia 06/12/2024 3:20: 22 PM >See phone encounter ?LAB: P-CPK (Collection Date & Time - 06/07/2024 12:01 PM)?Normal* Value Reference Range C reatine Kinase 97 20-200 - U/L * RadhaPascale 06/12/2024 3:20: 22 PM >See phone encounter ?LAB: Q-R-Bpnpzwgh Protein (CRP) (Collection Date & Time - 06/07/2024 12:01 PM)?Normal* Value Reference Range C -Reactive Protein (CRP) 0.38 <0.50 - mg/dL * Pascale Garcia 06/12/2024 3:20: 22 PM >See phone encounter ?LAB: P-Sed Rate (ESR) (Collection Date & Time - 06/07/2024 12:01 PM)?36* Value Reference Range E rythrocyte Sedimentation Rate (ESR), Automated 36 H <21 - mm/hr * Pascale Garcia 06/12/2024 3:20: 22 PM >See phone encounter 2.?Fatigue, unspecified type?LAB: P-Vitamin B12 (Collection Date & Time - 06/07/2024 12:01 PM)?337* Value Reference Range V itamin B12 584 227-0224 - pg/mL * Pascale Garcia 06/12/2024 3:20: 22 PM >See phone encounter ?LAB: P-Hepatic Function Panel (Collection Date & Time - 06/07/2024 12:01 PM)?Normal* Value Reference Range A lbumin 4.6 3.5-5.3 - g/dL * A lkaline Phosphatase 89 40-129 - IU/L * A LT (SGPT) 26 <5-55 - IU/L * A ST (SGOT) 20 <5-46 - IU/L * B ilirubin, Direct <0.2 <0.2-0.3 - mg/dL * B ilirubin, Indirect See Comment L 0.2-1.3 - mg/dL * B ilirubin, Total 0.5 <0.2-1.2 - mg/dL * P rotein 7.4 6.0-8.3 - g/dL * RadhaPascale 06/12/2024 3:20: 22 PM >See phone encounter ?LAB: P-Magnesium (Collection Date & Time - 06/07/2024 12:01 PM)?Normal* Value Reference Range M agnesium 2.1 1.6-2.4 - mg/dL * RadhaPascale 06/12/2024 3:20: 22 PM >See phone encounter ?LAB: P-Phosphorus (Collection Date & Time - 06/07/2024 12:01 PM)?Normal* Value Reference Range P hosphorus 3.7 2.5-4.5 - mg/dL * RadhaPascale 06/12/2024 3:20: 22 PM >See phone encounter ?LAB: P-TSH reflex to FT4 (Collection Date & Time - 06/07/2024 12:01 PM)? Normal* Value Reference Range T SH reflex to FT4 1.44 0.43-5.25 - mU/L * RadhaPascale 06/12/2024 3:20: 22 PM >See phone encounter ?LAB: P-Vitamin D 25-Hydroxy (Collection Date & Time - 06/07/2024 12:01 PM)? Normal* Value Reference Range V itamin D 25-Hydroxy 13.5 L 30.0-100.0 - ng/mL * Pascale Garcia 06/12/2024 3:20: 22 PM >See phone encounter ?LAB: CBC Venipuncture (in house) (Collection Date & Time - 06/07/2024)?wbc 12.6, gran 9.5* Value Reference Range w bc 12.6 3.5 - 10 * l ymph 19.2% 15 - 50 * m id 5.5% 2 - 15 * g ran 75.3% 35 - 80 * r bc 5.13 3.5 - 5.5 * h gb 15.7 11.5 - 16.5 * h ct 48.3 35 - 55 * m cv 94.1 75 - 100 * m ch 30.7 25 - 35 * m chc 32.6 31 - 38 * p latlet 362 100 - 400 * Elsi Baker 06/07/2024 11:56:0 8 AM > Pascale Garcia 06/12/2024 3:20:22 PM >See phone encounter * Procedure Codes: 8 5025 CBC WITH AUTO DIFF, 30225 VENIPUNCT, ROUTINE* * Follow Up: 2 Months * Images: Billing Information: * Visit Code: 56919 Office Visit, Est Pt., Level 4. * Procedure Codes: 46018 CBC WITH AUTO DIFF. 99598 VENIPUNCT, ROUTINE*. * Electronic signature of Shelly Smith MD on 10/22/2025 at 10:33 AM EST Sign off status: Pending * Provider: Cassius Smith M.D. Date: 0 06/07/2024 Generated for Claribel nath/Jose/Skinny on: 1 10:33 AM EST History and Physical Notes * HPI (History of Present Illness) Category Sub-Category Detail Notes Category Not es Cardiology A-Fib Pt sts he is in a-fib, and did see cardiology yesterday. Pt sts Dr. Ramirez preformed a heart cath. Pt sts they did increase his Metoprolol to 300mg daily Hip/Thigh tingling/numbness Pt sts that ov er the last few weeks his legs have felt stiff and tingling. Pt sts that in the mornings when he gets up he is having to hold on to things to move around. Pt sts that the pain starts in his hip and goes down his leg. Pt sts the feeling almost feels like a rosemary horse Examination Category Sub-Category Detail Notes Category Not es General Examination Heart: irregularly irregular rhythm Lungs: clear to auscultatio n General Appearance: NAD Neurologic Exam: Intact, gait normal Neck: supple, no lymphaden opathy, thyroid normal Peripheral pulses: normal (2+) bilatera lly, dressing over right radial artery site at wrist
--- OUTSIDE RECORDS SUMMARY | 2024-06-17 12:00 | XMS_ITS ---
Author Organization [facility] Address [address] [facility] [address] [facility] [address] [place] [id number] Care Team Providers Care Sales Forecast Analyst Name Role Phone Milan Mendenhall Primary Care Provider [phone] Nithin Smith [phone] REASON FOR VISIT 6 week f/u Encounters Encounter Location Date Provider Diagnosis [facility] [address] [facility] [address] [facility] [address] [place] [id number] 06/17/2024 Nithin Smith Plan Of Treatment No Information Progress Notes * Rinku MARTINIOB:1975 ( 50 yo M)Acc No.[id number]:06/17/2024 Patient: Jasiel DAVIS Provider: Cassius Smith M.D. :1975 A ge:49 Y S ex:Male Date:06/17/2024 [address] [facility] Pcp:Milan Mendenhall Subjective: * Chief Complaints: * 1 . 6 week f/u. * Medical History: Objective: * Vitals: Assessment: Plan: * Treatment: * Images: Billing Information: * Visit Code: * Procedure Codes: * Electronic signature of Shelly Smith MD on 10/22/2025 at 10:33 AM EST Sign off status: Pending * Provider: Cassius Smith M.D. Date: 0 06/17/2024 Generated for Audiei pham/Jose/eTransmitting on: 10:33 AM EST
--- OUTSIDE RECORDS SUMMARY | 2024-08-12 12:15 | XMS_ITS ---
[facility] Organization [facility] Address [address] [place] [id number] Care Team Providers Care Aquaculture Farmer Name Role Phone Milan Mendenhall Primary Care Provider Nithin Smith Unavailable [phone] Allergies No Known Allergies Results Component Value Reference Range Notes X ray : Spine, lumbosacral Reviewed date:08/16/2024 10:39:28 AM Interpretation:anterior osteophyte formation Performing Lab: Notes/Report: anterior osteophyte formation REASON FOR VISIT 2 months Medications Medication SIG (Take, Route, Frequency, Duration) Notes Start Date End Date Status Metoprolol Succinate ER 200 MG 1.5 tablet Orally Once a day Active Rivaroxaban 20 MG 1 tablet with food Orally Once a day Active Digoxin 125 MCG 1 tablet Orally Once a day; Duration: 30 day(s) Active Vitamin D3 1.25 MG (74737 UT) 1 capsule Orally Once a week 06/12/2024 Active Tylenol 325 MG 2 tab(s) orally ever y 4 hours Active Ibuprofen 200 MG 1 tab(s) orally ever y 6 hours Active Jobst 30-40mmHg Compression Sm DIRECTED 07/13/2019 Active Cetirizine HCl 10 MG 1 tablet Orally Onc e a day; Duration: 90 days 03/27/2024 Active Spironolactone 50 MG 1 tablet Orally Onc e a day; Duration: 30 day(s) Active Problems Problem Type SNOMED Code ICD Code Onset Dates Problem Status W/U Status Risk Notes Problem Sciatica (00017400) Lumbago with sciatica, right side (M54.41) Active confirmed Problem Sciatica (13157017) Lumbago with sciatica, left side (M54.42) Active confirmed Vital Signs Weight 354 lbs 08/12/2024 Blood pressure systolic 130 mm Hg 08/12/20 24 Blood pressure diastolic 74 mm Hg 024 Heart Rate 71 /min 08/12/2024 Height 70 in 08/12/2024 BMI 50.79 kg/m2 08/12/2024 Encounters Encounter Location Date Provider Diagnosis [facility] [address] [place] [id number] 08/12/2024 Nithin Smith Lumbago with sciatic a, right side M54.41 ; Lumbago with sciatica, left side M54.42 and Cramp in lower leg R25.2 Assessments Encounter Date Diagnosis (ICD Code) Assessment Notes Treatment Notes Treatment Clinical Notes Section Notes 08/12/2024 Lumbago with sciatica, right side (ICD-10 - M54.41) 08/12/2024 Lumbago with sciatica, left side (ICD-10 - M54.42) 08/12/2024 Cramp in lower leg (ICD-10 - R25.2) Symptoms are non exertional Plan Of Treatment Treatment Notes Assessment Notes Cramp in lower leg Symptoms are non exe rtional Next Appt Details Follow Up: via phone to repo rt test results, Reason: Progress Notes * Rinku MARTINIOB:1975 ( 50 yo M)Acc No.[id number]:08/12/2024 Progress Notes Patient: Jasiel DAVIS Provider: Cassius Smith M.D. :1975 A ge:49 Y S ex:Male Date:08/12/2024 Address:[address] [place] [address], [place], [id number] Pcp:Milan Mendenhall Subjective: * Chief Complaints: * 1 . 2 months. * HPI: H ip/Thigh: 49 year old male presents with c/o Thigh P t here for 2 mo f/u on thigh pain. Pt states he still has cramps in his legs. Pt states at times the pain is so bad when he is driving that he feels like he needs to chute puller to get out and stretch his legs. Pt states that the pain has also started to go into his lower back. * ROS: D ERMATOLOGY: no R ruthy. n o H randy. G ASTROENTEROLOGY: no N ausea. n o V omiting. U ROLOGY: no D ifficulty urinating. n o B lood in urine. * Medical History: S leep Apnea, A-Fib, Dx: 2023, Allergic rhinitis. * Surgical History: H ernia Repair 1980, Tonsilectomy 1982, Vascetomy 2009, Heart Cath- [facility]- Dr. Ramirez 06/06/24. * Hospitalization/Major Diagno stic [...] tablet Orally Once a day , Taking Vitamin D3 1.25 MG (50190 UT) Capsule 1 capsule Orally Once a week , Discontinued Furosemide 40 MG Tablet 1 tablet Orally Once a day , Medication List reviewed and reconciled with the patient * Allergies: N .K.D.A. Objective: * Vitals: W t:354, Temp:97.9, BP:130/74, HR:71, Nurse:garry, Ht: 70, BMI:50.79. * Examination: G eneral Examination: General Appearance: N AD. L ower back: Straight leg raising test: negative bilaterally. G ait: n ormal. Assessment: * Assessment: 1. L umbago with sciatica, right side - M54.41 (Primary) 2 . L umbago with sciatica, left side - M54.42 3 . C ramp in lower leg - R25.2 Plan: * Treatment: 2.?Lumbago with sciatica, left side?Imaging: X ray : Spine, lumbosacral (Performed Date - 08/13/2024)?anterior osteophyte formation* Pascale Garcia 08/16/2024 10:3 9:21 AM > , See phone encounter 3.?Cramp in lower leg? Notes: Symptoms are non exertional?? * Follow Up: v ia phone to report test results * Images: Billing Information: * Visit Code: 14911 Office Visit, Est Pt., Level 3. * Procedure Codes: * Electronic signature of Shelly Smith MD on 10/22/2025 at 10:33 AM EST Sign off status: Pending * Provider: Cassius Smith M.D. Date: 1 Generated for Claribel nath/Jose/Radhaitting on: 10:33 AM EST History and Physical Notes * HPI (History of Present Illness) Category Sub-Category Detail Notes Category Not es Hip/Thigh Thigh Pt here for 2 mo f/u on thigh pain. Pt states he still has cramps in his legs. Pt states at times the pain is so bad when he is driving that he feels like he needs to chute puller to get out and stretch his legs. Pt states that the pain has also started to go into his lower back Examination Category Sub-Category Detail Notes Category Not es General Examination General Appearance: NAD Lower back Straight leg raising test: negative bilaterally Gait: normal
--- OUTSIDE RECORDS SUMMARY | 2025-03-04 04:00 | XMS_ITS ---
Author Organization [facility] Address [address] [place] [id number] Care Team Providers Care Antique Furniture Repairer Name Role Phone Milan Mendenhall Primary Care Provider Nithin Smith Unavailable [phone] Allergies No Known Allergies Reason For Referral Reason Vascular Center in [facility] Diagnosis 1 Bleeding from varico se vein (I83.899) Referral Organization [facility] Referring Provider First Name Nithin Referring Provider Last Name Luis Referring Provider Speciality Family Pra ctice Referred Provider Specialty Vascular Stefanie briana General Notes Savanna Block 2024 09:58:53 AM > faxed to [facility], Savanna Block 03/05/2025 10:01:12 AM > 03/14/2025 at 09:30am with Veronika Reese-PAC at [facility] Referral Priority Routine REASON FOR VISIT F/U ER Medications Medication SIG (Take, Route, Frequency, Duration) Notes Start Date End Date Status Rivaroxaban 20 MG 1 tablet with food Orally Once a day Active Jobst 30-40mmHg Compression Sm DIRECTED 07/13/2019 Not-Taking Ibuprofen 200 MG 1 tab(s) orally ever y 6 hours Not-Taking Tylenol 325 MG 2 tab(s) orally ever y 4 hours Not-Taking Spironolactone 50 MG 1 tablet Orally Onc e a day; Duration: 30 day(s) Not-Taking Digoxin 125 MCG 1 tablet Orally Once a day; Duration: 30 day(s) Not-Taking Metoprolol Succinate ER 200 MG 1.5 tablet Orally Once a day Active EQ Allergy Relief (Cetirizine) 10 MG Take 1 tablet by mouth once daily; Duration: 90 Active Vitamin D3 1.25 MG (12973 UT) 1 capsule Orally Once a week 06/12/2024 Not-Taking Vital Signs Weight 372.4 lbs 03/04/2025 Blood pressure systolic 132 mm Hg 03/04/20 25 Blood pressure diastolic 86 mm Hg 025 Heart Rate 70 /min 03/04/2025 Height 70 in 03/04/2025 BMI 53.43 kg/m2 03/04/2025 Encounters Encounter Location Date Provider Diagnosis [facility] [address] [place], [place] [id number] 03/04/2025 Nithin Smith Bleeding from varico se vein I83.899 Assessments Encounter Date Diagnosis (ICD Code) Assessment Notes Treatment Notes Treatment Clinical Notes Section Notes 03/04/2025 Bleeding from varicose vein (ICD-10 - I83.899) Rest, ice, compression and elevation Plan Of Treatment Treatment Notes Assessment Notes Bleeding from varicose vein Rest, ice, c ompression and elevation Referrals Referral Date Details 03/04/2025 03/04/2025, [facility] in [place] Next Appt Details Follow Up: 3 Months, Reason: Progress Notes * Rinku MARTINIOB:1975 ( 50 yo M)Acc No.[id number]:03/04/2025 Progress Notes Patient: Jasiel DAVIS Provider: Cassius Smith M.D. :1975 A ge:50 Y S ex:Male Date:03/04/2025 Address:[address] [place], [place] [id number] Pcp:Milan Mendenhall Subjective: * Chief Complaints: * 1 . F/U ER. * HPI: H ematology: 50 year old male presents with c/o Bleeding P t presents today for a follow-up from [facility] ER for a bleed. Pt presents to the ER after a spot on his left leg began to bleed and wouldn't stop. The ER staff had to apply compressive dressing to get the bleeding stopped. Pt sts that he has had a spot on his inner ankle for a while and sts that when he was drying off from the shower he must have pulled on the spot, and it just started pouring blood. Pt sts that the blood was just squirting out like a small hose. * ROS: D ERMATOLOGY: no R ruthy. n o H randy. G ASTROENTEROLOGY: no N ausea. n o V omiting. U ROLOGY: no D ifficulty urinating. n o B lood in urine. * Medical History: S leep Apnea, A-Fib, Dx: 2023, Allergic rhinitis. * Surgical History: H ernia Repair 1980, Tonsilectomy 1982, Vascetomy 2009, Heart Cath- [facility]- Dr. Ramirez 06/06/24. * Family History: F ather: 65 yrs, [...] food Orally Once a day , Taking EQ Allergy Relief (Cetirizine) 10 MG Tablet Take 1 tablet by mouth once daily , Not-Taking Spironolactone 50 MG Tablet 1 tablet Orally Once a day , Not-Taking Tylenol 325 MG Tablet 2 tab(s) orally every 4 hours , Not-Taking Ibuprofen 200 MG Tablet 1 tab(s) orally every 6 hours , Not-Taking Jobst 30-40mmHg Compression Sm KNEE HIGH DIRECTED , Not-Taking Digoxin 125 MCG Tablet 1 tablet Orally Once a day , Not-Taking Vitamin D3 1.25 MG (11580 UT) Capsule 1 capsule Orally Once a week , Medication List reviewed and reconciled with the patient * Allergies: N .K.D.A. Objective: * Vitals: W t: 372.4, Temp: 98.4, BP: 132/86, HR: 70, Nurse: NATHALIE, Ht: 70, BMI:53.43. * Examination: G eneral Examination: General Appearance: N AD. H eart: R SR. L ungs:?clear to auscultation. E xtremities: w rap on left lower leg and foot is clean dry and intact, no blood on dressing. Assessment: * Assessment: 1. B leeding from varicose vein - I83.899 (Primary) Plan: * Treatment: * Follow Up: 3 Months * Images: Billing Information: * Visit Code: 78400 Office Visit, Est Pt., Level 3. * Procedure Codes: * Electronic signature of Shelly Smith MD on 10/22/2025 at 10:33 AM EST Sign off status: Pending * Provider: Cassius Smith M.D. Date: 0 03/04/2025 Generated for Claribel nath/Jose/eTransmitting on: 1 10:33 AM EST History and Physical Notes * HPI (History of Present Illness) Category Sub-Category Detail Notes Category Not es Hematology Bleeding Pt presents to y for a follow-up from [facility] ER for a bleed. Pt presents to the ER after a spot on his left leg began to bleed and wouldn't stop. The ER staff had to apply compressive dressing to get the bleeding stopped. Pt sts that he has had a spot on his inner ankle for a while and sts that when he was drying off from the shower he must have pulled on the spot, and it just started pouring blood. Pt sts that the blood was just squirting out like a small hose Examination Category Sub-Category Detail Notes Category Not es General Examination Heart: RSR Lungs: clear to auscultatio n Extremities: wrap on left lower l eg and foot is clean dry and intact, no blood on dressing General Appearance: NAD Consultation Request Notes Referral Date Referring Provider Referred Provider Not es 03/04/2025 Nithin Smith , [facility] [place]
--- OUTSIDE RECORDS SUMMARY | 2025-04-14 12:00 | XMS_ITS ---
Author Organization [facility] Address [address] [place] [id number] Care Team Providers Care Community Engagement Representative Name Role Phone Milan Mendenhall Primary Care Provider Nithin Smith Unavailable [phone] Allergies No Known Allergies REASON FOR VISIT 3 week f/u Medications Medication SIG (Take, Route, Frequency, Duration) Notes Start Date End Date Status Metoprolol Succinate ER 200 MG 1.5 tablet Orally Once a day Active Rivaroxaban 20 MG 1 tablet with food O rally Once a day Active Vital Signs Weight 374 lbs 04/14/2025 Blood pressure systolic 132 mm Hg 04/14/20 25 Blood pressure diastolic 82 mm Hg 025 Heart Rate 98 /min 04/14/2025 Height 70 in 04/14/2025 BMI 53.66 kg/m2 04/14/2025 Encounters Encounter Location Date Provider Diagnosis [facility] [address] [place] [id number] 04/14/2025 Nithin Smith Bleeding from varico se vein I83.899 and Peripheral edema R60.0 Assessments Encounter Date Diagnosis (ICD Code) Assessment Notes Treatment Notes Treatment Clinical Notes Section Notes 04/14/2025 Bleeding from varicose vein (ICD-10 - I83.899) Keep follow up with vascular surgeon 04/14/2025 Peripheral edema (ICD-10 - R60.0) Patient needs to start wearing compression hose on both legs Plan Of Treatment Treatment Notes Assessment Notes Bleeding from varicose vein Keep follow up with vascular surgeon Peripheral edema Patient needs to sta rt wearing compression hose on both legs Next Appt Details Follow Up: 2 Months fasting, Reason: Progress Notes * Rinku MARTINIOB:1975 ( 50 yo M)Acc No.[id number]:04/14/2025 Patient: Jasiel DAVIS Provider: Cassius Smith M.D. :1975 A ge:50 Y S ex:Male Date:04/14/2025 Address:[address] [place] [address], [id number] Pcp:Milan Mendenhall Subjective: * Chief Complaints: * 1 . 3 week f/u. * HPI: H ematology: 50 year old male presents with c/o Bleeding P t here for 3 week f/u on bleeding from varicos vein on lt leg. Pt states that bending h is lt ankle is painful where stitches were placed to stop the bleeding on 03/31. * ROS: D ERMATOLOGY: no R ruthy. n o H randy. G ASTROENTEROLOGY: no N ausea. n o V omiting. U ROLOGY: no D ifficulty urinating. n o B lood in urine. * Medical History: S leep Apnea, A-Fib, Dx: 2023, Allergic Rhinitis, Varicose veins. * Surgical History: H ernia Repair 1980, Tonsilectomy 1982, Vascetomy 2009, Heart Cath- [facility]- Dr. Ramirez 06/06/2024. * Hospitalization/Major Diagno stic Procedure: D enies Past Hospitalization. * Family History: F ather: 65 yrs, melanoma. M other: 42 yrs, breast cancer. 1 sister(s) . 2 daughter(s) . . * Social History: C URRENT TOBACCO USE: No . C affeine: yes. Home smoke detector use: yes. Alcohol: No. * Medications: T aking Metoprolol Succinate ER 200 MG Tablet Extended Release 24 Hour 1.5 tablet Orally Once a day , Taking Rivaroxaban 20 MG Tablet 1 tablet with food Orally Once a day , Discontinued EQ Allergy Relief (Cetirizine) 10 MG Tablet Take 1 tablet by mouth once daily , Discontinued Spironolactone 50 MG Tablet 1 tablet Orally Once a day , Discontinued Tylenol 325 MG Tablet 2 tab(s) orally every 4 hours , Discontinued Ibuprofen 200 MG Tablet 1 tab(s) orally every 6 hours , Discontinued Jobst 30- 40mmHg Compression Sm KNEE HIGH DIRECTED , Discontinued Digoxin 125 MCG Tablet 1 tablet Orally Once a day , Discontinued Vitamin D3 1.25 MG (15021 UT) Capsule 1 capsule Orally Once a week , Medication List reviewed and reconciled with the patient * Allergies: N .K.D.A. Objective: * Vitals: W t: 374, Temp: 98.4, BP: 132/82, HR: 98, Nurse: farnaz/garry, Ht: 70, BMI:53.66. * Examination: G eneral Examination: General Appearance: N AD. E xtremities: 1 + bilateral leg edema, multiple varicosities, no active bleeding. Assessment: * Assessment: 1. B leeding from varicose vein - I83.899 (Primary) 2 . P eripheral edema - R60.0 Plan: * Treatment: 2. P eripheral edema Notes: Patient needs to start wearing compression hose on both legs * Procedure Codes: 1 036F TOBACCO NON-USER, G8783 BP SCR PRFRM RCMDD DEFIND SCR INTVL, G8752 MOST RECENT SYSTOLIC BP < 140MM HG, G8754 MOST RECENT DIASTOLIC BP < 90MM HG * Follow Up: 2 Months fasting * Images: Billing Information: * Visit Code: 18516 Office Visit, Est Pt., Level 3. * Procedure Codes: 1036F TOBACCO NON-USER. G8783 BP SCR PRFRM RCMDD DEFIND SCR INTVL. G8752 MOST RECENT SYSTOLIC BP < 140MM HG. G8754 MOST RECENT DIASTOLIC BP < 90MM HG. * Electronic signature of Shelly Smith MD on 10/22/2025 at 10:34 AM EST Sign off status: Pending * Provider: Cassius Smith M.D. Date: 0 04/14/2025 Generated for Claribel nath/Jose/Skinny on: 1 10:34 AM EST History and Physical Notes * HPI (History of Present Illness) Category Sub-Category Detail Notes Category Not es Hematology Bleeding Pt here for 3 we ek f/u on bleeding from varicos vein on lt leg. Pt states that bending his lt ankle is painful where stitches were placed to stop the bleeding on 03/31 Examination Category Sub-Category Detail Notes Category Not es General Examination Extremities: 1+ bilateral leg edema, multiple varicosities, no active bleeding General Appearance: NAD
--- OUTSIDE RECORDS SUMMARY | 2025-04-17 11:30 | XMS_ITS ---
Author Organization [facility] Address [address] [place] [phone] Care Team Providers Care Distribution Operations Supervisor Name Role Phone Mialn Mendenhall Primary Care Provider Conor Irene Unavailable [phone] Allergies No Known Allergies Results Component Value Reference Range Notes H-CBC Reviewed date:04/18/2025 04:03:52 PM Interpretation: Performing Lab: Notes/Report: WBC 14.1 4.8-10.8 K/mm3 RBC 4.34 4.60-6.20 M/mm3 HGB 13.5 14.1-18.0 g/dL HCT 39.8 42.0-52.0 % MCV 91.7 80-94 fl MCH 31.1 27.0-31.2 pg MCHC 33.9 31.8-35.4 g/dL RDW-SD 44.1 RDW 13.0 11.5-17.5 % PLT 361 142-424 K/mm3 MPV 9.0 7.4-10.4 fl NE% 63.4 37.0-80.0 % LY% 20.2 10-50 % MO% 12.1 1.7-9.3 % EO% 2.8 0.1-12.0 % BA% 0.6 0.1-2.0 % NRBC% 0 IG% 0.9 NE# 9.0 1.8-7.8 K/mm3 LY# 2.8 0.7-4.5 K/mm3 MO# 1.7 0.1-1.0 K/mm3 EO# 0.4 0.0-0.4 Kmm3 BA# 0.1 0-0.2 K/mm3 NRBC# 0 IG# 0.12 H-URIC ACID Reviewed date:04/18/2025 04:03:52 PM Interpretation: Performing Lab: Notes/Report: URIC 7.5 3.5-8.5 mg/dl H-Sed Rate Reviewed date:04/18/2025 04:03:52 PM Interpretation: Performing Lab: Notes/Report: ESR 71 0-20 mm/hr REASON FOR VISIT red spots from sutur Medications Medication SIG (Take, Route, Frequency, Duration) Notes Start Date End Date Status Rivaroxaban 20 MG 1 tablet with food O rally Once a day Active Metoprolol Succinate ER 200 MG 1.5 tablet Orally Once a day Active Cephalexin 500 MG 1 capsule Orally 3 t imes a day; Duration: 10 days 04/17/2025 Active Vital Signs Weight 368 lbs 04/17/2025 Blood pressure systolic 130 mm Hg 04/17/20 25 Blood pressure diastolic 90 mm Hg 025 Heart Rate 98 /min 04/17/2025 Height 70 in 04/17/2025 BMI 52.8 kg/m2 04/17/2025 Encounters Encounter Location Date Provider Diagnosis [facility] [address] [facility] [address] [place], [place] [address] [id number] 04/17/2025 Irene Conor Cellulitis of left ankle L03.116 Assessments Encounter Date Diagnosis (ICD Code) Assessment Notes Treatment Notes Treatment Clinical Notes Section Notes 04/17/2025 Cellulitis of left ankle (ICD-10 - L03.116) Plan Of Treatment Medication Medication Name Sig Start Date Stop Date Notes Cephalexin 500 MG 1 capsule Orally 3 t imes a day; Duration: 10 days 04/17/2025 Next Appt Details Follow Up: via phone to repo rt test results, Reason: Progress Notes * Rinku MARTINIOB:1975 ( 50 yo M)Acc No.[id number]:04/17/2025 Progress Notes Patient: Jasiel DAVIS Provider: CATRACHITO Baird :1975 A ge:50 Y S ex:Male Date:04/17/2025 Address:[address] [place] [address], [place] [facility] Pcp:Milan Mendenhall Subjective: * Chief Complaints: * 1 . Red spots from sutur. * HPI: C ardiology: 50 year old male presents with c/o Leg Edema P t complains of lt leg swelling and pain. Pt's states that redness is warm to the touch. Pt did recently have have stitches in ankle. * ROS: D ERMATOLOGY: no R ruthy. n o H randy. G ASTROENTEROLOGY: no N ausea. n o V omiting. U ROLOGY: no D ifficulty urinating. n o B lood in urine. * Medical History: S leep Apnea, A-Fib, Dx: 2023, Allergic Rhinitis, Varicose veins. * Surgical History: H ernia Repair 1980, Tonsilectomy 1982, Vascetomy 2009, Heart Cath- [facility]- Dr. Ramirez 06/06/2024. * Hospitalization/Major Diagno stic [...] with food Orally Once a day , Medication List reviewed and reconciled with the patient * Allergies: N .K.D.A. Objective: * Vitals: W t: 368, Temp: 98.1, BP: 130/90, HR: 98, Nurse: garry, Ht: 70, BMI:52.8. * Examination: G eneral Examination: General Appearance: N AD. C hest: n ormal shape and expansion. H eart: R SR. L ungs: c lear to auscultation. E xtremities: l eft lateral ankle and lateral side of the foot with erythema and edema, hot to the touch and tender.? Assessment: * Assessment: 1. C ellulitis of left ankle - L03.116 (Primary) Plan: * Treatment: Value Reference Range W BC 14.1 H 4.8-10.8 - K/mm3 * R BC 4.34 L 4.60-6.20 - M/mm3 * H GB 13.5 L 14.1-18.0 - g/dL * H CT 39.8 L 42.0-52.0 - % * M CV 91.7 80-94 - fl * M CH 31.1 27.0-31.2 - pg * M CHC 33.9 31.8-35.4 - g/dL * R DW 13.0 11.5-17.5 - % * P LT 361 142-424 - K/mm3 * M PV 9.0 7.4-10.4 - fl * N E% 63.4 37.0-80.0 - % * L Y% 20.2 10-50 - % * M O% 12.1 H 1.7-9.3 - % * E O% 2.8 0.1-12.0 - % * B A% 0.6 0.1-2.0 - % * N E# 9.0 H 1.8-7.8 - K/mm3 * L Y# 2.8 0.7-4.5 - K/mm3 * M O# 1.7 H 0.1-1.0 - K/mm3 * E O# 0.4 0.0-0.4 - Kmm3 * B A# 0.1 0-0.2 - K/mm3 * R DW-SD 44.1 - fL * N RBC% 0 - % * N RBC# 0 - 10 3/uL * I G% 0.9 - % * I G# 0.12 - 10 3uL * Irene Perdomo 04/18/2025 0 4:03:42 PM EDT >discussed with patient ?LAB: H-URIC ACID (Collection Date & Time - 04/17/2025 04:51 PM)* Value Reference Range U ARINA 7.5 3.5-8.5 - mg/dl * Irene Perdomo 04/18/2025 0 4:03:42 PM EDT >discussed with patient ?LAB: H-Sed Rate (Collection Date & Time - 04/17/2025 04:51 PM)* Value Reference Range E SR 71 H 0-20 - mm/hr * Irene Perdomo 04/18/2025 0 4:03:42 PM EDT >discussed with patient * Follow Up: v ia phone to report test results * Images: Billing Information: * Visit Code: 26692 Office Visit, Est Pt., Level 3. * Procedure Codes: * Electronic signature of CATRACHITO Díaz on 10/22/2025 at 10:33 AM EST Sign off status: Pending * Provider: CATRACHITO Baird Date: 0 04/17/2025 Generated for Claribel nath/Jose/eTransmitting on: 1 10:33 AM EST History and Physical Notes * HPI (History of Present Illness) Category Sub-Category Detail Notes Category Not es Cardiology Leg Edema Pt complains of lt leg swelling and pain. Pt's states that redness is warm to the touch. Pt did recently have have stitches in ankle Examination Category Sub-Category Detail Notes Category Not es General Examination Heart: RSR Lungs: clear to auscultatio n Extremities: left lateral ankle a nd lateral side of the foot with erythema and edema, hot to the touch and tender General Appearance: NAD Chest: normal shape and exp ansion
--- OUTSIDE RECORDS SUMMARY | 2025-06-17 04:15 | XMS_ITS ---
Author Organization [facility] Address [address] [place] [id number] Care Team Providers Care Pensions Retirement Plan Specialist Name Role Phone Milan Mendenhall Primary Care Provider Nithin Smith Unavailable [phone] Allergies No Known Allergies Results Component Value Reference Range Notes Glucose (In-House) Reviewed date:06/19/2025 11:57:43 AM Interpretation:satisfactory Performing Lab: Notes/Report: satisfactory blood glucose 116 74 - 106 mg/dL Glycohemoglobin A1c (in hous e) Reviewed date:06/19/2025 11:57:43 AM Interpretation:6.1 Normal Performing Lab: Notes/Report: 6.1 Normal glycohemoglobin 6.1% 5 - 6.5 % P-Basic Metabolic Panel (BMP ) Reviewed date:06/19/2025 11:57:43 AM Interpretation:Normal Performing Lab: Notes/Report: Test performed by [facility] [address] [place] [address] , [address], [place] [address] Nitish Matthews MD, Supervisor Silvering Department CLIA: [id number] Sodium 139 135-145 mmol/L Potassium 4.4 3.5-5.3 mmol/L Chloride 101 97-108 mmol/L CO2 24 20-32 mmol/L Glucose 104 65-99 mg/dL BUN 11 6-20 mg/dL Creatinine 0.73 0.70-1.30 mg/dL Calcium 9.5 8.6-10.4 mg/dL eGFR by Creatinine 109 >59 mL/min/1.73m2 P-Lipid Panel Reviewed date:06/19/2025 11:57:43 AM Interpretation:satisfactory Performing Lab: Notes/Report: Test performed by [facility] [address] [place] [address] Nitish Matthews MD, Supervisor Silvering Department CLIA: [id number] Cholesterol 174 <200 mg/dL Triglycerides 149 <150 mg/dL HDL Cholesterol 35 >39 mg/dL Cholesterol / HDL Ratio 4.97 0.00-4.99 Ratio Non-HDL Cholesterol 139 <130 mg/dL LDL Cholesterol (Calculation) 109 <130 mg/dL LDL Cholesterol Levels* Less than 100 mg/dL Optimal 100 to 129 mg/dL Near Optimal/ Above Optimal 130 to 159 mg/dL Borderline High 160 to 189 mg/dL High 190 mg/dL and above Very High * Categories as recommended by the 2004 ATPIII guidelines LDL/HDL Ratio 3.1 <3.3 Ratio LDL Cholesterol Patient History Test Date: 06/17/2025 LDL Results: 109 Units: mg/dL % Change: - P-Magnesium Reviewed date:06/19/2025 11:57:43 AM Interpretation:Normal Performing Lab: Notes/Report: Test performed by [facility] [address] [place], [place] [address] Nitish Matthews MD, Supervisor Silvering Department CLIA: [id number] Magnesium 2.3 1.6-2.4 mg/dL P-PSA Reviewed date:06/19/2025 11:57:43 AM Interpretation:Normal Performing Lab: Notes/Report: Test performed by [facility] [address] , [facility], [place] [address] Nitish Matthews MD, Supervisor Silvering Department CLIA: [id number] PSA 0.20 <4.00 ng/mL Please note this is an ultrasensitive PSA assay with a lower limit of detection of 0.014 ng/mL. This test is performed by the Rex ECLIA methodology. Values obtained with different assay methods or kits cannot be directly compared. P-TSH reflex to FT4 Reviewed date:06/19/2025 11:57:43 AM Interpretation:Normal Performing Lab: Notes/Report: Test performed by [facility] [address] , [facility], [place] [address] Nitish Matthews MD, Supervisor Silvering Department CLIA: [id number] TSH reflex to FT4 1.21 0.43-5.25 mU/L P-Microalbumin/Creatinine, R andom Urine Sample Reviewed date:06/19/2025 11:57:43 AM Interpretation:Normal Performing Lab: Notes/Report: Test performed by [facility] [address] , [facility], [place] [address] Nitish Matthews MD, Supervisor Silvering Department CLIA: [id number] Albumin/Creatinine Ratio, Urine 5 0-30 ug/m g Microalbumin, Urine, Random 0.4 Creatinine, Urine 75.7 REASON FOR VISIT 2 Month Fasting Medications Medication SIG (Take, Route, Frequency, Duration) Notes Start Date End Date Status Rivaroxaban 20 MG 1 tablet with food O rally Once a day Active dilTIAZem HCl ER 240 MG 1 tablet Orally Once a day Active Furosemide 40 MG 1 tablet Orally Once a day Active Metoprolol Succinate ER 200 MG 1.5 tablet Orally Once a day Active Problems Problem Type SNOMED Code ICD Code Onset Dates Problem Status W/U Status Risk Notes Problem Essential hypertension (10675882) Essential hypertension (I10) Active confirmed Vital Signs Weight 374 lbs 06/17/2025 Blood pressure systolic 138 mm Hg 06/17/20 25 Blood pressure diastolic 90 mm Hg 025 Heart Rate 82 /min 06/17/2025 Height 70 in 06/17/2025 BMI 53.66 kg/m2 06/17/2025 Encounters Encounter Location Date Provider Diagnosis [facility] [address] [place] [id number] 06/17/2025 Nithin Smith Essential hypertensi on I10 ; Hyperglycemia R73.9 ; Atrial fibrillation, unspecified type I48.91 ; Morbid obesity E66.01 ; Prostate cancer screening Z12.5 and FDC use of drug Z79.899 Assessments Encounter Date Diagnosis (ICD Code) Assessment Notes Treatment Notes Treatment Clinical Notes Section Notes 06/17/2025 Essential hypertension (ICD-10 - I10) Blood pressure journal 06/17/2025 Hyperglycemia (ICD-10 - R73.9) 06/17/2025 Atrial fibrillation, unspecified type (ICD-10 - I48.91) 06/17/2025 Morbid obesity (ICD-10 - E66.01) 06/17/2025 Prostate cancer screening (ICD-10 - Z12.5) 06/17/2025 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 - Z79.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 :1975 A ge:50 Y S ex:Male Date:06/17/2025 Address:[address] [place], [place] [phone] Pcp:Milan Mendenhall Subjective: * Chief Complaints: * 1 . 2 Month Fasting. * HPI: D ermatology: 50 year old male presents with c/o Cellulitis P t here for 2 mo f/u. Pt completed abx from 04/17 office visit. Pt states symptoms have improved. Pt states he has no concerns. H PI: c/o Patient is here today for P t is fasting today for labs. He had a cardioversion due to A. fib at [facility] yesterday. * ROS: G ASTROENTEROLOGY: no N ausea. n o V omiting. N EUROLOGY: no H eadache. n o T ingling numbness. ? U ROLOGY: no D ifficulty urinating. n o B lood in urine. * Medical History: S leep Apnea, A-Fib, Dx: 2023, cardioversion in 2023 and in May 2025, Allergic Rhinitis, Varicose veins, Cologuard - 2024. * Surgical History: H ernia Repair 1980, Tonsilectomy 1982, Vascetomy 2009, Heart Cath- [facility]- Dr. Ramirez 06/06/2024. * Hospitalization/Major Diagno stic Procedure: D enies Past Hospitalization. * Family History: F ather: 65 yrs, melanoma. M other: 42 yrs, breast cancer. 1 sister(s) . 2 daughter(s) . . * Social History: C URRENT TOBACCO USE: No . C affeine: yes. Home smoke detector use: yes. Alcohol: No. * Medications: T aking Furosemide 40 MG Tablet 1 tablet Orally Once a day , Taking dilTIAZem HCl ER 240 MG Tablet Extended Release 24 Hour 1 tablet Orally Once a day , Taking Metoprolol Succinate ER 200 MG Tablet Extended Release 24 Hour 1.5 tablet Orally Once a day , Taking Rivaroxaban 20 MG Tablet 1 tablet with food Orally Once a day , Discontinued Cephalexin 500 MG Capsule 1 capsule Orally 3 times a day , Medication List reviewed and reconciled with the patient * Allergies: N .K.D.A. Objective: * Vitals: W t: 374, Temp: 98.4, BP: 138/90, HR: 82, Nurse: FABIÁN, Ht: 70, BMI:53.66. * Examination: G eneral Examination: General Appearance: N AD. H eart: R SR. L ungs:?clear to auscultation. E xtremities: 1 + bilateral leg edema, multiple varicosities.? Assessment: * Assessment: 1. E ssential hypertension - I10 (Primary) 2 . H yperglycemia - R73.9 ? 3 . A trial fibrillation, unspecified type - I48.91 4 . M orbid obesity - E66.01 5 . P rostate cancer screening - Z12.5 6 . L rey term use of drug - Z79.899 Plan: * Treatment: Value Reference Range B UN 11 6-20 - mg/dL * C alcium 9.5 8.6-10.4 - mg/dL * C hloride 101 97-108 - mmol/L * C O2 24 20-32 - mmol/L * C reatinine 0.73 0.70-1.30 - mg/dL * G lucose 104 H 65-99 - mg/dL * P otassium 4.4 3.5-5.3 - mmol/L * S odium 139 135-145 - mmol/L * e GFR by Creatinine 109 >59 - mL/min/1.73m2 * King Elsi 06/19/2025 10:01: 48 AM EDT > LM for pt to return call [facility] 06/19/2025 11:57:12 AM EDT > Pt notified ?LAB: P-Lipid Panel (Collection Date & Time - 06/17/2025 08:35 AM)? satisfactory* Value Reference Range C holesterol / HDL Ratio 4.97 0.00-4.99 - Ratio * C holesterol 174 <200 - mg/dL * H DL Cholesterol 35 L >39 - mg/dL * L DL Cholesterol (Calculation) 109 <130 - mg/d L * L DL/HDL Ratio 3.1 <3.3 - Ratio * N on-HDL Cholesterol 139 H <130 - mg/dL * T riglycerides 149 <150 - mg/dL * King Elsi 06/19/2025 10:01: 48 AM EDT > LM for pt to return call [facility] 06/19/2025 11:57:12 AM EDT > Pt notified ?LAB: P-Microalbumin/Creatinine, Random Urine Sample (Collection Date & Time - 06/17/2025 08:35 AM)?Normal* Value Reference Range A lbumin/Creatinine Ratio, Urine 5 0-30 - ug /mg * C reatinine, Urine 75.7 - mg/dL * M icroalbumin, Urine, Random 0.4 - mg/dL * Hollis Bakerira 06/19/2025 10:01: 48 AM EDT > LM for pt to return call [facility] 06/19/2025 11:57:12 AM EDT > Pt notified ?LAB: Glucose (In-House) (Collection Date & Time - 06/17/2025)?satisfactory * Value Reference Range b lood glucose 116 74 - 106 mg/dL * [facility] 06/17/2025 11:02: 20 AM EDT > [facility] 06/19/2025 10:01:48 AM EDT > LM for pt to return call [facility] 06/19/2025 11:57:12 AM EDT > Pt notified Notes: Blood pressure journal??2.?Hyperglycemia?LAB: P-Basic Metabolic Panel (BMP) (Collection Date & Time - 06/17/2025 08:35 AM)?Normal* Value Reference Range B UN 11 6-20 - mg/dL * C alcium 9.5 8.6-10.4 - mg/dL * C hloride 101 97-108 - mmol/L * C O2 24 20-32 - mmol/L * C reatinine 0.73 0.70-1.30 - mg/dL * G lucose 104 H 65-99 - mg/dL * P otassium 4.4 3.5-5.3 - mmol/L * S odium 139 135-145 - mmol/L * e GFR by Creatinine 109 >59 - mL/min/1.73m2 * Hollis Bakerira 06/19/2025 10:01: 48 AM EDT > LM for pt to return call [facility] 06/19/2025 11:57:12 AM EDT > Pt notified ?LAB: P-TSH reflex to FT4 (Collection Date & Time - 06/17/2025 08:35 AM)? Normal* Value Reference Range T SH reflex to FT4 1.21 0.43-5.25 - mU/L * King Elsi 06/19/2025 10:01: 48 AM EDT > LM for pt to return call Elsi [facility] 06/19/2025 11:57:12 AM EDT > Pt notified ?LAB: Glycohemoglobin A1c (in house) (Collection Date & Time - 06/17/2025)? 6.1 Normal* Value Reference Range g lycohemoglobin 6.1% 5 - 6.5 % * Elsi Baker 06/17/2025 11:02: 51 AM EDT > [facility] 06/19/2025 10:01:48 AM EDT > LM for pt to return call Elsi Baker 06/19/2025 11:57:12 AM EDT > Pt notified 3.?Atrial fibrillation, unspecified type? Continue Rivaroxaban Tablet, 20 MG, 1 tablet with food, Orally, Once a day;?Continue dilTIAZemHCl ER Tablet Extended Release 24 Hour, 240 MG, 1 tablet, Orally, Once a day.?LAB: P-TSH reflex to FT4 (Collection Date & Time - 06/17/2025 08:35 AM)? Normal* Value Reference Range T SH reflex to FT4 1.21 0.43-5.25 - mU/L * Elsi Baker 06/19/2025 10:01: 48 AM EDT > LM for pt to return call [facility] Baker 06/19/2025 11:57:12 AM EDT > Pt notified 4.?Prostate cancer screening?LAB: P-PSA (Collection Date & Time - 06/17/2025 08:35 AM)?Normal* Value Reference Range P SA 0.20 <4.00 - ng/mL * Elsi Baker 06/19/2025 10:01: 48 AM EDT > LM for pt to return call Elsi Baker 06/19/2025 11:57:12 AM EDT > Pt notified 5.?FDC use of drug?LAB: P-Magnesium (Collection Date & Time - 06/17/2025 08:35 AM)?Normal* Value Reference Range M agnesium 2.3 1.6-2.4 - mg/dL * Elsi Baker 06/19/2025 10:01: 48 AM EDT > LM for pt to return call Elsi Baker 06/19/2025 11:57:12 AM EDT > Pt notified * Procedure Codes: 8 2950 GLUCOSE TEST, [address] GLYCATED HEMOGLOBIN TEST, Modifiers: QW , 3044F HG A1C LEVEL LT 7.0%, 1036F TOBACCO NON-USER * Follow Up: v ia phone to report progress,6 Months * Images: Billing Information: * Visit Code: 94475 Office Visit, Est Pt., Level 4. * Procedure Codes: 25512 GLUCOSE TEST. [address] GLYCATED HEMOGLOBIN TEST. Modifiers: QW 3044F HG A1C LEVEL LT 7.0%. 1036F TOBACCO NON-USER. * Electronic signature of Shelly Smith MD on 10/22/2025 at 10:34 AM EST Sign off status: Pending * Provider: Csasius Smith M.D. Date: 0 06/17/2025 Generated for Audiei pham/Jose/eTransmitting on: 1 10:34 AM EST History and Physical Notes * HPI (History of Present Illness) Category Sub-Category Detail Notes Category Not es Dermatology Cellulitis Pt here for 2 mo f/u. Pt completed abx from 04/17 office visit. Pt states symptoms have improved. Pt states he has no concerns HPI Patient is here today for Pt is fasting today for labs. He had a cardioversion due to A. fib at [facility] yesterday Examination Category Sub-Category Detail Notes Category Not es General Examination Heart: RSR Lungs: clear to auscultatio n Extremities: 1+ bilateral leg norma ma, multiple varicosities General Appearance: NAD
--- OUTSIDE RECORDS SUMMARY | 2025-07-01 09:30 | XMS_ITS ---
Author Organization [facility] Address [facility] [facility] [address] [place] [id number] Care Team Providers Care Company Doctor Name Role Phone Milan Mendenhall Primary Care Provider [phone] Dia Carr Unavailable [phone] Allergies No Known Allergies Results Component Value Reference Range Notes Influenza Screen (in house) Reviewed date:07/01/2025 08:30:23 PM Interpretation:Negative Performing Lab: Notes/Report: Negative results Neg Covid test (in house) Reviewed date:07/01/2025 08:30:43 PM Interpretation:Positive Performing Lab: Notes/Report: Positive Result: Pos REASON FOR VISIT sinus drainage Medications Medication SIG (Take, Route, Frequency, Duration) Notes Start Date End Date Status dilTIAZem HCl ER 240 MG 1 tablet Orally Once a day Active Rivaroxaban 20 MG 1 tablet with food O rally Once a day Active Furosemide 40 MG 1 tablet Orally Once a day Active Metoprolol Succinate ER 100 MG 1.5 tablet Orally twice a day Active Vital Signs Weight 377.0 lbs 07/01/2025 Blood pressure systolic 140 mm Hg 07/01/20 25 Blood pressure diastolic 80 mm Hg 025 Heart Rate 71 /min 07/01/2025 Height 70 in 07/01/2025 BMI 54.09 kg/m2 07/01/2025 Encounters Encounter Location Date Provider Diagnosis [facility] [address] [facility] [address] [place] [id number] 07/01/2025 Dia Carr Acute COVID-19 U07.1 Assessments Encounter Date Diagnosis (ICD Code) Assessment Notes Treatment Notes Treatment Clinical Notes Section Notes 07/01/2025 Acute COVID-19 (ICD-10 - U07.1) Fluids, rest, supportive measures for fever/symptom relief; discussed infectious precautions; declines Paxlovid Plan Of Treatment Treatment Notes Assessment Notes Acute COVID-19 Fluids, rest, suppor tive measures for fever/symptom relief; discussed infectious precautions; declines Paxlovid Next Appt Details Follow Up: prn, Reason: Progress Notes * Rinku MARTINIOB:1975 ( 50 yo M)Acc No.[id number]:07/01/2025 Progress Notes Patient: Jasiel DAVIS Provider: LION Piedra :1975 A ge:50 Y S ex:Male Date:07/01/2025 Address:[address] [place], [place] [phone] Pcp:Milan Mendenhall Subjective: * Chief Complaints: * 1 . Sinus drainage. * HPI: E NT/respiratory: Pt states these symptoms stared 2 days ago and getting worse; eating and drinking as usual. 50 year old male presents with c/o cough g reenish yellow sputum production. c/o nasal congestion s neezing, all the time. c/o facial pain/pressure. Denies : sore throat. D enies : Fever. D enies : ear pain. D enies : rhinorrhea. D enies : Chest Pain. D enies : Short of Breath. D enies : headache. D enies : chest congestion. D enies : smoking. D enies : dizziness. D enies : body aches. D enies : ear stopped up. D enies : ringing in ear. * ROS: D ERMATOLOGY: no R ruthy. n o H randy. G ASTROENTEROLOGY: no N ausea. n o V omiting. n o D iarrhea.? U ROLOGY: no D ifficulty urinating. n o B lood in urine. * Medical History: S leep Apnea, A-Fib, Dx: 2023, cardioversion in 2023 and in May 2025, Allergic Rhinitis, Varicose veins, Cologuard - 2024. * Surgical History: H ernia Repair 1980, Tonsilectomy 1982, Vascetomy 2009, Heart Cath- [facility]- Dr. Ramirez 06/06/2024. * Family History: F ather: 65 yrs, melanoma. M other: 42 yrs, breast cancer. 1 sister(s) . 2 daughter(s) . . * Social History: C URRENT TOBACCO USE: No . C affeine: yes. Home smoke detector use: yes. Alcohol: No. * Medications: T aking Furosemide 40 MG Tablet 1 tablet Orally Once a day , Taking Metoprolol Succinate ER 100 MG Tablet Extended Release 24 Hour 1.5 tablet Orally twice a day , Taking Rivaroxaban 20 MG Tablet 1 tablet with food Orally Once a day , Taking dilTIAZem HCl ER 240 MG Tablet Extended Release 24 Hour 1 tablet Orally Once a day , Medication List reviewed and reconciled with the patient * Allergies: N .K.D.A. Objective: * Vitals: W t: 377.0, Temp: 98.4, BP: 140/80, HR: 71, Nurse: farnaz, Ht: 70, BMI:54.09. * Examination: G eneral Examination: General Appearance: N AD, alert, obese. H EENT: s clera and conjunctiva clear, PERRLA, TM's normal, translucent. O ral cavity: m ucosa moist and WNL, no erythema. N joni: s upple, no lymphadenopathy. H eart: R RR. L ungs: CTAB A&P. N eurologic Exam: a lert and oriented. Assessment: * Assessment: 1. Kiko balderrama COVID-19 - U07.1 (Primary) Plan: * Treatment: * Labs: * L ab: Covid test (in house) (Collection Date & Time - 07/01/2025) P ositive Value Reference Range R esult: Pos * Marcia Mclean 07/01/2025 02: 32:19 PM EDT > Provider reviewed results while patient in office.Dia Carr 07/01/2025 08:30:39 PM EDT > ?Lab: Influenza Screen (in house) (Collection Date & Time - 07/01/2025) ?Negative* Value Reference Range r esults Neg * Marcia Mclean 07/01/2025 02: 32:45 PM EDT > Provider reviewed results while patient in office.Dia Carr 07/01/2025 08:30:19 PM EDT > * Procedure Codes: 8 7811 COVID TEST IN HOUSE, Modifiers: QW , [address]1840 Flu Test- Nasal Swab, Modifiers: QW * Follow Up: p rn * Images: Billing Information: * Visit Code: 28411 Office Visit, Est Pt., Level 3. * Procedure Codes: 23503 COVID TEST IN HOUSE. Modifiers: QW 14361 Flu Test- Nasal Swab. Modifiers: QW * Electronic signature of Carlotta lovelace Lilly , FIELD IRONWORKER on 10/22/2025 at 10:34 AM EST Sign off status: Pending * Provider: LION Piedra Date: 0 07/01/2025 Generated for Audiei ng/Fatanvig/eTransmitting on: 1 10:34 AM EST History and Physical Notes * HPI (History of Present Illness) Category Sub-Category Detail Notes Category Not es ENT/respiratory sore throat facial pain/pressure ear pain Short of Breath Chest Pain cough greenish yellow sput um production Fever headache chest congestion rhinorrhea nasal congestion sneezing, all the ti me smoking dizziness body aches ear stopped up ringing in ear Examination Category Sub-Category Detail Notes Category Not es General Examination HEENT: sclera and c onjunctiva clear, PERRLA, TM's normal, translucent Heart: RRR Lungs: CTAB A&P General Appearance: NAD, alert, obese Neurologic Exam: alert and oriented Neck: supple, no lymphaden opathy Oral cavity: mucosa moist and WNL , no erythema
--- OUTSIDE RECORDS SUMMARY | 2025-09-26 05:40 | XMS_ITS ---
[facility] Organization [facility] Address [address] [place] [id number] Care Team Providers Care Project Builder Name Role Phone Milna Mendenhall Primary Care Provider RandellIrene high Unavailable [phone] Allergies No Known Allergies Results Component Value Reference Range Notes CBC Venipuncture (in house) Reviewed date:09/26/2025 05:29:38 PM Interpretation: Performing Lab: Notes/Report: wbc 11.4 3.5 - 10 lymph 20.5% 15 - 50 mid 5.9% 2 - 15 gran 73.6% 35 - 80 rbc 4.87 3.5 - 5.5 hgb 15.3 11.5 - 16.5 hct 45.3 35 - 55 mcv 92.9 75 - 100 mch 31.5 25 - 35 mchc 33.9 31 - 38 platlet 409 100 - 400 P-Comprehensive Metabolic Pa laisha (CMP) Reviewed date:10/01/2025 04:10:49 PM Interpretation:Glu 109, AST 47 Performing Lab: Notes/Report: Test performed by [facility] [address] [place] [address] , [address], [place] [address] Victorino Dockery MD, PhD, [facility], Manager Medicare Marketing CLIA: [id number] Sodium 138 135-145 mmol/L Potassium 5.3 3.5-5.3 mmol/L Chloride 101 97-108 mmol/L CO2 26 20-32 mmol/L Glucose 109 65-99 mg/dL BUN 16 6-20 mg/dL Creatinine 0.84 0.70-1.30 mg/dL Calcium 9.7 8.6-10.4 mg/dL eGFR by Creatinine 105 >59 mL/min/1.73m2 Protein 7.7 6.0-8.3 g/dL Albumin 4.6 3.5-5.3 g/dL Alkaline Phosphatase 90 44-138 IU/L ALT (SGPT) 55 <5-55 IU/L AST (SGOT) 47 <5-46 IU/L Bilirubin, Total 0.4 <0.2-1.2 mg/dL A/G Ratio 1.5 1.1-2.5 P-TSH reflex to FT4 Reviewed date:10/01/2025 04:10:49 PM Interpretation: Normal Performing Lab: Notes/Report: Test performed by [facility] [address] [place] [address] , [facility] [place] [address] Victorino Dockery MD, PhD, [facility], Manager Medicare Marketing CLIA: [id number] TSH reflex to FT4 1.55 0.43-5.25 mU/L proBrain Natriuretic Peptide Reviewed date:10/01/2025 04:10:49 PM Interpretation: Normal Performing Lab: Notes/Report: Test performed by [facility] [address] [place] [address] , [place] [address] Victorino Dockery MD, PhD, [facility], Manager Medicare Marketing CLIA: [id number] proBrain Natriuretic Peptide 36 <300 pg/mL Please note the updated reference range values which are stratified by age. Positive >900 pg/mL Indeterminate 300-900 pg/mL Negative <300 pg/mL Echocardiogram Reviewed date:10/15/2025 09:06:20 AM Interpretation:Mild RV dilation Performing Lab: Notes/Report: Mild RV dilation EKG with rhythm strip Reviewed date:10/15/2025 09:06:20 AM Interpretation: Performing Lab: Notes/Report: REASON FOR VISIT SOA Medications Medication SIG (Take, Route, Frequency, Duration) Notes Start Date End Date Status Furosemide 40 MG 1 tablet Orally Once a day Active Metoprolol Succinate ER 100 MG 1.5 tablet Orally twice a day Active Rivaroxaban 20 MG 1 tablet with food O rally Once a day Active dilTIAZem HCl ER 240 MG 1 tablet Orally Once a day Active Vital Signs Weight 388.4 lbs 09/26/2025 Blood pressure systolic 130 mm Hg 09/26/20 25 Blood pressure diastolic 80 mm Hg 025 Heart Rate 93 /min 09/26/2025 Height 70 in 09/26/2025 BMI 55.72 kg/m2 09/26/2025 Encounters Encounter Location Date Provider Diagnosis [facility] [address] [facility] [address] [place] [id number] 09/26/2025 Irene Mejiasanila Other fatigue R53.83 ; Shortness of breath R06.02 and History of atrial fibrillation Z86.79 Assessments Encounter Date Diagnosis (ICD Code) Assessment Notes Treatment Notes Treatment Clinical Notes Section Notes 09/26/2025 Other fatigue (ICD-10 - R53.83) 09/26/2025 Shortness of breath (ICD-10 - R06.02) 09/26/2025 History of atrial fibrillation (ICD-10 - Z86.79) Plan Of Treatment Pending Test Test Name Order Date P-BNP (Brain Natriuretic Peptide) 2024 Next Appt Details Follow Up: via phone to repo rt test results, Reason: Progress Notes * Rinku MARTINIOB:1975 ( 50 yo M)Acc No.[id number]:09/26/2025 Progress Notes Patient: Jasiel DAVIS Provider: CATRACHITO Baird :1975 A ge:50 Y S ex:Male Date:09/26/2025 Address:[address] [place], [place] [id number] Pcp:Milan Mendenhall Subjective: * Chief Complaints: * 1 . SOA. * HPI: E NT/respiratory: 50 year old male presents with c/o cough P t states he has had a cough in the morning for several weeks but it gets better as the days goes on . c/o nasal congestion P t states he has a slight runny nose in the morning . c/o Short of Breath P t states he has been short of breath for several weeks. Pt states just walking to his truck is hard at times. Pt states it feels like after he eats it gets worse. Pt states he has no tightness in his chest but has some pain in his mid back on the right side. * ROS: D ERMATOLOGY: no R rtuhy. n o H randy. G ASTROENTEROLOGY: no [...] 1980, Tonsilectomy 1982, Vascetomy 2009, Heart Cath- [facility]- Dr. Ramirez 06/06/2024. * Hospitalization/Major Diagno [...] N .K.D.A. Objective: * Vitals: W t: 388.4, Temp: 98.4, BP: 130/80, HR: 93, Nurse: FABIÁN, Ht: 70, BMI:55.72. * Examination: G eneral Examination: General Appearance: N AD. H EENT: u nremarkable.?Oral cavity: n o lesions, mucosa moist and WNL, no erythema. N joni: s upple, no lymphadenopathy. C hest: n ormal shape and expansion. H eart: R SR. L ungs: c lear to auscultation. A bdomen: b owel sounds present, soft and nontender. N eurologic Exam: a lert and oriented. S kin: n ormal, no rash. P eripheral pulses: n ormal (2+) bilaterally. E xtremities: 2 + leg edema. Assessment: * Assessment: 1. O ther fatigue - R53.83 (Primary) 2 . S hortness of breath - R06.02 3 . H istory of atrial fibrillation - Z86.79 Plan: * Treatment: Value Reference Range A /G Ratio 1.5 1.1-2.5 - * A lbumin 4.6 3.5-5.3 - g/dL * A lkaline Phosphatase 90 44-138 - IU/L * A LT (SGPT) 55 <5-55 - IU/L * A ST (SGOT) 47 H <5-46 - IU/L * B ilirubin, Total 0.4 <0.2-1.2 - mg/dL * B UN 16 6-20 - mg/dL * C alcium 9.7 8.6-10.4 - mg/dL * C hloride 101 97-108 - mmol/L * C O2 26 20-32 - mmol/L * C reatinine 0.84 0.70-1.30 - mg/dL * G lucose 109 H 65-99 - mg/dL * P otassium 5.3 3.5-5.3 - mmol/L * S odium 138 135-145 - mmol/L * P rotein 7.7 6.0-8.3 - g/dL * e GFR by Creatinine 105 >59 - mL/min/1.73m2 * Irene Perdomo 09/26/2025 1 1:18:44 AM EST >room ha Whitney 10/01/2025 04:10:42 PM EST > See phone encounter ?LAB: P-TSH reflex to FT4 (Collection Date & Time - 09/26/2025 10:34 AM)? Normal* Value Reference Range T SH reflex to FT4 1.55 0.43-5.25 - mU/L * Irene Perdomo 09/26/2025 1 1:18:44 AM EST >room Cassiusha Whitney 10/01/2025 04:10:42 PM EST > See phone encounter ?LAB: CBC Venipuncture (in house) (Collection Date & Time - 09/26/2025)* Value Reference Range w bc 11.4 3.5 - 10 * l ymph 20.5% 15 - 50 * m id 5.9% 2 - 15 * g ran 73.6% 35 - 80 * r bc 4.87 3.5 - 5.5 * h gb 15.3 11.5 - 16.5 * h ct 45.3 35 - 55 * m cv 92.9 75 - 100 * m ch 31.5 25 - 35 * m chc 33.9 31 - 38 * p latlet 409 100 - 400 * Aliica Epps 09/26/2025 12: 43:51 PM EST > 2.?Shortness of breath?LAB: P-BNP (Brain Natriuretic Peptide)* Irene Perdomo 09/26/2025 1 1:18:44 AM EST >room B, purple ?Imaging: Echocardiogram (Performed Date - 10/06/2025)?Mild RV dilation* Savanna Block 09/26/2025 11:2 7:18 AM EST > faxed to [facility] Scheduling Bibiana Luz 10/15/2025 09:06:10 AM EST > see 10/10 TE 3.?History of atrial fibrillation?Imaging: EKG with rhythm strip (Performed Date - 09/26/2025)* Bibiana Luz 10/15/2025 09 :06:10 AM EST > see 10/10 TE * Labs: * L ab: proBrain Natriuretic Peptide (Collection Date & Time - 09/26/2025 10:34 AM) N ormal Value Reference Range p roBrain Natriuretic Peptide 36 <300 - pg/mL * [facility] 09/27/2025 03:55:06 : This order was created by the Interface. Bibiana Luz 10/01/2025 04:10:42 PM EST > See phone encounter * Procedure Codes: 8 5025 CBC WITH AUTO DIFF, 97814 VENIPUNCT, ROUTINE*, 3075F SYST BP GE 130 - 139MM HG, 3079F DIAST BP 80-89 MM HG * Follow Up: v ia phone to report test results * Images: Billing Information: * Visit Code: 43936 Office Visit, Est Pt., Level 4. * Procedure Codes: 74487 CBC WITH AUTO DIFF. 76056 VENIPUNCT, ROUTINE*. 3075F SYST BP GE 130 - 139MM HG. 3079F DIAST BP 80-89 MM HG. * Electronic signature of CATRACHITO Díaz on 10/22/2025 at 10:33 AM EST Sign off status: Pending * Provider: CATRACHITO Baird Date: 11/27/2024 Generated for Claribel nath/Jose/eTransmitting on: 10:33 AM EST History and Physical Notes * HPI (History of Present Illness) Category Sub-Category Detail Notes Category Not es ENT/respiratory Short of Breath Pt states he has been short of breath for several weeks. Pt states just walking to his truck is hard at times. Pt states it feels like after he eats it gets worse. Pt states he has no tightness in his chest but has some pain in his mid back on the right side cough Pt states he has had a cough in the morning for several weeks but it gets better as the days goes on nasal congestion Pt states he has a s light runny nose in the morning Examination Category Sub-Category Detail Notes Category Not es General Examination HEENT: unremarkable Heart: RSR Lungs: clear to auscultatio n Abdomen: bowel sounds present , soft and nontender Extremities: 2+ leg edema General Appearance: NAD Skin: normal, no rash Neurologic Exam: alert and oriented Neck: supple, no lymphaden opathy Oral cavity: no lesions, mucosa m oist and WNL, no erythema Peripheral pulses: normal (2+) bilatera lly Chest: normal shape and exp ansion
[2025-10-22 08:41] VITALS: BMI 55.3
--- OUTSIDE RECORDS SUMMARY | 2025-10-22 10:34 | XMS_ITS | Patient Health Record ---
[facility] Address [address] [place] [id number] Care Team Providers Care Pricing Lead Name Role Phone Milan Mendenhall Primary Care Provider [phone] Nithin Smith Unavailable [phone] Dia Carr Unavailable [phone] Irene Perdomo Unavailable [phone] Allergies No Known Allergies Results Component Value [...] Performing Lab: Notes/Report: ESR 71 0-20 mm/hr Influenza Screen (in house) Reviewed date:07/01/2025 08:30:23 PM Interpretation:Negative Performing Lab: Notes/Report: Negative results Neg Covid test (in house) Reviewed date:07/01/2025 08:30:43 PM Interpretation:Positive Performing Lab: Notes/Report: Positive Result: Pos CBC Venipuncture (in house) Reviewed date:09/26/2025 05:29:38 [...] 47 Performing Lab: Notes/Report: Test performed by [facility] [address] [place] [address] , [address], [place] [address] Victorino Dockery MD, PhD, FCAP, [employer] Attendant CLIA: [id number] Sodium 138 135-145 mmol/L Potassium 5.3 3.5-5.3 [...] Normal Performing Lab: Notes/Report: Test performed by [facility] [address] [place] [address] , [place] [address] Victorino Dockery MD, PhD, [facility], [employer] Attendant CLIA: [id number] TSH reflex to FT4 1.55 0.43-5.25 mU/L proBrain Natriuretic Peptide Reviewed date:10/01/2025 04:10:49 PM Interpretation: Normal Performing Lab: Notes/Report: Test performed by [facility] [address] [place] [address] , [address], [place] [address] Victorino Dockery MD, PhD, [facility], [employer] Cart Attendant CLIA: [id number] proBrain Natriuretic Peptide 36 <300 pg/mL Please note the updated reference range values which are stratified by age. Positive >900 pg/mL Indeterminate 300-900 pg/mL Negative <300 pg/mL Echocardiogram Reviewed date:10/15/2025 09:06:20 AM Interpretation:Mild RV dilation Performing Lab: Notes/Report: Mild RV dilation EKG with rhythm strip Reviewed date:10/15/2025 09:06:20 AM Interpretation: Performing Lab: Notes/Report: H-DIFF Reviewed date:04/18/2025 04:03:52 PM Interpretation: Performing Lab: Notes/Report: [facility] MANUAL DIFFERENTIAL MANUAL DIFF TCC 100 NEUT%M 64 42-76 % LYMPH%M 22 10-50 % MONO%M 10 2-9 % EOS%M 3 0-3 % BASO%M 1.0 0-1 PLTE Normal GPLAT 1+ RM Normal Glucose (In-House) Reviewed date:06/19/2025 11:57:43 AM Interpretation:satisfactory Performing Lab: Notes/Report: satisfactory blood glucose 116 74 - 106 mg/dL Glycohemoglobin A1c (in hous e) Reviewed date:06/19/2025 11:57:43 AM Interpretation:6.1 Normal Performing Lab: Notes/Report: 6.1 Normal glycohemoglobin 6.1% 5 - 6.5 % P-Basic Metabolic Panel (BMP ) Reviewed date:06/19/2025 11:57:43 AM Interpretation:Normal Performing Lab: Notes/Report: Test performed by [facility] [address] [place] [address] , [address], [place] [address] Nitish Matthews MD, [employer] Attendant CLIA: [id number] Sodium 139 135-145 mmol/L Potassium 4.4 3.5-5.3 mmol/L Chloride 101 97-108 mmol/L CO2 24 20-32 mmol/L Glucose 104 65-99 mg/dL BUN 11 6-20 mg/dL Creatinine 0.73 0.70-1.30 mg/dL Calcium 9.5 8.6-10.4 mg/dL eGFR by Creatinine 109 >59 mL/min/1.73m2 P-Lipid Panel Reviewed date:06/19/2025 11:57:43 AM Interpretation:satisfactory Performing Lab: Notes/Report: Test performed by [facility] [address] [place] [address] , [address], [place] [address] Nitish Matthews MD, [employer] Attendant CLIA: [id number] Cholesterol 174 <200 mg/dL Triglycerides 149 <150 [...] Interpretation:Normal Performing Lab: Notes/Report: Test performed by [facility] [address] [place] [address] , [address], [place] [address] Nitish Matthews MD, [employer] Attendant CLIA: [id number] Magnesium 2.3 1.6-2.4 mg/dL P-PSA Reviewed date:06/19/2025 11:57:43 AM Interpretation:Normal Performing Lab: Notes/Report: Test performed by [facility] [address] [place] [address] , [address], [place] [address] Nitish Matthews MD, [employer] Attendant CLIA: [id number] PSA 0.20 <4.00 ng/mL Please note this is an ultrasensitive PSA assay with a lower limit of detection of 0.014 ng/mL. This test is performed by the [employer] ECLIA methodology. Values obtained with different assay methods or kits cannot be directly compared. P-TSH reflex to FT4 Reviewed date:06/19/2025 11:57:43 AM Interpretation:Normal Performing Lab: Notes/Report: Test performed by [facility] [address] [place], [place] [email or web address] [place] , [address], [place] [address] Nitish Matthews MD, [employer] Cart Attendant CLIA: [id number] TSH reflex to FT4 1.21 0.43-5.25 mU/L P-Microalbumin/Creatinine, R andom Urine Sample Reviewed date:06/19/2025 11:57:43 AM Interpretation:Normal Performing Lab: Notes/Report: Test performed by [facility] [address] [place] [address] , [address], [place] [address] Nitish Matthews MD, [employer] Attendant CLIA: [id number] Albumin/Creatinine Ratio, Urine 5 0-30 ug/mg Microalbumin, Urine, Random 0.4 Creatinine, Urine 75.7 Cologuard Reviewed date:06/19/2025 11:45:33 AM Interpretation:Negative Performing Lab: Notes/Report: Negative Reason For Referral Reason Vascular Center in [facility] Diagnosis 1 Bleeding from varico se vein (I83.899) Referral Organization [facility] Referring Provider First Name Nithin Referring Provider Last Name Luis Referring Provider Speciality Family Pra ctice Referred Provider Specialty Vascular Stefanie briana General Notes Savanna Block 2024 09:58:53 AM > faxed to [facility], Savanna Block 03/05/2025 10:01:12 AM > 03/14/2025 at 09:30am with Veronika Cordero at [facility] Referral Priority Routine Medications Medication SIG [...] 1 tablet Orally Once a day Active Problems Problem Type SNOMED Code ICD Code Onset Dates Problem Status W/U Status Risk Notes Problem Essential hypertension (94417856) Essential hypertension (I10) Active confirmed Problem Morbid obesity (959472436) Morbid obesity (E66.01) Active confirmed Problem Sciatica (81717907) Lumbago with sciatica, right side (M54.41) Active confirmed Problem Sciatica (84446756) Lumbago with sciatica, left side (M54.42) Active confirmed Problem Atrial fibrillation (15193766) Atrial fibrillation, unspecified type (I48.91) Active confirmed Problem Atrial fibrillation (39912098) Atrial fibrillation with RVR (I48.91) Active confirmed Problem Varicose veins of bilateral lower limbs (6159711484885104 6) Varicose veins of both legs with edema (I83.893) Active confirmed Problem Leukocytosis (391314965) Leukocytosis, unspecified (D72.829) Active confirmed Problem Lymphedema (087110356) Lymphedema of both lower extremities (I89.0) Active confirmed Problem Peripheral venous insufficiency (11015847) Venous stasis dermatitis of both lower extremities (I87.2) Active confirmed Vital Signs Heart Rate 93 /min 09/26/2025 Blood pressure diastolic 80 mm Hg 09/26/2025 Height 70 in 09/26/2025 Blood pressure systolic 130 mm Hg 09/26/2025 Weight 388.4 lbs 09/26/2025 BMI 55.72 kg/m2 09/26/2025 Encounters Encounter Location Date Provider Diagnosis [facility] [address] [facility] [address] [place], [place] [id number] 03/04/2025 Nithin [place] Bleeding from varico se vein I83.899 [facility] [address] [place], [place] [id number] 04/14/2025 Nithin [place] Bleeding from varico se vein I83.899 and Peripheral edema R60.0 [facility] [address] [place], [place] [id number] 04/17/2025 Irene Conor Cellulitis of left ankle L03.116 [facility] [address] [place], [place] [id number] 06/17/2025 Nithin [place] Essential hypertensi on I10 ; Hyperglycemia R73.9 ; Atrial fibrillation, unspecified type I48.91 ; Morbid obesity E66.01 ; Prostate cancer screening Z12.5 and rn long term care use of drug Z79.899 [facility] [address] [place], [place] [id number] 07/01/2025 Dia Carr Acute COVID-19 U07.1 [facility] [address] [place], [place] [id number] 09/26/2025 Irene Conor Other fatigue R53.83 ; Shortness of breath R06.02 and History of atrial fibrillation Z86.79 [facility] [address] [place] [id number] 02/26/2025 R Jefferson Za [facility] [address] [facility] [address] [place], [place] [id number] 05/05/2025 R Jefferson [place] Screening for colon cancer Z12.11 [facility] [address] [facility] [address] [place], [place] [id number] 05/06/2025 R Jefferson Za [facility] [address] [facility] [address] [place], [place] [id number] 10/01/2025 Irene Conor [facility] [address] [facility] [address] [place] [id number] 10/10/2025 Irene Perdomo Assessments Encounter Date Diagnosis (ICD Code) Assessment [...] hypertension (ICD-10 - I10) Blood pressure journal 07/01/2025 Acute COVID-19 (ICD-10 - U07.1) Fluids, rest, supportive measures for fever/symptom relief; discussed infectious precautions; declines Paxlovid 09/26/2025 Shortness of breath (ICD-10 - R06.02) 09/26/2025 Other fatigue (ICD-10 - R53.83) 09/26/2025 History of atrial fibrillation (ICD-10 - Z86.79) 06/17/2025 Atrial fibrillation, unspecified type (ICD-10 - I48.91) 06/17/2025 Morbid obesity (ICD-10 - E66.01) 06/17/2025 Prostate cancer screening (ICD-10 - Z12.5) 06/17/2025 rn long term care use of drug (ICD-10 - Z79.899) Plan Of Treatment Pending Test Test Name Order Date P-BNP (Brain Natriuretic Peptide) 2024 Insurance Providers Payer Name Payer Address Payer Phone Subscriber Number Group Number Insured Name Patient Relationship to Insured Coverage Start Date Coverage End Date [employer]OHNN[employer] [address] [place] [address] [id number] Jasiel Frederick Self - patient is the insured Medical (General) History Medical History History ICD Code Sleep Apnea A-Fib, Dx: 2023, cardioversion in 2023 and in May 2025 Allergic Rhinitis varicose veins Cologua - 2024 Surgical History Surgery Date(Month/Year) Hernia Repair 1980 Tonsilectomy 1982 Vascetomy 2009 Heart Cath- [facility]- Dr. Ramirez 06/06/2024
[2025-10-22 11:09] LABS: Hematocrit 42.2 % (42.0-52.0); Hemoglobin 14.0 g/dL (14.1-18.0); Immature Granulocytes % 1.2 %; Mean Corpuscular HGB Conc 33.2 g/dL (31.8-35.4); Mean Corpuscular Hemoglobin 30.8 pg (27.0-31.2); Mean Corpuscular Volume 92.7 fl (80-94); Nucleated Red Blood Cells % 0 %; Platelet Count 313 K/mm3 (142-424); Red Blood Count 4.55 M/mm3 (4.60-6.20); Red Cell Distribution Width-SD 44.2 fL; White Blood Count 12.4 K/mm3 (4.8-10.8)
[2025-10-22 11:17] LABS: Chloride 104 mmol/L (98-107); Potassium 4.1 mmoL/L (3.5-5.1); Sodium 137 mmol/L (136-145)
[2025-10-22 11:20] LABS: Anion Gap 12.1 mEq/L (5-15); Blood Urea Nitrogen 11 mg/dl (9-20); Carbon Dioxide 25 mmol/L (22.0-30.0); Creatinine Clearance Estimated 108 mL/min (50-200); Creatinine,Serum 0.80 mg/dl (0.66-1.25); Estimated Glomerular Filt Rate 102 ml/min (>60); GFR (African American) 123 ML/MIN (>60)
[2025-10-22 11:21] LABS: Calcium 9.4 mg/dl (8.4-10.2); Glucose 134 mg/dl (74-100)
== END 2025-10-22 23:59 | disposition home or self-care (01) ==
LOC: PREOP 10:30
PROVIDERS: PCP Family Medicine; Visit Provider Orthopaedic Surgery
DX: Z01.812 Encounter for preprocedural laboratory examination (principal)
CPT/HCPCS: 80048; 85025